=== PATIENT | male | born 1960 | race Caucasian/White ===

== ENCOUNTER 2016-03-21 20:00 | Inpatient (IN) | payer OTHER ==
[~2016-03-21] VITALS: Ht 175.3 cm; Wt 63.3 kg
[~2016-03-21 20:00] MED LIST: FLUO-1 PO; GABA100C4 PO; HYDR-3366 PO; HYDR-3533 PO; HYDR-3583 PO; PROT40TA PO; REME15TA PO; ROBA750T PO
[2016-03-21 20:04] VITALS: O2SAT 100
[2016-03-21] MEDS ORDERED: GENTAMICIN 80 MG PREMIX 100 ML ONE (20:06)
[2016-03-21] MEDS ORDERED: ONDANSETRON HCL 4 MG/2 ML VIAL ONE (20:09)
[2016-03-21] MEDS ORDERED: MORPHINE SULFATE 8 MG/ML INJ ONE ×2 (20:09→20:36)
[2016-03-21 20:24] LABS: I-STAT POTASSIUM 3.9 MMOL/L (3.5-4.9)
[2016-03-21 20:26] LABS: AUTOMATED NEUTROPHIL # 7.8 TH/MM3 (1.8-7.7); BASOPHIL # 0.1 TH/MM3 (0-0.2); EOSINOPHIL # 0.1 TH/MM3 (0-0.4); EOSINOPHIL % 1.2 % (0.0-4.0); HEMATOCRIT 27.7 % (39.0-51.0); HEMO FLAGS DIFF FINAL; LYMPH % 16.3 % (9.0-44.0); LYMPHOCYTE # 1.7 TH/MM3 (1.0-4.8); MEAN CELL VOLUME 84.4 FL (80.0-100.0); MEAN CORPUSCULAR HEMOGLOBIN 28.7 PG (27.0-34.0); MONO % 6.3 % (0.0-8.0); NEUT % 75.2 % (16.0-70.0); PLATELET COUNT 545 TH/MM3 (150-450); RED BLOOD COUNT 3.29 MIL/MM3 (4.50-5.90); RED CELL DISTRIBUTION WIDTH 14.4 % (11.6-17.2); WHITE BLOOD COUNT 10.4 TH/MM3 (4.0-11.0)
[2016-03-21 20:34] LABS: APTT (PATIENT) 21.2 SEC (24.3-30.1); INTERNATIONAL NORMALIZED RATIO 0.9 RATIO; PROTHROMBIN TIME - PATIENT 10.3 SEC (9.8-11.6)
[2016-03-21] MEDS ORDERED: IOHEXOL 350 MG/ML 10 ML VIAL (for RAD DIAG) IV ONE (20:39)
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
[2016-03-21] MEDS ORDERED: LIDOCAINE 1%/EPINEPHrine 1:100,000 SOLN 50 ML VIAL ONE (20:49)
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
[2016-03-21] MEDS ORDERED: ceFAZolin 2 GM PREMIX 50 ML IV STA (20:52)
[2016-03-21] MEDS ORDERED: DIPHTH/TETANUS/ACEL PERTUSSIS (BOOSTER) 0.5 ML VIAL/PFS IM ONE (20:52)
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
[2016-03-21] MEDS ORDERED: SODIUM CHLOR 0.9% 1000 ML INJ 1,000 ML IV ONE (21:00)
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
--- NOTE | 2016-03-21 21:47 | RADRPT ---
EXAM DATE/TIME: 03/21/2016 21:23 [facility] COMPARISON: CHEST SINGLE AP, March 21, 2016, 19:56. INDICATIONS : Left sided chest tube placement. MEDICAL HISTORY : None. SURGICAL HISTORY : None. ENCOUNTER: Initial ACUITY: 1 day PAIN SCORE: 10/10 LOCATION: Left chest FINDINGS: There is a comminuted fracture of the proximal right humerus inclusive of the head without dislocatio n. There is a fracture of the mid left clavicle slightly offset one half bone width. Contiguous left rib fractures are noted ribs 2, 3, 4 and 5 with a left chest tube in place and no evidence of pneumot horax with subcutaneous emphysema along the left lateral chest wall. CONCLUSION: Right humerus and left clavicle fracture as well as contiguous 2 through 6 left posterior rib fractur es and subcutaneous emphysema with left chest tube in place and no pneumothorax Gopi Dumont MD on March 21, 2016 at 21:44 Board Certified Radiologist. This report was verified electronically.
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
[2016-03-21 22:00] VITALS: BP 135/81; PULSE 108; RESP 34; TEMP 97.7; O2SAT 100
[2016-03-21] MEDS: SODIUM CHLOR 0.9% 1000 ML INJ 1,000 ML IV SCH (22:16)
[2016-03-21] MEDS ORDERED: SODIUM CHLORIDE 0.9% FLUSH 5 ML FLUSH IVF PRN (22:30)
[2016-03-21] MEDS ORDERED: MISCELLANEOUS NURSING INFORMATION XX SCH (22:30)
[2016-03-21] MEDS ORDERED: CHLORHEXIDINE GLUCONATE 2 % 1 PACK (2 CLOTHS) TOP PRN (22:30)
[2016-03-21] MEDS ORDERED: ENALAPRILAT 1.25 MG/ML VIAL IV PRN (22:30)
[2016-03-21] MEDS ORDERED: MAGNESIUM HYDROXIDE SUSP 30 ML CUP PO PRN (22:30)
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
[2016-03-21] MEDS: PANTOPRAZOLE SODIUM 40 MG VIAL IVP SCH (23:00)
[2016-03-21] MEDS ORDERED: GENTAMICIN SULFATE 80 MG/2 ML VIAL ONE (23:15)
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
[2016-03-22] VITALS (16 sets, daily range): BP systolic 104–153; BP diastolic 59–93; PULSE 89–114; RESP 14–18; TEMP 96.2–98.5; O2SAT 95–100
--- NOTE | 2016-03-22 00:33 | PD.ORT.PN ---
Subjective Subjective Remarks History reviewed Patient examined Objective Vitals Vital Signs Date Time Temp Pulse Resp B/P Pulse Ox O2 Delivery O2 Flow Rate FiO2 03/21/16 22:00 97.7 108 34 135/81 100 03/21/16 22:00 108 Result Diagram: 03/21/162000 Other Results Laboratory Tests Test 03/21/16 20:01 Prothrombin Time 10.3 SEC (9.8-11.6) Prothromb Time International 0.9 RATIO Ratio Imaging Last 24 hours Impressions Thoracic Spine CT 03/21/162027 Signed Impressions: Service Date/Time: Monday, March 21, 2016 20:39 - CONCLUSION: Intact thoracic spine. Contiguous left rib fractures #2 through 8 posteriorly Gopi Dumont MD Maxillofacial CT 03/21/162027 Signed Impressions: Service Date/Time: Monday, March 21, 2016 20:36 - CONCLUSION: Extensive fractures of all king of the maxillary sinuses And the nasal bone and ala inclusive of extension into the hard palate. There is a slightly depressed fracture of the medial floor of the left orbit and nondepressed fracture left zygomatic arch. Admixture of air and fluid noted in the maxillary sinuses and ethmoid air cells. Intraorbital contents are normal and base of the skull appears intact with normal intracranial contents Gopi Dumont MD Lumbar Spine CT 03/21/162027 Signed Impressions: Service Date/Time: Monday, March 21, 2016 20:39 - CONCLUSION: Nondisplaced fracture transverse process left L5 and left sacrum. Degenerative disc disease L3-S1. Gopi Dumont MD Pelvis X-Ray 03/21/162012 Signed Impressions: Service Date/Time: Monday, March 21, 2016 19:56 - CONCLUSION: Fracture left sacrum appreciated. Remainder the pelvis is intact with fractures of the pelvis better appreciated on CT scan Gopi Dumont MD Head CT 03/21/162012 Signed Impressions: Service Date/Time: Monday, March 21, 2016 20:30 - CONCLUSION: Intact calvarium. Normal intracranial contents. Facial fractures as described on the facial bone CT Gopi Dumont MD Chest X-Ray 03/21/162012 Signed Impressions: Service Date/Time: Monday, March 21, 2016 19:56 - CONCLUSION: Slightly off set fracture posterior left fourth rib and probably contiguous third and fifth ribs with no pneumothorax Gopi Dumont MD Chest CT 03/21/162012 Signed Impressions: Service Date/Time: Monday, March 21, 2016 20:39 - CONCLUSION: Contiguous left posterior rib fractures #2 through 8 with associated pleural thickening and parenchymal contusion. In the mid to upper right chest anteriorly there is a 1.3 cm pneumothorax without tension . Left chest subcutaneous emphysema Fracture of the proximal right humerus and mid left clavicle additionally appreciated. Gopi Dumont MD Cervical Spine CT 03/21/162012 Signed Impressions: Service Date/Time: Monday, March 21, 2016 20:30 - CONCLUSION: Degenerative changes of the cervical spine. Fractures acute left ribs numbered 2 and 3 posteriorly Gopi Dumont MD Abdomen/Pelvis CT 03/21/162012 Signed Impressions: Service Date/Time: Monday, March 21, 2016 20:39 - CONCLUSION: Multiple fractures inclusive of left inferior superior pubic ramus as well as transverse process and left L5 and left sacrum. Lower chest demonstrates fracture of left rib #8 posteriorly and a small anterior pneumothorax. Intra-abdominal and pelvic contents are normal Gopi Dumont MD Assessment & Plan Problem List: (1) Open right tibial fracture Plan: Recommend emergent Irrigation and Debridement of right open tibia fracture I will examine the right femur under anaesthesia I will examine the right shoulder under anaesthesia Possible internal or external fixation right tibial He will ultimately require multiple interventions Based on complexity of the multiple injuries will request consultation with Dr. Anatoly Hogan Informed consent obtained for above plan Timmy Kapadia MD Mar 22, 2016 00:33
[2016-03-22] MEDS: MULTIVITAMIN INJ 10 ML, THIAMINE INJ 100 MG, FOLIC ACID INJ 1 MG in SODIUM CHLORID 0.9%... IV SCH (01:00)
[2016-03-22] MEDS ORDERED: PROPOFOL 1000 MG/100 ML INJ 100 ML ONE (01:48)
--- NOTE | 2016-03-22 01:52 | PD.OP ---
Operative Report Preoperative Diagnosis: (1) Open right tibial fracture Postoperative Diagnosis: (1) Open right tibial fracture Procedure: Irrigation and [id number] of Right Grade 2 Open Tibial shaft Fracture Anesthesia: General Surgeon: Timmy Kapadia MD Air Analyst(s): staff Operation and Findings: see op report Timmy Kapadia MD Mar 22, 2016 01:52
[2016-03-22] MEDS ORDERED: MIDAZOLAM HCL 2 MG/2 ML VIAL ONE (02:25)
[2016-03-22] MEDS ORDERED: fentaNYL CITRATE 250 MCG/5 ML AMP ONE (02:26)
--- NOTE | 2016-03-22 02:28 | RADRPT ---
EXAM DATE/TIME: 03/22/2016 02:07 [facility] COMPARISON: CHEST SINGLE AP, March 21, 2016, 21:23. INDICATIONS : Endotracheal tube placement. MEDICAL HISTORY : Unobtainable. SURGICAL HISTORY : Unobtainable. ENCOUNTER: Subsequent ACUITY: 1 day PAIN SCORE: Non-responsive. LOCATION: Bilateral chest FINDINGS: Endotracheal tube tip in fracture position. Left chest tube without significant pneumothorax. Multipl e left posterior rib fractures. NG tip near GE junction. Subsegmental airspace disease in the left tavon ng. Subcutaneous air left chest wall. Left clavicle fracture. Proximal right humeral fracture. CONCLUSION: 1. Endotracheal tube tip in satisfactory position. NG tip near GE junction with side port in distal e sophagus. Left chest tube without significant pneumothorax. Naeem Peterson MD on March 22, 2016 at 2:25 Board Certified Radiologist. This report was verified electronically.
[2016-03-22] MEDS ORDERED: DO NOT ADM ANY ANTICOAGULANT DRUGS XX PRN ×2 (02:30→21:00)
[2016-03-22] MEDS ORDERED: PROPOFOL 1000 MG/100 ML IV SCH (02:45)
--- NOTE | 2016-03-22 02:55 | RADRPT ---
EXAM DATE/TIME: 03/22/2016 01:27 [facility] COMPARISON: No previous studies available for comparison. INDICATIONS : Irrigation and debridement of right distal tibia fibula fracture with closed reduction and splinting. MEDICAL HISTORY : None. SURGICAL HISTORY : None. ENCOUNTER: Subsequent ACUITY: 1 day PAIN SCORE: Non-responsive. LOCATION: Right ankle FINDINGS: Spot films reveal comminuted fractures of the distal tibia and fibula with overlying cast. CONCLUSION: 1. Comminuted fractures distal tibia and fibula. Naeem Peterson MD on March 22, 2016 at 2:54 Board Certified Radiologist. This report was verified electronically.
--- NOTE | 2016-03-22 02:56 | RADRPT ---
EXAM DATE/TIME: 03/22/2016 01:27 [facility] COMPARISON: No previous studies available for comparison. INDICATIONS : Closed reduction of a right shoulder fracture. MEDICAL HISTORY : None. SURGICAL HISTORY : None. ENCOUNTER: Subsequent ACUITY: 1 day PAIN SCORE: Non-responsive. LOCATION: Right shoulder FINDINGS: Spot film reveals comminuted fracture proximal humerus. No dislocation identified. CONCLUSION: 1. Proximal right humerus fracture. Naeem Peterson MD on March 22, 2016 at 2:54 Board Certified Radiologist. This report was verified electronically.
--- NOTE | 2016-03-22 02:58 | RADRPT ---
EXAM DATE/TIME: 03/22/2016 01:27 [facility] COMPARISON: No previous studies available for comparison. INDICATIONS : Closed reduction of right femur fracture done in the operating room. MEDICAL HISTORY : None. SURGICAL HISTORY : None. ENCOUNTER: Subsequent ACUITY: 1 day PAIN SCORE: Non-responsive. LOCATION: Right femur FINDINGS: Spot films reveal slight curvature of an intramedullary rhys traversing a proximal femoral shaft fract ure. There is also a comminuted distal femoral shaft fracture around the distal aspect of the rhys and screw. CONCLUSION: 1. Proximal and distal femoral shaft fractures as above with curvature of intramedullary rhys. Naeem Peterson MD on March 22, 2016 at 2:55 Board Certified Radiologist. This report was verified electronically.
[2016-03-22 03:40] LABS: BLOOD GAS BASE EXCESS -2.4 mmol/L (-2-2); BLOOD GAS CARBOXYHEMOGLOBIN 1.5 % (0-4); BLOOD GAS HCO3 23 mmol/L (22-26); BLOOD GAS O2 HGB SATURATION 90 % (90-100); BLOOD GAS OXYGEN CONTENT 9.3 Vol % (12.0-20.0); BLOOD GAS PCO2 48 mmHg (38-42); BLOOD GAS PO2 71 mmHg (61-120); BLOOD GAS TOTAL HGB 7.3 G/DL (12.0-16.0); CRITICAL VALUE NO; OXYGEN DEVICE VENTILATOR; TEMP CORR TO 98.6
[2016-03-22 03:41] LABS: DRAW SITE LT RADIAL; FIO2 50 %; NUMBER OF ARTERIAL PUNCTURES 1; STAT YES; ULNAR PULSE PRESENT; VENT SETTINGS PRVC/AC
[2016-03-22] MEDS ORDERED: fentaNYL 2,500 MCG/NS 250 ML IV SCH (03:45)
[2016-03-22] MEDS: CHLORHEXIDINE GLUCONATE 2 % 1 PACK (2 CLOTHS) TOP SCH (04:00)
[2016-03-22 04:06] LABS: AUTOMATED NEUTROPHIL # 13.6 TH/MM3 (1.8-7.7); BASOPHIL % 0.2 % (0.0-2.0); HEMATOCRIT 24.3 % (39.0-51.0); HEMO FLAGS DIFF FINAL; LYMPH % 1.5 % (9.0-44.0); LYMPHOCYTE # 0.2 TH/MM3 (1.0-4.8); MEAN CELL VOLUME 84.8 FL (80.0-100.0); MEAN CORPUSCULAR HEMOGLOBIN 28.5 PG (27.0-34.0); MEAN CORPUSCULAR HGB CONC 33.5 % (32.0-36.0); NEUT % 91.3 % (16.0-70.0); PLATELET COUNT 365 TH/MM3 (150-450); RED BLOOD COUNT 2.87 MIL/MM3 (4.50-5.90); RED CELL DISTRIBUTION WIDTH 14.3 % (11.6-17.2); WHITE BLOOD COUNT 14.9 TH/MM3 (4.0-11.0)
[2016-03-22 04:22] LABS: APTT (PATIENT) 23.6 SEC (24.3-30.1); PROTHROMBIN TIME - PATIENT 10.7 SEC (9.8-11.6)
[2016-03-22 04:26] LABS: ALT (GPT) 71 U/L (12-78); ANION GAP 8 MEQ/L (5-15); AST (GOT) 140 U/L (15-37); BICARBONATE 21.9 MEQ/L (21.0-32.0); BLOOD UREA NITROGEN 13 MG/DL (7-18); CHLORIDE 110 MEQ/L (98-107); GLOMERULAR FILTRATION RATE 65 ML/MIN (>89); MAGNESIUM 1.7 MG/DL (1.5-2.5); POTASSIUM 4.4 MEQ/L (3.5-5.1); SODIUM (NA) 140 MEQ/L (136-145)
[2016-03-22 04:28] LABS: ALKALINE PHOSPHATASE 74 U/L (45-117); TOTAL BILIRUBIN ADULT 0.3 MG/DL (0.2-1.0)
[2016-03-22] MEDS: CLINDAMYCIN INJ 600 MG in SODIUM CHLORIDE 0.9% INJ 100 ML IV SCH ×3 (05:00→20:56)
[2016-03-22] MEDS: ceFAZolin 2 GM PREMIX 50 ML IV SCH ×3 (05:00→20:08)
[2016-03-22] MEDS: RESP: ALBUTEROL 2.5 MG/IPRATROPIUM 0.5 MG NEB (SCH) NEB ×2 (05:37→20:31)
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
[2016-03-22] MEDS: CHLORHEXIDINE 0.12% (ORAL KIT) 15 ML CUP MT SCH ×2 (07:47→20:08)
[2016-03-22] MEDS: DOCUSATE SODIUM 100 MG CAP PO SCH ×2 (07:47→19:42)
--- NOTE | 2016-03-22 11:00 | RADRPT ---
EXAM DATE/TIME: 03/22/2016 10:08 [facility] COMPARISON: FEMUR RIGHT (1 VW), March 22, 2016, 1:27. INDICATIONS : Right knee fracture. RADIATION DOSE: 34.67 CTDIvol (mGy) ; Combined studies MEDICAL HISTORY : Non-responsive. SURGICAL HISTORY : Non-responsive. ENCOUNTER: Subsequent ACUITY: 2 days PAIN SCALE: Non-responsive LOCATION: Right knee TECHNIQUE: Volumetric scanning of the knee was performed. Using automated exposure control and adjustment of th e mA and/or kV according to patient size, radiation dose was kept as low as reasonably achievable to obtain optimal diagnostic quality images. FINDINGS: An intramedullary rhys is partially seen involving the distal femur. There is a solitary anchoring scr ew distally. There is a comminuted fracture of the distal femoral metaphysis which also includes the area of anchoring screw. No angulation or distraction of the fracture within the femur is observed. Comminuted impaction style fracture of the tibial plateaus noted. There is depression involving the l ateral tibial plateau of approximately 5 mm. The tibial plateau fractures do involve the articular pereyra rface of both tibial plateaus. Fractures also extend through the medial tibial spine. No angulation o r distraction. A proximal fibular metaphyseal fracture is obliquely oriented relative to the long axi s of the bone. No angulation or distraction observed. Hemarthrosis noted. CONCLUSION: 1. Comminuted fractures involving the distal femur, proximal tibia, and proximal fibula with hemarthr osis as detailed above. Ugo Glez Jr., MD on March 22, 2016 at 10:55 Board Certified Radiologist. This report was verified electronically.
--- NOTE | 2016-03-22 11:03 | RADRPT ---
EXAM DATE/TIME: 03/22/2016 10:08 [facility] COMPARISON: No previous studies available for comparison. INDICATIONS : Left knee fracture. RADIATION DOSE: 34.67 CTDIvol (mGy) ; Combined studies MEDICAL HISTORY : Non-responsive. SURGICAL HISTORY : Non-responsive. ENCOUNTER: Subsequent ACUITY: 2 days PAIN SCALE: Non-responsive LOCATION: Left knee TECHNIQUE: Volumetric scanning of the knee was performed. Using automated exposure control and adjustment of th e mA and/or kV according to patient size, radiation dose was kept as low as reasonably achievable to obtain optimal diagnostic quality images. FINDINGS: Motion artifact degrades the exam. The distal femur appears intact. Motion artifact generates some irregularity to the cortex but this i s artifactual in nature. No true fracture is felt present. There is a comminuted fracture involving the proximal tibial metaphysis. This extends along the later al cortical margin to the articular surface of the lateral tibial plateau. This is most pronounced in volving the anterior articular surface. No angulation or distraction is seen. Hemarthrosis is noted i nvolving the knee joint. Proximal fibula is intact. CONCLUSION: 1. Comminuted fracture involving the proximal tibial metaphysis with extension to the lateral tibial plateau. No angulation, depression or distraction. 2. Hemarthrosis. Ugo Glez Jr., MD on March 22, 2016 at 10:59 Board Certified Radiologist. This report was verified electronically.
[2016-03-22 12:48] LABS: HEMATOCRIT 23.3 % (39.0-51.0); MEAN CELL VOLUME 84.7 FL (80.0-100.0); MEAN CORPUSCULAR HEMOGLOBIN 27.6 PG (27.0-34.0); MEAN CORPUSCULAR HGB CONC 32.6 % (32.0-36.0); PLATELET COUNT 309 TH/MM3 (150-450); RED BLOOD COUNT 2.75 MIL/MM3 (4.50-5.90); RED CELL DISTRIBUTION WIDTH 14.6 % (11.6-17.2); REVIEW FLAG FINAL; WHITE BLOOD COUNT 11.6 TH/MM3 (4.0-11.0)
[2016-03-22] MEDS: SODIUM CHLOR 0.9% 1000 ML INJ 1,000 ML IV SCH ×2 (12:52→19:00)
[2016-03-22] MEDS: BACITRACIN TOP OINT 15 GM TUBE TOP SCH ×2 (12:52→21:00)
[2016-03-22] MEDS ORDERED: PROPOFOL 200 MG/20 ML AMP IV ONE ×2 (13:36→13:40)
[2016-03-22] MEDS ORDERED: LACTATED RINGER'S 1000 ML INJ 2,000 ML IV ONE ×2 (13:36→13:40)
[2016-03-22] MEDS ORDERED: PHENYLEPH/NS 1000 MCG/10 ML SYR IV ONE (13:40)
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
[2016-03-22] MEDS ORDERED: LIDOCAINE 2%/EPINEPHrine 1:100,000 30ML MDV INFIL ONE (17:41)
[2016-03-22] MEDS ORDERED: ARTIFICIAL TEARS OPTH OINT 3.5 APPLIC/3.5 GM TUBO ONE (17:42)
[2016-03-22] MEDS ORDERED: CHLORHEXIDINE GLUCONATE 0.12% 30 ML CUP MT ONE (18:12)
[2016-03-22] MEDS: PROPOFOL 1000 MG/100 ML INJ 100 ML IV SCH (20:08)
[2016-03-22] MEDS: methylPREDNISolone SOD SUCC 125 MG/2 ML VIAL IV SCH (20:59)
[2016-03-22 21:26] LABS: HEMATOCRIT 27.2 % (39.0-51.0); REVIEW FLAG FINAL
[2016-03-22] MEDS: PANTOPRAZOLE SODIUM 40 MG VIAL IVP SCH (23:48)
[2016-03-23] VITALS (14 sets, daily range): BP systolic 100–124; BP diastolic 60–72; PULSE 77–96; RESP 14; TEMP 96.8–100; O2SAT 94–100
[2016-03-23] MEDS: PROPOFOL 1000 MG/100 ML INJ 100 ML IV SCH ×5 (00:47→23:27)
[2016-03-23] MEDS: MULTIVITAMIN INJ 10 ML, THIAMINE INJ 100 MG, FOLIC ACID INJ 1 MG in SODIUM CHLORID 0.9%... IV SCH (00:47)
[2016-03-23] MEDS: methylPREDNISolone SOD SUCC 125 MG/2 ML VIAL IV SCH (02:48)
[2016-03-23] MEDS: fentaNYL DRIP 250 ML IV SCH (03:42)
[2016-03-23 03:57] LABS: HEMATOCRIT 26.5 % (39.0-51.0); HEMO FLAGS DIFF FINAL; LYMPH % 1.7 % (9.0-44.0); LYMPHOCYTE # 0.2 TH/MM3 (1.0-4.8); MEAN CELL VOLUME 83.7 FL (80.0-100.0); MEAN CORPUSCULAR HEMOGLOBIN 28.1 PG (27.0-34.0); MEAN CORPUSCULAR HGB CONC 33.5 % (32.0-36.0); MONO % 3.1 % (0.0-8.0); NEUT % 95.2 % (16.0-70.0); PLATELET COUNT 249 TH/MM3 (150-450); RED BLOOD COUNT 3.16 MIL/MM3 (4.50-5.90); RED CELL DISTRIBUTION WIDTH 14.8 % (11.6-17.2); WHITE BLOOD COUNT 9.5 TH/MM3 (4.0-11.0)
[2016-03-23] MEDS ORDERED: methylPREDNISolone ACETATE 80 MG/ML VIAL IM ONE (04:00)
[2016-03-23 04:19] LABS: BICARBONATE 26.9 MEQ/L (21.0-32.0); MAGNESIUM 1.8 MG/DL (1.5-2.5)
[2016-03-23 04:43] LABS: CALCIUM-PROTEIN CORRECTED 8.1 MG/DL (8.5-10.1)
[2016-03-23] MEDS: CHLORHEXIDINE GLUCONATE 2 % 1 PACK (2 CLOTHS) TOP SCH (05:26)
[2016-03-23] MEDS: SODIUM CHLOR 0.9% 1000 ML INJ 1,000 ML IV SCH ×3 (05:26→23:27)
[2016-03-23] MEDS: ceFAZolin 2 GM PREMIX 50 ML IV SCH ×2 (05:29→23:27)
[2016-03-23] MEDS: CLINDAMYCIN INJ 600 MG in SODIUM CHLORIDE 0.9% INJ 100 ML IV SCH ×3 (05:29→21:33)
[2016-03-23 06:08] LABS: BLOOD GAS BASE EXCESS 1.3 mmol/L (-2-2); BLOOD GAS CARBOXYHEMOGLOBIN 1.3 % (0-4); BLOOD GAS HCO3 26 mmol/L (22-26); BLOOD GAS METHEMOGLOBIN 0.7 % (0-2); BLOOD GAS O2 HGB SATURATION 94 % (90-100); BLOOD GAS OXYGEN CONTENT 12.4 Vol % (12.0-20.0); BLOOD GAS PCO2 47 mmHg (38-42); BLOOD GAS PO2 82 mmHg (61-120); BLOOD GAS TOTAL HGB 9.3 G/DL (12.0-16.0); CRITICAL VALUE NO; DRAW SITE LT RADIAL; FIO2 40 %; NUMBER OF ARTERIAL PUNCTURES 1; OXYGEN DEVICE VENTILATOR; STAT NO; TEMP CORR TO 98.6; ULNAR PULSE Y; VENT SETTINGS PRVC/AC
--- NOTE | 2016-03-23 06:24 | RADRPT ---
EXAM DATE/TIME: 03/23/2016 05:14 [facility] COMPARISON: CHEST SINGLE AP, March 22, 2016, 2:07. INDICATIONS : Short of breath. MEDICAL HISTORY : None. SURGICAL HISTORY : None. ENCOUNTER: Subsequent ACUITY: 2 days PAIN SCORE: Non-responsive. LOCATION: Bilateral chest FINDINGS: A single view of the chest demonstrates endotracheal tube in satisfactory position. NG enters stomach . Left chest tube without pneumothorax. Multiple left-sided rib fractures. Left clavicle and right hu meral fracture again noted. Mild basilar dependent airspace disease in the lungs. CONCLUSION: 1. Support apparatus unchanged. No definite pneumothorax. Improving subcutaneous air in left chest wa ll. Stable to slight increase in dependent and basilar airspace disease on the left. Naeem Peterson MD on March 23, 2016 at 6:21 Board Certified Radiologist. This report was verified electronically.
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
[2016-03-23] MEDS: CHLORHEXIDINE 0.12% (ORAL KIT) 15 ML CUP MT SCH ×2 (08:00→21:33)
[2016-03-23] MEDS: DOCUSATE SODIUM 100 MG CAP PO SCH ×2 (09:00→21:00)
[2016-03-23] MEDS: BACITRACIN TOP OINT 15 GM TUBE TOP SCH ×2 (09:00→21:33)
[2016-03-23] MEDS ORDERED: TRANEXAMIC ACID IV SCH (10:00)
[2016-03-23] MEDS ORDERED: SODIUM CHLORIDE 0.9% IV SCH (10:00)
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
[2016-03-23] MEDS ORDERED: ceFAZolin INJ 1,000 MG VIAL ONE (11:46)
[2016-03-23] MEDS ORDERED: PROPOFOL 200 MG/20 ML AMP IV ONE (12:00)
[2016-03-23] MEDS ORDERED: LACTATED RINGER'S 1000 ML INJ 1,000 ML IV ONE (12:00)
[2016-03-23] MEDS ORDERED: CLINDAMYCIN PHOS 600 MG/4 ML VIAL ONE (13:27)
[2016-03-23] MEDS ORDERED: fentaNYL CITRATE 250 MCG/5 ML AMP ONE ×2 (15:48→18:56)
[2016-03-23] MEDS ORDERED: ceFAZolin INJ 1,000 MG VIAL IV ONE (16:22)
[2016-03-23] MEDS: LACTATED RINGER'S 1000 ML INJ 1,000 ML IV SCH (18:15)
--- NOTE | 2016-03-23 18:47 | EKG ---
Date Performed: 03/22/2016 Time Performed: 11:47:58 PTAGE: 89 years EKG: Sinus rhythm . Normal ECG NO PREVIOUS TRACING DOCTOR: Abdiel Holland Interpretating Date/Time 03/23/2016 18:45:13
--- NOTE | 2016-03-23 18:54 | HHI.PR ---
Subjective Remarks POD1 s/p orif lefort 1 maxillary fx/ CR nasal bin fracture, stabilization of maxillary palatal fracture pt in OR when came to round this evening, pt's nurse stated pt in OR since 12 this afternoon Objective Vital Signs Date Time Temp Pulse Resp B/P Pulse Ox O2 Delivery O2 Flow Rate FiO2 03/23/16 11:40 100 100 03/23/16 11:13 95 40 03/23/16 08:00 92 03/23/16 08:00 40 03/23/16 08:00 98.4 92 14 113/66 94 03/23/16 07:55 95 40 03/23/16 06:00 93 03/23/16 04:07 96 40 03/23/16 04:00 100.0 94 14 124/71 96 03/23/16 04:00 94 03/23/16 04:00 40 03/23/16 02:00 96 03/23/16 01:21 95 40 03/23/16 00:00 40 03/23/16 00:00 88 03/23/16 00:00 99.5 88 14 100/60 97 03/22/16 22:07 99 40 03/22/16 22:00 89 03/22/16 20:30 100 40 03/22/16 20:00 98.3 89 15 104/59 99 03/22/16 20:00 89 03/22/16 20:00 40 I/O 03/22/16 03/22/16 03/22/16 03/23/16 03/23/16 03/23/16 07:00 15:00 23:00 07:00 15:00 23:00 Intake Total 1193 ml 1123 ml 1214 ml 1170 ml Output Total 850 ml 560 ml 675 ml 850 ml Balance 343 ml 563 ml 539 ml 320 ml Intake Oral 0 ml 0 ml 0 ml IV Total 913 ml 1123 ml 1214 ml 1170 ml Other 280 ml Output Urine Total 750 ml 500 ml 575 ml 850 ml Gastric Drainage Total 20 ml 25 ml 100 ml 0 ml Chest Tube Drainage Total 10 ml 10 ml 0 ml 0 ml Drainage Total 50 ml 25 ml 0 ml 0 ml Estimated Blood Loss 20 ml Result Diagram: 03/23/16 0325 03/23/16 0325 Assessment and Plan Assessment and Plan POD1 s/p orif lefort 1 maxillary fx/ CR nasal bin fracture, stabilization of maxillary palatal fracture pt still in OR when came to round this evening plan to eval pt tomorrow Dillon Romeo DMD Mar 23, 2016 18:54
--- NOTE | 2016-03-23 19:20 | RADRPT ---
EXAM DATE/TIME: 03/23/2016 14:08 [facility] COMPARISON: FEMUR RIGHT (AP & LAT/2VWS), March 21, 2016, 21:17. INDICATIONS : Right femur hardware removal with revision. MEDICAL HISTORY : Non-responsive SURGICAL HISTORY : Non-responsive ENCOUNTER: Subsequent ACUITY: 2 days PAIN SCORE: Non-responsive. LOCATION: Right femur FINDINGS: New intramedullary rhys has been placed in the femur. Alignment is anatomic. CONCLUSION: Anatomic alignment. Ifeanyi Suarez MD FACR on March 23, 2016 at 19:13 Board Certified Radiologist. This report was verified electronically.
--- NOTE | 2016-03-23 19:22 | RADRPT ---
EXAM DATE/TIME: 03/23/2016 14:08 [facility] COMPARISON: TIBIA/FIBULA RIGHT (AP/LAT), March 21, 2016, 19:56. INDICATIONS : ORIF right tibia/fibula. MEDICAL HISTORY : Non-responsive SURGICAL HISTORY : Non-responsive ENCOUNTER: Subsequent ACUITY: 1 day PAIN SCORE: Non-responsive. LOCATION: Right tibia/fibula FINDINGS: Intramedullary rhys is seen bridging the severely comminuted fracture of the distal tibia. Alignment i s anatomic. Fibular fracture is noted. Plate with screws is seen bridging the plateau fracture. CONCLUSION: Anatomic alignment. Ifeanyi Suarez MD FACR on March 23, 2016 at 19:15 Board Certified Radiologist. This report was verified electronically.
--- NOTE | 2016-03-23 19:23 | RADRPT ---
EXAM DATE/TIME: 03/23/2016 17:44 [facility] COMPARISON: TIBIA/FIBULA LEFT (AP/LAT), March 21, 2016, 19:56. INDICATIONS : ORIF left tibia/fibula. MEDICAL HISTORY : Non-responsive SURGICAL HISTORY : Non-responsive ENCOUNTER: Subsequent ACUITY: 2 days PAIN SCORE: Non-responsive. LOCATION: Left tibia/fibula FINDINGS: Intramedullary rhys is seen bridging the fracture of the midshaft of the tibia. Alignment is anatomic . CONCLUSION: Anatomic alignment. Ifeanyi Suarez MD FACR on March 23, 2016 at 19:15 Board Certified Radiologist. This report was verified electronically.
[2016-03-23] MEDS: RESP: ALBUTEROL 2.5 MG/IPRATROPIUM 0.5 MG NEB (SCH) NEB (20:10)
[2016-03-23 20:12] LABS: HEMATOCRIT 22.5 % (39.0-51.0); REVIEW FLAG FINAL
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
[2016-03-23] MEDS: GENTAMICIN 80 MG PREMIX 100 ML IV SCH (21:33)
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
[2016-03-23] MEDS: PANTOPRAZOLE SODIUM 40 MG VIAL IVP SCH (22:19)
[2016-03-24] VITALS (18 sets, daily range): BP systolic 96–147; BP diastolic 59–76; PULSE 77–114; RESP 11–16; TEMP 96.9–99.2; O2SAT 94–100
[2016-03-24] MEDS: MULTIVITAMIN INJ 10 ML, THIAMINE INJ 100 MG, FOLIC ACID INJ 1 MG in SODIUM CHLORID 0.9%... IV SCH (01:24)
[2016-03-24] MEDS: LACTATED RINGER'S 1000 ML INJ 1,000 ML IV SCH (03:22)
[2016-03-24] MEDS: CHLORHEXIDINE GLUCONATE 2 % 1 PACK (2 CLOTHS) TOP SCH (04:15)
[2016-03-24] MEDS: fentaNYL DRIP 250 ML IV SCH ×2 (04:21→14:14)
[2016-03-24] MEDS: GENTAMICIN 80 MG PREMIX 100 ML IV SCH ×3 (04:22→19:53)
[2016-03-24 04:31] LABS: AUTOMATED NEUTROPHIL # 7.7 TH/MM3 (1.8-7.7); BASOPHIL % 0.1 % (0.0-2.0); EOSINOPHIL % 0.1 % (0.0-4.0); LYMPH % 6.2 % (9.0-44.0); LYMPHOCYTE # 0.6 TH/MM3 (1.0-4.8); MEAN CELL VOLUME 84.3 FL (80.0-100.0); MEAN CORPUSCULAR HEMOGLOBIN 28.4 PG (27.0-34.0); MEAN CORPUSCULAR HGB CONC 33.7 % (32.0-36.0); MONO % 11.7 % (0.0-8.0); NEUT % 81.9 % (16.0-70.0); PLATELET COUNT 172 TH/MM3 (150-450); RED BLOOD COUNT 2.24 MIL/MM3 (4.50-5.90); RED CELL DISTRIBUTION WIDTH 14.5 % (11.6-17.2); WHITE BLOOD COUNT 9.4 TH/MM3 (4.0-11.0)
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
[2016-03-24 04:36] LABS: HEMO FLAGS DIFF FINAL
[2016-03-24 04:39] LABS: HEMATOCRIT 18.8 % (39.0-51.0)
[2016-03-24 04:55] LABS: BICARBONATE 27.5 MEQ/L (21.0-32.0); MAGNESIUM 2.2 MG/DL (1.5-2.5); POTASSIUM 5.9 MEQ/L (3.5-5.1)
[2016-03-24 05:16] LABS: CALCIUM-PROTEIN CORRECTED 8.4 MG/DL (8.5-10.1)
[2016-03-24 05:30] LABS: BLOOD GAS BASE EXCESS 4.1 mmol/L (-2-2); BLOOD GAS CARBOXYHEMOGLOBIN 1.4 % (0-4); BLOOD GAS HCO3 29 mmol/L (22-26); BLOOD GAS METHEMOGLOBIN 0.6 % (0-2); BLOOD GAS O2 HGB SATURATION 94 % (90-100); BLOOD GAS OXYGEN CONTENT 8.9 Vol % (12.0-20.0); BLOOD GAS PCO2 49 mmHg (38-42); BLOOD GAS PO2 81 mmHg (61-120); BLOOD GAS TOTAL HGB 6.6 G/DL (12.0-16.0); TEMP CORR TO 98.6
[2016-03-24 05:34] LABS: CRITICAL VALUE YES; OXYGEN DEVICE VENTILATOR
[2016-03-24] MEDS: CLINDAMYCIN INJ 600 MG in SODIUM CHLORIDE 0.9% INJ 100 ML IV SCH ×3 (05:34→20:12)
[2016-03-24 05:35] LABS: DRAW SITE LT RADIAL; FIO2 40 %; NUMBER OF ARTERIAL PUNCTURES 1; STAT NO; ULNAR PULSE PRESENT
[2016-03-24] MEDS ORDERED: HYDR-3366 PO (06:10)
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
--- NOTE | 2016-03-24 07:02 | PD.ORT.PN ---
Subjective Subjective Remarks Pt has right femoral shaft fracture, right distal femur supracondylar fracture, bilateral tibia plateau fractures, closed left tibial shaft fracture, open right distal tibia fracture, and right proximal humerus fracture. Patient intubated and sedated Objective Vitals Vital Signs Date Time Temp Pulse Resp B/P Pulse Ox O2 Delivery O2 Flow Rate FiO2 03/24/16 06:00 87 03/24/16 05:45 98.1 03/24/16 05:10 96.9 03/24/16 04:09 99 40 03/24/16 04:00 89 03/24/16 04:00 98.1 89 14 109/65 99 03/24/16 04:00 40 03/24/16 00:52 99 40 03/24/16 00:00 40 03/24/16 00:00 97.1 81 14 96/59 99 03/24/16 00:00 77 03/23/16 22:05 98 40 03/23/16 22:00 77 03/23/16 20:11 94 40 03/23/16 20:00 96.8 81 14 114/72 95 03/23/16 20:00 40 03/23/16 20:00 81 03/23/16 11:40 100 100 03/23/16 11:13 95 40 03/23/16 08:00 92 03/23/16 08:00 40 03/23/16 08:00 98.4 92 14 113/66 94 03/23/16 07:55 95 40 I/O 03/23/16 03/23/16 03/23/16 03/24/16 03/24/16 03/24/16 07:00 15:00 23:00 07:00 15:00 23:00 Intake Total 1170 ml 618 ml 2591 ml Output Total 850 ml 300 ml 300 ml Balance 320 ml 318 ml 2291 ml IV Total 1170 ml 618 ml 2091 ml Packed Cells 500 ml Output Urine Total 850 ml 300 ml 300 ml Gastric Drainage Total 0 ml 0 ml 0 ml Chest Tube Drainage Total 0 ml 0 ml 0 ml Drainage Total 0 ml 0 ml 0 ml # Bowel Movements 0 Result Diagram: 03/24/1640603/24/16406 Imaging Last 24 hours Impressions Thoracic Spine CT 03/21/162027 Signed Impressions: Service Date/Time: Monday, March 21, 2016 20:39 - CONCLUSION: Intact thoracic spine. Contiguous left rib fractures #2 through 8 posteriorly Gopi Dumont MD Maxillofacial CT 03/21/162027 Signed Impressions: Service Date/Time: Monday, March 21, 2016 20:36 - CONCLUSION: Extensive fractures of all king of the maxillary sinuses And the nasal bone and ala inclusive of extension into the hard palate. There is a slightly depressed fracture of the medial floor of the left orbit and nondepressed fracture left zygomatic arch. Admixture of air and fluid noted in the maxillary sinuses and ethmoid air cells. Intraorbital contents are normal and base of the skull appears intact with normal intracranial contents Gopi Dumont MD Lumbar Spine CT 03/21/162027 Signed Impressions: Service Date/Time: Monday, March 21, 2016 20:39 - CONCLUSION: Nondisplaced fracture transverse process left L5 and left sacrum. Degenerative disc disease L3-S1. Gopi Dumont MD Pelvis X-Ray 03/21/162012 Signed Impressions: Service Date/Time: Monday, March 21, 2016 19:56 - CONCLUSION: Fracture left sacrum appreciated. Remainder the pelvis is intact with fractures of the pelvis better appreciated on CT scan Gopi Dumont MD Head CT 03/21/162012 Signed Impressions: Service Date/Time: Monday, March 21, 2016 20:30 - CONCLUSION: Intact calvarium. Normal intracranial contents. Facial fractures as described on the facial bone CT Gopi Dumont MD Chest X-Ray 03/21/162012 Signed Impressions: Service Date/Time: Monday, March 21, 2016 19:56 - CONCLUSION: Slightly off set fracture posterior left fourth rib and probably contiguous third and fifth ribs with no pneumothorax Gopi Dumont MD Chest CT 03/21/162012 Signed Impressions: Service Date/Time: Monday, March 21, 2016 20:39 - CONCLUSION: Contiguous left posterior rib fractures #2 through 8 with associated pleural thickening and parenchymal contusion. In the mid to upper right chest anteriorly there is a 1.3 cm pneumothorax without tension . Left chest subcutaneous emphysema Fracture of the proximal right humerus and mid left clavicle additionally appreciated. Gopi Dumont MD Cervical Spine CT 03/21/162012 Signed Impressions: Service Date/Time: Monday, March 21, 2016 20:30 - CONCLUSION: Degenerative changes of the cervical spine. Fractures acute left ribs numbered 2 and 3 posteriorly Gopi Dumont MD Abdomen/Pelvis CT 03/21/162012 Signed Impressions: Service Date/Time: Monday, March 21, 2016 20:39 - CONCLUSION: Multiple fractures inclusive of left inferior superior pubic ramus as well as transverse process and left L5 and left sacrum. Lower chest demonstrates fracture of left rib #8 posteriorly and a small anterior pneumothorax. Intra-abdominal and pelvic contents are normal Gopi Dumont MD Objective Remarks RUE: +sling. hand is warm to touch. Patient has swelling of right arm.. RLE: +swelling of knee. Right calf has swelling, calf compartments are soft.+ short leg splint. +vac with good seal. LLE: Clean dry dressings in place. Calf compartments soft. Good capillary refill in toes. LUE: good passive motion of shoulder, elbow, wrist. in restraints. good cap refill. Assessment & Plan Problem List: (1) Open right tibial fracture Plan: Recommend emergent Irrigation and Debridement of right open tibia fracture I will examine the right femur under anaesthesia I will examine the right shoulder under anaesthesia Possible internal or external fixation right tibial He will ultimately require multiple interventions Based on complexity of the multiple injuries will request consultation with Dr. Anatoly Hogan Informed consent obtained for above plan Assessment and Plan 1) Right Proximal Humerus Fracture-needs ORIF 2) Right Segmental Periprosthetic Femoral Shaft Fracture status post IM nail 3) Right Distal Tibial Shaft Fracture status post IM nail 03/23/16 4) Left Tibial Shaft Fracture status post IM nail 03/23/16 5) bilateral tibial plateaus status post ORIF on 03/23/16 -will plan for surgery next week for ORIF right proximal humerus -consents -NWB RUE,BLE. -maintain splints and vac on right leg--change vac on Tuesday Anatoly Hogan MD Mar 24, 2016 07:02
--- NOTE | 2016-03-24 07:47 | HHI.PR ---
Subjective Remarks POD s/p orif lefort 1 maxillary fx/ CR nasal bin fracture, stabilization of maxillary palatal fracture intubated/sedated Objective Vital Signs Date Time Temp Pulse Resp B/P Pulse Ox O2 Delivery O2 Flow Rate FiO2 03/24/16 06:00 87 03/24/16 05:45 98.1 03/24/16 05:10 96.9 03/24/16 04:09 99 40 03/24/16 04:00 89 03/24/16 04:00 98.1 89 14 109/65 99 03/24/16 04:00 40 03/24/16 00:52 99 40 03/24/16 00:00 40 03/24/16 00:00 97.1 81 14 96/59 99 03/24/16 00:00 77 03/23/16 22:05 98 40 03/23/16 22:00 77 03/23/16 20:11 94 40 03/23/16 20:00 96.8 81 14 114/72 95 03/23/16 20:00 40 03/23/16 20:00 81 03/23/16 11:40 100 100 03/23/16 11:13 95 40 03/23/16 08:00 92 03/23/16 08:00 40 03/23/16 08:00 98.4 92 14 113/66 94 03/23/16 07:55 95 40 I/O 03/23/16 03/23/16 03/23/16 03/24/16 03/24/16 03/24/16 06:59 14:59 22:59 06:59 14:59 22:59 Intake Total 2384 ml 618 ml 2591 ml Output Total 1525 ml 300 ml 300 ml Balance 859 ml 318 ml 2291 ml Intake Oral 0 ml IV Total 2384 ml 618 ml 2091 ml Packed Cells 500 ml Output Urine Total 1425 ml 300 ml 300 ml Gastric Drainage Total 100 ml 0 ml 0 ml Chest Tube Drainage Total 0 ml 0 ml 0 ml Drainage Total 0 ml 0 ml 0 ml # Bowel Movements 0 Result Diagram: 03/24/1640603/24/16406 Objective Remarks nasal splint in position intraorally arch bars in place wound margins stable/hemostatic exam limited to ET tube oral facial edema reducing Assessment and Plan Assessment and Plan POD2 s/p orif lefort 1 maxillary fx/ CR nasal bin fracture, stabilization of maxillary palatal fracture pt stable form OMS standpoint re call when extubated for placement of elastics Dillon Romeo DMD Mar 24, 2016 07:47
[2016-03-24] MEDS: CHLORHEXIDINE 0.12% (ORAL KIT) 15 ML CUP MT SCH ×2 (08:00→19:56)
[2016-03-24] MEDS: ceFAZolin 2 GM PREMIX 50 ML IV SCH ×3 (08:11→23:11)
[2016-03-24] MEDS: BACITRACIN TOP OINT 15 GM TUBE TOP SCH ×2 (08:12→20:19)
[2016-03-24] MEDS: DOCUSATE SODIUM 100 MG CAP PO SCH ×2 (08:12→20:21)
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
[2016-03-24 10:45] LABS: REVIEW FLAG FINAL
[2016-03-24] MEDS ORDERED: LACTULOSE SYRUP 20 GM/30 ML CUP PO ONE (16:00)
[2016-03-24] MEDS: ENOXAPARIN SODIUM 30 MG/0.3 ML SYRINGE SQ SCH (17:40)
[2016-03-24] MEDS: PROPOFOL 1000 MG/100 ML INJ 100 ML IV SCH ×3 (17:42→20:18)
[2016-03-24] MEDS: RESP: ALBUTEROL 2.5 MG/IPRATROPIUM 0.5 MG NEB (SCH) NEB (19:37)
[2016-03-24] MEDS: PANTOPRAZOLE SODIUM 40 MG VIAL IVP SCH (23:11)
[2016-03-25] VITALS (15 sets, daily range): BP systolic 112–144; BP diastolic 64–79; PULSE 89–111; RESP 12–17; TEMP 99–100; O2SAT 94–100
[2016-03-25] MEDS: fentaNYL DRIP 250 ML IV SCH ×2 (01:46→15:23)
[2016-03-25] MEDS: PROPOFOL 1000 MG/100 ML INJ 100 ML IV SCH ×3 (03:02→21:40)
[2016-03-25] MEDS: GENTAMICIN 80 MG PREMIX 100 ML IV SCH ×3 (03:02→19:30)
[2016-03-25] MEDS: CHLORHEXIDINE GLUCONATE 2 % 1 PACK (2 CLOTHS) TOP SCH (03:30)
[2016-03-25 04:04] LABS: AUTOMATED NEUTROPHIL # 7.3 TH/MM3 (1.8-7.7); BASOPHIL % 0.3 % (0.0-2.0); EOSINOPHIL % 0.1 % (0.0-4.0); HEMATOCRIT 24.4 % (39.0-51.0); HEMO FLAGS DIFF FINAL; LYMPHOCYTE # 0.8 TH/MM3 (1.0-4.8); MEAN CELL VOLUME 84.6 FL (80.0-100.0); MEAN CORPUSCULAR HGB CONC 35.4 % (32.0-36.0); MONO % 9.9 % (0.0-8.0); NEUT % 80.7 % (16.0-70.0); PLATELET COUNT 180 TH/MM3 (150-450); RED BLOOD COUNT 2.89 MIL/MM3 (4.50-5.90); RED CELL DISTRIBUTION WIDTH 14.5 % (11.6-17.2)
[2016-03-25 04:33] LABS: BICARBONATE 29.8 MEQ/L (21.0-32.0); MAGNESIUM 1.9 MG/DL (1.5-2.5); POTASSIUM 3.5 MEQ/L (3.5-5.1)
[2016-03-25] MEDS: ENOXAPARIN SODIUM 30 MG/0.3 ML SYRINGE SQ SCH ×2 (04:36→16:42)
[2016-03-25] MEDS: CLINDAMYCIN INJ 600 MG in SODIUM CHLORIDE 0.9% INJ 100 ML IV SCH ×3 (04:36→19:30)
[2016-03-25 04:46] LABS: CALCIUM-PROTEIN CORRECTED 8.4 MG/DL (8.5-10.1)
--- NOTE | 2016-03-25 05:20 | RADRPT ---
EXAM DATE/TIME: 03/25/2016 04:50 [facility] COMPARISON: CHEST SINGLE AP, March 24, 2016, 3:13. INDICATIONS : Evaluate for pulmonary disease. MEDICAL HISTORY : None. SURGICAL HISTORY : None. ENCOUNTER: Subsequent ACUITY: 4 - 6 days PAIN SCORE: Non-responsive. LOCATION: Bilateral chest FINDINGS: A single view of the chest demonstrates endotracheal tube in satisfactory position. NG coiled in stom ach. Left chest tube without significant pneumothorax. Multiple left rib fractures and left clavicle fracture. Left greater than right mostly basilar airspace disease. CONCLUSION: 1. Increase in left-sided airspace disease since March 24. Left chest tube, endotracheal tube and nasogastric tube unchanged. Naeem Peterson MD on March 25, 2016 at 5:15 Board Certified Radiologist. This report was verified electronically.
[2016-03-25 05:41] LABS: BLOOD GAS BASE EXCESS 5.9 mmol/L (-2-2); BLOOD GAS CARBOXYHEMOGLOBIN 1.3 % (0-4); BLOOD GAS HCO3 30 mmol/L (22-26); BLOOD GAS METHEMOGLOBIN 0.8 % (0-2); BLOOD GAS O2 HGB SATURATION 96 % (90-100); BLOOD GAS OXYGEN CONTENT 11.6 Vol % (12.0-20.0); BLOOD GAS PCO2 49 mmHg (38-42); BLOOD GAS PO2 102 mmHg (61-120); BLOOD GAS TOTAL HGB 8.5 G/DL (12.0-16.0); TEMP CORR TO 98.6
[2016-03-25 05:42] LABS: CRITICAL VALUE NO; DRAW SITE LT RADIAL; FIO2 50 %; NUMBER OF ARTERIAL PUNCTURES 1; OXYGEN DEVICE VENTILATOR; STAT NO; ULNAR PULSE PRESENT; VENT SETTINGS PRVC/AC
--- NOTE | 2016-03-25 07:27 | PD.ORT.PN ---
Subjective Subjective Remarks POD 2 s/p Bilateral tibias and right femur s/p right proximal humerus fx intubated/sedated Objective Vitals Vital Signs Date Time Temp Pulse Resp B/P Pulse Ox O2 Delivery O2 Flow Rate FiO2 03/25/16 04:15 97 50 03/25/16 04:00 99.3 96 17 131/72 98 03/25/16 04:00 50 03/25/16 01:06 98 50 03/25/16 00:00 40 03/25/16 00:00 99.3 90 14 115/67 99 03/24/16 20:00 40 03/24/16 20:00 99.0 114 16 147/76 99 03/24/16 19:38 100 40 03/24/16 18:00 89 03/24/16 16:00 99.1 90 14 130/74 95 03/24/16 16:00 90 03/24/16 16:00 50 03/24/16 15:45 95 50 03/24/16 14:40 50 03/24/16 14:00 112 03/24/16 12:00 108 03/24/16 12:00 99.1 108 11 141/74 95 03/24/16 12:00 50 03/24/16 11:23 94 40 03/24/16 10:25 40 03/24/16 10:00 93 03/24/16 09:16 95 40 03/24/16 08:00 99.2 90 14 110/65 94 03/24/16 08:00 40 03/24/16 08:00 86 I/O 03/24/16 03/24/16 03/24/16 03/25/16 03/25/16 03/25/16 07:00 15:00 23:00 07:00 15:00 23:00 Intake Total 2591 ml 995 ml 977 ml 1063 ml Output Total 300 ml 375 ml 370 ml 420 ml Balance 2291 ml 620 ml 607 ml 643 ml IV Total 2091 ml 935 ml 695 ml 674 ml Tube Feeding 132 ml 289 ml Packed Cells 500 ml Other 60 ml 150 ml 100 ml Output Urine Total 300 ml 375 ml 370 ml 350 ml Gastric Drainage Total 0 ml Chest Tube Drainage Total 0 ml 0 ml 0 ml 70 ml Drainage Total 0 ml 0 ml 0 ml 0 ml # Bowel Movements 0 0 0 0 Result Diagram: 03/25/16 0327 03/25/16 0327 Imaging Last 24 hours Impressions Thoracic Spine CT 03/21/162027 Signed Impressions: Service Date/Time: Monday, March 21, 2016 20:39 - CONCLUSION: Intact thoracic spine. Contiguous left rib fractures #2 through 8 posteriorly Gopi Dumont MD Maxillofacial CT 03/21/162027 Signed Impressions: Service Date/Time: Monday, March 21, 2016 20:36 - CONCLUSION: Extensive fractures of all king of the maxillary sinuses And the nasal bone and ala inclusive of extension into the hard palate. There is a slightly depressed fracture of the medial floor of the left orbit and nondepressed fracture left zygomatic arch. Admixture of air and fluid noted in the maxillary sinuses and ethmoid air cells. Intraorbital contents are normal and base of the skull appears intact with normal intracranial contents Gopi Dumont MD Lumbar Spine CT 03/21/162027 Signed Impressions: Service Date/Time: Monday, March 21, 2016 20:39 - CONCLUSION: Nondisplaced fracture transverse process left L5 and left sacrum. Degenerative disc disease L3-S1. Gopi Dumont MD Pelvis X-Ray 03/21/162012 Signed Impressions: Service Date/Time: Monday, March 21, 2016 19:56 - CONCLUSION: Fracture left sacrum appreciated. Remainder the pelvis is intact with fractures of the pelvis better appreciated on CT scan Gopi Dumont MD Head CT 03/21/162012 Signed Impressions: Service Date/Time: Monday, March 21, 2016 20:30 - CONCLUSION: Intact calvarium. Normal intracranial contents. Facial fractures as described on the facial bone CT Gopi Dumont MD Chest X-Ray 03/21/162012 Signed Impressions: Service Date/Time: Monday, March 21, 2016 19:56 - CONCLUSION: Slightly off set fracture posterior left fourth rib and probably contiguous third and fifth ribs with no pneumothorax Gopi Dumont MD Chest CT 03/21/162012 Signed Impressions: Service Date/Time: Monday, March 21, 2016 20:39 - CONCLUSION: Contiguous left posterior rib fractures #2 through 8 with associated pleural thickening and parenchymal contusion. In the mid to upper right chest anteriorly there is a 1.3 cm pneumothorax without tension . Left chest subcutaneous emphysema Fracture of the proximal right humerus and mid left clavicle additionally appreciated. Gopi Dumont MD Cervical Spine CT 03/21/162012 Signed Impressions: Service Date/Time: Monday, March 21, 2016 20:30 - CONCLUSION: Degenerative changes of the cervical spine. Fractures acute left ribs numbered 2 and 3 posteriorly Gopi Dumont MD Abdomen/Pelvis CT 03/21/162012 Signed Impressions: Service Date/Time: Monday, March 21, 2016 20:39 - CONCLUSION: Multiple fractures inclusive of left inferior superior pubic ramus as well as transverse process and left L5 and left sacrum. Lower chest demonstrates fracture of left rib #8 posteriorly and a small anterior pneumothorax. Intra-abdominal and pelvic contents are normal Gopi Dumont MD Objective Remarks RUE: +sling. hand is warm to touch. Patient has swelling of right arm.. RLE: +swelling of knee. Right calf has swelling, calf compartments are soft.+ short leg splint. +vac with good seal. LLE: Clean dry dressings in place. Calf compartments soft. Good capillary refill in toes. LUE: good passive motion of shoulder, elbow, wrist. in restraints. good cap refill. Assessment & Plan Problem List: (1) Open right tibial fracture Plan: Recommend emergent Irrigation and Debridement of right open tibia fracture I will examine the right femur under anaesthesia I will examine the right shoulder under anaesthesia Possible internal or external fixation right tibial He will ultimately require multiple interventions Based on complexity of the multiple injuries will request consultation with Dr. Anatoly Hogan Informed consent obtained for above plan Assessment and Plan POD 2 1) Right Proximal Humerus Fracture-needs ORIF 2) Right Segmental Periprosthetic Femoral Shaft Fracture status post IM nail 3) Right Distal Tibial Shaft Fracture status post IM nail 03/23/16 4) Left Tibial Shaft Fracture status post IM nail 03/23/16 5) bilateral tibial plateaus status post ORIF on 03/23/16 -will plan for surgery next week for ORIF right proximal humerus -consents -ADRIAN GRIFFITHS. -maintain splints and vac on right leg--change vac on Tuesday Fracisco Haynes Mar 25, 2016 07:27
[2016-03-25] MEDS: CHLORHEXIDINE 0.12% (ORAL KIT) 15 ML CUP MT SCH ×2 (08:00→19:21)
[2016-03-25] MEDS: ceFAZolin 2 GM PREMIX 50 ML IV SCH ×3 (08:28→23:26)
[2016-03-25] MEDS: LACTULOSE SYRUP 20 GM/30 ML CUP PO SCH (08:28)
[2016-03-25] MEDS: DOCUSATE SODIUM 100 MG CAP PO SCH ×2 (08:28→19:29)
[2016-03-25] MEDS: BACITRACIN TOP OINT 15 GM TUBE TOP SCH ×2 (08:28→19:37)
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
[2016-03-25] MEDS ORDERED: FUROSEMIDE 40 MG/4 ML VIAL IV PUSH ONE (11:00)
[2016-03-25] MEDS: oxyCODONE HCL ORAL CONC 20 MG/ML SYRINGE PO SCH ×3 (13:00→19:30)
--- NOTE | 2016-03-25 15:39 | RADRPT ---
EXAM DATE/TIME: 03/25/2016 15:09 [facility] COMPARISON: CHEST SINGLE AP, March 25, 2016, 4:50. INDICATIONS : Post chest tube removal. MEDICAL HISTORY : None. SURGICAL HISTORY : None. ENCOUNTER: Initial ACUITY: 4 - 6 days PAIN SCORE: Non-responsive. LOCATION: Bilateral chest FINDINGS: The left chest tube has been removed. There is no evidence of recurrent pneumothorax. Stable left l elaine patchiness is noted. The right lung is clear. The endotracheal tube is approximately 6 cm above the yuriy. A nasogastric tube is coiled in the stomach. Multiple fractures involving the left ribc age, left mid clavicle and right proximal humerus are again noted. The heart is stable. CONCLUSION: 1. No pneumothorax status post removal of left chest tube. 2. Persistent left lung scattered patchiness. 3. Endotracheal tube and nasogastric tube remain in good positions. 4. Multiple fractures are stable. Osiel Howard MD on March 25, 2016 at 15:27 Board Certified Radiologist. This report was verified electronically.
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
[2016-03-25] MEDS: RESP: ALBUTEROL 2.5 MG/IPRATROPIUM 0.5 MG NEB (SCH) NEB (20:15)
--- NOTE | 2016-03-25 21:04 | MP ---
cc: MARJAN ALEJANDRE DATE OF SURGERY 03/21/16 1960 PREOPERATIVE DIAGNOSIS Left pneumothorax POSTOPERATIVE DIAGNOSIS Left pneumothorax PROCEDURE 28-Honduran chest tube. SURGEON Kip Alejandre MD ANESTHESIA 1% lidocaine PROCEDURE IN DETAIL In the trauma bay, the left chest was prepped and draped sterilely. At the anterior axillary line, 1% lidocaine with epinephrine was used to anesthetize the skin and subcutaneous tissue at the fourth interspace. A skin incision was made using blunt dissection. The intercostal muscle was encountered. The chest cavity was then entered using a Rochelle clamp. A 28-Honduran chest tube was then placed. It was secured with 2-0 silk suture and connected to the Pleurovac. An occlusive dressing was placed. The patient tolerated the procedure. MD SEAN Matos/ /9:08 PM /8:59 PM
[2016-03-25] MEDS: PANTOPRAZOLE SODIUM 40 MG VIAL IVP SCH (22:35)
[2016-03-26] VITALS (17 sets, daily range): BP systolic 119–150; BP diastolic 63–93; PULSE 90–130; RESP 14–28; TEMP 97.5–100; O2SAT 92–100
[2016-03-26] MEDS: PROPOFOL 1000 MG/100 ML INJ 100 ML IV SCH ×2 (01:12→07:54)
[2016-03-26] MEDS: oxyCODONE HCL ORAL CONC 20 MG/ML SYRINGE PO SCH ×7 (01:12→20:55)
[2016-03-26] MEDS: GENTAMICIN 80 MG PREMIX 100 ML IV SCH ×2 (03:27→11:40)
[2016-03-26] MEDS: CHLORHEXIDINE GLUCONATE 2 % 1 PACK (2 CLOTHS) TOP SCH ×2 (03:27→22:50)
[2016-03-26] MEDS: CLINDAMYCIN INJ 600 MG in SODIUM CHLORIDE 0.9% INJ 100 ML IV SCH (04:10)
[2016-03-26] MEDS: ENOXAPARIN SODIUM 30 MG/0.3 ML SYRINGE SQ SCH ×2 (04:34→16:56)
[2016-03-26 06:17] LABS: AUTOMATED NEUTROPHIL # 8.1 TH/MM3 (1.8-7.7); BASOPHIL % 0.3 % (0.0-2.0); EOSINOPHIL # 0.1 TH/MM3 (0-0.4); EOSINOPHIL % 0.7 % (0.0-4.0); HEMATOCRIT 24.9 % (39.0-51.0); HEMO FLAGS DIFF FINAL; LYMPH % 7.7 % (9.0-44.0); LYMPHOCYTE # 0.8 TH/MM3 (1.0-4.8); MEAN CELL VOLUME 83.7 FL (80.0-100.0); MEAN CORPUSCULAR HGB CONC 34.6 % (32.0-36.0); MONO % 9.2 % (0.0-8.0); NEUT % 82.1 % (16.0-70.0); PLATELET COUNT 183 TH/MM3 (150-450); RED BLOOD COUNT 2.98 MIL/MM3 (4.50-5.90); RED CELL DISTRIBUTION WIDTH 14.5 % (11.6-17.2); WHITE BLOOD COUNT 9.9 TH/MM3 (4.0-11.0)
[2016-03-26 06:35] LABS: BICARBONATE 36.1 MEQ/L (21.0-32.0)
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
[2016-03-26] MEDS: ceFAZolin 2 GM PREMIX 50 ML IV SCH ×2 (07:54→15:16)
[2016-03-26] MEDS: LACTULOSE SYRUP 20 GM/30 ML CUP PO SCH (07:54)
[2016-03-26] MEDS: CHLORHEXIDINE 0.12% (ORAL KIT) 15 ML CUP MT SCH ×2 (07:54→20:05)
[2016-03-26] MEDS: DOCUSATE SODIUM 100 MG CAP PO SCH ×2 (07:54→20:05)
[2016-03-26] MEDS: FUROSEMIDE 20 MG/2 ML VIAL IV PUSH SCH (07:54)
[2016-03-26] MEDS: BACITRACIN TOP OINT 15 GM TUBE TOP SCH ×2 (07:55→20:05)
[2016-03-26] MEDS: fentaNYL DRIP 250 ML IV SCH (08:00)
--- NOTE | 2016-03-26 08:43 | PD.ORT.PN ---
Subjective Subjective Remarks intubated and stable Objective Vitals Vital Signs Date Time Temp Pulse Resp B/P Pulse Ox O2 Delivery O2 Flow Rate FiO2 03/26/16 05:11 14 03/26/16 04:08 93 40 03/26/16 04:00 99.4 91 14 128/66 100 03/26/16 04:00 40 03/26/16 01:09 100 40 03/26/16 00:00 40 03/26/16 00:00 99.5 90 14 119/64 99 03/25/16 20:15 98 40 03/25/16 20:00 100.0 105 14 126/65 96 03/25/16 20:00 40 03/25/16 18:00 111 03/25/16 16:03 97 40 03/25/16 16:00 106 03/25/16 16:00 99.3 106 12 144/72 96 03/25/16 16:00 50 03/25/16 14:00 106 03/25/16 13:08 12 03/25/16 12:00 50 03/25/16 12:00 102 03/25/16 12:00 99.0 102 12 137/79 95 03/25/16 11:49 94 40 03/25/16 10:05 40 03/25/16 10:00 104 03/25/16 08:34 100 40 I/O 03/25/16 03/25/16 03/25/16 03/26/16 03/26/16 03/26/16 07:00 15:00 23:00 07:00 15:00 23:00 Intake Total 1063 ml 1479 ml 1039 ml 1108 ml Output Total 420 ml 2500 ml 1100 ml 500 ml Balance 643 ml -1021 ml -61 ml 608 ml IV Total 674 ml 912 ml 476 ml 733 ml Tube Feeding 289 ml 467 ml 413 ml 225 ml Other 100 ml 100 ml 150 ml 150 ml Output Urine Total 350 ml 2500 ml 1100 ml 500 ml Chest Tube Drainage Total 70 ml 0 ml Drainage Total 0 ml 0 ml 0 ml 0 ml # Bowel Movements 0 0 0 0 Result Diagram: 03/26/16 0540 03/26/16 0540 Imaging Last 72 hours Impressions Chest X-Ray 03/26/16 0600 Signed Impressions: Service Date/Time: Saturday, March 26, 2016 05:52 - CONCLUSION: 1. Persistent medial left lower lung consolidation. 2. No pneumothorax seen. Ugo Kim MD Chest X-Ray 03/25/16 0600 Signed Impressions: Service Date/Time: March 04:50 - CONCLUSION: 1. Increase in left-sided airspace disease since March 24. Left chest tube, endotracheal tube and nasogastric tube unchanged. Naeem Peterson MD Chest X-Ray 03/25/16 0000 Signed Impressions: Service Date/Time: March 15:09 - CONCLUSION: 1. No pneumothorax status post removal of left chest tube. 2. Persistent left lung scattered patchiness. 3. Endotracheal tube and nasogastric tube remain in good positions. 4. Multiple fractures are stable. Osiel Howard MD Chest X-Ray 03/24/16 0600 Signed Impressions: Service Date/Time: Thursday, March 24, 2016 03:13 - CONCLUSION: 1. Support apparatus unchanged. Left chest tube without pneumothorax. Mostly basilar airspace disease remains present, slightly increased on the right since 03/23. Naeem Peterson MD Last 24 hours Impressions [address]acic Spine CT 03/21/162027 Signed Impressions: Service Date/Time: Monday, March 21, 2016 20:39 - CONCLUSION: Intact thoracic spine. Contiguous left rib fractures #2 through 8 posteriorly Gopi Dumont MD Maxillofacial CT 03/21/162027 Signed Impressions: Service Date/Time: Monday, March 21, 2016 20:36 - CONCLUSION: Extensive fractures of all king of the maxillary sinuses And the nasal bone and ala inclusive of extension into the hard palate. There is a slightly depressed fracture of the medial floor of the left orbit and nondepressed fracture left zygomatic arch. Admixture of air and fluid noted in the maxillary sinuses and ethmoid air cells. Intraorbital contents are normal and base of the skull appears intact with normal intracranial contents Gopi Dumont MD Lumbar Spine CT 03/21/162027 Signed Impressions: Service Date/Time: Monday, March 21, 2016 20:39 - CONCLUSION: Nondisplaced fracture transverse process left L5 and left sacrum. Degenerative disc disease L3-S1. Gopi Dumont MD Pelvis X-Ray 03/21/162012 Signed Impressions: Service Date/Time: Monday, March 21, 2016 19:56 - CONCLUSION: Fracture left sacrum appreciated. Remainder the pelvis is intact with fractures of the pelvis better appreciated on CT scan Gopi Dumont MD Head CT 03/21/162012 Signed Impressions: Service Date/Time: Monday, March 21, 2016 20:30 - CONCLUSION: Intact calvarium. Normal intracranial contents. Facial fractures as described on the facial bone CT Gopi Dumont MD Chest X-Ray 03/21/162012 Signed Impressions: Service Date/Time: Monday, March 21, 2016 19:56 - CONCLUSION: Slightly off set fracture posterior left fourth rib and probably contiguous third and fifth ribs with no pneumothorax Gopi Dumont MD Chest CT 03/21/162012 Signed Impressions: Service Date/Time: Monday, March 21, 2016 20:39 - CONCLUSION: Contiguous left posterior rib fractures #2 through 8 with associated pleural thickening and parenchymal contusion. In the mid to upper right chest anteriorly there is a 1.3 cm pneumothorax without tension . Left chest subcutaneous emphysema Fracture of the proximal right humerus and mid left clavicle additionally appreciated. Gopi Dumont MD Cervical Spine CT 03/21/162012 Signed Impressions: Service Date/Time: Monday, March 21, 2016 20:30 - CONCLUSION: Degenerative changes of the cervical spine. Fractures acute left ribs numbered 2 and 3 posteriorly Gopi Dumont MD Abdomen/Pelvis CT 03/21/162012 Signed Impressions: Service Date/Time: Monday, March 21, 2016 20:39 - CONCLUSION: Multiple fractures inclusive of left inferior superior pubic ramus as well as transverse process and left L5 and left sacrum. Lower chest demonstrates fracture of left rib #8 posteriorly and a small anterior pneumothorax. Intra-abdominal and pelvic contents are normal Gopi Dumont MD Objective Remarks RUE: +sling. hand is warm to touch. Patient has swelling of right arm.. RLE: dressing taken down, incisions healing well. new wound vac applied and splinted. calf compartments are soft.+vac with good seal. good distal pulses and cap refills LLE: incisions healing well. New dressing applied Calf compartments soft. Good capillary refill in toes. LUE: good passive motion of shoulder, elbow, wrist. in restraints. good cap refill. Assessment & Plan Problem List: (1) Plan: Recommend emergent Irrigation and Debridement of right open tibia fracture I will examine the right femur under anaesthesia I will examine the right shoulder under anaesthesia Possible internal or external fixation right tibial He will ultimately require multiple interventions Based on complexity of the multiple injuries will request consultation with Dr. Anatoly Hogan Informed consent obtained for above plan Assessment and Plan POD 3 1) Right Proximal Humerus Fracture-needs ORIF 2) Right Segmental Periprosthetic Femoral Shaft Fracture status post IM nail 3) Right Distal Tibial Shaft Fracture status post IM nail 03/23/16 4) Left Tibial Shaft Fracture status post IM nail 03/23/16 5) bilateral tibial plateaus status post ORIF on 03/23/16 6)left clavicle fracture 7+) left sacrum fracture and inferior/superior rami fractures -will plan for surgery next week for ORIF right proximal humerus NPO after MN on Tuesday night hold lovenox after Tuesday's dose -consents -NWB RUMarkell,BLE. maintain sling R UE -maintain splint, CKS and vac on right leg daily dressing changes L LE and R LE above short leg splint TRISTON PICKETT PA-C Mar 26, 2016 08:43
[2016-03-26] MEDS: POTASSIUM CHLOR 20 MEQ PREMIX 100 ML IV SCH ×4 (10:05→15:16)
--- NOTE | 2016-03-26 14:31 | HHI.PR ---
Subjective Remarks POD 4 s/p orif lefort 1 maxillary fx/ CR nasal bin fracture, stabilization of maxillary palatal fracture extubated today following commands,, brothers at bedside Objective Vital Signs Date Time Temp Pulse Resp B/P Pulse Ox O2 Delivery O2 Flow Rate FiO2 03/26/16 12:00 130 03/26/16 12:00 97.5 130 28 142/93 97 03/26/16 11:00 98 Partial Rebreather 15.00 03/26/16 10:20 92 Venturi Mask 6.00 50 03/26/16 10:20 92 Venturi Mask 6 50 03/26/16 10:00 130 03/26/16 09:19 95 40 03/26/16 09:00 40 03/26/16 08:57 Venturi Mask 50 40 03/26/16 08:57 97 40 03/26/16 08:00 91 03/26/16 08:00 40 03/26/16 08:00 99.1 110 18 121/63 96 03/26/16 05:11 14 03/26/16 04:08 93 40 03/26/16 04:00 99.4 91 14 128/66 100 03/26/16 04:00 40 03/26/16 01:09 100 40 03/26/16 00:00 40 03/26/16 00:00 99.5 90 14 119/64 99 03/25/16 20:15 98 40 03/25/16 20:00 100.0 105 14 126/65 96 03/25/16 20:00 40 03/25/16 18:00 111 03/25/16 16:03 97 40 03/25/16 16:00 106 03/25/16 16:00 99.3 106 12 144/72 96 03/25/16 16:00 50 I/O 03/25/16 03/25/16 03/25/16 03/26/16 03/26/16 03/26/16 07:00 15:00 23:00 07:00 15:00 23:00 Intake Total 1063 ml 1479 ml 1039 ml 1108 ml Output Total 420 ml 2500 ml 1100 ml 500 ml Balance 643 ml -1021 ml -61 ml 608 ml IV Total 674 ml 912 ml 476 ml 733 ml Tube Feeding 289 ml 467 ml 413 ml 225 ml Other 100 ml 100 ml 150 ml 150 ml Output Urine Total 350 ml 2500 ml 1100 ml 500 ml Chest Tube Drainage Total 70 ml 0 ml Drainage Total 0 ml 0 ml 0 ml 0 ml # Bowel Movements 0 0 0 0 Result Diagram: 03/26/1640 03/26/16539 Objective Remarks nasal splint in position intraorally arch bars in place wound margins well approximated, sutures intact/hemostatic bite in occlusion, repeatable maxilla stable, no false point of motion maxilla facial edema reducing tissues pink and well perfused Assessment and Plan Assessment and Plan POD4 s/p orif lefort 1 maxillary fx/ CR nasal bin fracture, stabilization of maxillary palatal fracture pt stable form OMS standpoint nasal bone/maxilla and bite stable oral hygiene with Peridex swabs will plan for placement of elastics Dillon Romeo DMD Mar 26, 2016 14:31
[2016-03-26] MEDS: MORPHINE SULFATE 4 MG/ML INJ IV PUSH PRN ×5 (15:15→23:45)
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
[2016-03-26] MEDS: ONDANSETRON HCL 4 MG/2 ML VIAL IV PRN ×2 (20:05→22:04)
[2016-03-27] VITALS (15 sets, daily range): BP systolic 146–168; BP diastolic 66–89; PULSE 88–108; RESP 16–24; TEMP 98–99.8; O2SAT 92–100
[2016-03-27] MEDS: PANTOPRAZOLE SODIUM 40 MG VIAL IVP SCH ×2 (01:08→21:09)
[2016-03-27] MEDS: oxyCODONE HCL ORAL CONC 20 MG/ML SYRINGE PO SCH ×7 (01:09→21:09)
[2016-03-27] MEDS: ENOXAPARIN SODIUM 30 MG/0.3 ML SYRINGE SQ SCH ×2 (05:53→17:11)
[2016-03-27] MEDS: CHLORHEXIDINE 0.12% (ORAL KIT) 15 ML CUP MT SCH ×2 (08:00→20:00)
[2016-03-27] MEDS: DOCUSATE SODIUM 100 MG CAP PO SCH ×2 (08:14→21:09)
[2016-03-27] MEDS: LACTULOSE SYRUP 20 GM/30 ML CUP PO SCH (08:14)
[2016-03-27] MEDS: FUROSEMIDE 20 MG/2 ML VIAL IV PUSH SCH (08:14)
[2016-03-27] MEDS: BACITRACIN TOP OINT 15 GM TUBE TOP SCH ×2 (08:15→21:00)
[2016-03-27] MEDS: MORPHINE SULFATE 4 MG/ML INJ IV PUSH PRN ×5 (08:15→22:50)
--- NOTE | 2016-03-27 10:53 | HHI.PR ---
Subjective Remarks POD 5 s/p orif lefort 1 maxillary fx/ CR nasal bin fracture, stabilization of maxillary palatal fracture AAOx3, NAD reports hx of "crooked nose" following commands,, nurse at bedside Objective Vital Signs Date Time Temp Pulse Resp B/P Pulse Ox O2 Delivery O2 Flow Rate FiO2 03/27/16 08:00 99.8 100 20 152/66 99 03/27/16 08:00 100 03/27/16 06:00 88 03/27/16 04:00 98 03/27/16 04:00 98.7 98 24 157/89 100 03/27/16 02:09 22 03/27/16 02:00 108 03/27/16 00:00 106 03/27/16 00:00 98.6 103 24 168/68 94 03/26/16 23:50 32 03/26/16 22:00 102 03/26/16 20:00 98.5 108 24 150/74 100 03/26/16 20:00 100 Non-Rebreather 13.00 03/26/16 20:00 108 03/26/16 18:00 108 03/26/16 16:00 105 03/26/16 16:00 100.0 105 24 150/82 99 03/26/16 14:00 108 03/26/16 13:00 108 03/26/16 12:00 130 03/26/16 12:00 97.5 130 28 142/93 97 03/26/16 11:00 98 Partial Rebreather 15.00 I/O 03/26/16 03/26/16 03/26/16 03/27/16 03/27/16 03/27/16 07:00 15:00 23:00 07:00 15:00 23:00 Intake Total 1108 ml 831 ml 618 ml 420 ml Output Total 500 ml 1475 ml 500 ml 800 ml Balance 608 ml -644 ml 118 ml -380 ml Intake Oral 120 ml IV Total 733 ml 670 ml 618 ml 300 ml Tube Feeding 225 ml 161 ml Other 150 ml Output Urine Total 500 ml 1475 ml 500 ml 800 ml Stool Total 0 ml Drainage Total 0 ml 0 ml 0 ml 0 ml # Bowel Movements 0 0 1 Result Diagram: 03/26/1640 03/26/1640 Objective Remarks nasal splint not present, was present yesterday O2 bag ventilation - moisture form the air could have dislodged/loosened the nasal splint nasal bones stable/aligned - no tenderness, slight deviation of nasal bridge with pt reports he has a history of intraorally arch bars in place wound margins well approximated, sutures intact/hemostatic bite in occlusion, repeatable maxilla stable, no false point of motion maxilla facial edema reducing tissues pink and well perfused Assessment and Plan Assessment and Plan POD5 s/p orif lefort 1 maxillary fx/ CR nasal bin fracture, stabilization of maxillary palatal fracture pt stable form OMS standpoint nasal bone/maxilla and bite stable nasal [place] splint not present - possibly due to moisture from the O2 mask oral hygiene with Peridex swabs elastics placed to stabilize maxilla/bite ok for clear liquids, no drinking with straw Dillon Romeo DMD Mar 27, 2016 10:53
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
--- NOTE | 2016-03-27 22:57 | PD.ORT.PN ---
Subjective Subjective Remarks Alert and awake. No complaints. Objective Vitals Vital Signs Date Time Temp Pulse Resp B/P Pulse Ox O2 Delivery O2 Flow Rate FiO2 03/27/16 21:36 96 Venturi Mask 8.00 50 03/27/16 18:00 103 03/27/16 16:00 98.0 102 22 154/70 97 03/27/16 16:00 102 03/27/16 15:56 92 Nasal Cannula 6.00 03/27/16 14:00 100 03/27/16 12:00 102 03/27/16 12:00 98.2 102 16 146/77 99 03/27/16 10:00 93 03/27/16 08:00 99.8 100 20 152/66 99 03/27/16 08:00 100 03/27/16 07:00 100 Venturi Mask 6.00 50 03/27/16 06:00 88 03/27/16 04:00 98 03/27/16 04:00 98.7 98 24 157/89 100 03/27/16 02:09 22 03/27/16 02:00 108 03/27/16 00:00 106 03/27/16 00:00 98.6 103 24 168/68 94 03/26/16 23:50 32 I/O 03/26/16 03/26/16 03/26/16 03/27/16 03/27/16 03/27/16 06:59 14:59 22:59 06:59 14:59 22:59 Intake Total 1108 ml 831 ml 618 ml 420 ml 440 ml Output Total 500 ml 1475 ml 500 ml 800 ml 1600 ml Balance 608 ml -644 ml 118 ml -380 ml -1160 ml Intake Oral 120 ml 360 ml IV Total 733 ml 670 ml 618 ml 300 ml 80 ml Tube Feeding 225 ml 161 ml Other 150 ml Output Urine Total 500 ml 1475 ml 500 ml 800 ml 1600 ml Stool Total 0 ml Drainage Total 0 ml 0 ml 0 ml 0 ml 0 ml # Bowel Movements 0 0 1 0 Result Diagram: 03/26/16 0540 03/26/16 0540 Imaging Last 72 hours Impressions Chest X-Ray 03/26/16 0600 Signed Impressions: Service Date/Time: Saturday, March 26, 2016 05:52 - CONCLUSION: 1. Persistent medial left lower lung consolidation. 2. No pneumothorax seen. Ugo Kim MD Chest X-Ray 03/25/16 0600 Signed Impressions: Service Date/Time: March 04:50 - CONCLUSION: 1. Increase in left-sided airspace disease since March 24. Left chest tube, endotracheal tube and nasogastric tube unchanged. Naeem Peterson MD Chest X-Ray 03/25/16 0000 Signed Impressions: Service Date/Time: March 15:09 - CONCLUSION: 1. No pneumothorax status post removal of left chest tube. 2. Persistent left lung scattered patchiness. 3. Endotracheal tube and nasogastric tube remain in good positions. 4. Multiple fractures are stable. Osiel Howard MD Chest X-Ray 03/24/16 0600 Signed Impressions: Service Date/Time: Thursday, March 24, 2016 03:13 - CONCLUSION: 1. Support apparatus unchanged. Left chest tube without pneumothorax. Mostly basilar airspace disease remains present, slightly increased on the right since 03/23. Naeem Peterson MD Last 24 hours Impressions Thoracic Spine CT 03/21/162027 Signed Impressions: Service Date/Time: Monday, March 21, 2016 20:39 - CONCLUSION: Intact thoracic spine. Contiguous left rib fractures #2 through 8 posteriorly Gopi Dumont MD Maxillofacial CT 03/21/162027 Signed Impressions: Service Date/Time: Monday, March 21, 2016 20:36 - CONCLUSION: Extensive fractures of all king of the maxillary sinuses And the nasal bone and ala inclusive of extension into the hard palate. There is a slightly depressed fracture of the medial floor of the left orbit and nondepressed fracture left zygomatic arch. Admixture of air and fluid noted in the maxillary sinuses and ethmoid air cells. Intraorbital contents are normal and base of the skull appears intact with normal intracranial contents Gopi Dumont MD Lumbar Spine CT 03/21/162027 Signed Impressions: Service Date/Time: Monday, March 21, 2016 20:39 - CONCLUSION: Nondisplaced fracture transverse process left L5 and left sacrum. Degenerative disc disease L3-S1. Gopi Dumont MD Pelvis X-Ray 03/21/162012 Signed Impressions: Service Date/Time: Monday, March 21, 2016 19:56 - CONCLUSION: Fracture left sacrum appreciated. Remainder the pelvis is intact with fractures of the pelvis better appreciated on CT scan Gopi Dumont MD Head CT 03/21/162012 Signed Impressions: Service Date/Time: Monday, March 21, 2016 20:30 - CONCLUSION: Intact calvarium. Normal intracranial contents. Facial fractures as described on the facial bone CT Gopi Dumont MD Chest X-Ray 03/21/162012 Signed Impressions: Service Date/Time: Monday, March 21, 2016 19:56 - CONCLUSION: Slightly off set fracture posterior left fourth rib and probably contiguous third and fifth ribs with no pneumothorax Gopi Dumont MD Chest CT 03/21/162012 Signed Impressions: Service Date/Time: Monday, March 21, 2016 20:39 - CONCLUSION: Contiguous left posterior rib fractures #2 through 8 with associated pleural thickening and parenchymal contusion. In the mid to upper right chest anteriorly there is a 1.3 cm pneumothorax without tension . Left chest subcutaneous emphysema Fracture of the proximal right humerus and mid left clavicle additionally appreciated. Gopi Dumont MD Cervical Spine CT 03/21/162012 Signed Impressions: Service Date/Time: Monday, March 21, 2016 20:30 - CONCLUSION: Degenerative changes of the cervical spine. Fractures acute left ribs numbered 2 and 3 posteriorly Gopi Dumont MD Abdomen/Pelvis CT 03/21/162012 Signed Impressions: Service Date/Time: Monday, March 21, 2016 20:39 - CONCLUSION: Multiple fractures inclusive of left inferior superior pubic ramus as well as transverse process and left L5 and left sacrum. Lower chest demonstrates fracture of left rib #8 posteriorly and a small anterior pneumothorax. Intra-abdominal and pelvic contents are normal Gopi Dumont MD Objective Remarks RUE: +sling. hand is warm to touch. Patient has swelling of right arm.. RLE: dressing CDI. calf compartments are soft.+vac with good seal. good distal pulses and cap refills LLE: dressing CDI. Calf compartments soft. Good capillary refill in toes. LUE: good passive motion of shoulder, elbow, wrist. in restraints. good cap refill. Assessment & Plan Problem List: (1) Plan: Recommend emergent Irrigation and Debridement of right open tibia fracture I will examine the right femur under anaesthesia I will examine the right shoulder under anaesthesia Possible internal or external fixation right tibial He will ultimately require multiple interventions Based on complexity of the multiple injuries will request consultation with Dr. Anatoly Hogan Informed consent obtained for above plan Assessment and Plan POD 4 1) Right Proximal Humerus Fracture-needs ORIF 2) Right Segmental Periprosthetic Femoral Shaft Fracture status post IM nail 3) Right Distal Tibial Shaft Fracture status post IM nail 03/23/16 4) Left Tibial Shaft Fracture status post IM nail 03/23/16 5) bilateral tibial plateaus status post ORIF on 03/23/16 6)left clavicle fracture 7+) left sacrum fracture and inferior/superior rami fractures -will plan for surgery next week for ORIF right proximal humerus NPO after MN on Tuesday night hold lovenox after Tuesday's dose -consents -NWB RUE,BLE. maintain sling R UE -maintain splint, CKS and vac on right leg daily dressing changes L LE and R LE above short leg splint Wali Siddiqui Jr., MD Mar 27, 2016 22:57
[2016-03-28] VITALS (13 sets, daily range): BP systolic 146–158; BP diastolic 67–82; PULSE 90–110; RESP 18–20; TEMP 98.5–98.9; O2SAT 95–100
[2016-03-28] MEDS: oxyCODONE HCL ORAL CONC 20 MG/ML SYRINGE PO SCH ×6 (00:14→20:19)
[2016-03-28] MEDS: MORPHINE SULFATE 4 MG/ML INJ IV PUSH PRN ×7 (01:55→22:55)
[2016-03-28] MEDS: CHLORHEXIDINE GLUCONATE 2 % 1 PACK (2 CLOTHS) TOP SCH (04:00)
[2016-03-28] MEDS: ENOXAPARIN SODIUM 30 MG/0.3 ML SYRINGE SQ SCH ×2 (04:47→17:27)
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
[2016-03-28] MEDS: FUROSEMIDE 20 MG/2 ML VIAL IV PUSH SCH (08:40)
[2016-03-28] MEDS: DOCUSATE SODIUM 100 MG CAP PO SCH ×2 (08:41→20:19)
[2016-03-28] MEDS: CHLORHEXIDINE 0.12% (ORAL KIT) 15 ML CUP MT SCH ×2 (08:45→20:00)
[2016-03-28] MEDS: BACITRACIN TOP OINT 15 GM TUBE TOP SCH ×2 (08:45→20:19)
[2016-03-28] MEDS: LACTULOSE SYRUP 20 GM/30 ML CUP PO SCH (08:59)
--- NOTE | 2016-03-28 11:01 | PD.ORT.PN ---
Subjective Subjective Remarks Patient c/o pain to lower extremities and chest. Objective Vitals Vital Signs Date Time Temp Pulse Resp B/P Pulse Ox O2 Delivery O2 Flow Rate FiO2 03/28/16 10:48 95 Nasal Cannula 6.00 03/28/16 08:00 97 03/28/16 08:00 98.9 92 18 149/70 95 03/28/16 08:00 95 Nasal Cannula 6.00 03/28/16 06:00 90 03/28/16 04:00 98.5 98 18 156/70 95 03/28/16 04:00 98 03/28/16 02:00 110 03/28/16 00:00 98.7 98 18 158/67 96 03/28/16 00:00 92 03/27/16 22:00 94 03/27/16 21:36 96 Venturi Mask 8.00 50 03/27/16 20:00 104 03/27/16 20:00 98.5 104 24 168/77 95 03/27/16 18:00 103 03/27/16 16:00 98.0 102 22 154/70 97 03/27/16 16:00 102 03/27/16 15:56 92 Nasal Cannula 6.00 03/27/16 14:00 100 03/27/16 12:00 102 03/27/16 12:00 98.2 102 16 146/77 99 I/O 03/27/16 03/27/16 03/27/16 03/28/16 03/28/16 03/28/16 07:00 15:00 23:00 07:00 15:00 23:00 Intake Total 420 ml 440 ml 340 ml 320 ml Output Total 800 ml 1600 ml 1600 ml 800 ml Balance -380 ml -1160 ml -1260 ml -480 ml Intake Oral 120 ml 360 ml 240 ml 240 ml IV Total 300 ml 80 ml 100 ml 80 ml Output Urine Total 800 ml 1600 ml 1600 ml 800 ml Stool Total 0 ml 0 ml Drainage Total 0 ml 0 ml 0 ml 0 ml # Bowel Movements 0 Result Diagram: 03/26/16 0540 03/26/16 0540 Imaging Last 72 hours Impressions Chest X-Ray 03/26/16 0600 Signed Impressions: Service Date/Time: Saturday, March 26, 2016 05:52 - CONCLUSION: 1. Persistent medial left lower lung consolidation. 2. No pneumothorax seen. Ugo Kim MD Chest X-Ray 03/25/16 0600 Signed Impressions: Service Date/Time: March 04:50 - CONCLUSION: 1. Increase in left-sided airspace disease since March 24. Left chest tube, endotracheal tube and nasogastric tube unchanged. Naeem Peterson MD Chest X-Ray 03/25/16 0000 Signed Impressions: Service Date/Time: March 15:09 - CONCLUSION: 1. No pneumothorax status post removal of left chest tube. 2. Persistent left lung scattered patchiness. 3. Endotracheal tube and nasogastric tube remain in good positions. 4. Multiple fractures are stable. Osiel Howard MD Chest X-Ray 03/24/16 0600 Signed Impressions: Service Date/Time: Thursday, March 24, 2016 03:13 - CONCLUSION: 1. Support apparatus unchanged. Left chest tube without pneumothorax. Mostly basilar airspace disease remains present, slightly increased on the right since 03/23. Naeem Peterson MD Last 24 hours Impressions [address] Spine CT 03/21/162027 Signed Impressions: Service Date/Time: Monday, March 21, 2016 20:39 - CONCLUSION: Intact thoracic spine. Contiguous left rib fractures #2 through 8 posteriorly Gopi Dumont MD Maxillofacial CT 03/21/162027 Signed Impressions: Service Date/Time: Monday, March 21, 2016 20:36 - CONCLUSION: Extensive fractures of all king of the maxillary sinuses And the nasal bone and ala inclusive of extension into the hard palate. There is a slightly depressed fracture of the medial floor of the left orbit and nondepressed fracture left zygomatic arch. Admixture of air and fluid noted in the maxillary sinuses and ethmoid air cells. Intraorbital contents are normal and base of the skull appears intact with normal intracranial contents Gopi Dumont MD Lumbar Spine CT 03/21/162027 Signed Impressions: Service Date/Time: Monday, March 21, 2016 20:39 - CONCLUSION: Nondisplaced fracture transverse process left L5 and left sacrum. Degenerative disc disease L3-S1. Gopi Dumont MD Pelvis X-Ray 03/21/162012 Signed Impressions: Service Date/Time: Monday, March 21, 2016 19:56 - CONCLUSION: Fracture left sacrum appreciated. Remainder the pelvis is intact with fractures of the pelvis better appreciated on CT scan Gopi Dumont MD Head CT 03/21/162012 Signed Impressions: Service Date/Time: Monday, March 21, 2016 20:30 - CONCLUSION: Intact calvarium. Normal intracranial contents. Facial fractures as described on the facial bone CT Gopi Dumont MD Chest X-Ray 03/21/162012 Signed Impressions: Service Date/Time: Monday, March 21, 2016 19:56 - CONCLUSION: Slightly off set fracture posterior left fourth rib and probably contiguous third and fifth ribs with no pneumothorax Gopi Dumont MD Chest CT 03/21/162012 Signed Impressions: Service Date/Time: Monday, March 21, 2016 20:39 - CONCLUSION: Contiguous left posterior rib fractures #2 through 8 with associated pleural thickening and parenchymal contusion. In the mid to upper right chest anteriorly there is a 1.3 cm pneumothorax without tension . Left chest subcutaneous emphysema Fracture of the proximal right humerus and mid left clavicle additionally appreciated. Gopi Dumont MD Cervical Spine CT 03/21/162012 Signed Impressions: Service Date/Time: Monday, March 21, 2016 20:30 - CONCLUSION: Degenerative changes of the cervical spine. Fractures acute left ribs numbered 2 and 3 posteriorly Gopi Dumont MD Abdomen/Pelvis CT 03/21/162012 Signed Impressions: Service Date/Time: Monday, March 21, 2016 20:39 - CONCLUSION: Multiple fractures inclusive of left inferior superior pubic ramus as well as transverse process and left L5 and left sacrum. Lower chest demonstrates fracture of left rib #8 posteriorly and a small anterior pneumothorax. Intra-abdominal and pelvic contents are normal Gopi Dumont MD Objective Remarks RUE: +sling. hand is warm to touch. Patient has swelling of right arm. RLE: dressing CDI. calf compartments are soft.+vac with good seal. good distal pulses and cap refills LLE: dressing CDI. Calf compartments soft. Good capillary refill in toes. LUE: good passive motion of shoulder, elbow, wrist, good cap refill. Assessment & Plan Problem List: (1) Plan: Recommend emergent Irrigation and Debridement of right open tibia fracture I will examine the right femur under anaesthesia I will examine the right shoulder under anaesthesia Possible internal or external fixation right tibial He will ultimately require multiple interventions Based on complexity of the multiple injuries will request consultation with Dr. Anatoly Hogan Informed consent obtained for above plan Assessment and Plan POD 5 1) Right Proximal Humerus Fracture-needs ORIF 2) Right Segmental Periprosthetic Femoral Shaft Fracture status post IM nail 3) Right Distal Tibial Shaft Fracture status post IM nail 03/23/16 4) Left Tibial Shaft Fracture status post IM nail 03/23/16 5) bilateral tibial plateaus status post ORIF on 03/23/16 6)left clavicle fracture 7+) left sacrum fracture and inferior/superior rami fractures -will plan for surgery next week for ORIF right proximal humerus NPO after MN on Tuesday night hold lovenox after Tuesday's dose -consents -NWB RUE,BLE. maintain sling R UE -maintain splint, CKS and vac on right leg daily dressing changes L LE and R LE above short leg splint Taco Zhao Mar 28, 2016 11:01
[2016-03-28 14:06] LABS: ALKALINE PHOSPHATASE 58 U/L (45-117); ALT (GPT) 102 U/L (12-78); ANION GAP 9 MEQ/L (5-15); AST (GOT) 259 U/L (15-37); BICARBONATE 33.9 MEQ/L (21.0-32.0); BLOOD UREA NITROGEN 14 MG/DL (7-18); CHLORIDE 92 MEQ/L (98-107); GLOMERULAR FILTRATION RATE 128 ML/MIN (>89); SODIUM (NA) 135 MEQ/L (136-145); TOTAL BILIRUBIN ADULT 0.6 MG/DL (0.2-1.0)
[2016-03-28 14:08] LABS: POTASSIUM 2.9 MEQ/L (3.5-5.1)
[2016-03-28] MEDS ORDERED: ICU - SODIUM PHOSPHATE 30 MMOL/NS 250 ML IV PRN ×2 (16:30)
[2016-03-28] MEDS ORDERED: ICU - POTASSIUM PHOSPHATE 30 MMOL/NS 250 ML IV PRN ×2 (16:30)
[2016-03-28] MEDS ORDERED: ICU - MAGNESIUM OXIDE 400 MG TAB PO PRN (16:30)
[2016-03-28] MEDS ORDERED: ICU - CALL ORDERING PHYSICIAN XX PRN (16:30)
[2016-03-28] MEDS ORDERED: ICU - POTASSIUM CHLORIDE/AQUEOUS SOLN 20 MEQ/100 ML IVPB IV PRN (16:30)
[2016-03-28] MEDS ORDERED: ICU - D/C ICU ELECTROLYTE ORDERS XX PRN (16:30)
[2016-03-28] MEDS ORDERED: ICU - POTASSIUM PHOSPHATE MONOBASIC 500 MG TAB PO/TUBE PRN (16:30)
[2016-03-28] MEDS ORDERED: ICU - POTASSIUM CHLORIDE/AQUEOUS SOLN 40 MEQ/100 ML IVPB IV PRN (16:30)
[2016-03-28] MEDS ORDERED: ICU - MAGNESIUM SULFATE 2 GM/NS 100 ML IV PRN ×2 (16:30)
[2016-03-28] MEDS ORDERED: ICU - MAGNESIUM SULFATE 4 GM/NS 100 ML IV PRN ×2 (16:30)
[2016-03-28] MEDS: ICU - POTASSIUM CHLORIDE 10% LIQUID 40 MEQ/30 ML CUP PO PRN (16:43)
[2016-03-28] MEDS: PANTOPRAZOLE SODIUM 40 MG VIAL IVP SCH (22:55)
[2016-03-29] VITALS (13 sets, daily range): BP systolic 141–163; BP diastolic 70–82; PULSE 95–111; RESP 18–20; TEMP 97.9–98.4; O2SAT 94–100
[2016-03-29] MEDS: oxyCODONE HCL ORAL CONC 20 MG/ML SYRINGE PO SCH ×6 (00:29→20:29)
[2016-03-29] MEDS: MORPHINE SULFATE 4 MG/ML INJ IV PUSH PRN ×7 (02:24→23:22)
[2016-03-29] MEDS: CHLORHEXIDINE GLUCONATE 2 % 1 PACK (2 CLOTHS) TOP SCH (04:00)
[2016-03-29 04:17] LABS: MEAN CELL VOLUME 82.6 FL (80.0-100.0); MEAN CORPUSCULAR HEMOGLOBIN 27.8 PG (27.0-34.0); MEAN CORPUSCULAR HGB CONC 33.7 % (32.0-36.0); PLATELET COUNT 367 TH/MM3 (150-450); RED BLOOD COUNT 3.63 MIL/MM3 (4.50-5.90); RED CELL DISTRIBUTION WIDTH 14.6 % (11.6-17.2); REVIEW FLAG FINAL; WHITE BLOOD COUNT 11.7 TH/MM3 (4.0-11.0)
[2016-03-29] MEDS: ENOXAPARIN SODIUM 30 MG/0.3 ML SYRINGE SQ SCH (05:05)
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
[2016-03-29] MEDS: CHLORHEXIDINE 0.12% (ORAL KIT) 15 ML CUP MT SCH ×2 (08:00→19:57)
[2016-03-29] MEDS: DOCUSATE SODIUM 100 MG CAP PO SCH ×2 (08:54→20:28)
[2016-03-29] MEDS: FUROSEMIDE 20 MG/2 ML VIAL IV PUSH SCH (08:54)
[2016-03-29] MEDS: LACTULOSE SYRUP 20 GM/30 ML CUP PO SCH (09:00)
[2016-03-29] MEDS: BACITRACIN TOP OINT 15 GM TUBE TOP SCH ×2 (09:02→20:53)
[2016-03-29] MEDS: ICU - POTASSIUM CHLORIDE 10% LIQUID 40 MEQ/30 ML CUP PO PRN ×2 (09:24→21:02)
[2016-03-29] MEDS: PANTOPRAZOLE SOD 40 MG DELAYED RELEASE TAB PO SCH (13:46)
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
[2016-03-30] VITALS (8 sets, daily range): BP systolic 130–145; BP diastolic 72–81; PULSE 96–114; RESP 16–20; TEMP 96.6–98.6; O2SAT 92–98
[2016-03-30] MEDS: oxyCODONE HCL ORAL CONC 20 MG/ML SYRINGE PO SCH ×6 (00:27→20:36)
[2016-03-30] MEDS ORDERED: INSULIN HUMAN REGULAR 1,000 UNITS/10 ML VIAL SQ PRN (01:30)
[2016-03-30] MEDS: CHLORHEXIDINE GLUCONATE 2 % 1 PACK (2 CLOTHS) TOP SCH (02:04)
[2016-03-30] MEDS: MORPHINE SULFATE 4 MG/ML INJ IV PUSH PRN ×5 (03:40→22:52)
[2016-03-30] MEDS ORDERED: PADIMATE (CHAPSTICK) 4.5 GM TUBE TOPICAL PRN (04:45)
--- NOTE | 2016-03-30 06:47 | PD.ORT.PN ---
Subjective Subjective Remarks POD 7 s/p Bilateral tibias and right femur s/p right proximal humerus fx extubated. awake. reports pain controlled. states has difficulty moving hand Objective Vitals Vital Signs Date Time Temp Pulse Resp B/P Pulse Ox O2 Delivery O2 Flow Rate FiO2 03/30/16 01:00 96.6 114 19 141/80 96 03/30/16 00:00 98.0 111 20 141/81 98 03/30/16 00:00 111 03/29/16 23:27 18 03/29/16 22:00 98 03/29/16 21:29 16 03/29/16 20:00 103 03/29/16 20:00 98.4 103 18 141/74 100 03/29/16 19:00 100 Nasal Cannula 4.00 03/29/16 18:00 102 03/29/16 16:00 111 03/29/16 16:00 106 18 143/82 98 03/29/16 14:00 103 03/29/16 12:00 95 03/29/16 12:00 95 163/76 100 03/29/16 10:00 103 03/29/16 08:51 94 Nasal Cannula 4.00 03/29/16 08:00 97.9 100 20 153/73 96 03/29/16 08:00 Nasal Cannula 4.00 50 03/29/16 08:00 106 I/O 03/29/16 03/29/16 03/29/16 03/30/16 03/30/16 03/30/16 06:59 14:59 22:59 06:59 14:59 22:59 Intake Total 420 ml 360 ml 240 ml Output Total 400 ml 1080 ml 500 ml Balance 20 ml -720 ml -260 ml Intake Oral 420 ml 360 ml 240 ml Output Urine Total 400 ml 1080 ml 500 ml Drainage Total 0 ml # Bowel Movements 1 0 Result Diagram: 03/29/16 0349 03/29/16 1823 Imaging Last 72 hours Impressions Chest X-Ray 03/26/16 06 Signed Impressions: Service Date/Time: Saturday, March 26, 2016 05:52 - CONCLUSION: 1. Persistent medial left lower lung consolidation. 2. No pneumothorax seen. Ugo Kim MD Chest X-Ray 03/25/16 06 Signed Impressions: Service Date/Time: March 04:50 - CONCLUSION: 1. Increase in left-sided airspace disease since March 24. Left chest tube, endotracheal tube and nasogastric tube unchanged. Naeem Peterson MD Chest X-Ray 03/25/16 0000 Signed Impressions: Service Date/Time: March 15:09 - CONCLUSION: 1. No pneumothorax status post removal of left chest tube. 2. Persistent left lung scattered patchiness. 3. Endotracheal tube and nasogastric tube remain in good positions. 4. Multiple fractures are stable. Osiel Howard MD Chest X-Ray 03/24/16 0600 Signed Impressions: Service Date/Time: Thursday, March 24, 2016 03:13 - CONCLUSION: 1. Support apparatus unchanged. Left chest tube without pneumothorax. Mostly basilar airspace disease remains present, slightly increased on the right since 03/23. Naeem Peterson MD Last 24 hours Impressions [address]acic Spine CT 03/21/162027 Signed Impressions: Service Date/Time: Monday, March 21, 2016 20:39 - CONCLUSION: Intact thoracic spine. Contiguous left rib fractures #2 through 8 posteriorly Gopi Dumont MD Maxillofacial CT 03/21/162027 Signed Impressions: Service Date/Time: Monday, March 21, 2016 20:36 - CONCLUSION: Extensive fractures of all king of the maxillary sinuses And the nasal bone and ala inclusive of extension into the hard palate. There is a slightly depressed fracture of the medial floor of the left orbit and nondepressed fracture left zygomatic arch. Admixture of air and fluid noted in the maxillary sinuses and ethmoid air cells. Intraorbital contents are normal and base of the skull appears intact with normal intracranial contents Gopi Dumont MD Lumbar Spine CT 03/21/162027 Signed Impressions: Service Date/Time: Monday, March 21, 2016 20:39 - CONCLUSION: Nondisplaced fracture transverse process left L5 and left sacrum. Degenerative disc disease L3-S1. Gopi Dumont MD Pelvis X-Ray 03/21/162012 Signed Impressions: Service Date/Time: Monday, March 21, 2016 19:56 - CONCLUSION: Fracture left sacrum appreciated. Remainder the pelvis is intact with fractures of the pelvis better appreciated on CT scan Gopi Dumont MD Head CT 03/21/162012 Signed Impressions: Service Date/Time: Monday, March 21, 2016 20:30 - CONCLUSION: Intact calvarium. Normal intracranial contents. Facial fractures as described on the facial bone CT Gopi Dumont MD Chest X-Ray 03/21/162012 Signed Impressions: Service Date/Time: Monday, March 21, 2016 19:56 - CONCLUSION: Slightly off set fracture posterior left fourth rib and probably contiguous third and fifth ribs with no pneumothorax Gopi Dumont MD Chest CT 03/21/162012 Signed Impressions: Service Date/Time: Monday, March 21, 2016 20:39 - CONCLUSION: Contiguous left posterior rib fractures #2 through 8 with associated pleural thickening and parenchymal contusion. In the mid to upper right chest anteriorly there is a 1.3 cm pneumothorax without tension . Left chest subcutaneous emphysema Fracture of the proximal right humerus and mid left clavicle additionally appreciated. Gopi Dumont MD Cervical Spine CT 03/21/162012 Signed Impressions: Service Date/Time: Monday, March 21, 2016 20:30 - CONCLUSION: Degenerative changes of the cervical spine. Fractures acute left ribs numbered 2 and 3 posteriorly Gopi Dumont MD Abdomen/Pelvis CT 03/21/162012 Signed Impressions: Service Date/Time: Monday, March 21, 2016 20:39 - CONCLUSION: Multiple fractures inclusive of left inferior superior pubic ramus as well as transverse process and left L5 and left sacrum. Lower chest demonstrates fracture of left rib #8 posteriorly and a small anterior pneumothorax. Intra-abdominal and pelvic contents are normal Gopi Dumont MD Objective Remarks RUE: +sling. hand is warm to touch. Patient has swelling of right arm. no sensation to median/ulnar nerve distribution. inability to move fingers RLE: dressing CDI. calf compartments are soft.+vac with good seal. good distal pulses and cap refills LLE: dressing CDI. Calf compartments soft. Good capillary refill in toes. LUE: good passive motion of shoulder, elbow, wrist, good cap refill. Assessment & Plan Problem List: (1) Plan: Recommend emergent Irrigation and Debridement of right open tibia fracture I will examine the right femur under anaesthesia I will examine the right shoulder under anaesthesia Possible internal or external fixation right tibial He will ultimately require multiple interventions Based on complexity of the multiple injuries will request consultation with Dr. Anatoly Hogan Informed consent obtained for above plan Assessment and Plan POD 7 2) Right Segmental Periprosthetic Femoral Shaft Fracture status post IM nail 3) Right Distal Tibial Shaft Fracture status post IM nail 03/23/16 4) Left Tibial Shaft Fracture status post IM nail 03/23/16 5) bilateral tibial plateaus status post ORIF on 03/23/16 1) Right Proximal Humerus Fx 6)left clavicle fracture - nonop 7+) left sacrum fracture and inferior/superior rami fractures - nonop -surgery this morning for ORIF right proximal humerus -NWB RUE,BLE. maintain sling R UE -maintain splint, CKS and vac on right leg daily dressing changes L LE and R LE above short leg splint Fracisco Haynes Mar 30, 2016 06:47
[2016-03-30] MEDS: CHLORHEXIDINE 0.12% (ORAL KIT) 15 ML CUP MT SCH ×3 (08:00→20:40)
[2016-03-30] MEDS: FUROSEMIDE 20 MG/2 ML VIAL IV PUSH SCH (08:29)
[2016-03-30] MEDS: PANTOPRAZOLE SOD 40 MG DELAYED RELEASE TAB PO SCH (08:30)
[2016-03-30] MEDS: LACTULOSE SYRUP 20 GM/30 ML CUP PO SCH (08:30)
[2016-03-30] MEDS: DOCUSATE SODIUM 100 MG CAP PO SCH ×2 (08:30→20:36)
[2016-03-30] MEDS: BACITRACIN TOP OINT 15 GM TUBE TOP SCH ×2 (08:36→20:37)
[2016-03-30] MEDS ORDERED: SODIUM CHLORID 0.9% 500 ML IV SCH (10:30)
[2016-03-30] MEDS: LACTATED RINGER'S 1000 ML IV SCH (10:30)
[2016-03-30] MEDS ORDERED: FAMOTIDINE 20 MG/2 ML VIAL ONE (11:10)
[2016-03-30] MEDS ORDERED: DEXAMETHASONE SOD PHOS 4 MG/ML VIAL ONE (11:10)
[2016-03-30] MEDS ORDERED: MIDAZOLAM HCL 2 MG/2 ML VIAL ONE (11:10)
[2016-03-30] MEDS ORDERED: GENTAMICIN SULFATE 80 MG/2 ML VIAL ONE (11:25)
[2016-03-30] MEDS ORDERED: ceFAZolin INJ 1,000 MG VIAL ONE (11:25)
[2016-03-30] MEDS ORDERED: VANCOMYCIN HCL 1000 MG VIAL ONE (11:36)
[2016-03-30] MEDS ORDERED: PROPOFOL 200 MG/20 ML AMP IV ONE (12:00)
[2016-03-30] MEDS ORDERED: NEOSTIGMINE 3 MG/3 ML SYR IV ONE (12:00)
[2016-03-30] MEDS ORDERED: ONDANSETRON HCL 4 MG/2 ML VIAL IV PUSH ONE (12:00)
[2016-03-30] MEDS ORDERED: LACTATED RINGER'S 1000 ML INJ 1,000 ML IV ONE (12:00)
[2016-03-30] MEDS ORDERED: HYDROmorphone HCL PF 2 MG/ML VIAL ONE ×2 (13:04→13:27)
[2016-03-30] MEDS ORDERED: fentaNYL CITRATE 250 MCG/5 ML AMP ONE ×2 (13:10→14:07)
[2016-03-30] MEDS ORDERED: SODIUM CHLORIDE 0.9% FLUSH 5 ML FLUSH IVF PRN (13:30)
--- NOTE | 2016-03-30 13:30 | PD.OP ---
cc: Anatoly Paul MD Operative Report Date of Surgery: Mar 30, 2016 Preoperative Diagnosis: Displaced right proximal humerus fracture Postoperative Diagnosis: Same Procedure: ORIF right proximal humerus Anesthesia: Gen. Surgeon: Anatoly Paul Manager Employment(s): MARÍ[employer] ELENA Davison PA-C The surgical procedure was assisted by my physician licensed loan officer assistant. My P.A. presence was necessary throughout this case for the manipulation and positioning of the surgical extremity. My P.A. was assisting me throughout the duration of this procedure. The skill set of a physician licensed loan officer assistant was medically necessary to complete this procedure. During the surgical case the salesperson surgical appliances was working at the back table and the physician licensed loan officer assistant was directly assisting me. Operation and Findings: Patient was seen and evaluated preoperatively. Patient was found to have a displaced proximal humerus fracture. The risks and benefits of surgical and nonsurgical options were discussed in detail and informed consent was obtained for surgery. Patient was brought to the operating room and placed on or table. IV sedation and GETA were administered by anesthesiologist. Antibiotics were given prior to incision. Operative arm and shoulder were prepped with alcohol followed by Hibiclens and draped usual sterile fashion. Timeout procedure was performed. Procedure began with a 5 inch incision over the anterior shoulder. Cephalic vein was identified. A deltopectoral approach was utilized. The fracture was now visualized. Soft tissue was retracted. A #5 FiberWire suture was placed into the rotator rotator cuff and greater tuberosity. A second #5 FiberWire sutures placed into the lesser tuberosity. Attention was now turned to reduction. Gentle traction was applied. The humeral shaft was reduced to the humeral head. Fracture was manipulated to achieve excellent reduction. The tuberosities were reduced. Multiplanar fluoroscopy confirmed well aligned fracture. Multiple K wires were used to hold provisional fixation. A Synthes proximal humerus plate was selected. Plate was provisionally held in place K wires. 3.5 cortical screws were used to compress plate to bone. Fluoroscopy confirmed appropriate plate placement and fracture reduction. Multiple locking screws were now placed in the humeral head. Screws were predrilled and premeasured for appropriate length. Care was taken not to penetrate the articular surface. Additional screws were placed in the humeral shaft. The FiberWire suture was passed through the holes of the plate and sutured to the plate for additional stability. Final fluoroscopy revealed well aligned fracture with well-placed hardware. Wound was thoroughly irrigated. Fascia was closed with #1 Vicryl, subcutaneous tissues closed with 3-0 Vicryl, and skin was closed with isai. Sterile dressings were applied. Patient was placed into a sling. Patient was awakened and transferred to recovery in stable condition. Needle and sponge counts were correct. Anatoly Paul MD Mar 30, 2016 13:29
[2016-03-30] MEDS ORDERED: DO NOT ADM ANY ANTICOAGULANT DRUGS XX PRN (14:01)
[2016-03-30] MEDS ORDERED: *morphine SULFATE 8 MG/ML PERIprocedure ONLY ONE ×3 (14:10→14:28)
--- NOTE | 2016-03-30 14:57 | RADRPT ---
EXAM DATE/TIME: 03/30/2016 13:14 [facility] COMPARISON: CHEST SINGLE AP, March 26, 2016, 5:52. INDICATIONS : ORIF right proximal humerus. MEDICAL HISTORY : None. SURGICAL HISTORY : None. ENCOUNTER: Subsequent ACUITY: 1 week PAIN SCORE: Non-responsive. LOCATION: Right proximal humerus. FINDINGS: Post surgical changes following ORIF of a proximal right humeral fracture is noted. There is an extra medullary plate with multiple stabilizing screws. The humeral head is well-seated within a glenoid f vania. There is adequate alignment of the humeral shaft and humeral head. CONCLUSION: Satisfactory postoperative appearance of the proximal right humerus following ORIF. Regulo Stewart MD on March 30, 2016 at 14:54 Board Certified Radiologist. This report was verified electronically.
--- NOTE | 2016-03-30 15:29 | HHI.PR ---
Subjective Subjective Notes Patient painful, just returned from OR, S/P ORIF RIGHT humerus Having BMs Objective Vitals/I&O Vital Signs Date Time Temp Pulse Resp B/P Pulse Ox O2 Delivery O2 Flow Rate FiO2 03/30/16 14:01 97.4 103 12 166/80 93 Nasal Cannula 3 03/30/16 09:07 21 Labs Laboratory Tests Test 03/29/16 03/30/16 18:23 06:45 Potassium Level 3.4 3.9 Radiology Last Impressions Shoulder X-Ray 03/30/16 0000 Signed Impressions: Service Date/Time: Wednesday, March 30, 2016 13:14 - CONCLUSION: Satisfactory postoperative appearance of the proximal right humerus following ORIF. Regulo Stewart MD Chest X-Ray 03/26/16 0600 Signed Impressions: Service Date/Time: Saturday, March 26, 2016 05:52 - CONCLUSION: 1. Persistent medial left lower lung consolidation. 2. No pneumothorax seen. Ugo Kim MD Tibia/Fibula X-Ray 03/23/16 0000 Signed Impressions: Service Date/Time: Wednesday, March 23, 2016 17:44 - CONCLUSION: Anatomic alignment. Ifeanyi Suarez MD FACR Femur X-Ray 03/23/16 0000 Signed Impressions: Service Date/Time: Wednesday, March 23, 2016 14:08 - CONCLUSION: Anatomic alignment. Ifeanyi Suarez MD FACR Lower Extremity CT 03/22/16 0000 Signed Impressions: Service Date/Time: Tuesday, March 22, 2016 10:08 - CONCLUSION: 1. Comminuted fractures involving the distal femur, proximal tibia, and proximal fibula with hemarthrosis as detailed above. Ugo Glez Jr., MD Ankle X-Ray 03/22/16 0000 Signed Impressions: Service Date/Time: Tuesday, March 22, 2016 01:27 - CONCLUSION: 1. Comminuted fractures distal tibia and fibula. Naeem Peterson MD Thoracic Spine CT 03/21/162027 Signed Impressions: Service Date/Time: Monday, March 21, 2016 20:39 - CONCLUSION: Intact thoracic spine. Contiguous left rib fractures #2 through 8 posteriorly Gopi Dumont MD Maxillofacial CT 03/21/162027 Signed Impressions: Service Date/Time: Monday, March 21, 2016 20:36 - CONCLUSION: Extensive fractures of all king of the maxillary sinuses And the nasal bone and ala inclusive of extension into the hard palate. There is a slightly depressed fracture of the medial floor of the left orbit and nondepressed fracture left zygomatic arch. Admixture of air and fluid noted in the maxillary sinuses and ethmoid air cells. Intraorbital contents are normal and base of the skull appears intact with normal intracranial contents Gopi Dumont MD Lumbar Spine CT 03/21/162027 Signed Impressions: Service Date/Time: Monday, March 21, 2016 20:39 - CONCLUSION: Nondisplaced fracture transverse process left L5 and left sacrum. Degenerative disc disease L3-S1. Gopi Dumont MD Pelvis X-Ray 03/21/162012 Signed Impressions: Service Date/Time: Monday, March 21, 2016 19:56 - CONCLUSION: Fracture left sacrum appreciated. Remainder the pelvis is intact with fractures of the pelvis better appreciated on CT scan Gopi Dumont MD Head CT 03/21/162012 Signed Impressions: Service Date/Time: Monday, March 21, 2016 20:30 - CONCLUSION: Intact calvarium. Normal intracranial contents. Facial fractures as described on the facial bone CT Gopi Dumont MD Chest CT 03/21/162012 Signed Impressions: Service Date/Time: Monday, March 21, 2016 20:39 - CONCLUSION: Contiguous left posterior rib fractures #2 through 8 with associated pleural thickening and parenchymal contusion. In the mid to upper right chest anteriorly there is a 1.3 cm pneumothorax without tension . Left chest subcutaneous emphysema Fracture of the proximal right humerus and mid left clavicle additionally appreciated. Gopi Dumont MD Cervical Spine CT 03/21/162012 Signed Impressions: Service Date/Time: Monday, March 21, 2016 20:30 - CONCLUSION: Degenerative changes of the cervical spine. Fractures acute left ribs numbered 2 and 3 posteriorly Gopi Dumont MD Abdomen/Pelvis CT 03/21/162012 Signed Impressions: Service Date/Time: Monday, March 21, 2016 20:39 - CONCLUSION: Multiple fractures inclusive of left inferior superior pubic ramus as well as transverse process and left L5 and left sacrum. Lower chest demonstrates fracture of left rib #8 posteriorly and a small anterior pneumothorax. Intra-abdominal and pelvic contents are normal Gopi Dumont MD Narrative Exam GENERAL: 56 year old male lying in bed. SKIN: Warm and dry. HEAD: Normocephalic. ENT: No nasal bleeding or discharge. Mucous membranes pink and moist. NECK: Trachea midline. No JVD. CARDIOVASCULAR: Regular rate and rhythm. RESPIRATORY: No accessory muscle use. Lungs clear to auscultation, diminished LLL. GASTROINTESTINAL: Abdomen soft, non-tender, nondistended. + BS. MUSCULOSKELETAL: Extremities without cyanosis, GANT. RUE sling in place. RLE with Ganesh and wound vac, LLE with knee immobilizer. + sensation NEUROLOGICAL: Awake and alert. Normal speech. A/P Assessment and Plan POD 7 I&D RIGHT tibia with wound vac Closed reduction of RIGHT femur (03/22) POD 7 ORIF maxillary leforte fx Closed reduction of nasal bone fracture (03/22) POD 6 Remove hardware RIGHT femur with IM rhys fixation ORIF BILAT tibia with IM rhys fixation (03/23) POD 0 ORIF RIGHT humerus (03/30) Diet: Regular, No straws per OMFS Pulm: IS encouraged to use Pain: Roxicodone, Morphine Activity: BR. (NWB RUE; NWB Bilat LE) PT and OT evaluating GI: Protonix PO Bowel: Colace. MOM. + BM DVT: SCD's. Lovenox held per Ortho Plan of care discussed patient at bedside. Case management consulted for discharge planning. She will be difficult placement due to no insurance and limited weightbearing status. Patient is stable and being managed on Med/Surg Attending Statement I have seen and examined the patient s/p ORIF d/c planning, case management Attestation The exam, history, and the medical decision-making described in the above note were completed with the assistance of the mid-level provider. I reviewed and agree with the findings presented. I attest that I had a [id number] encounter with the patient on the same day, and personally performed and documented my assessment and findings in the medical record. Tim Shepard Mar 30, 2016 15:29 Christoph Hernández MD Apr 11, 2016 19:04
[2016-03-30] MEDS: CALCIUM/VITAMIN D 250 MG/125 U TAB PO SCH (18:41)
[2016-03-30] MEDS: ceFAZolin 2 GM PREMIX 50 ML IV SCH (18:42)
[2016-03-30] MEDS: SODIUM CHLORIDE 0.9% FLUSH 5 ML FLUSH IVF SCH (20:37)
[2016-03-31] VITALS (8 sets, daily range): BP systolic 133–149; BP diastolic 72–79; PULSE 95–115; RESP 19–20; TEMP 97–99; O2SAT 91–97
[2016-03-31] MEDS: CHLORHEXIDINE GLUCONATE 2 % 1 PACK (2 CLOTHS) TOP SCH (00:50)
[2016-03-31] MEDS: ceFAZolin 2 GM PREMIX 50 ML IV SCH ×2 (01:01→09:51)
[2016-03-31] MEDS: oxyCODONE HCL ORAL CONC 20 MG/ML SYRINGE PO SCH ×6 (01:01→20:21)
[2016-03-31] MEDS: MORPHINE SULFATE 4 MG/ML INJ IV PUSH PRN ×6 (03:51→22:02)
--- NOTE | 2016-03-31 08:29 | PD.ORT.PN ---
Subjective Subjective Remarks Alert and oriented. No new complaints Objective Vitals Vital Signs Date Time Temp Pulse Resp B/P Pulse Ox O2 Delivery O2 Flow Rate FiO2 03/31/16 04:00 98.2 103 20 149/77 92 03/31/16 00:00 98.6 95 20 135/72 94 03/30/16 20:18 98 Nasal Cannula 2.00 03/30/16 20:00 97.7 96 18 145/79 98 03/30/16 16:00 98.6 105 16 130/81 94 03/30/16 14:35 12 03/30/16 14:24 12 03/30/16 14:15 12 03/30/16 14:01 97.4 103 12 166/80 93 Nasal Cannula 3 03/30/16 09:07 92 21 I/O 03/30/16 03/30/16 03/30/16 03/31/16 03/31/16 03/31/16 07:00 15:00 23:00 07:00 15:00 23:00 Intake Total 0 ml 2220 ml 307 ml 518 ml Output Total 400 ml 1450 ml 650 ml 1600 ml Balance -400 ml 770 ml -343 ml -1082 ml Intake Oral 0 ml 720 ml 220 ml 220 ml IV Total 87 ml 298 ml Other 1500 ml Output Urine Total 400 ml 1350 ml 650 ml 1600 ml Drainage Total 0 ml 0 ml Estimated Blood Loss 100 ml # Bowel Movements 0 2 0 Result Diagram: 03/29/16 0349 03/30/16 0645 Imaging Last 72 hours Impressions Chest X-Ray 03/26/16 0600 Signed Impressions: Service Date/Time: Saturday, March 26, 2016 05:52 - CONCLUSION: 1. Persistent medial left lower lung consolidation. 2. No pneumothorax seen. Ugo Kim MD Chest X-Ray 03/25/16 0600 Signed Impressions: Service Date/Time: March 04:50 - CONCLUSION: 1. Increase in left-sided airspace disease since March 24. Left chest tube, endotracheal tube and nasogastric tube unchanged. Naeem Peterson MD Chest X-Ray 03/25/16 0000 Signed Impressions: Service Date/Time: March 15:09 - CONCLUSION: 1. No pneumothorax status post removal of left chest tube. 2. Persistent left lung scattered patchiness. 3. Endotracheal tube and nasogastric tube remain in good positions. 4. Multiple fractures are stable. Osiel Howard MD Chest X-Ray 03/24/16 0600 Signed Impressions: Service Date/Time: Thursday, March 24, 2016 03:13 - CONCLUSION: 1. Support apparatus unchanged. Left chest tube without pneumothorax. Mostly basilar airspace disease remains present, slightly increased on the right since 03/23. Naeem Peterson MD Last 24 hours Impressions Thoracic Spine CT 03/21/162027 Signed Impressions: Service Date/Time: Monday, March 21, 2016 20:39 - CONCLUSION: Intact thoracic spine. Contiguous left rib fractures #2 through 8 posteriorly Gopi Dumont MD Maxillofacial CT 03/21/162027 Signed Impressions: Service Date/Time: Monday, March 21, 2016 20:36 - CONCLUSION: Extensive fractures of all king of the maxillary sinuses And the nasal bone and ala inclusive of extension into the hard palate. There is a slightly depressed fracture of the medial floor of the left orbit and nondepressed fracture left zygomatic arch. Admixture of air and fluid noted in the maxillary sinuses and ethmoid air cells. Intraorbital contents are normal and base of the skull appears intact with normal intracranial contents Gopi Dumont MD Lumbar Spine CT 03/21/162027 Signed Impressions: Service Date/Time: Monday, March 21, 2016 20:39 - CONCLUSION: Nondisplaced fracture transverse process left L5 and left sacrum. Degenerative disc disease L3-S1. Gopi Dumont MD Pelvis X-Ray 03/21/162012 Signed Impressions: Service Date/Time: Monday, March 21, 2016 19:56 - CONCLUSION: Fracture left sacrum appreciated. Remainder the pelvis is intact with fractures of the pelvis better appreciated on CT scan Gopi Dumont MD Head CT 03/21/162012 Signed Impressions: Service Date/Time: Monday, March 21, 2016 20:30 - CONCLUSION: Intact calvarium. Normal intracranial contents. Facial fractures as described on the facial bone CT Gopi Dumont MD Chest X-Ray 03/21/162012 Signed Impressions: Service Date/Time: Monday, March 21, 2016 19:56 - CONCLUSION: Slightly off set fracture posterior left fourth rib and probably contiguous third and fifth ribs with no pneumothorax Gopi Dumont MD Chest CT 03/21/162012 Signed Impressions: Service Date/Time: Monday, March 21, 2016 20:39 - CONCLUSION: Contiguous left posterior rib fractures #2 through 8 with associated pleural thickening and parenchymal contusion. In the mid to upper right chest anteriorly there is a 1.3 cm pneumothorax without tension . Left chest subcutaneous emphysema Fracture of the proximal right humerus and mid left clavicle additionally appreciated. Gopi Dumont MD Cervical Spine CT 03/21/162012 Signed Impressions: Service Date/Time: Monday, March 21, 2016 20:30 - CONCLUSION: Degenerative changes of the cervical spine. Fractures acute left ribs numbered 2 and 3 posteriorly Gopi Dumont MD Abdomen/Pelvis CT 03/21/162012 Signed Impressions: Service Date/Time: Monday, March 21, 2016 20:39 - CONCLUSION: Multiple fractures inclusive of left inferior superior pubic ramus as well as transverse process and left L5 and left sacrum. Lower chest demonstrates fracture of left rib #8 posteriorly and a small anterior pneumothorax. Intra-abdominal and pelvic contents are normal Gopi Dumont MD Objective Remarks RUE: Clean dry dressings and intact. +sling. hand is warm to touch. Patient has swelling of right arm. no sensation to median/ulnar nerve distribution. inability to move fingers RLE: dressing CDI. calf compartments are soft. Wound VAC removed and new well- padded posterior and sugar tong splint applied. good distal pulses and cap refills LLE: dressing CDI. Calf compartments soft. Good capillary refill in toes. LUE: good passive motion of shoulder, elbow, wrist, good cap refill. Assessment & Plan Problem List: (1) Plan: Recommend emergent Irrigation and Debridement of right open tibia fracture I will examine the right femur under anaesthesia I will examine the right shoulder under anaesthesia Possible internal or external fixation right tibial He will ultimately require multiple interventions Based on complexity of the multiple injuries will request consultation with Dr. Anatoly Hogan Informed consent obtained for above plan Assessment and Plan POD 8 2) Right Segmental Periprosthetic Femoral Shaft Fracture status post IM nail 3) Right Distal Tibial Shaft Fracture status post IM nail 03/23/16 4) Left Tibial Shaft Fracture status post IM nail 03/23/16 5) bilateral tibial plateaus status post ORIF on 03/23/16 1) Right Proximal Humerus Fx POD 1 ORIF 6)left clavicle fracture - nonop 7+) left sacrum fracture and inferior/superior rami fractures - nonop -NWB RUE,BLE. maintain sling R UE -maintain splint, CKS and discontinue vac on right leg daily dressing changes L LE and R LE above short leg splint Lovenox Discharge planning to rehabilitation Incentive spirometry TRISTON PICKETT PA-C Mar 31, 2016 08:29
[2016-03-31] MEDS: BACITRACIN TOP OINT 15 GM TUBE TOP SCH ×2 (09:00→20:27)
[2016-03-31] MEDS: LACTULOSE SYRUP 20 GM/30 ML CUP PO SCH (09:50)
[2016-03-31] MEDS: PANTOPRAZOLE SOD 40 MG DELAYED RELEASE TAB PO SCH (09:50)
[2016-03-31] MEDS: CALCIUM/VITAMIN D 250 MG/125 U TAB PO SCH ×3 (09:50→18:00)
[2016-03-31] MEDS: FUROSEMIDE 20 MG/2 ML VIAL IV PUSH SCH (09:51)
[2016-03-31] MEDS: LACTATED RINGER'S 1000 ML IV SCH (10:30)
[2016-03-31] MEDS: SODIUM CHLORIDE 0.9% FLUSH 5 ML FLUSH IVF SCH ×2 (12:56→20:20)
[2016-03-31] MEDS: DOCUSATE SODIUM 100 MG CAP PO SCH ×2 (13:00→20:20)
--- NOTE | 2016-03-31 15:04 | HHI.PR ---
Subjective Subjective Notes Pain controlled. Objective Vitals/I&O Vital Signs Date Time Temp Pulse Resp B/P Pulse Ox O2 Delivery O2 Flow Rate FiO2 03/31/16 12:00 97.0 115 20 133/76 96 03/31/16 10:46 Nasal Cannula 2.00 03/30/16 09:07 21 Labs Laboratory Tests Test 03/28/16 03/29/16 03/30/16 11:55 03:49 06:45 Sodium Level 135 MEQ/L Chloride Level 92 MEQ/L Carbon Dioxide Level 33.9 MEQ/L Anion Gap 9 MEQ/L Blood Urea Nitrogen 14 MG/DL Creatinine 0.65 MG/DL Estimat Glomerular Filtration 128 ML/MIN Rate Random Glucose 132 MG/DL Calcium Level 8.2 MG/DL Phosphorus Level 3.4 MG/DL Total Bilirubin 0.6 MG/DL Aspartate Amino Transf 259 U/L (AST/SGOT) Alanine Aminotransferase 102 U/L (ALT/SGPT) Alkaline Phosphatase 58 U/L Total Protein 6.2 GM/DL Albumin 1.9 GM/DL White Blood Count 11.7 TH/MM3 Red Blood Count 3.63 MIL/MM3 Hemoglobin 10.1 GM/DL Hematocrit 30.0 % Mean Corpuscular Volume 82.6 FL Mean Corpuscular Hemoglobin 27.8 PG Mean Corpuscular Hemoglobin 33.7 % Concent Red Cell Distribution Width 14.6 % Platelet Count 367 TH/MM3 Mean Platelet Volume 8.1 FL Potassium Level 3.9 MEQ/L Radiology Last Impressions Shoulder X-Ray 03/30/16 0000 Signed Impressions: Service Date/Time: Wednesday, March 30, 2016 13:14 - CONCLUSION: Satisfactory postoperative appearance of the proximal right humerus following ORIF. Regulo Stewart MD Chest X-Ray 03/26/16 0600 Signed Impressions: Service Date/Time: Saturday, March 26, 2016 05:52 - CONCLUSION: 1. Persistent medial left lower lung consolidation. 2. No pneumothorax seen. Ugo Kim MD Tibia/Fibula X-Ray 03/23/16 0000 Signed Impressions: Service Date/Time: Wednesday, March 23, 2016 17:44 - CONCLUSION: Anatomic alignment. Ifeanyi Suarez MD FACR Femur X-Ray 03/23/16 0000 Signed Impressions: Service Date/Time: Wednesday, March 23, 2016 14:08 - CONCLUSION: Anatomic alignment. Ifeanyi Suarez MD FACR Lower Extremity CT 03/22/16 0000 Signed Impressions: Service Date/Time: Tuesday, March 22, 2016 10:08 - CONCLUSION: 1. Comminuted fractures involving the distal femur, proximal tibia, and proximal fibula with hemarthrosis as detailed above. Ugo Glez Jr., MD Ankle X-Ray 03/22/16 0000 Signed Impressions: Service Date/Time: Tuesday, March 22, 2016 01:27 - CONCLUSION: 1. Comminuted fractures distal tibia and fibula. Naeem Peterson MD Thoracic Spine CT 03/21/162027 Signed Impressions: Service Date/Time: Monday, March 21, 2016 20:39 - CONCLUSION: Intact thoracic spine. Contiguous left rib fractures #2 through 8 posteriorly Gopi Dumont MD Maxillofacial CT 03/21/162027 Signed Impressions: Service Date/Time: Monday, March 21, 2016 20:36 - CONCLUSION: Extensive fractures of all king of the maxillary sinuses And the nasal bone and ala inclusive of extension into the hard palate. There is a slightly depressed fracture of the medial floor of the left orbit and nondepressed fracture left zygomatic arch. Admixture of air and fluid noted in the maxillary sinuses and ethmoid air cells. Intraorbital contents are normal and base of the skull appears intact with normal intracranial contents Gopi Dumont MD Lumbar Spine CT 03/21/162027 Signed Impressions: Service Date/Time: Monday, March 21, 2016 20:39 - CONCLUSION: Nondisplaced fracture transverse process left L5 and left sacrum. Degenerative disc disease L3-S1. Gopi Dumont MD Pelvis X-Ray 03/21/162012 Signed Impressions: Service Date/Time: Monday, March 21, 2016 19:56 - CONCLUSION: Fracture left sacrum appreciated. Remainder the pelvis is intact with fractures of the pelvis better appreciated on CT scan Gopi Dumont MD Head CT 03/21/162012 Signed Impressions: Service Date/Time: Monday, March 21, 2016 20:30 - CONCLUSION: Intact calvarium. Normal intracranial contents. Facial fractures as described on the facial bone CT Gopi Dumont MD Chest CT 03/21/162012 Signed Impressions: Service Date/Time: Monday, March 21, 2016 20:39 - CONCLUSION: Contiguous left posterior rib fractures #2 through 8 with associated pleural thickening and parenchymal contusion. In the mid to upper right chest anteriorly there is a 1.3 cm pneumothorax without tension . Left chest subcutaneous emphysema Fracture of the proximal right humerus and mid left clavicle additionally appreciated. Gopi Dumont MD Cervical Spine CT 03/21/162012 Signed Impressions: Service Date/Time: Monday, March 21, 2016 20:30 - CONCLUSION: Degenerative changes of the cervical spine. Fractures acute left ribs numbered 2 and 3 posteriorly Gopi Dumont MD Abdomen/Pelvis CT 03/21/162012 Signed Impressions: Service Date/Time: Monday, March 21, 2016 20:39 - CONCLUSION: Multiple fractures inclusive of left inferior superior pubic ramus as well as transverse process and left L5 and left sacrum. Lower chest demonstrates fracture of left rib #8 posteriorly and a small anterior pneumothorax. Intra-abdominal and pelvic contents are normal Gopi Dumont MD Narrative Exam GENERAL: 56 year old male OOB in chair. SKIN: Warm and dry. HEAD: Normocephalic. ENT: No nasal bleeding or discharge. Mucous membranes pink and moist. NECK: Trachea midline. No JVD. CARDIOVASCULAR: Regular rate and rhythm. RESPIRATORY: No accessory muscle use. Lungs clear to auscultation, diminished LLL. GASTROINTESTINAL: Abdomen soft, non-tender, nondistended. + BS. MUSCULOSKELETAL: Extremities without cyanosis, GANT. RUE sling in place. RLE with Ganesh and wound vac, LLE with knee immobilizer. + sensation NEUROLOGICAL: Awake and alert. Normal speech. A/P Assessment and Plan POD 8 I&D RIGHT tibia with wound vac Closed reduction of RIGHT femur (03/22) POD 8 ORIF maxillary leforte fx Closed reduction of nasal bone fracture (03/22) POD 7 Remove hardware RIGHT femur with IM rhys fixation ORIF BILAT tibia with IM rhys fixation (03/23) POD 1 ORIF RIGHT humerus (03/30) Diet: Regular, No straws per OMFS Pulm: IS encouraged to use Pain: Roxicodone, Morphine, pain controlled Activity: BR. (NWB RUE; NWB Bilat LE) PT and OT evaluating GI: Protonix PO Bowel: Colace. MOM. + BM DVT: SCD's. Lovenox resumed Plan of care discussed with patient at bedside. Reminded patient he cannot use straws to drink from. Case management consulted for discharge planning. She will be difficult placement due to no insurance and limited weightbearing status. Patient is stable and being managed on Med/Surg Attending Statement Patient is awaiting discharge placement. He does not require any more hospital care however is becoming a problem to place the patient enhancing staying in the hospital The exam, history, and the medical decision-making described in the above note were completed with the assistance of the mid-level provider. I reviewed and agree with the findings presented. I attest that I had a [id number] encounter with the patient on the same day, and personally performed and documented my assessment and findings in the medical record. Tim Shepard Mar 31, 2016 15:04 Karen Nettles MD Apr 01, 2016 15:49
[2016-03-31] MEDS: ENOXAPARIN SODIUM 30 MG/0.3 ML SYRINGE SQ SCH (16:00)
[2016-04-01] VITALS (7 sets, daily range): BP systolic 127–144; BP diastolic 74–87; PULSE 91–110; RESP 16–24; TEMP 97.3–99.2; O2SAT 94–97
[2016-04-01] MEDS: oxyCODONE HCL ORAL CONC 20 MG/ML SYRINGE PO SCH ×4 (00:47→13:20)
[2016-04-01] MEDS: CHLORHEXIDINE GLUCONATE 2 % 1 PACK (2 CLOTHS) TOP SCH (03:08)
[2016-04-01] MEDS: MORPHINE SULFATE 4 MG/ML INJ IV PUSH PRN ×3 (03:08→11:38)
[2016-04-01] MEDS: ENOXAPARIN SODIUM 30 MG/0.3 ML SYRINGE SQ SCH ×2 (03:08→15:15)
[2016-04-01] MEDS: LACTULOSE SYRUP 20 GM/30 ML CUP PO SCH (07:51)
[2016-04-01] MEDS: DOCUSATE SODIUM 100 MG CAP PO SCH ×2 (07:52→20:22)
[2016-04-01] MEDS: PANTOPRAZOLE SOD 40 MG DELAYED RELEASE TAB PO SCH (07:52)
[2016-04-01] MEDS: FUROSEMIDE 20 MG/2 ML VIAL IV PUSH SCH (07:52)
[2016-04-01] MEDS: SODIUM CHLORIDE 0.9% FLUSH 5 ML FLUSH IVF SCH ×2 (07:52→20:23)
[2016-04-01] MEDS: CALCIUM/VITAMIN D 250 MG/125 U TAB PO SCH ×3 (07:52→17:39)
[2016-04-01] MEDS: BACITRACIN TOP OINT 15 GM TUBE TOP SCH ×2 (08:02→20:23)
[2016-04-01] MEDS: LACTATED RINGER'S 1000 ML IV SCH (10:30)
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
[2016-04-01] MEDS: CYCLOBENZAPRINE HCL 10 MG TAB PO PRN (20:22)
[2016-04-02] VITALS: BP 139/79; PULSE 116; RESP 20; TEMP 99.4; O2SAT 94
[2016-04-02] MEDS: diphenhydrAMINE HCL 25 MG CAP PO PRN (01:28)
[2016-04-02] MEDS: CHLORHEXIDINE GLUCONATE 2 % 1 PACK (2 CLOTHS) TOP SCH (03:46)
[2016-04-02] MEDS: ENOXAPARIN SODIUM 30 MG/0.3 ML SYRINGE SQ SCH ×2 (03:46→17:00)
[2016-04-02 04:00] VITALS: BP 159/80; PULSE 105; RESP 20; TEMP 98.7; O2SAT 96
[2016-04-02] MEDS: CYCLOBENZAPRINE HCL 10 MG TAB PO PRN (05:15)
[2016-04-02 08:00] VITALS: BP 124/79; PULSE 109; RESP 16; TEMP 98.5; O2SAT 96
[2016-04-02] MEDS ORDERED: PILL SPLITTER OTHER PRN (08:30)
[2016-04-02] MEDS ORDERED: METOPROLOL TARTRATE 25 MG TAB PO SCH (09:00)
[2016-04-02] MEDS: BACITRACIN TOP OINT 15 GM TUBE TOP SCH ×2 (09:00→21:54)
[2016-04-02] MEDS: LACTULOSE SYRUP 20 GM/30 ML CUP PO SCH (09:18)
[2016-04-02] MEDS: CALCIUM/VITAMIN D 250 MG/125 U TAB PO SCH ×3 (09:18→17:00)
[2016-04-02] MEDS: PANTOPRAZOLE SOD 40 MG DELAYED RELEASE TAB PO SCH (09:18)
[2016-04-02] MEDS: DOCUSATE SODIUM 100 MG CAP PO SCH ×2 (09:23→21:50)
[2016-04-02] MEDS: FLUoxetine HCL 10 MG CAP PO SCH (09:23)
[2016-04-02] MEDS: GABAPENTIN 100 MG CAP PO SCH ×2 (09:23→21:49)
[2016-04-02] MEDS: SODIUM CHLORIDE 0.9% FLUSH 5 ML FLUSH IVF SCH ×2 (09:24→21:54)
[2016-04-02] MEDS: FUROSEMIDE 20 MG/2 ML VIAL IV PUSH SCH (09:24)
[2016-04-02] MEDS: LACTATED RINGER'S 1000 ML IV SCH (10:30)
[2016-04-02 12:00] VITALS: BP 125/82; PULSE 100; RESP 24; TEMP 96.8; O2SAT 97
--- NOTE | 2016-04-02 15:27 | HHI.PR ---
Subjective Subjective Notes Pain controlled. Found patient using straw to drink, despite having "No straws" sign over bed. Objective Vitals/I&O Vital Signs Date Time Temp Pulse Resp B/P Pulse Ox O2 Delivery O2 Flow Rate FiO2 04/02/16 12:00 96.8 100 24 125/82 97 04/02/16 09:15 Room Air 03/31/16 20:27 2.00 03/30/16 09:07 21 Labs Laboratory Tests Test 03/29/16 03/30/16 03:49 06:45 White Blood Count 11.7 TH/MM3 Red Blood Count 3.63 MIL/MM3 Hemoglobin 10.1 GM/DL Hematocrit 30.0 % Mean Corpuscular Volume 82.6 FL Mean Corpuscular Hemoglobin 27.8 PG Mean Corpuscular Hemoglobin 33.7 % Concent Red Cell Distribution Width 14.6 % Platelet Count 367 TH/MM3 Mean Platelet Volume 8.1 FL Potassium Level 3.9 MEQ/L Radiology Last Impressions Shoulder X-Ray 03/30/16 0000 Signed Impressions: Service Date/Time: Wednesday, March 30, 2016 13:14 - CONCLUSION: Satisfactory postoperative appearance of the proximal right humerus following ORIF. Regulo Stewart MD Chest X-Ray 03/26/16 0600 Signed Impressions: Service Date/Time: Saturday, March 26, 2016 05:52 - CONCLUSION: 1. Persistent medial left lower lung consolidation. 2. No pneumothorax seen. Ugo Kim MD Tibia/Fibula X-Ray 03/23/16 0000 Signed Impressions: Service Date/Time: Wednesday, March 23, 2016 17:44 - CONCLUSION: Anatomic alignment. Ifeanyi Suarez MD FACR Femur X-Ray 03/23/16 0000 Signed Impressions: Service Date/Time: Wednesday, March 23, 2016 14:08 - CONCLUSION: Anatomic alignment. Ifeanyi Suarez MD FACR Lower Extremity CT 03/22/16 0000 Signed Impressions: Service Date/Time: Tuesday, March 22, 2016 10:08 - CONCLUSION: 1. Comminuted fractures involving the distal femur, proximal tibia, and proximal fibula with hemarthrosis as detailed above. Ugo Glez Jr., MD Ankle X-Ray 03/22/16 0000 Signed Impressions: Service Date/Time: Tuesday, March 22, 2016 01:27 - CONCLUSION: 1. Comminuted fractures distal tibia and fibula. Naeem Peterson MD Thoracic Spine CT 03/21/162027 Signed Impressions: Service Date/Time: Monday, March 21, 2016 20:39 - CONCLUSION: Intact thoracic spine. Contiguous left rib fractures #2 through 8 posteriorly Gopi Dumont MD Maxillofacial CT 03/21/162027 Signed Impressions: Service Date/Time: Monday, March 21, 2016 20:36 - CONCLUSION: Extensive fractures of all king of the maxillary sinuses And the nasal bone and ala inclusive of extension into the hard palate. There is a slightly depressed fracture of the medial floor of the left orbit and nondepressed fracture left zygomatic arch. Admixture of air and fluid noted in the maxillary sinuses and ethmoid air cells. Intraorbital contents are normal and base of the skull appears intact with normal intracranial contents Gopi Dumont MD Lumbar Spine CT 03/21/162027 Signed Impressions: Service Date/Time: Monday, March 21, 2016 20:39 - CONCLUSION: Nondisplaced fracture transverse process left L5 and left sacrum. Degenerative disc disease L3-S1. Gopi Dumont MD Pelvis X-Ray 03/21/162012 Signed Impressions: Service Date/Time: Monday, March 21, 2016 19:56 - CONCLUSION: Fracture left sacrum appreciated. Remainder the pelvis is intact with fractures of the pelvis better appreciated on CT scan Gopi Dumont MD Head CT 03/21/162012 Signed Impressions: Service Date/Time: Monday, March 21, 2016 20:30 - CONCLUSION: Intact calvarium. Normal intracranial contents. Facial fractures as described on the facial bone CT Gopi Dumont MD Chest CT 03/21/162012 Signed Impressions: Service Date/Time: Monday, March 21, 2016 20:39 - CONCLUSION: Contiguous left posterior rib fractures #2 through 8 with associated pleural thickening and parenchymal contusion. In the mid to upper right chest anteriorly there is a 1.3 cm pneumothorax without tension . Left chest subcutaneous emphysema Fracture of the proximal right humerus and mid left clavicle additionally appreciated. Gopi Dumont MD Cervical Spine CT 03/21/162012 Signed Impressions: Service Date/Time: Monday, March 21, 2016 20:30 - CONCLUSION: Degenerative changes of the cervical spine. Fractures acute left ribs numbered 2 and 3 posteriorly Gopi Dumont MD Abdomen/Pelvis CT 03/21/162012 Signed Impressions: Service Date/Time: Monday, March 21, 2016 20:39 - CONCLUSION: Multiple fractures inclusive of left inferior superior pubic ramus as well as transverse process and left L5 and left sacrum. Lower chest demonstrates fracture of left rib #8 posteriorly and a small anterior pneumothorax. Intra-abdominal and pelvic contents are normal Gopi Dumont MD Narrative Exam GENERAL: 56 year old male OOB in chair. SKIN: Warm and dry. HEAD: Normocephalic. ENT: No nasal bleeding or discharge. Mucous membranes pink and moist. Elastics noted in mouth. NECK: Trachea midline. No JVD. CARDIOVASCULAR: Regular rate and rhythm. RESPIRATORY: No accessory muscle use. Lungs clear and diminished to auscultation. GASTROINTESTINAL: Abdomen soft, non-tender, nondistended. + BS. MUSCULOSKELETAL: Extremities without cyanosis, GANT. RUE sling in place. RLE with Ganesh and wound vac, LLE with knee immobilizer. + sensation NEUROLOGICAL: Awake and alert. Normal speech. A/P Assessment and Plan S/P I&D RIGHT tibia with wound vac Closed reduction of RIGHT femur (03/22) S/P ORIF maxillary leforte fx Closed reduction of nasal bone fracture (03/22) S/P Remove hardware RIGHT femur with IM rhys fixation ORIF BILAT tibia with IM rhys fixation (03/23) S/P ORIF RIGHT humerus (03/30) Diet: Regular, No straws per OMFS Pulm: IS encouraged to use Pain: Roxicodone, Morphine, pain controlled Activity: BR. (NWB RUE; NWB Bilat LE) PT and OT evaluating GI: Protonix PO Bowel: Colace. MOM. + BM DVT: SCD's. Lovenox. Plan of care discussed with patient at bedside. Reminded patient he cannot use straws to drink from. Case management consulted for discharge planning. He will be difficult placement due to no insurance and limited weightbearing status. Patient is stable and being managed on Med/Surg Tim Shepard Apr 02, 2016 15:27
[2016-04-02 16:00] VITALS: BP 125/73; PULSE 108; RESP 20; TEMP 98.5; O2SAT 94
[2016-04-02 20:00] VITALS: BP 125/82; PULSE 101; RESP 18; TEMP 98.8; O2SAT 97
[2016-04-02] MEDS: METOPROLOL TARTRATE 25 MG TAB PO SCH (21:49)
[2016-04-02] MEDS: MIRTAZAPINE 15 MG TAB PO SCH (21:50)
[2016-04-03] VITALS: BP 117/75; PULSE 92; RESP 18; TEMP 99; O2SAT 95
[2016-04-03] MEDS: CHLORHEXIDINE GLUCONATE 2 % 1 PACK (2 CLOTHS) TOP SCH (04:00)
[2016-04-03] MEDS: ENOXAPARIN SODIUM 30 MG/0.3 ML SYRINGE SQ SCH ×2 (04:25→15:06)
[2016-04-03] MEDS: LACTATED RINGER'S 1000 ML IV SCH (07:57)
[2016-04-03 08:05] VITALS: BP 117/74; PULSE 110; RESP 17; TEMP 97.9; O2SAT 94
[2016-04-03] MEDS: CALCIUM/VITAMIN D 250 MG/125 U TAB PO SCH ×3 (08:48→17:05)
[2016-04-03] MEDS: GABAPENTIN 100 MG CAP PO SCH ×2 (08:48→19:49)
[2016-04-03] MEDS: FLUoxetine HCL 10 MG CAP PO SCH (08:48)
[2016-04-03] MEDS: MAGNESIUM HYDROXIDE SUSP 30 ML CUP PO PRN (08:48)
[2016-04-03] MEDS: LACTULOSE SYRUP 20 GM/30 ML CUP PO SCH (08:48)
[2016-04-03] MEDS: PANTOPRAZOLE SOD 40 MG DELAYED RELEASE TAB PO SCH (08:48)
[2016-04-03] MEDS: DOCUSATE SODIUM 100 MG CAP PO SCH ×2 (08:48→19:49)
[2016-04-03] MEDS: METOPROLOL TARTRATE 25 MG TAB PO SCH ×2 (08:48→19:49)
[2016-04-03] MEDS: SODIUM CHLORIDE 0.9% FLUSH 5 ML FLUSH IVF SCH ×2 (08:49→19:48)
[2016-04-03] MEDS: FUROSEMIDE 20 MG/2 ML VIAL IV PUSH SCH (08:49)
[2016-04-03] MEDS: BACITRACIN TOP OINT 15 GM TUBE TOP SCH ×2 (08:49→19:49)
[2016-04-03] MEDS: CYCLOBENZAPRINE HCL 10 MG TAB PO PRN ×2 (08:53→17:06)
[2016-04-03 12:29] VITALS: BP 120/81; PULSE 108; RESP 17; TEMP 96.7; O2SAT 94
[2016-04-03] MEDS: BISACODYL 10 MG SUPP RECTAL PRN (15:06)
[2016-04-03 16:00] VITALS: BP 125/71; PULSE 102; RESP 17; TEMP 99.1; O2SAT 96
[2016-04-03] MEDS ORDERED: GABA600T PO (17:11)
[2016-04-03] MEDS: diphenhydrAMINE HCL 25 MG CAP PO PRN (19:49)
[2016-04-03] MEDS: MIRTAZAPINE 15 MG TAB PO SCH (19:49)
[2016-04-03 20:00] VITALS: BP 112/70; PULSE 100; RESP 16; TEMP 98.1; O2SAT 96
--- NOTE | 2016-04-03 21:46 | HHI.PR ---
Subjective Subjective Notes no new c/o, pain significant, wants more pain meds Objective Vitals/I&O Vital Signs Date Time Temp Pulse Resp B/P Pulse Ox O2 Delivery O2 Flow Rate FiO2 04/03/16 20:49 18 04/03/16 16:00 99.1 102 125/71 96 04/03/16 09:04 Room Air 03/31/16 20:27 2.00 03/30/16 09:07 21 Radiology Last Impressions Shoulder X-Ray 03/30/16 0000 Signed Impressions: Service Date/Time: Wednesday, March 30, 2016 13:14 - CONCLUSION: Satisfactory postoperative appearance of the proximal right humerus following ORIF. Regulo Stewart MD Chest X-Ray 03/26/16 0600 Signed Impressions: Service Date/Time: Saturday, March 26, 2016 05:52 - CONCLUSION: 1. Persistent medial left lower lung consolidation. 2. No pneumothorax seen. Ugo Kim MD Tibia/Fibula X-Ray 03/23/16 0000 Signed Impressions: Service Date/Time: Wednesday, March 23, 2016 17:44 - CONCLUSION: Anatomic alignment. Ifeanyi Suarez MD FACR Femur X-Ray 03/23/16 0000 Signed Impressions: Service Date/Time: Wednesday, March 23, 2016 14:08 - CONCLUSION: Anatomic alignment. Ifeanyi Suarez MD FACR Lower Extremity CT 03/22/16 0000 Signed Impressions: Service Date/Time: Tuesday, March 22, 2016 10:08 - CONCLUSION: 1. Comminuted fractures involving the distal femur, proximal tibia, and proximal fibula with hemarthrosis as detailed above. Ugo Glez Jr., MD Ankle X-Ray 03/22/16 0000 Signed Impressions: Service Date/Time: Tuesday, March 22, 2016 01:27 - CONCLUSION: 1. Comminuted fractures distal tibia and fibula. Naeem Peterson MD Thoracic Spine CT 03/21/162027 Signed Impressions: Service Date/Time: Monday, March 21, 2016 20:39 - CONCLUSION: Intact thoracic spine. Contiguous left rib fractures #2 through 8 posteriorly Gopi Dumont MD Maxillofacial CT 03/21/162027 Signed Impressions: Service Date/Time: Monday, March 21, 2016 20:36 - CONCLUSION: Extensive fractures of all king of the maxillary sinuses And the nasal bone and ala inclusive of extension into the hard palate. There is a slightly depressed fracture of the medial floor of the left orbit and nondepressed fracture left zygomatic arch. Admixture of air and fluid noted in the maxillary sinuses and ethmoid air cells. Intraorbital contents are normal and base of the skull appears intact with normal intracranial contents Gopi Dumont MD Lumbar Spine CT 03/21/162027 Signed Impressions: Service Date/Time: Monday, March 21, 2016 20:39 - CONCLUSION: Nondisplaced fracture transverse process left L5 and left sacrum. Degenerative disc disease L3-S1. Gopi Dumont MD Pelvis X-Ray 03/21/162012 Signed Impressions: Service Date/Time: Monday, March 21, 2016 19:56 - CONCLUSION: Fracture left sacrum appreciated. Remainder the pelvis is intact with fractures of the pelvis better appreciated on CT scan Gopi Dumont MD Head CT 03/21/162012 Signed Impressions: Service Date/Time: Monday, March 21, 2016 20:30 - CONCLUSION: Intact calvarium. Normal intracranial contents. Facial fractures as described on the facial bone CT Gopi Dumont MD Chest CT 03/21/162012 Signed Impressions: Service Date/Time: Monday, March 21, 2016 20:39 - CONCLUSION: Contiguous left posterior rib fractures #2 through 8 with associated pleural thickening and parenchymal contusion. In the mid to upper right chest anteriorly there is a 1.3 cm pneumothorax without tension . Left chest subcutaneous emphysema Fracture of the proximal right humerus and mid left clavicle additionally appreciated. Gopi Dumont MD Cervical Spine CT 03/21/162012 Signed Impressions: Service Date/Time: Monday, March 21, 2016 20:30 - CONCLUSION: Degenerative changes of the cervical spine. Fractures acute left ribs numbered 2 and 3 posteriorly Gopi Dumont MD Abdomen/Pelvis CT 03/21/162012 Signed Impressions: Service Date/Time: Monday, March 21, 2016 20:39 - CONCLUSION: Multiple fractures inclusive of left inferior superior pubic ramus as well as transverse process and left L5 and left sacrum. Lower chest demonstrates fracture of left rib #8 posteriorly and a small anterior pneumothorax. Intra-abdominal and pelvic contents are normal Gopi Dumont MD Cardiovascular: Regular Lungs: Clear Abdomen: Non-distended Extremities: No edema, Perfused A/P Assessment and Plan S/P I&D RIGHT tibia with wound vac Closed reduction of RIGHT femur (03/22) S/P ORIF maxillary leforte fx Closed reduction of nasal bone fracture (03/22) S/P Remove hardware RIGHT femur with IM rhys fixation ORIF BILAT tibia with IM rhys fixation (03/23) S/P ORIF RIGHT humerus (03/30) Diet: Regular, No straws per OMFS Pulm: IS encouraged to use Pain: Roxicodone, Morphine, pain controlled Activity: BR. (NWB RUE; NWB Bilnilay LE) PT and OT evaluating GI: Protonix PO Bowel: Colace. MOM. + BM DVT: SCD's. Lovenox. Plan of care discussed with patient at bedside. Reminded patient he cannot use straws to drink from. Case management consulted for discharge planning. He will be difficult placement due to no insurance and limited weightbearing status. Patient is stable and being managed on Med/Surg Change pain sukhwinders Nicholas Hubbard MD Apr 03, 2016 21:46
[2016-04-03] MEDS ORDERED: ACETAMINOPHEN/HYDROcodone 325 MG/10 MG TAB PO PRN (22:00)
[2016-04-03] MEDS: ACETAMINOPHEN/HYDROcodone 325 MG/10 MG TAB PO PRN (23:40)
[2016-04-04] VITALS: BP 121/70; PULSE 100; RESP 20; TEMP 98.2; O2SAT 95
[2016-04-04] MEDS: CHLORHEXIDINE GLUCONATE 2 % 1 PACK (2 CLOTHS) TOP SCH (03:53)
[2016-04-04 04:00] VITALS: BP 112/74; PULSE 102; RESP 16; TEMP 98.8; O2SAT 95
[2016-04-04] MEDS: ACETAMINOPHEN/HYDROcodone 325 MG/10 MG TAB PO PRN ×4 (04:01→16:19)
[2016-04-04] MEDS: ENOXAPARIN SODIUM 30 MG/0.3 ML SYRINGE SQ SCH ×2 (04:01→16:20)
[2016-04-04] MEDS: LACTULOSE SYRUP 20 GM/30 ML CUP PO SCH ×2 (07:05→07:56)
[2016-04-04] MEDS: CALCIUM/VITAMIN D 250 MG/125 U TAB PO SCH ×3 (07:05→16:19)
[2016-04-04] MEDS: PANTOPRAZOLE SOD 40 MG DELAYED RELEASE TAB PO SCH ×2 (07:05→07:59)
[2016-04-04] MEDS: DOCUSATE SODIUM 100 MG CAP PO SCH ×3 (07:05→21:05)
[2016-04-04 07:48] VITALS: BP 123/75; PULSE 94; RESP 19; TEMP 96.2; O2SAT 96
[2016-04-04] MEDS: CYCLOBENZAPRINE HCL 10 MG TAB PO PRN ×2 (07:59→21:05)
[2016-04-04] MEDS: METOPROLOL TARTRATE 25 MG TAB PO SCH ×2 (07:59→21:05)
[2016-04-04] MEDS: GABAPENTIN 100 MG CAP PO SCH ×2 (07:59→21:05)
[2016-04-04] MEDS: FLUoxetine HCL 10 MG CAP PO SCH (07:59)
[2016-04-04] MEDS: SODIUM CHLORIDE 0.9% FLUSH 5 ML FLUSH IVF SCH ×2 (08:00→21:05)
[2016-04-04] MEDS: FUROSEMIDE 20 MG/2 ML VIAL IV PUSH SCH (08:00)
[2016-04-04] MEDS: LACTATED RINGER'S 1000 ML IV SCH (08:05)
[2016-04-04] MEDS: BACITRACIN TOP OINT 15 GM TUBE TOP SCH ×2 (08:05→21:05)
--- NOTE | 2016-04-04 11:51 | HHI.PR ---
Subjective Subjective Notes resting comfortably no new complaints Objective Vitals/I&O Vital Signs Date Time Temp Pulse Resp B/P Pulse Ox O2 Delivery O2 Flow Rate FiO2 04/04/16 07:48 96.2 94 19 123/75 96 04/03/16 09:04 Room Air 03/31/16 20:27 2.00 Radiology Last Impressions Shoulder X-Ray 03/30/16 0000 Signed Impressions: Service Date/Time: Wednesday, March 30, 2016 13:14 - CONCLUSION: Satisfactory postoperative appearance of the proximal right humerus following ORIF. Regulo Stewart MD Chest X-Ray 03/26/16 0600 Signed Impressions: Service Date/Time: Saturday, March 26, 2016 05:52 - CONCLUSION: 1. Persistent medial left lower lung consolidation. 2. No pneumothorax seen. Ugo Kim MD Tibia/Fibula X-Ray 03/23/16 0000 Signed Impressions: Service Date/Time: Wednesday, March 23, 2016 17:44 - CONCLUSION: Anatomic alignment. Ifeanyi Suarez MD FACR Femur X-Ray 03/23/16 0000 Signed Impressions: Service Date/Time: Wednesday, March 23, 2016 14:08 - CONCLUSION: Anatomic alignment. Ifeanyi Suarez MD FACR Lower Extremity CT 03/22/16 0000 Signed Impressions: Service Date/Time: Tuesday, March 22, 2016 10:08 - CONCLUSION: 1. Comminuted fractures involving the distal femur, proximal tibia, and proximal fibula with hemarthrosis as detailed above. Ugo Glez Jr., MD Ankle X-Ray 03/22/16 0000 Signed Impressions: Service Date/Time: Tuesday, March 22, 2016 01:27 - CONCLUSION: 1. Comminuted fractures distal tibia and fibula. Naeem Peterson MD Thoracic Spine CT 03/21/162027 Signed Impressions: Service Date/Time: Monday, March 21, 2016 20:39 - CONCLUSION: Intact thoracic spine. Contiguous left rib fractures #2 through 8 posteriorly Gopi Dumont MD Maxillofacial CT 03/21/162027 Signed Impressions: Service Date/Time: Monday, March 21, 2016 20:36 - CONCLUSION: Extensive fractures of all king of the maxillary sinuses And the nasal bone and ala inclusive of extension into the hard palate. There is a slightly depressed fracture of the medial floor of the left orbit and nondepressed fracture left zygomatic arch. Admixture of air and fluid noted in the maxillary sinuses and ethmoid air cells. Intraorbital contents are normal and base of the skull appears intact with normal intracranial contents Gopi Dumont MD Lumbar Spine CT 03/21/162027 Signed Impressions: Service Date/Time: Monday, March 21, 2016 20:39 - CONCLUSION: Nondisplaced fracture transverse process left L5 and left sacrum. Degenerative disc disease L3-S1. Gopi Dumont MD Pelvis X-Ray 03/21/162012 Signed Impressions: Service Date/Time: Monday, March 21, 2016 19:56 - CONCLUSION: Fracture left sacrum appreciated. Remainder the pelvis is intact with fractures of the pelvis better appreciated on CT scan Gopi Dumont MD Head CT 03/21/162012 Signed Impressions: Service Date/Time: Monday, March 21, 2016 20:30 - CONCLUSION: Intact calvarium. Normal intracranial contents. Facial fractures as described on the facial bone CT Gopi Dumont MD Chest CT 03/21/162012 Signed Impressions: Service Date/Time: Monday, March 21, 2016 20:39 - CONCLUSION: Contiguous left posterior rib fractures #2 through 8 with associated pleural thickening and parenchymal contusion. In the mid to upper right chest anteriorly there is a 1.3 cm pneumothorax without tension . Left chest subcutaneous emphysema Fracture of the proximal right humerus and mid left clavicle additionally appreciated. Gopi Dumont MD Cervical Spine CT 03/21/162012 Signed Impressions: Service Date/Time: Monday, March 21, 2016 20:30 - CONCLUSION: Degenerative changes of the cervical spine. Fractures acute left ribs numbered 2 and 3 posteriorly Gopi Dumont MD Abdomen/Pelvis CT 03/21/162012 Signed Impressions: Service Date/Time: Monday, March 21, 2016 20:39 - CONCLUSION: Multiple fractures inclusive of left inferior superior pubic ramus as well as transverse process and left L5 and left sacrum. Lower chest demonstrates fracture of left rib #8 posteriorly and a small anterior pneumothorax. Intra-abdominal and pelvic contents are normal Gopi Dumont MD Cardiovascular: Regular Lungs: Clear Extremities: No edema A/P Assessment and Plan continue current care IS pain control PT/OT Juliet Bowen MD Apr 04, 2016 11:51
[2016-04-04 11:56] VITALS: BP 104/67; PULSE 96; RESP 19; TEMP 97.9; O2SAT 96
[2016-04-04 16:24] VITALS: BP 124/72; PULSE 101; RESP 19; TEMP 96.8; O2SAT 96
[2016-04-04 20:00] VITALS: BP 121/73; PULSE 114; RESP 16; TEMP 96; O2SAT 96
[2016-04-04] MEDS: MIRTAZAPINE 15 MG TAB PO SCH (21:05)
[2016-04-05] VITALS: BP 108/68; PULSE 95; RESP 16; TEMP 98.3; O2SAT 98
[2016-04-05] MEDS: ACETAMINOPHEN/HYDROcodone 325 MG/10 MG TAB PO PRN ×6 (00:19→21:08)
[2016-04-05] MEDS: CHLORHEXIDINE GLUCONATE 2 % 1 PACK (2 CLOTHS) TOP SCH (02:45)
[2016-04-05] MEDS: ENOXAPARIN SODIUM 30 MG/0.3 ML SYRINGE SQ SCH ×2 (04:41→16:58)
--- NOTE | 2016-04-05 06:48 | PD.ORT.PN ---
Subjective Subjective Remarks POD 13 s/p Bilateral tibias and right femur POD 6 s/p ORIF right proximal humerus fx extubated. awake. reports pain controlled. states has difficulty moving hand Objective Vitals Vital Signs Date Time Temp Pulse Resp B/P Pulse Ox O2 Delivery O2 Flow Rate FiO2 04/05/16 00:00 98.3 95 16 108/68 98 04/04/16 20:00 96.0 114 16 121/73 96 04/04/16 16:24 96.8 101 19 124/72 96 04/04/16 11:56 97.9 96 19 104/67 96 04/04/16 07:48 96.2 94 19 123/75 96 I/O 04/04/16 04/04/16 04/04/16 04/05/16 04/05/16 04/05/16 07:00 15:00 23:00 07:00 15:00 23:00 Intake Total 600 ml 960 ml 360 ml Output Total 400 ml 1100 ml Balance 200 ml 960 ml -740 ml Intake Oral 600 ml 960 ml 360 ml Output Urine Total 400 ml 1100 ml # Voids 4 # Bowel Movements 0 0 Imaging Last 72 hours Impressions Chest X-Ray 03/26/16 0600 Signed Impressions: Service Date/Time: Saturday, March 26, 2016 05:52 - CONCLUSION: 1. Persistent medial left lower lung consolidation. 2. No pneumothorax seen. Ugo Kim MD Chest X-Ray 03/25/16 0600 Signed Impressions: Service Date/Time: March 04:50 - CONCLUSION: 1. Increase in left-sided airspace disease since March 24. Left chest tube, endotracheal tube and nasogastric tube unchanged. Naeem Peterson MD Chest X-Ray 03/25/16 0000 Signed Impressions: Service Date/Time: March 15:09 - CONCLUSION: 1. No pneumothorax status post removal of left chest tube. 2. Persistent left lung scattered patchiness. 3. Endotracheal tube and nasogastric tube remain in good positions. 4. Multiple fractures are stable. Osiel Howard MD Chest X-Ray 03/24/16 0600 Signed Impressions: Service Date/Time: Thursday, March 24, 2016 03:13 - CONCLUSION: 1. Support apparatus unchanged. Left chest tube without pneumothorax. Mostly basilar airspace disease remains present, slightly increased on the right since 03/23. Naeem Peterson MD Last 24 hours Impressions Thoracic Spine CT 03/21/162027 Signed Impressions: Service Date/Time: Monday, March 21, 2016 20:39 - CONCLUSION: Intact thoracic spine. Contiguous left rib fractures #2 through 8 posteriorly Gopi Dumont MD Maxillofacial CT 03/21/162027 Signed Impressions: Service Date/Time: Monday, March 21, 2016 20:36 - CONCLUSION: Extensive fractures of all king of the maxillary sinuses And the nasal bone and ala inclusive of extension into the hard palate. There is a slightly depressed fracture of the medial floor of the left orbit and nondepressed fracture left zygomatic arch. Admixture of air and fluid noted in the maxillary sinuses and ethmoid air cells. Intraorbital contents are normal and base of the skull appears intact with normal intracranial contents Gopi Dumont MD Lumbar Spine CT 03/21/162027 Signed Impressions: Service Date/Time: Monday, March 21, 2016 20:39 - CONCLUSION: Nondisplaced fracture transverse process left L5 and left sacrum. Degenerative disc disease L3-S1. Gopi Dumont MD Pelvis X-Ray 03/21/162012 Signed Impressions: Service Date/Time: Monday, March 21, 2016 19:56 - CONCLUSION: Fracture left sacrum appreciated. Remainder the pelvis is intact with fractures of the pelvis better appreciated on CT scan Gopi Dumont MD Head CT 03/21/162012 Signed Impressions: Service Date/Time: Monday, March 21, 2016 20:30 - CONCLUSION: Intact calvarium. Normal intracranial contents. Facial fractures as described on the facial bone CT Gopi Dumont MD Chest X-Ray 03/21/162012 Signed Impressions: Service Date/Time: Monday, March 21, 2016 19:56 - CONCLUSION: Slightly off set fracture posterior left fourth rib and probably contiguous third and fifth ribs with no pneumothorax Gopi Dumont MD Chest CT 03/21/162012 Signed Impressions: Service Date/Time: Monday, March 21, 2016 20:39 - CONCLUSION: Contiguous left posterior rib fractures #2 through 8 with associated pleural thickening and parenchymal contusion. In the mid to upper right chest anteriorly there is a 1.3 cm pneumothorax without tension . Left chest subcutaneous emphysema Fracture of the proximal right humerus and mid left clavicle additionally appreciated. Gopi Dumont MD Cervical Spine CT 03/21/162012 Signed Impressions: Service Date/Time: Monday, March 21, 2016 20:30 - CONCLUSION: Degenerative changes of the cervical spine. Fractures acute left ribs numbered 2 and 3 posteriorly Gopi Dumont MD Abdomen/Pelvis CT 03/21/162012 Signed Impressions: Service Date/Time: Monday, March 21, 2016 20:39 - CONCLUSION: Multiple fractures inclusive of left inferior superior pubic ramus as well as transverse process and left L5 and left sacrum. Lower chest demonstrates fracture of left rib #8 posteriorly and a small anterior pneumothorax. Intra-abdominal and pelvic contents are normal Gopi Dumont MD Objective Remarks RUE: Clean dry dressings and intact. +sling. hand is warm to touch. Patient has swelling of right arm. no sensation to median/ulnar nerve distribution. inability to move fingers RLE: dressing CDI. calf compartments are soft. Wound VAC removed and new well- padded posterior and sugar tong splint applied. good distal pulses and cap refills LLE: dressing CDI. Calf compartments soft. Good capillary refill in toes. LUE: good passive motion of shoulder, elbow, wrist, good cap refill. Assessment & Plan Problem List: (1) Plan: Recommend emergent Irrigation and Debridement of right open tibia fracture I will examine the right femur under anaesthesia I will examine the right shoulder under anaesthesia Possible internal or external fixation right tibial He will ultimately require multiple interventions Based on complexity of the multiple injuries will request consultation with Dr. Anatoly Hogan Informed consent obtained for above plan Assessment and Plan POD 13 2) Right Segmental Periprosthetic Femoral Shaft Fracture status post IM nail 3) Right Distal Tibial Shaft Fracture status post IM nail 03/23/16 4) Left Tibial Shaft Fracture status post IM nail 03/23/16 5) bilateral tibial plateaus status post ORIF on 03/23/16 1) Right Proximal Humerus Fx s/p ORIF - POD 6 6)left clavicle fracture - nonop 7) left sacrum fracture and inferior/superior rami fractures - nonop -NWB RUE,BLE. daily dressing change to right shoulder monitor nerve palsy right arm maintain sling R UE -maintain splint, CKS and discontinue vac on right leg daily dressing changes L LE and R LE above short leg splint Lovenox Discharge planning to rehabilitation Incentive spirometry Fracisco Haynes Apr 05, 2016 06:48
[2016-04-05 07:34] VITALS: BP 115/72; PULSE 109; RESP 17; TEMP 98.1; O2SAT 97
[2016-04-05] MEDS: LACTULOSE SYRUP 20 GM/30 ML CUP PO SCH (08:58)
[2016-04-05] MEDS: GABAPENTIN 100 MG CAP PO SCH ×2 (08:59→16:58)
[2016-04-05] MEDS: PANTOPRAZOLE SOD 40 MG DELAYED RELEASE TAB PO SCH (08:59)
[2016-04-05] MEDS: CYCLOBENZAPRINE HCL 10 MG TAB PO PRN (08:59)
[2016-04-05] MEDS: METOPROLOL TARTRATE 25 MG TAB PO SCH ×2 (08:59→21:07)
[2016-04-05] MEDS: CALCIUM/VITAMIN D 250 MG/125 U TAB PO SCH ×3 (08:59→16:58)
[2016-04-05] MEDS: DOCUSATE SODIUM 100 MG CAP PO SCH ×2 (08:59→21:07)
[2016-04-05] MEDS: FLUoxetine HCL 10 MG CAP PO SCH (08:59)
[2016-04-05] MEDS: SODIUM CHLORIDE 0.9% FLUSH 5 ML FLUSH IVF SCH ×2 (09:00→21:24)
[2016-04-05] MEDS: FUROSEMIDE 20 MG/2 ML VIAL IV PUSH SCH (09:00)
[2016-04-05] MEDS: BACITRACIN TOP OINT 15 GM TUBE TOP SCH ×2 (09:04→21:00)
[2016-04-05] MEDS: LACTATED RINGER'S 1000 ML IV SCH (10:30)
[2016-04-05 11:18] VITALS: BP 107/74; PULSE 87; RESP 17; TEMP 96.5; O2SAT 97
--- NOTE | 2016-04-05 15:07 | HHI.PR ---
Subjective Subjective Notes Pain controlled, reports burning sensation. Reports oral elastics broke yesterday. Objective Vitals/I&O Vital Signs Date Time Temp Pulse Resp B/P Pulse Ox O2 Delivery O2 Flow Rate FiO2 04/05/16 11:18 96.5 87 17 107/74 97 04/03/16 09:04 Room Air Radiology Last Impressions Shoulder X-Ray 03/30/16 0000 Signed Impressions: Service Date/Time: Wednesday, March 30, 2016 13:14 - CONCLUSION: Satisfactory postoperative appearance of the proximal right humerus following ORIF. Regulo Stewart MD Chest X-Ray 03/26/16 0600 Signed Impressions: Service Date/Time: Saturday, March 26, 2016 05:52 - CONCLUSION: 1. Persistent medial left lower lung consolidation. 2. No pneumothorax seen. Ugo Kim MD Tibia/Fibula X-Ray 03/23/16 0000 Signed Impressions: Service Date/Time: Wednesday, March 23, 2016 17:44 - CONCLUSION: Anatomic alignment. Ifeanyi Suarez MD FACR Femur X-Ray 03/23/16 0000 Signed Impressions: Service Date/Time: Wednesday, March 23, 2016 14:08 - CONCLUSION: Anatomic alignment. Ifeanyi Suarez MD FACR Lower Extremity CT 03/22/16 0000 Signed Impressions: Service Date/Time: Tuesday, March 22, 2016 10:08 - CONCLUSION: 1. Comminuted fractures involving the distal femur, proximal tibia, and proximal fibula with hemarthrosis as detailed above. Ugo Glez Jr., MD Ankle X-Ray 03/22/16 0000 Signed Impressions: Service Date/Time: Tuesday, March 22, 2016 01:27 - CONCLUSION: 1. Comminuted fractures distal tibia and fibula. Naeem Peterson MD Thoracic Spine CT 03/21/162027 Signed Impressions: Service Date/Time: Monday, March 21, 2016 20:39 - CONCLUSION: Intact thoracic spine. Contiguous left rib fractures #2 through 8 posteriorly Gopi Dumont MD Maxillofacial CT 03/21/162027 Signed Impressions: Service Date/Time: Monday, March 21, 2016 20:36 - CONCLUSION: Extensive fractures of all king of the maxillary sinuses And the nasal bone and ala inclusive of extension into the hard palate. There is a slightly depressed fracture of the medial floor of the left orbit and nondepressed fracture left zygomatic arch. Admixture of air and fluid noted in the maxillary sinuses and ethmoid air cells. Intraorbital contents are normal and base of the skull appears intact with normal intracranial contents Gopi Dumont MD Lumbar Spine CT 03/21/162027 Signed Impressions: Service Date/Time: Monday, March 21, 2016 20:39 - CONCLUSION: Nondisplaced fracture transverse process left L5 and left sacrum. Degenerative disc disease L3-S1. Gopi Dumont MD Pelvis X-Ray 03/21/162012 Signed Impressions: Service Date/Time: Monday, March 21, 2016 19:56 - CONCLUSION: Fracture left sacrum appreciated. Remainder the pelvis is intact with fractures of the pelvis better appreciated on CT scan Gopi Dumont MD Head CT 03/21/162012 Signed Impressions: Service Date/Time: Monday, March 21, 2016 20:30 - CONCLUSION: Intact calvarium. Normal intracranial contents. Facial fractures as described on the facial bone CT Gopi Dumont MD Chest CT 03/21/162012 Signed Impressions: Service Date/Time: Monday, March 21, 2016 20:39 - CONCLUSION: Contiguous left posterior rib fractures #2 through 8 with associated pleural thickening and parenchymal contusion. In the mid to upper right chest anteriorly there is a 1.3 cm pneumothorax without tension . Left chest subcutaneous emphysema Fracture of the proximal right humerus and mid left clavicle additionally appreciated. Gopi Dumont MD Cervical Spine CT 03/21/162012 Signed Impressions: Service Date/Time: Monday, March 21, 2016 20:30 - CONCLUSION: Degenerative changes of the cervical spine. Fractures acute left ribs numbered 2 and 3 posteriorly Gopi Dumont MD Abdomen/Pelvis CT 03/21/162012 Signed Impressions: Service Date/Time: Monday, March 21, 2016 20:39 - CONCLUSION: Multiple fractures inclusive of left inferior superior pubic ramus as well as transverse process and left L5 and left sacrum. Lower chest demonstrates fracture of left rib #8 posteriorly and a small anterior pneumothorax. Intra-abdominal and pelvic contents are normal Gopi Dumont MD Narrative Exam GENERAL: 56 year old male lying in bed. SKIN: Warm and dry. HEAD: Normocephalic. ENT: No nasal bleeding or discharge. Mucous membranes pink and moist. NECK: Trachea midline. No JVD. CARDIOVASCULAR: Regular rate and rhythm. RESPIRATORY: No accessory muscle use. Lungs clear and diminished to auscultation. GASTROINTESTINAL: Abdomen soft, non-tender, nondistended. + BS. MUSCULOSKELETAL: Extremities without cyanosis, GANT. RUE sling in place, unable to move fingers, decreased sensation. RLE with Ganesh and wound vac, LLE with knee immobilizer: + sensation NEUROLOGICAL: Awake and alert. Normal speech. A/P Assessment and Plan S/P I&D RIGHT tibia with wound vac Closed reduction of RIGHT femur (03/22) S/P ORIF maxillary leforte fx Closed reduction of nasal bone fracture (03/22) S/P Remove hardware RIGHT femur with IM rhys fixation ORIF BILAT tibia with IM rhys fixation (03/23) S/P ORIF RIGHT humerus (03/30) Diet: Regular, No straws per OMFS Pulm: IS encouraged to use Pain: Roxicodone, Flexeril, Neurontin increased. Activity: BR. (NWB RUE; NWB Bilat LE) PT and OT evaluating GI: Protonix PO Bowel: Colace. MOM. + BM DVT: SCD's. Lovenox. Plan of care discussed with patient at bedside. Case management consulted for discharge planning. He will be difficult placement due to no insurance and limited weightbearing status. Will consider transferring to [facility] and [facility] when cleared by Ortho and OMFS. Patient is stable and being managed on Med/Surg Tim Shepard Apr 05, 2016 15:07
[2016-04-05 16:20] VITALS: BP 121/71; PULSE 96; RESP 17; TEMP 97.6; O2SAT 97
[2016-04-05 19:00] VITALS: BP 139/76; PULSE 94; RESP 18; TEMP 98.1; O2SAT 97
[2016-04-06] VITALS: BP 123/80; PULSE 87; RESP 17; TEMP 98.6; O2SAT 97
[2016-04-06] MEDS: CYCLOBENZAPRINE HCL 10 MG TAB PO PRN (01:05)
[2016-04-06] MEDS: MIRTAZAPINE 15 MG TAB PO SCH ×2 (01:06→21:14)
[2016-04-06] MEDS: ACETAMINOPHEN/HYDROcodone 325 MG/10 MG TAB PO PRN ×6 (01:08→21:28)
[2016-04-06] MEDS: ENOXAPARIN SODIUM 30 MG/0.3 ML SYRINGE SQ SCH ×2 (04:35→17:03)
--- NOTE | 2016-04-06 06:37 | PD.ORT.PN ---
Subjective Subjective Remarks Alert and oriented. No new complaints Objective Vitals Vital Signs Date Time Temp Pulse Resp B/P Pulse Ox O2 Delivery O2 Flow Rate FiO2 04/06/16 00:00 98.6 87 17 123/80 97 04/05/16 22:08 18 04/05/16 19:00 98.1 94 18 139/76 97 04/05/16 16:20 97.6 96 17 121/71 97 04/05/16 11:18 96.5 87 17 107/74 97 04/05/16 07:34 98.1 109 17 115/72 97 I/O 04/05/16 04/05/16 04/05/16 04/06/16 04/06/16 04/06/16 06:59 14:59 22:59 06:59 14:59 22:59 Intake Total 240 ml 720 ml 480 ml 240 ml Output Total 400 ml 900 ml 1100 ml Balance -160 ml 720 ml -420 ml -860 ml Intake Oral 240 ml 720 ml 480 ml 240 ml Output Urine Total 400 ml 900 ml 1100 ml # Voids 4 # Bowel Movements 0 1 0 0 Imaging Last 72 hours Impressions Chest X-Ray 03/26/16 0600 Signed Impressions: Service Date/Time: Saturday, March 26, 2016 05:52 - CONCLUSION: 1. Persistent medial left lower lung consolidation. 2. No pneumothorax seen. Ugo Kim MD Chest X-Ray 03/25/16 0600 Signed Impressions: Service Date/Time: March 04:50 - CONCLUSION: 1. Increase in left-sided airspace disease since March 24. Left chest tube, endotracheal tube and nasogastric tube unchanged. Naeem Peterson MD Chest X-Ray 03/25/16 0000 Signed Impressions: Service Date/Time: March 15:09 - CONCLUSION: 1. No pneumothorax status post removal of left chest tube. 2. Persistent left lung scattered patchiness. 3. Endotracheal tube and nasogastric tube remain in good positions. 4. Multiple fractures are stable. Osiel Howard MD Chest X-Ray 03/24/16 0600 Signed Impressions: Service Date/Time: Thursday, March 24, 2016 03:13 - CONCLUSION: 1. Support apparatus unchanged. Left chest tube without pneumothorax. Mostly basilar airspace disease remains present, slightly increased on the right since 03/23. Naeem Peterson MD Last 24 hours Impressions Thoracic Spine CT 03/21/162027 Signed Impressions: Service Date/Time: Monday, March 21, 2016 20:39 - CONCLUSION: Intact thoracic spine. Contiguous left rib fractures #2 through 8 posteriorly Gopi Dumont MD Maxillofacial CT 03/21/162027 Signed Impressions: Service Date/Time: Monday, March 21, 2016 20:36 - CONCLUSION: Extensive fractures of all king of the maxillary sinuses And the nasal bone and ala inclusive of extension into the hard palate. There is a slightly depressed fracture of the medial floor of the left orbit and nondepressed fracture left zygomatic arch. Admixture of air and fluid noted in the maxillary sinuses and ethmoid air cells. Intraorbital contents are normal and base of the skull appears intact with normal intracranial contents Gopi Dumont MD Lumbar Spine CT 03/21/162027 Signed Impressions: Service Date/Time: Monday, March 21, 2016 20:39 - CONCLUSION: Nondisplaced fracture transverse process left L5 and left sacrum. Degenerative disc disease L3-S1. Gopi Dumont MD Pelvis X-Ray 03/21/162012 Signed Impressions: Service Date/Time: Monday, March 21, 2016 19:56 - CONCLUSION: Fracture left sacrum appreciated. Remainder the pelvis is intact with fractures of the pelvis better appreciated on CT scan Gopi Dumont MD Head CT 03/21/162012 Signed Impressions: Service Date/Time: Monday, March 21, 2016 20:30 - CONCLUSION: Intact calvarium. Normal intracranial contents. Facial fractures as described on the facial bone CT Gopi Dumont MD Chest X-Ray 03/21/162012 Signed Impressions: Service Date/Time: Monday, March 21, 2016 19:56 - CONCLUSION: Slightly off set fracture posterior left fourth rib and probably contiguous third and fifth ribs with no pneumothorax Gopi Dumont MD Chest CT 03/21/162012 Signed Impressions: Service Date/Time: Monday, March 21, 2016 20:39 - CONCLUSION: Contiguous left posterior rib fractures #2 through 8 with associated pleural thickening and parenchymal contusion. In the mid to upper right chest anteriorly there is a 1.3 cm pneumothorax without tension . Left chest subcutaneous emphysema Fracture of the proximal right humerus and mid left clavicle additionally appreciated. Gopi Dumont MD Cervical Spine CT 03/21/162012 Signed Impressions: Service Date/Time: Monday, March 21, 2016 20:30 - CONCLUSION: Degenerative changes of the cervical spine. Fractures acute left ribs numbered 2 and 3 posteriorly Gopi Dumont MD Abdomen/Pelvis CT 03/21/162012 Signed Impressions: Service Date/Time: Monday, March 21, 2016 20:39 - CONCLUSION: Multiple fractures inclusive of left inferior superior pubic ramus as well as transverse process and left L5 and left sacrum. Lower chest demonstrates fracture of left rib #8 posteriorly and a small anterior pneumothorax. Intra-abdominal and pelvic contents are normal Gopi Dumont MD Objective Remarks RUE: Clean dry dressings and intact. +sling. hand is warm to touch. Patient has swelling of right arm. no sensation to median/ulnar nerve distribution. inability to move fingers RLE: dressing CDI. calf compartments are soft. Clean dry dressings intact with splint in place. Good capillary refills full motion of toes LLE: dressing CDI. Calf compartments soft. Good capillary refill in toes. LUE: good passive motion of shoulder, elbow, wrist, good cap refill. Assessment & Plan Problem List: (1) Plan: Recommend emergent Irrigation and Debridement of right open tibia fracture I will examine the right femur under anaesthesia I will examine the right shoulder under anaesthesia Possible internal or external fixation right tibial He will ultimately require multiple interventions Based on complexity of the multiple injuries will request consultation with Dr. Anatoly Hogan Informed consent obtained for above plan Assessment and Plan POD 14 2) Right Segmental Periprosthetic Femoral Shaft Fracture status post IM nail 3) Right Distal Tibial Shaft Fracture status post IM nail 03/23/16 4) Left Tibial Shaft Fracture status post IM nail 03/23/16 5) bilateral tibial plateaus status post ORIF on 03/23/16 1) Right Proximal Humerus Fx s/p ORIF - POD 7 6)left clavicle fracture - nonop 7) left sacrum fracture and inferior/superior rami fractures - nonop X-rays today bilateral lower extremities -NWB RUE,BLE. daily dressing change to right shoulder monitor nerve palsy right arm maintain sling R UE -maintain splint, CKS daily dressing changes L LE and R LE above short leg splint Lovenox Discharge planning to rehabilitation Incentive spirometry TRISTON PICKETT PA-C Apr 06, 2016 06:37
[2016-04-06 08:10] VITALS: BP 113/75; PULSE 96; RESP 18; TEMP 98.4; O2SAT 98
[2016-04-06] MEDS: METOPROLOL TARTRATE 25 MG TAB PO SCH ×2 (08:51→21:14)
[2016-04-06] MEDS: CALCIUM/VITAMIN D 250 MG/125 U TAB PO SCH ×3 (08:51→17:03)
[2016-04-06] MEDS: PANTOPRAZOLE SOD 40 MG DELAYED RELEASE TAB PO SCH (08:51)
[2016-04-06] MEDS: FLUoxetine HCL 10 MG CAP PO SCH (08:51)
[2016-04-06] MEDS: GABAPENTIN 100 MG CAP PO SCH ×3 (08:52→17:03)
[2016-04-06] MEDS: DOCUSATE SODIUM 100 MG CAP PO SCH ×2 (08:52→21:14)
[2016-04-06] MEDS: SODIUM CHLORIDE 0.9% FLUSH 5 ML FLUSH IVF SCH ×2 (08:53→21:15)
[2016-04-06] MEDS: BACITRACIN TOP OINT 15 GM TUBE TOP SCH ×2 (08:53→21:15)
[2016-04-06] MEDS: LACTULOSE SYRUP 20 GM/30 ML CUP PO SCH (08:53)
[2016-04-06 12:00] VITALS: BP 136/89; PULSE 96; RESP 18; TEMP 97.8; O2SAT 97
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
[2016-04-06 15:34] VITALS: BP 117/71; PULSE 89; RESP 21; TEMP 97.5; O2SAT 97
[2016-04-06 19:50] VITALS: BP 124/80; PULSE 88; RESP 19; TEMP 97.8; O2SAT 97
[2016-04-07] VITALS: BP 111/67; PULSE 86; RESP 18; TEMP 98.7; O2SAT 96
[2016-04-07] MEDS: ENOXAPARIN SODIUM 30 MG/0.3 ML SYRINGE SQ SCH ×2 (03:09→15:37)
[2016-04-07] MEDS: ACETAMINOPHEN/HYDROcodone 325 MG/10 MG TAB PO PRN ×5 (03:10→20:00)
[2016-04-07 08:03] VITALS: BP 125/77; PULSE 95; RESP 16; TEMP 97.5; O2SAT 96
[2016-04-07] MEDS: LACTULOSE SYRUP 20 GM/30 ML CUP PO SCH (10:15)
[2016-04-07] MEDS: CALCIUM/VITAMIN D 250 MG/125 U TAB PO SCH ×3 (10:15→18:38)
[2016-04-07] MEDS: DOCUSATE SODIUM 100 MG CAP PO SCH ×2 (10:15→20:00)
[2016-04-07] MEDS: PANTOPRAZOLE SOD 40 MG DELAYED RELEASE TAB PO SCH (10:15)
[2016-04-07] MEDS: BACITRACIN TOP OINT 15 GM TUBE TOP SCH ×2 (10:16→20:01)
[2016-04-07] MEDS: METOPROLOL TARTRATE 25 MG TAB PO SCH ×2 (10:16→19:59)
[2016-04-07] MEDS: SODIUM CHLORIDE 0.9% FLUSH 5 ML FLUSH IVF SCH ×2 (10:16→20:01)
[2016-04-07] MEDS: FLUoxetine HCL 10 MG CAP PO SCH (10:16)
[2016-04-07] MEDS: GABAPENTIN 100 MG CAP PO SCH ×4 (10:16→19:59)
--- NOTE | 2016-04-07 10:30 | PD.ORT.PN ---
Subjective Subjective Remarks Alert and oriented. No new complaints Objective Vitals Vital Signs Date Time Temp Pulse Resp B/P Pulse Ox O2 Delivery O2 Flow Rate FiO2 04/07/16 08:03 97.5 95 16 125/77 96 04/07/16 00:00 98.7 86 18 111/67 96 04/06/16 19:50 97.8 88 19 124/80 97 04/06/16 15:34 97.5 89 21 117/71 97 04/06/16 12:00 97.8 96 18 136/89 97 I/O 04/06/16 04/06/16 04/06/16 04/07/16 04/07/16 04/07/16 06:59 14:59 22:59 06:59 14:59 22:59 Intake Total 240 ml 1080 ml 480 ml 240 ml Output Total 1100 ml 600 ml Balance -860 ml 1080 ml 480 ml -360 ml Intake Oral 240 ml 1080 ml 480 ml 240 ml Output Urine Total 1100 ml 600 ml # Voids 3 2 # Bowel Movements 0 0 0 Imaging Last 72 hours Impressions Chest X-Ray 03/26/16 0600 Signed Impressions: Service Date/Time: Saturday, March 26, 2016 05:52 - CONCLUSION: 1. Persistent medial left lower lung consolidation. 2. No pneumothorax seen. Ugo Kim MD Chest X-Ray 03/25/16 0600 Signed Impressions: Service Date/Time: March 04:50 - CONCLUSION: 1. Increase in left-sided airspace disease since March 24. Left chest tube, endotracheal tube and nasogastric tube unchanged. Naeem Peterson MD Chest X-Ray 03/25/16 0000 Signed Impressions: Service Date/Time: March 15:09 - CONCLUSION: 1. No pneumothorax status post removal of left chest tube. 2. Persistent left lung scattered patchiness. 3. Endotracheal tube and nasogastric tube remain in good positions. 4. Multiple fractures are stable. Osiel Howard MD Chest X-Ray 03/24/16 0600 Signed Impressions: Service Date/Time: Thursday, March 24, 2016 03:13 - CONCLUSION: 1. Support apparatus unchanged. Left chest tube without pneumothorax. Mostly basilar airspace disease remains present, slightly increased on the right since 03/23. Naeem Peterson MD Last 24 hours Impressions [address] Spine CT 03/21/162027 Signed Impressions: Service Date/Time: Monday, March 21, 2016 20:39 - CONCLUSION: Intact thoracic spine. Contiguous left rib fractures #2 through 8 posteriorly Gopi Dumont MD Maxillofacial CT 03/21/162027 Signed Impressions: Service Date/Time: Monday, March 21, 2016 20:36 - CONCLUSION: Extensive fractures of all king of the maxillary sinuses And the nasal bone and ala inclusive of extension into the hard palate. There is a slightly depressed fracture of the medial floor of the left orbit and nondepressed fracture left zygomatic arch. Admixture of air and fluid noted in the maxillary sinuses and ethmoid air cells. Intraorbital contents are normal and base of the skull appears intact with normal intracranial contents Gopi Dumont MD Lumbar Spine CT 03/21/162027 Signed Impressions: Service Date/Time: Monday, March 21, 2016 20:39 - CONCLUSION: Nondisplaced fracture transverse process left L5 and left sacrum. Degenerative disc disease L3-S1. Gopi Dumont MD Pelvis X-Ray 03/21/162012 Signed Impressions: Service Date/Time: Monday, March 21, 2016 19:56 - CONCLUSION: Fracture left sacrum appreciated. Remainder the pelvis is intact with fractures of the pelvis better appreciated on CT scan Gopi Dumont MD Head CT 03/21/162012 Signed Impressions: Service Date/Time: Monday, March 21, 2016 20:30 - CONCLUSION: Intact calvarium. Normal intracranial contents. Facial fractures as described on the facial bone CT Gopi Dumont MD Chest X-Ray 03/21/162012 Signed Impressions: Service Date/Time: Monday, March 21, 2016 19:56 - CONCLUSION: Slightly off set fracture posterior left fourth rib and probably contiguous third and fifth ribs with no pneumothorax Gopi Dumont MD Chest CT 03/21/162012 Signed Impressions: Service Date/Time: Monday, March 21, 2016 20:39 - CONCLUSION: Contiguous left posterior rib fractures #2 through 8 with associated pleural thickening and parenchymal contusion. In the mid to upper right chest anteriorly there is a 1.3 cm pneumothorax without tension . Left chest subcutaneous emphysema Fracture of the proximal right humerus and mid left clavicle additionally appreciated. Gopi Dumont MD Cervical Spine CT 03/21/162012 Signed Impressions: Service Date/Time: Monday, March 21, 2016 20:30 - CONCLUSION: Degenerative changes of the cervical spine. Fractures acute left ribs numbered 2 and 3 posteriorly Gopi Dumont MD Abdomen/Pelvis CT 03/21/162012 Signed Impressions: Service Date/Time: Monday, March 21, 2016 20:39 - CONCLUSION: Multiple fractures inclusive of left inferior superior pubic ramus as well as transverse process and left L5 and left sacrum. Lower chest demonstrates fracture of left rib #8 posteriorly and a small anterior pneumothorax. Intra-abdominal and pelvic contents are normal Gopi Dumont MD Objective Remarks RUE: Clean dry dressings and intact. +sling. hand is warm to touch. Patient has swelling of right arm. no sensation to median/ulnar nerve distribution. inability to move fingers RLE: dressing CDI. calf compartments are soft. Clean dry dressings intact with splint in place. Good capillary refills full motion of toes LLE: dressing CDI. Calf compartments soft. Good capillary refill in toes. LUE: good passive motion of shoulder, elbow, wrist, good cap refill. Assessment & Plan Problem List: (1) Plan: Recommend emergent Irrigation and Debridement of right open tibia fracture I will examine the right femur under anaesthesia I will examine the right shoulder under anaesthesia Possible internal or external fixation right tibial He will ultimately require multiple interventions Based on complexity of the multiple injuries will request consultation with Dr. Anatoly Hogan Informed consent obtained for above plan Assessment and Plan POD 15 2) Right Segmental Periprosthetic Femoral Shaft Fracture status post IM nail 3) Right Distal Tibial Shaft Fracture status post IM nail 03/23/16 4) Left Tibial Shaft Fracture status post IM nail 03/23/16 5) bilateral tibial plateaus status post ORIF on 03/23/16 1) Right Proximal Humerus Fx s/p ORIF - POD 8 6)left clavicle fracture - nonop 7) left sacrum fracture and inferior/superior rami fractures - nonop X-rays today bilateral lower extremities -NWB RUE,BLE. We'll take down dressings tomorrow and plan on removal of sutures and isai on bilateral lower extremities at that time daily dressing change to right shoulder monitor nerve palsy right arm maintain sling R UE -maintain splint, CKS daily dressing changes L LE and R LE above short leg splint Lovenox Discharge planning to rehabilitation Incentive spirometry TRISTON PICKETT PA-C Apr 07, 2016 10:30
[2016-04-07 12:00] VITALS: BP 115/65; PULSE 91; RESP 16; TEMP 97.7; O2SAT 98
--- NOTE | 2016-04-07 13:35 | HHI.PR ---
Subjective Remarks POD 16 s/p orif lefort 1 maxillary fx/ CR nasal bone fracture, stabilization of maxillary palatal fracture AAOx3, NAD reports hx of "crooked nose" following commands, tolerating po well - regular diet no complaints Objective Vital Signs Date Time Temp Pulse Resp B/P Pulse Ox O2 Delivery O2 Flow Rate FiO2 04/07/16 12:00 97.7 91 16 115/65 98 04/07/16 08:03 97.5 95 16 125/77 96 04/07/16 00:00 98.7 86 18 111/67 96 04/06/16 19:50 97.8 88 19 124/80 97 04/06/16 15:34 97.5 89 21 117/71 97 I/O 04/06/16 04/06/16 04/06/16 04/07/16 04/07/16 04/07/16 06:59 14:59 22:59 06:59 14:59 22:59 Intake Total 240 ml 1080 ml 480 ml 240 ml Output Total 1100 ml 600 ml Balance -860 ml 1080 ml 480 ml -360 ml Intake Oral 240 ml 1080 ml 480 ml 240 ml Output Urine Total 1100 ml 600 ml # Voids 3 2 # Bowel Movements 0 0 0 Objective Remarks facial bones stable, no tenderness/no crepitus. no facial edema. 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, palate stable wound margins well approximated, sutures intact/hemostatic bite in occlusion, repeatable maxilla stable, no false point of motion maxilla facial edema reducing tissues pink and well perfused no signs of infection bleeding pus oredema poor oral hygiene Assessment and Plan Assessment and Plan POD16 s/p orif lefort 1 maxillary fx/ CR nasal bone fracture, stabilization of maxillary palatal fracture pt stable form OMS standpoint nasal bone/maxilla and bite stable oral hygiene with Peridex swabs elastics placed to stabilize maxilla/bite - due to pt eating regular diet, with stop regular diet and place on mechanically soft diet elastics for few days more Dillon Romeo DMD Apr 07, 2016 13:34
--- NOTE | 2016-04-07 14:20 | HHI.PR ---
Subjective Subjective Notes Pain controlled. New wound on sacrum per RN. Objective Vitals/I&O Vital Signs Date Time Temp Pulse Resp B/P Pulse Ox O2 Delivery O2 Flow Rate FiO2 04/07/16 12:00 97.7 91 16 115/65 98 04/03/16 09:04 Room Air Radiology Last Impressions Shoulder X-Ray 03/30/16 0000 Signed Impressions: Service Date/Time: Wednesday, March 30, 2016 13:14 - CONCLUSION: Satisfactory postoperative appearance of the proximal right humerus following ORIF. Regulo Stewart MD Chest X-Ray 03/26/16 0600 Signed Impressions: Service Date/Time: Saturday, March 26, 2016 05:52 - CONCLUSION: 1. Persistent medial left lower lung consolidation. 2. No pneumothorax seen. Ugo Kim MD Tibia/Fibula X-Ray 03/23/16 0000 Signed Impressions: Service Date/Time: Wednesday, March 23, 2016 17:44 - CONCLUSION: Anatomic alignment. Ifeanyi Suarez MD FACR Femur X-Ray 03/23/16 0000 Signed Impressions: Service Date/Time: Wednesday, March 23, 2016 14:08 - CONCLUSION: Anatomic alignment. Ifeanyi Suarez MD FACR Lower Extremity CT 03/22/16 0000 Signed Impressions: Service Date/Time: Tuesday, March 22, 2016 10:08 - CONCLUSION: 1. Comminuted fractures involving the distal femur, proximal tibia, and proximal fibula with hemarthrosis as detailed above. Ugo Glez Jr., MD Ankle X-Ray 03/22/16 0000 Signed Impressions: Service Date/Time: Tuesday, March 22, 2016 01:27 - CONCLUSION: 1. Comminuted fractures distal tibia and fibula. Naeem Peterson MD Thoracic Spine CT 03/21/162027 Signed Impressions: Service Date/Time: Monday, March 21, 2016 20:39 - CONCLUSION: Intact thoracic spine. Contiguous left rib fractures #2 through 8 posteriorly Gopi Dumont MD Maxillofacial CT 03/21/162027 Signed Impressions: Service Date/Time: Monday, March 21, 2016 20:36 - CONCLUSION: Extensive fractures of all king of the maxillary sinuses And the nasal bone and ala inclusive of extension into the hard palate. There is a slightly depressed fracture of the medial floor of the left orbit and nondepressed fracture left zygomatic arch. Admixture of air and fluid noted in the maxillary sinuses and ethmoid air cells. Intraorbital contents are normal and base of the skull appears intact with normal intracranial contents Gopi Dumont MD Lumbar Spine CT 03/21/162027 Signed Impressions: Service Date/Time: Monday, March 21, 2016 20:39 - CONCLUSION: Nondisplaced fracture transverse process left L5 and left sacrum. Degenerative disc disease L3-S1. Gopi Dumont MD Pelvis X-Ray 03/21/162012 Signed Impressions: Service Date/Time: Monday, March 21, 2016 19:56 - CONCLUSION: Fracture left sacrum appreciated. Remainder the pelvis is intact with fractures of the pelvis better appreciated on CT scan Gopi Dumont MD Head CT 03/21/162012 Signed Impressions: Service Date/Time: Monday, March 21, 2016 20:30 - CONCLUSION: Intact calvarium. Normal intracranial contents. Facial fractures as described on the facial bone CT Gopi Dumont MD Chest CT 03/21/162012 Signed Impressions: Service Date/Time: Monday, March 21, 2016 20:39 - CONCLUSION: Contiguous left posterior rib fractures #2 through 8 with associated pleural thickening and parenchymal contusion. In the mid to upper right chest anteriorly there is a 1.3 cm pneumothorax without tension . Left chest subcutaneous emphysema Fracture of the proximal right humerus and mid left clavicle additionally appreciated. Gopi Dumont MD Cervical Spine CT 03/21/162012 Signed Impressions: Service Date/Time: Monday, March 21, 2016 20:30 - CONCLUSION: Degenerative changes of the cervical spine. Fractures acute left ribs numbered 2 and 3 posteriorly Gopi Dumont MD Abdomen/Pelvis CT 03/21/162012 Signed Impressions: Service Date/Time: Monday, March 21, 2016 20:39 - CONCLUSION: Multiple fractures inclusive of left inferior superior pubic ramus as well as transverse process and left L5 and left sacrum. Lower chest demonstrates fracture of left rib #8 posteriorly and a small anterior pneumothorax. Intra-abdominal and pelvic contents are normal Gopi Dumont MD Narrative Exam GENERAL: 56 year old well-developed male lying in bed. SKIN: Warm and dry. HEAD: Normocephalic. ENT: No nasal bleeding or discharge. Mucous membranes pink and moist. NECK: Trachea midline. No JVD. CARDIOVASCULAR: Regular rate and rhythm. RESPIRATORY: No accessory muscle use. Lungs clear and diminished to auscultation. GASTROINTESTINAL: Abdomen soft, non-tender, nondistended. + BS. MUSCULOSKELETAL: Extremities without cyanosis, GANT. RUE sling in place, unable to move fingers, decreased sensation. RLE with Ganesh and wound vac, LLE with knee immobilizer: + sensation NEUROLOGICAL: Awake and alert. Normal speech. A/P Assessment and Plan INJURIES: Extensive fx of all king of maxillary sinus Depressed fx of LEFT orbit Non-depressed fx of LEFT zygomatic arch LEFT clavicle fx RIGHT proximal humerus LEFT rib fx (2-8 posterior) with contusions Transverse process fx LEFT L5 Multiple fx of LEFT inferior pubic ramus LEFT sacrum fx LEFT tib fib shaft fx RIGHT tib/fib fx RIGHT prox and distal femur fx * S/P I&D RIGHT tibia with wound vac (03/22) Closed reduction of RIGHT femur * S/P ORIF maxillary leforte fx (03/22) Closed reduction of nasal bone fracture * S/P Remove hardware RIGHT femur with IM rhys fixation (03/23) ORIF BILAT tibia with IM rhys fixation * S/P ORIF RIGHT humerus (03/30) Diet: Regular, No straws per OMFS Pulm: IS encouraged to use Pain: Roxicodone, Flexeril, Neurontin. Pain controlled. Activity: BR. (NWB RUE; NWB Bilat LE) PT and OT evaluating GI: Protonix PO Bowel: Colace. MOM. + BM DVT: SCD's. Lovenox. underwriting consultant consulted for recommendations on sacrum wound. Specialty bed ordered. Patient encouraged to reposition self in bed. Plan of care discussed with patient at bedside. Case management consulted for discharge planning. Patient has no insurance and is not a safe discharge home. Can possibly transfer to [facility] when beds available and when cleared by Ortho and OMFS. Patient is stable and being managed on Med/Surg Tim Shepard Apr 07, 2016 14:20
[2016-04-07 16:00] VITALS: BP 117/71; PULSE 94; RESP 17; TEMP 96.3; O2SAT 97
[2016-04-07] MEDS: CYCLOBENZAPRINE HCL 10 MG TAB PO PRN (19:59)
[2016-04-07 20:00] VITALS: BP 118/73; PULSE 85; RESP 18; TEMP 97.8; O2SAT 93
[2016-04-07] MEDS: MAGNESIUM HYDROXIDE SUSP 30 ML CUP PO PRN (20:00)
[2016-04-07 23:58] VITALS: BP 110/64; PULSE 94; RESP 18; TEMP 98.6; O2SAT 95
[2016-04-08] MEDS: MIRTAZAPINE 15 MG TAB PO SCH ×2 (00:03→21:03)
[2016-04-08] MEDS: ACETAMINOPHEN/HYDROcodone 325 MG/10 MG TAB PO PRN ×6 (00:03→21:03)
[2016-04-08] MEDS: ENOXAPARIN SODIUM 30 MG/0.3 ML SYRINGE SQ SCH ×2 (04:17→16:12)
[2016-04-08] MEDS: CYCLOBENZAPRINE HCL 10 MG TAB PO PRN (04:17)
[2016-04-08 06:09] LABS: HEMATOCRIT 30.3 % (39.0-51.0); MEAN CELL VOLUME 84.4 FL (80.0-100.0); MEAN CORPUSCULAR HEMOGLOBIN 28.9 PG (27.0-34.0); MEAN CORPUSCULAR HGB CONC 34.3 % (32.0-36.0); PLATELET COUNT 1044 TH/MM3 (150-450); RED BLOOD COUNT 3.59 MIL/MM3 (4.50-5.90); RED CELL DISTRIBUTION WIDTH 15.7 % (11.6-17.2); REVIEW FLAG FINAL; WHITE BLOOD COUNT 8.7 TH/MM3 (4.0-11.0)
[2016-04-08 06:41] LABS: BICARBONATE 32.5 MEQ/L (21.0-32.0); MAGNESIUM 2.2 MG/DL (1.5-2.5); POTASSIUM 3.4 MEQ/L (3.5-5.1)
[2016-04-08 08:00] VITALS: BP 138/80; PULSE 85; RESP 18; TEMP 98.4; O2SAT 100
[2016-04-08 08:52] VITALS: O2SAT 96
[2016-04-08] MEDS ORDERED: POTASSIUM CHLORIDE 20 MEQ CONTROLLED RELEASE TAB PO ONE ×2 (09:00→16:00)
[2016-04-08] MEDS: METOPROLOL TARTRATE 25 MG TAB PO SCH ×2 (10:16→21:04)
[2016-04-08] MEDS: DOCUSATE SODIUM 100 MG CAP PO SCH ×2 (10:16→21:03)
[2016-04-08] MEDS: BACITRACIN TOP OINT 15 GM TUBE TOP SCH ×2 (10:17→21:04)
[2016-04-08] MEDS: LACTULOSE SYRUP 20 GM/30 ML CUP PO SCH (10:17)
[2016-04-08] MEDS: FLUoxetine HCL 10 MG CAP PO SCH (10:17)
[2016-04-08] MEDS: PANTOPRAZOLE SOD 40 MG DELAYED RELEASE TAB PO SCH (10:17)
[2016-04-08] MEDS: CALCIUM/VITAMIN D 250 MG/125 U TAB PO SCH ×3 (10:17→17:22)
[2016-04-08] MEDS: SODIUM CHLORIDE 0.9% FLUSH 5 ML FLUSH IVF SCH ×2 (10:20→21:04)
--- NOTE | 2016-04-08 11:44 | PD.ORT.PN ---
Subjective Subjective Remarks Alert and oriented. No new complaints Objective Vitals Vital Signs Date Time Temp Pulse Resp B/P Pulse Ox O2 Delivery O2 Flow Rate FiO2 04/08/16 08:52 96 04/08/16 08:00 98.4 85 18 138/80 100 04/07/16 23:58 98.6 94 18 110/64 95 04/07/16 20:00 97.8 85 18 118/73 93 04/07/16 16:00 96.3 94 17 117/71 97 04/07/16 12:00 97.7 91 16 115/65 98 I/O 04/07/16 04/07/16 04/07/16 04/08/16 04/08/16 04/08/16 07:00 15:00 23:00 07:00 15:00 23:00 Intake Total 240 ml 840 ml 720 ml 720 ml Output Total 600 ml 600 ml 475 ml 1200 ml Balance -360 ml 240 ml 245 ml -480 ml Intake Oral 240 ml 840 ml 720 ml 720 ml Output Urine Total 600 ml 600 ml 475 ml 1200 ml # Bowel Movements 0 0 0 Result Diagram: 04/08/16 0547 04/08/16 0547 Imaging Last 72 hours Impressions Chest X-Ray 03/26/16 0600 Signed Impressions: Service Date/Time: Saturday, March 26, 2016 05:52 - CONCLUSION: 1. Persistent medial left lower lung consolidation. 2. No pneumothorax seen. Ugo Kim MD Chest X-Ray 03/25/16 0600 Signed Impressions: Service Date/Time: March 04:50 - CONCLUSION: 1. Increase in left-sided airspace disease since March 24. Left chest tube, endotracheal tube and nasogastric tube unchanged. Naeem Peterson MD Chest X-Ray 03/25/16 0000 Signed Impressions: Service Date/Time: March 15:09 - CONCLUSION: 1. No pneumothorax status post removal of left chest tube. 2. Persistent left lung scattered patchiness. 3. Endotracheal tube and nasogastric tube remain in good positions. 4. Multiple fractures are stable. Osiel Howard MD Chest X-Ray 03/24/16 0600 Signed Impressions: Service Date/Time: Thursday, March 24, 2016 03:13 - CONCLUSION: 1. Support apparatus unchanged. Left chest tube without pneumothorax. Mostly basilar airspace disease remains present, slightly increased on the right since 03/23. Naeem Peterson MD Last 24 hours Impressions Thoracic Spine CT 03/21/162027 Signed Impressions: Service Date/Time: Monday, March 21, 2016 20:39 - CONCLUSION: Intact thoracic spine. Contiguous left rib fractures #2 through 8 posteriorly Gopi Dumont MD Maxillofacial CT 03/21/162027 Signed Impressions: Service Date/Time: Monday, March 21, 2016 20:36 - CONCLUSION: Extensive fractures of all king of the maxillary sinuses And the nasal bone and ala inclusive of extension into the hard palate. There is a slightly depressed fracture of the medial floor of the left orbit and nondepressed fracture left zygomatic arch. Admixture of air and fluid noted in the maxillary sinuses and ethmoid air cells. Intraorbital contents are normal and base of the skull appears intact with normal intracranial contents Gopi Dumont MD Lumbar Spine CT 03/21/162027 Signed Impressions: Service Date/Time: Monday, March 21, 2016 20:39 - CONCLUSION: Nondisplaced fracture transverse process left L5 and left sacrum. Degenerative disc disease L3-S1. Gopi Dumont MD Pelvis X-Ray 03/21/162012 Signed Impressions: Service Date/Time: Monday, March 21, 2016 19:56 - CONCLUSION: Fracture left sacrum appreciated. Remainder the pelvis is intact with fractures of the pelvis better appreciated on CT scan Gopi Dumont MD Head CT 03/21/162012 Signed Impressions: Service Date/Time: Monday, March 21, 2016 20:30 - CONCLUSION: Intact calvarium. Normal intracranial contents. Facial fractures as described on the facial bone CT Gopi Dumont MD Chest X-Ray 03/21/162012 Signed Impressions: Service Date/Time: Monday, March 21, 2016 19:56 - CONCLUSION: Slightly off set fracture posterior left fourth rib and probably contiguous third and fifth ribs with no pneumothorax Gopi Dumont MD Chest CT 03/21/162012 Signed Impressions: Service Date/Time: Monday, March 21, 2016 20:39 - CONCLUSION: Contiguous left posterior rib fractures #2 through 8 with associated pleural thickening and parenchymal contusion. In the mid to upper right chest anteriorly there is a 1.3 cm pneumothorax without tension . Left chest subcutaneous emphysema Fracture of the proximal right humerus and mid left clavicle additionally appreciated. Gopi Dumont MD Cervical Spine CT 03/21/162012 Signed Impressions: Service Date/Time: Monday, March 21, 2016 20:30 - CONCLUSION: Degenerative changes of the cervical spine. Fractures acute left ribs numbered 2 and 3 posteriorly Gopi Dumont MD Abdomen/Pelvis CT 03/21/162012 Signed Impressions: Service Date/Time: Monday, March 21, 2016 20:39 - CONCLUSION: Multiple fractures inclusive of left inferior superior pubic ramus as well as transverse process and left L5 and left sacrum. Lower chest demonstrates fracture of left rib #8 posteriorly and a small anterior pneumothorax. Intra-abdominal and pelvic contents are normal Gopi Dumont MD Objective Remarks RUE: Clean dry dressings and intact. +sling. hand is warm to touch. Patient has swelling of right arm. no sensation to median/ulnar nerve distribution. inability to move fingers RLE: dressing CDI. calf compartments are soft. Incisions healing well, small portion of darkened skin at open laceration of medial ankle. Good capillary refills full motion of toes LLE: dressing CDI. Calf compartments soft. incisions healing well Good capillary refill in toes. LUE: good passive motion of shoulder, elbow, wrist, good cap refill. Assessment & Plan Problem List: (1) Plan: Recommend emergent Irrigation and Debridement of right open tibia fracture I will examine the right femur under anaesthesia I will examine the right shoulder under anaesthesia Possible internal or external fixation right tibial He will ultimately require multiple interventions Based on complexity of the multiple injuries will request consultation with Dr. Anatoly Hogan Informed consent obtained for above plan Assessment and Plan POD 16 2) Right Segmental Periprosthetic Femoral Shaft Fracture status post IM nail 3) Right Distal Tibial Shaft Fracture status post IM nail 03/23/16 4) Left Tibial Shaft Fracture status post IM nail 03/23/16 5) bilateral tibial plateaus status post ORIF on 03/23/16 1) Right Proximal Humerus Fx s/p ORIF - POD 9 6)left clavicle fracture - nonop 7) left sacrum fracture and inferior/superior rami fractures - nonop -NWB RUE,BLE. D/C isai B LE , leave sutures right ankle daily dressing change to right shoulder monitor nerve palsy right arm maintain sling R UE -maintain splint, [employer] for fracture boot daily dressing changes B LE x 3 days then continue daily over medial right ankle Lovenox Discharge planning to rehabilitation Incentive spirometry TRISTON PICKETT PA-C Apr 08, 2016 11:43
[2016-04-08 11:54] VITALS: BP 142/73; PULSE 99; RESP 18; TEMP 97.8; O2SAT 98
[2016-04-08] MEDS: GABAPENTIN 100 MG CAP PO SCH ×2 (12:06→17:22)
[2016-04-08] MEDS: BISACODYL 10 MG SUPP RECTAL PRN (12:08)
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
[2016-04-08 16:00] VITALS: BP 123/78; PULSE 90; RESP 18; TEMP 98; O2SAT 98
[2016-04-08 20:00] VITALS: BP 116/69; PULSE 92; RESP 16; TEMP 98.8; O2SAT 97
[2016-04-09] VITALS (7 sets, daily range): BP systolic 117–131; BP diastolic 71–80; PULSE 90–108; RESP 16–18; TEMP 97.5–99.1; O2SAT 96–98
[2016-04-09] MEDS: ACETAMINOPHEN/HYDROcodone 325 MG/10 MG TAB PO PRN ×6 (01:27→21:17)
[2016-04-09] MEDS: ENOXAPARIN SODIUM 30 MG/0.3 ML SYRINGE SQ SCH ×2 (04:57→15:49)
[2016-04-09] MEDS: CYCLOBENZAPRINE HCL 10 MG TAB PO PRN ×3 (05:35→21:18)
--- NOTE | 2016-04-09 06:51 | PD.ORT.PN ---
Subjective Subjective Remarks Alert and oriented. No new complaints Objective Vitals Vital Signs Date Time Temp Pulse Resp B/P Pulse Ox O2 Delivery O2 Flow Rate FiO2 04/09/16 02:25 20 04/09/16 00:00 98.3 93 17 121/71 97 04/08/16 20:00 98.8 92 16 116/69 97 04/08/16 16:00 98.0 90 18 123/78 98 04/08/16 11:54 97.8 99 18 142/73 98 04/08/16 08:52 96 04/08/16 08:00 98.4 85 18 138/80 100 I/O 04/08/16 04/08/16 04/08/16 04/09/16 04/09/16 04/09/16 07:00 15:00 23:00 07:00 15:00 23:00 Intake Total 720 ml 720 ml 720 ml Output Total 1200 ml 1600 ml 900 ml Balance -480 ml -880 ml -180 ml Intake Oral 720 ml 720 ml 720 ml Output Urine Total 1200 ml 1600 ml 900 ml # Bowel Movements 0 1 Result Diagram: 04/08/16 0547 04/08/16 0547 Imaging Last 72 hours Impressions Chest X-Ray 03/26/16 0600 Signed Impressions: Service Date/Time: Saturday, March 26, 2016 05:52 - CONCLUSION: 1. Persistent medial left lower lung consolidation. 2. No pneumothorax seen. Ugo Kim MD Chest X-Ray 03/25/16 0600 Signed Impressions: Service Date/Time: March 04:50 - CONCLUSION: 1. Increase in left-sided airspace disease since March 24. Left chest tube, endotracheal tube and nasogastric tube unchanged. Naeem Peterson MD Chest X-Ray 03/25/16 0000 Signed Impressions: Service Date/Time: March 15:09 - CONCLUSION: 1. No pneumothorax status post removal of left chest tube. 2. Persistent left lung scattered patchiness. 3. Endotracheal tube and nasogastric tube remain in good positions. 4. Multiple fractures are stable. Osiel Howard MD Chest X-Ray 03/24/16 0600 Signed Impressions: Service Date/Time: Thursday, March 24, 2016 03:13 - CONCLUSION: 1. Support apparatus unchanged. Left chest tube without pneumothorax. Mostly basilar airspace disease remains present, slightly increased on the right since 03/23. Naeem Peterson MD Last 24 hours Impressions Thoracic Spine CT 03/21/162027 Signed Impressions: Service Date/Time: Monday, March 21, 2016 20:39 - CONCLUSION: Intact thoracic spine. Contiguous left rib fractures #2 through 8 posteriorly Gopi Dumont MD Maxillofacial CT 03/21/162027 Signed Impressions: Service Date/Time: Monday, March 21, 2016 20:36 - CONCLUSION: Extensive fractures of all king of the maxillary sinuses And the nasal bone and ala inclusive of extension into the hard palate. There is a slightly depressed fracture of the medial floor of the left orbit and nondepressed fracture left zygomatic arch. Admixture of air and fluid noted in the maxillary sinuses and ethmoid air cells. Intraorbital contents are normal and base of the skull appears intact with normal intracranial contents Gopi Dumont MD Lumbar Spine CT 03/21/162027 Signed Impressions: Service Date/Time: Monday, March 21, 2016 20:39 - CONCLUSION: Nondisplaced fracture transverse process left L5 and left sacrum. Degenerative disc disease L3-S1. Gopi Dumont MD Pelvis X-Ray 03/21/162012 Signed Impressions: Service Date/Time: Monday, March 21, 2016 19:56 - CONCLUSION: Fracture left sacrum appreciated. Remainder the pelvis is intact with fractures of the pelvis better appreciated on CT scan Gopi Dumont MD Head CT 03/21/162012 Signed Impressions: Service Date/Time: Monday, March 21, 2016 20:30 - CONCLUSION: Intact calvarium. Normal intracranial contents. Facial fractures as described on the facial bone CT Gopi Dumont MD Chest X-Ray 03/21/162012 Signed Impressions: Service Date/Time: Monday, March 21, 2016 19:56 - CONCLUSION: Slightly off set fracture posterior left fourth rib and probably contiguous third and fifth ribs with no pneumothorax Gopi Dumont MD Chest CT 03/21/162012 Signed Impressions: Service Date/Time: Monday, March 21, 2016 20:39 - CONCLUSION: Contiguous left posterior rib fractures #2 through 8 with associated pleural thickening and parenchymal contusion. In the mid to upper right chest anteriorly there is a 1.3 cm pneumothorax without tension . Left chest subcutaneous emphysema Fracture of the proximal right humerus and mid left clavicle additionally appreciated. Gopi Dumont MD Cervical Spine CT 03/21/162012 Signed Impressions: Service Date/Time: Monday, March 21, 2016 20:30 - CONCLUSION: Degenerative changes of the cervical spine. Fractures acute left ribs numbered 2 and 3 posteriorly Gopi Dumont MD Abdomen/Pelvis CT 03/21/162012 Signed Impressions: Service Date/Time: Monday, March 21, 2016 20:39 - CONCLUSION: Multiple fractures inclusive of left inferior superior pubic ramus as well as transverse process and left L5 and left sacrum. Lower chest demonstrates fracture of left rib #8 posteriorly and a small anterior pneumothorax. Intra-abdominal and pelvic contents are normal Gopi Dumont MD Objective Remarks RUE: Clean dry dressings and intact. +sling. hand is warm to touch. Patient has swelling of right arm. no sensation to median/ulnar nerve distribution. Radial nerve palsy RLE: dressing CDI. calf compartments are soft.. Good capillary refills full motion of toes. Knee immobilizer in place as well as fracture boot LLE: dressing CDI. Calf compartments soft. Good capillary refill in toes. LUE: good passive motion of shoulder, elbow, wrist, good cap refill. Assessment & Plan Problem List: (1) Plan: Recommend emergent Irrigation and Debridement of right open tibia fracture I will examine the right femur under anaesthesia I will examine the right shoulder under anaesthesia Possible internal or external fixation right tibial He will ultimately require multiple interventions Based on complexity of the multiple injuries will request consultation with Dr. Anatoly Hogan Informed consent obtained for above plan Assessment and Plan POD 17 2) Right Segmental Periprosthetic Femoral Shaft Fracture status post IM nail 3) Right Distal Tibial Shaft Fracture status post IM nail 03/23/16 4) Left Tibial Shaft Fracture status post IM nail 03/23/16 5) bilateral tibial plateaus status post ORIF on 03/23/16 1) Right Proximal Humerus Fx s/p ORIF - POD 10 6)left clavicle fracture - nonop 7) left sacrum fracture and inferior/superior rami fractures - nonop -NWB RUE,BLE. D/C isai B LE , leave sutures right ankle daily dressing change to right shoulder monitor nerve palsy right arm maintain sling R UE -maintain splint, CKS daily dressing changes B LE x 2 days then continue daily over medial right ankle Lovenox Discharge planning to rehabilitation Incentive spirometry TRISTON PICKETT PA-C Apr 09, 2016 06:51
[2016-04-09] MEDS: PANTOPRAZOLE SOD 40 MG DELAYED RELEASE TAB PO SCH (09:31)
[2016-04-09] MEDS: DOCUSATE SODIUM 100 MG CAP PO SCH ×2 (09:31→21:17)
[2016-04-09] MEDS: METOPROLOL TARTRATE 25 MG TAB PO SCH ×2 (09:31→21:17)
[2016-04-09] MEDS: SODIUM CHLORIDE 0.9% FLUSH 5 ML FLUSH IVF SCH ×2 (09:31→21:18)
[2016-04-09] MEDS: GABAPENTIN 100 MG CAP PO SCH ×3 (09:31→17:51)
[2016-04-09] MEDS: CALCIUM/VITAMIN D 250 MG/125 U TAB PO SCH ×3 (09:31→17:51)
[2016-04-09] MEDS: BACITRACIN TOP OINT 15 GM TUBE TOP SCH ×2 (09:32→21:19)
[2016-04-09] MEDS: LACTULOSE SYRUP 20 GM/30 ML CUP PO SCH (09:32)
[2016-04-09] MEDS: FLUoxetine HCL 10 MG CAP PO SCH (09:32)
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
[2016-04-09] MEDS: MIRTAZAPINE 15 MG TAB PO SCH (21:17)
[2016-04-09] MEDS: FAMOTIDINE 20 MG TAB PO SCH (21:18)
[2016-04-09] MEDS: diphenhydrAMINE HCL 25 MG CAP PO PRN (21:18)
[2016-04-10] VITALS: BP 118/75; PULSE 84; RESP 16; TEMP 97.7; O2SAT 96
[2016-04-10] MEDS: ACETAMINOPHEN/HYDROcodone 325 MG/10 MG TAB PO PRN ×6 (00:54→21:26)
[2016-04-10] MEDS: ENOXAPARIN SODIUM 30 MG/0.3 ML SYRINGE SQ SCH ×2 (03:12→16:17)
[2016-04-10] MEDS: CYCLOBENZAPRINE HCL 10 MG TAB PO PRN ×3 (05:33→22:35)
[2016-04-10 05:51] LABS: MEAN CELL VOLUME 85.6 FL (80.0-100.0); MEAN CORPUSCULAR HEMOGLOBIN 28.2 PG (27.0-34.0); MEAN CORPUSCULAR HGB CONC 32.9 % (32.0-36.0); PLATELET COUNT 982 TH/MM3 (150-450); RED BLOOD COUNT 3.62 MIL/MM3 (4.50-5.90); RED CELL DISTRIBUTION WIDTH 15.6 % (11.6-17.2); REVIEW FLAG FINAL; WHITE BLOOD COUNT 9.7 TH/MM3 (4.0-11.0)
[2016-04-10 06:37] LABS: BICARBONATE 28.8 MEQ/L (21.0-32.0); MAGNESIUM 1.9 MG/DL (1.5-2.5)
[2016-04-10 06:38] LABS: POTASSIUM 3.9 MEQ/L (3.5-5.1)
[2016-04-10 08:00] VITALS: BP 125/74; PULSE 93; RESP 18; TEMP 97.3; O2SAT 97
[2016-04-10 09:10] VITALS: O2SAT 97
[2016-04-10] MEDS: METOPROLOL TARTRATE 25 MG TAB PO SCH ×2 (09:46→21:24)
[2016-04-10] MEDS: FLUoxetine HCL 10 MG CAP PO SCH (09:46)
[2016-04-10] MEDS: FAMOTIDINE 20 MG TAB PO SCH ×2 (09:46→21:24)
[2016-04-10] MEDS: LACTULOSE SYRUP 20 GM/30 ML CUP PO SCH (09:47)
[2016-04-10] MEDS: DOCUSATE SODIUM 100 MG CAP PO SCH ×2 (09:47→21:23)
[2016-04-10] MEDS: GABAPENTIN 100 MG CAP PO SCH ×3 (09:47→17:27)
[2016-04-10] MEDS: CALCIUM/VITAMIN D 250 MG/125 U TAB PO SCH ×3 (09:48→17:27)
[2016-04-10] MEDS: SODIUM CHLORIDE 0.9% FLUSH 5 ML FLUSH IVF SCH ×2 (09:48→21:29)
[2016-04-10] MEDS: BACITRACIN TOP OINT 15 GM TUBE TOP SCH ×2 (09:48→21:00)
[2016-04-10 12:00] VITALS: BP 123/77; PULSE 110; RESP 18; TEMP 96.4; O2SAT 96
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
[2016-04-10 16:00] VITALS: BP 112/72; PULSE 99; RESP 18; TEMP 96.6; O2SAT 97
[2016-04-10 20:00] VITALS: BP 112/75; PULSE 98; RESP 17; TEMP 97.7; O2SAT 96
[2016-04-10] MEDS: MIRTAZAPINE 15 MG TAB PO SCH (21:24)
[2016-04-11] VITALS (7 sets, daily range): BP systolic 108–141; BP diastolic 64–100; PULSE 88–104; RESP 16–19; TEMP 97.1–98.1; O2SAT 95–98
[2016-04-11] MEDS: ACETAMINOPHEN/HYDROcodone 325 MG/10 MG TAB PO PRN ×6 (01:40→21:59)
[2016-04-11] MEDS: ENOXAPARIN SODIUM 30 MG/0.3 ML SYRINGE SQ SCH ×2 (03:45→16:32)
[2016-04-11] MEDS: BISACODYL 10 MG SUPP RECTAL ONE ×2 (08:30→09:43)
[2016-04-11] MEDS ORDERED: BISACODYL EC 5 MG TABEC PO ONE (08:30)
[2016-04-11] MEDS: LACTULOSE SYRUP 20 GM/30 ML CUP PO SCH (09:45)
[2016-04-11] MEDS: METOPROLOL TARTRATE 25 MG TAB PO SCH ×2 (09:45→21:59)
[2016-04-11] MEDS: DOCUSATE SODIUM 100 MG CAP PO SCH ×2 (09:45→21:59)
[2016-04-11] MEDS: FAMOTIDINE 20 MG TAB PO SCH ×2 (09:45→21:59)
[2016-04-11] MEDS: FLUoxetine HCL 10 MG CAP PO SCH (09:45)
[2016-04-11] MEDS: CALCIUM/VITAMIN D 250 MG/125 U TAB PO SCH ×3 (09:45→17:59)
[2016-04-11] MEDS: CYCLOBENZAPRINE HCL 10 MG TAB PO PRN ×2 (09:45→17:58)
[2016-04-11] MEDS: SODIUM CHLORIDE 0.9% FLUSH 5 ML FLUSH IVF SCH ×2 (09:45→21:59)
[2016-04-11] MEDS: BACITRACIN TOP OINT 15 GM TUBE TOP SCH ×2 (09:46→21:00)
[2016-04-11] MEDS: GABAPENTIN 300 MG CAP PO SCH ×2 (12:47→21:59)
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
[2016-04-11] MEDS: MAGNESIUM HYDROXIDE SUSP 30 ML CUP PO SCH (21:59)
[2016-04-11] MEDS: MIRTAZAPINE 15 MG TAB PO SCH (21:59)
[2016-04-12] VITALS: BP 118/75; PULSE 89; RESP 18; TEMP 96.9; O2SAT 95
[2016-04-12] MEDS: ACETAMINOPHEN/HYDROcodone 325 MG/10 MG TAB PO PRN ×6 (02:18→23:08)
[2016-04-12] MEDS: CYCLOBENZAPRINE HCL 10 MG TAB PO PRN ×3 (02:18→19:02)
[2016-04-12] MEDS: GABAPENTIN 300 MG CAP PO SCH ×3 (04:50→20:55)
[2016-04-12] MEDS: ENOXAPARIN SODIUM 30 MG/0.3 ML SYRINGE SQ SCH ×2 (04:51→15:13)
--- NOTE | 2016-04-12 07:01 | PD.ORT.PN ---
Subjective Subjective Remarks Alert and oriented. No new complaints Objective Vitals Vital Signs Date Time Temp Pulse Resp B/P Pulse Ox O2 Delivery O2 Flow Rate FiO2 04/12/16 00:00 96.9 89 18 118/75 95 04/11/16 20:00 97.2 104 19 118/79 97 04/11/16 16:00 97.1 88 18 108/73 96 04/11/16 13:00 98 04/11/16 12:00 97.3 99 18 120/78 98 04/11/16 08:00 98.1 99 18 141/64 96 I/O 04/11/16 04/11/16 04/11/16 04/12/16 04/12/16 04/12/16 06:59 14:59 22:59 06:59 14:59 22:59 Intake Total 1080 ml 480 ml Output Total 1350 ml 400 ml Balance -270 ml 80 ml Intake Oral 1080 ml 480 ml Output Urine Total 1350 ml 400 ml # Bowel Movements 0 0 Result Diagram: 04/10/1644304/10/164 Imaging Last 72 hours Impressions Chest X-Ray 03/26/16 0600 Signed Impressions: Service Date/Time: Saturday, March 26, 2016 05:52 - CONCLUSION: 1. Persistent medial left lower lung consolidation. 2. No pneumothorax seen. Ugo Kim MD Chest X-Ray 03/25/16 0600 Signed Impressions: Service Date/Time: March 04:50 - CONCLUSION: 1. Increase in left-sided airspace disease since March 24. Left chest tube, endotracheal tube and nasogastric tube unchanged. Naeem Peterson MD Chest X-Ray 03/25/16 0000 Signed Impressions: Service Date/Time: March 15:09 - CONCLUSION: 1. No pneumothorax status post removal of left chest tube. 2. Persistent left lung scattered patchiness. 3. Endotracheal tube and nasogastric tube remain in good positions. 4. Multiple fractures are stable. Osiel Howard MD Chest X-Ray 03/24/16 0600 Signed Impressions: Service Date/Time: Thursday, March 24, 2016 03:13 - CONCLUSION: 1. Support apparatus unchanged. Left chest tube without pneumothorax. Mostly basilar airspace disease remains present, slightly increased on the right since 03/23. Naeem Peterson MD Last 24 hours Impressions [address] Spine CT 03/21/162027 Signed Impressions: Service Date/Time: Monday, March 21, 2016 20:39 - CONCLUSION: Intact thoracic spine. Contiguous left rib fractures #2 through 8 posteriorly Gopi Dumont MD Maxillofacial CT 03/21/162027 Signed Impressions: Service Date/Time: Monday, March 21, 2016 20:36 - CONCLUSION: Extensive fractures of all king of the maxillary sinuses And the nasal bone and ala inclusive of extension into the hard palate. There is a slightly depressed fracture of the medial floor of the left orbit and nondepressed fracture left zygomatic arch. Admixture of air and fluid noted in the maxillary sinuses and ethmoid air cells. Intraorbital contents are normal and base of the skull appears intact with normal intracranial contents Gopi Dumont MD Lumbar Spine CT 03/21/162027 Signed Impressions: Service Date/Time: Monday, March 21, 2016 20:39 - CONCLUSION: Nondisplaced fracture transverse process left L5 and left sacrum. Degenerative disc disease L3-S1. Gopi Dumont MD Pelvis X-Ray 03/21/162012 Signed Impressions: Service Date/Time: Monday, March 21, 2016 19:56 - CONCLUSION: Fracture left sacrum appreciated. Remainder the pelvis is intact with fractures of the pelvis better appreciated on CT scan Gopi Dumont MD Head CT 03/21/162012 Signed Impressions: Service Date/Time: Monday, March 21, 2016 20:30 - CONCLUSION: Intact calvarium. Normal intracranial contents. Facial fractures as described on the facial bone CT Gopi Dumont MD Chest X-Ray 03/21/162012 Signed Impressions: Service Date/Time: Monday, March 21, 2016 19:56 - CONCLUSION: Slightly off set fracture posterior left fourth rib and probably contiguous third and fifth ribs with no pneumothorax Gopi Dumont MD Chest CT 03/21/162012 Signed Impressions: Service Date/Time: Monday, March 21, 2016 20:39 - CONCLUSION: Contiguous left posterior rib fractures #2 through 8 with associated pleural thickening and parenchymal contusion. In the mid to upper right chest anteriorly there is a 1.3 cm pneumothorax without tension . Left chest subcutaneous emphysema Fracture of the proximal right humerus and mid left clavicle additionally appreciated. Gopi Dumont MD Cervical Spine CT 03/21/162012 Signed Impressions: Service Date/Time: Monday, March 21, 2016 20:30 - CONCLUSION: Degenerative changes of the cervical spine. Fractures acute left ribs numbered 2 and 3 posteriorly Gopi Dumont MD Abdomen/Pelvis CT 03/21/162012 Signed Impressions: Service Date/Time: Monday, March 21, 2016 20:39 - CONCLUSION: Multiple fractures inclusive of left inferior superior pubic ramus as well as transverse process and left L5 and left sacrum. Lower chest demonstrates fracture of left rib #8 posteriorly and a small anterior pneumothorax. Intra-abdominal and pelvic contents are normal Gopi Dumont MD Objective Remarks RUE: Clean dry dressings and intact. +sling. hand is warm to touch. Patient has swelling of right arm. no sensation to median/ulnar nerve distribution. Radial nerve palsy RLE: dressing CDI. calf compartments are soft.. Good capillary refills full motion of toes. Knee immobilizer in place as well as fracture boot LLE: dressing CDI. Calf compartments soft. Good capillary refill in toes. LUE: good passive motion of shoulder, elbow, wrist, good cap refill. Assessment & Plan Problem List: (1) Plan: Recommend emergent Irrigation and Debridement of right open tibia fracture I will examine the right femur under anaesthesia I will examine the right shoulder under anaesthesia Possible internal or external fixation right tibial He will ultimately require multiple interventions Based on complexity of the multiple injuries will request consultation with Dr. Anatoly Hogan Informed consent obtained for above plan Assessment and Plan POD 21 2) Right Segmental Periprosthetic Femoral Shaft Fracture status post IM nail 3) Right Distal Tibial Shaft Fracture status post IM nail 03/23/16 4) Left Tibial Shaft Fracture status post IM nail 03/23/16 5) bilateral tibial plateaus status post ORIF on 03/23/16 1) Right Proximal Humerus Fx s/p ORIF - POD 13 6)left clavicle fracture - nonop 7) left sacrum fracture and inferior/superior rami fractures - nonop -NWB RUE,BLE. D/C isai B LE , leave sutures right ankle daily dressing change to right shoulder monitor nerve palsy right arm maintain sling R UE -maintain splint, CKS daily dressing changes over medial right ankle bacitracin and Adaptic Lovenox Discharge planning to rehabilitation Incentive spirometry TRISTON PICKETT PA-C Apr 12, 2016 07:01
[2016-04-12 08:00] VITALS: BP 120/76; PULSE 87; RESP 20; TEMP 97.1; O2SAT 98
[2016-04-12 08:10] LABS: HEMATOCRIT 31.4 % (39.0-51.0); MEAN CELL VOLUME 84.9 FL (80.0-100.0); MEAN CORPUSCULAR HEMOGLOBIN 27.9 PG (27.0-34.0); MEAN CORPUSCULAR HGB CONC 32.9 % (32.0-36.0); PLATELET COUNT 887 TH/MM3 (150-450); RED CELL DISTRIBUTION WIDTH 15.7 % (11.6-17.2); REVIEW FLAG FINAL; WHITE BLOOD COUNT 7.5 TH/MM3 (4.0-11.0)
[2016-04-12] MEDS ORDERED: BISACODYL EC 5 MG TABEC PO ONE (08:30)
[2016-04-12] MEDS ORDERED: BISACODYL 10 MG SUPP RECTAL ONE (08:30)
[2016-04-12 08:40] LABS: BICARBONATE 29.5 MEQ/L (21.0-32.0); MAGNESIUM 2.1 MG/DL (1.5-2.5); POTASSIUM 3.8 MEQ/L (3.5-5.1)
[2016-04-12] MEDS: SODIUM CHLORIDE 0.9% FLUSH 5 ML FLUSH IVF SCH ×2 (09:00→20:55)
[2016-04-12] MEDS: BACITRACIN TOP OINT 15 GM TUBE TOP SCH ×2 (09:00→20:56)
[2016-04-12] MEDS: DOCUSATE SODIUM 100 MG CAP PO SCH ×2 (10:33→20:55)
[2016-04-12] MEDS: FLUoxetine HCL 10 MG CAP PO SCH (10:33)
[2016-04-12] MEDS: METOPROLOL TARTRATE 25 MG TAB PO SCH ×2 (10:33→20:55)
[2016-04-12] MEDS: CALCIUM/VITAMIN D 250 MG/125 U TAB PO SCH ×3 (10:33→19:02)
[2016-04-12] MEDS: LACTULOSE SYRUP 20 GM/30 ML CUP PO SCH (10:33)
[2016-04-12] MEDS: FAMOTIDINE 20 MG TAB PO SCH ×2 (10:33→20:55)
[2016-04-12 12:00] VITALS: BP 103/79; PULSE 88; RESP 20; TEMP 97.5; O2SAT 96
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
[2016-04-12 16:00] VITALS: BP 120/76; PULSE 100; RESP 20; TEMP 97.7; O2SAT 97
[2016-04-12 20:21] VITALS: BP 116/81; PULSE 90; RESP 16; TEMP 98.4; O2SAT 96
[2016-04-12] MEDS: MIRTAZAPINE 15 MG TAB PO SCH (20:55)
[2016-04-12] MEDS: MAGNESIUM HYDROXIDE SUSP 30 ML CUP PO SCH (20:55)
[2016-04-13 00:11] VITALS: BP 129/72; PULSE 109; RESP 20; TEMP 97.8; O2SAT 96
[2016-04-13] MEDS: ACETAMINOPHEN/HYDROcodone 325 MG/10 MG TAB PO PRN ×5 (04:09→20:53)
[2016-04-13] MEDS: ENOXAPARIN SODIUM 30 MG/0.3 ML SYRINGE SQ SCH ×2 (04:09→17:03)
[2016-04-13] MEDS: GABAPENTIN 300 MG CAP PO SCH ×3 (06:31→20:58)
--- NOTE | 2016-04-13 06:39 | PD.ORT.PN ---
Subjective Subjective Remarks POD 21 s/p Bilateral tibias and right femur POD 14 s/p ORIF right proximal humerus fx extubated. awake. reports pain controlled. states has difficulty moving hand. otherwise comfortable Objective Vitals Vital Signs Date Time Temp Pulse Resp B/P Pulse Ox O2 Delivery O2 Flow Rate FiO2 04/13/16 00:11 97.8 109 20 129/72 96 04/12/16 20:21 98.4 90 16 116/81 96 04/12/16 16:00 97.7 100 20 120/76 97 04/12/16 12:00 97.5 88 20 103/79 96 04/12/16 08:00 97.1 87 20 120/76 98 I/O 04/12/16 04/12/16 04/12/16 04/13/16 04/13/16 04/13/16 07:00 15:00 23:00 07:00 15:00 23:00 Intake Total 600 ml 1440 ml Output Total 575 ml 1555 ml Balance 25 ml -115 ml Intake Oral 600 ml 1440 ml Output Urine Total 575 ml 1555 ml # Voids 2 # Bowel Movements 0 0 Result Diagram: 04/12/16 0713 04/12/16 0713 Imaging Last 72 hours Impressions Chest X-Ray 03/26/16 0600 Signed Impressions: Service Date/Time: Saturday, March 26, 2016 05:52 - CONCLUSION: 1. Persistent medial left lower lung consolidation. 2. No pneumothorax seen. Ugo Kim MD Chest X-Ray 03/25/16 0600 Signed Impressions: Service Date/Time: March 04:50 - CONCLUSION: 1. Increase in left-sided airspace disease since March 24. Left chest tube, endotracheal tube and nasogastric tube unchanged. Naeem Peterson MD Chest X-Ray 03/25/16 0000 Signed Impressions: Service Date/Time: March 15:09 - CONCLUSION: 1. No pneumothorax status post removal of left chest tube. 2. Persistent left lung scattered patchiness. 3. Endotracheal tube and nasogastric tube remain in good positions. 4. Multiple fractures are stable. Osiel Howard MD Chest X-Ray 03/24/16 0600 Signed Impressions: Service Date/Time: Thursday, March 24, 2016 03:13 - CONCLUSION: 1. Support apparatus unchanged. Left chest tube without pneumothorax. Mostly basilar airspace disease remains present, slightly increased on the right since 03/23. Naeem Peterson MD Last 24 hours Impressions Thoracic Spine CT 03/21/162027 Signed Impressions: Service Date/Time: Monday, March 21, 2016 20:39 - CONCLUSION: Intact thoracic spine. Contiguous left rib fractures #2 through 8 posteriorly Gopi Dumont MD Maxillofacial CT 03/21/162027 Signed Impressions: Service Date/Time: Monday, March 21, 2016 20:36 - CONCLUSION: Extensive fractures of all king of the maxillary sinuses And the nasal bone and ala inclusive of extension into the hard palate. There is a slightly depressed fracture of the medial floor of the left orbit and nondepressed fracture left zygomatic arch. Admixture of air and fluid noted in the maxillary sinuses and ethmoid air cells. Intraorbital contents are normal and base of the skull appears intact with normal intracranial contents Gopi Dumont MD Lumbar Spine CT 03/21/162027 Signed Impressions: Service Date/Time: Monday, March 21, 2016 20:39 - CONCLUSION: Nondisplaced fracture transverse process left L5 and left sacrum. Degenerative disc disease L3-S1. Gopi Dumont MD Pelvis X-Ray 03/21/162012 Signed Impressions: Service Date/Time: Monday, March 21, 2016 19:56 - CONCLUSION: Fracture left sacrum appreciated. Remainder the pelvis is intact with fractures of the pelvis better appreciated on CT scan Gopi Dumont MD Head CT 03/21/162012 Signed Impressions: Service Date/Time: Monday, March 21, 2016 20:30 - CONCLUSION: Intact calvarium. Normal intracranial contents. Facial fractures as described on the facial bone CT Gopi Dumont MD Chest X-Ray 03/21/162012 Signed Impressions: Service Date/Time: Monday, March 21, 2016 19:56 - CONCLUSION: Slightly off set fracture posterior left fourth rib and probably contiguous third and fifth ribs with no pneumothorax Gopi Dumont MD Chest CT 03/21/162012 Signed Impressions: Service Date/Time: Monday, March 21, 2016 20:39 - CONCLUSION: Contiguous left posterior rib fractures #2 through 8 with associated pleural thickening and parenchymal contusion. In the mid to upper right chest anteriorly there is a 1.3 cm pneumothorax without tension . Left chest subcutaneous emphysema Fracture of the proximal right humerus and mid left clavicle additionally appreciated. Gopi Dumont MD Cervical Spine CT 03/21/162012 Signed Impressions: Service Date/Time: Monday, March 21, 2016 20:30 - CONCLUSION: Degenerative changes of the cervical spine. Fractures acute left ribs numbered 2 and 3 posteriorly Gopi Dumont MD Abdomen/Pelvis CT 03/21/162012 Signed Impressions: Service Date/Time: Monday, March 21, 2016 20:39 - CONCLUSION: Multiple fractures inclusive of left inferior superior pubic ramus as well as transverse process and left L5 and left sacrum. Lower chest demonstrates fracture of left rib #8 posteriorly and a small anterior pneumothorax. Intra-abdominal and pelvic contents are normal Gopi Dumont MD Objective Remarks RUE: Clean dry dressings and intact. +sling. hand is warm to touch. no sensation to median/ulnar nerve distribution. Radial nerve appears to be functioning and patient has ability to extend wrist to neutral RLE: dressing CDI. calf compartments are soft.. Good capillary refills full motion of toes. Knee immobilizer in place as well as fracture boot LLE: dressing CDI. Calf compartments soft. Good capillary refill in toes. LUE: good passive motion of shoulder, elbow, wrist, good cap refill. Assessment & Plan Problem List: (1) Plan: Recommend emergent Irrigation and Debridement of right open tibia fracture I will examine the right femur under anaesthesia I will examine the right shoulder under anaesthesia Possible internal or external fixation right tibial He will ultimately require multiple interventions Based on complexity of the multiple injuries will request consultation with Dr. Anatoly Hogan Informed consent obtained for above plan Assessment and Plan POD 21 2) Right Segmental Periprosthetic Femoral Shaft Fracture status post IM nail 3) Right Distal Tibial Shaft Fracture status post IM nail 03/23/16 4) Left Tibial Shaft Fracture status post IM nail 03/23/16 5) bilateral tibial plateaus status post ORIF on 03/23/16 1) Right Proximal Humerus Fx s/p ORIF - POD 14 6)left clavicle fracture - nonop 7) left sacrum fracture and inferior/superior rami fractures - nonop -NWB RUE,BLE. D/C isai right shoulder daily dressing change to right shoulder monitor nerve palsy right arm maintain sling R UE -maintain splint, CKS daily dressing changes over medial right ankle bacitracin and Adaptic Lovenox Discharge planning to rehabilitation Incentive spirometry Fracisco Haynes Apr 13, 2016 06:39
[2016-04-13 08:00] VITALS: BP 114/77; PULSE 81; RESP 18; TEMP 97.7; O2SAT 96
[2016-04-13] MEDS: CYCLOBENZAPRINE HCL 10 MG TAB PO PRN ×2 (08:53→17:03)
[2016-04-13] MEDS: FAMOTIDINE 20 MG TAB PO SCH ×2 (08:53→20:52)
[2016-04-13] MEDS: DOCUSATE SODIUM 100 MG CAP PO SCH ×2 (08:53→20:51)
[2016-04-13] MEDS: LACTULOSE SYRUP 20 GM/30 ML CUP PO SCH (08:53)
[2016-04-13] MEDS: FLUoxetine HCL 10 MG CAP PO SCH (08:53)
[2016-04-13] MEDS: METOPROLOL TARTRATE 25 MG TAB PO SCH ×2 (08:53→20:51)
[2016-04-13] MEDS: CALCIUM/VITAMIN D 250 MG/125 U TAB PO SCH ×3 (08:53→17:03)
[2016-04-13] MEDS: BACITRACIN TOP OINT 15 GM TUBE TOP SCH ×2 (08:55→20:54)
[2016-04-13] MEDS: SODIUM CHLORIDE 0.9% FLUSH 5 ML FLUSH IVF SCH ×2 (08:56→20:53)
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
[2016-04-13 12:00] VITALS: BP 104/69; PULSE 96; RESP 18; TEMP 97.7; O2SAT 96
[2016-04-13 16:35] VITALS: BP 95/72; PULSE 97; RESP 22; TEMP 98.4; O2SAT 97
[2016-04-13 20:20] VITALS: BP 110/68; PULSE 110; RESP 17; TEMP 97.3; O2SAT 97
[2016-04-13] MEDS: MIRTAZAPINE 15 MG TAB PO SCH (20:52)
[2016-04-13] MEDS: MAGNESIUM HYDROXIDE SUSP 30 ML CUP PO SCH (20:53)
[2016-04-14 00:30] VITALS: BP 108/68; PULSE 98; RESP 18; TEMP 97.8; O2SAT 96
[2016-04-14] MEDS: ENOXAPARIN SODIUM 30 MG/0.3 ML SYRINGE SQ SCH ×2 (03:00→14:49)
[2016-04-14] MEDS: ACETAMINOPHEN/HYDROcodone 325 MG/10 MG TAB PO PRN ×5 (03:00→20:27)
[2016-04-14] MEDS: GABAPENTIN 300 MG CAP PO SCH ×3 (05:42→20:27)
[2016-04-14 06:17] LABS: HEMATOCRIT 31.9 % (39.0-51.0); MEAN CELL VOLUME 84.3 FL (80.0-100.0); MEAN CORPUSCULAR HEMOGLOBIN 27.7 PG (27.0-34.0); MEAN CORPUSCULAR HGB CONC 32.8 % (32.0-36.0); PLATELET COUNT 735 TH/MM3 (150-450); RED BLOOD COUNT 3.78 MIL/MM3 (4.50-5.90); RED CELL DISTRIBUTION WIDTH 15.5 % (11.6-17.2); REVIEW FLAG FINAL; WHITE BLOOD COUNT 7.1 TH/MM3 (4.0-11.0)
[2016-04-14 06:33] LABS: BICARBONATE 31.5 MEQ/L (21.0-32.0); POTASSIUM 3.6 MEQ/L (3.5-5.1)
--- NOTE | 2016-04-14 06:36 | PD.ORT.PN ---
Subjective Subjective Remarks POD 22 s/p Bilateral tibias and right femur POD 15 s/p ORIF right proximal humerus fx reports doing well. pain controlled. states has been working on bending knees and moving fingers on right arm Objective Vitals Vital Signs Date Time Temp Pulse Resp B/P Pulse Ox O2 Delivery O2 Flow Rate FiO2 04/14/16 00:30 97.8 98 18 108/68 96 04/13/16 20:20 97.3 110 17 110/68 97 04/13/16 16:35 98.4 97 22 95/72 97 04/13/16 12:00 97.7 96 18 104/69 96 04/13/16 08:00 97.7 81 18 114/77 96 I/O 04/13/16 04/13/16 04/13/16 04/14/16 04/14/16 04/14/16 07:00 15:00 23:00 07:00 15:00 23:00 Intake Total 1200 ml 720 ml 720 ml Output Total 1000 ml 1800 ml 475 ml 1250 ml Balance -1000 ml -600 ml 245 ml -530 ml Intake Oral 1200 ml 720 ml 720 ml Output Urine Total 1000 ml 1800 ml 475 ml 1250 ml # Bowel Movements 1 1 0 0 Result Diagram: 04/14/16 0534 04/14/16 0534 Imaging Last 72 hours Impressions Chest X-Ray 03/26/16 0600 Signed Impressions: Service Date/Time: Saturday, March 26, 2016 05:52 - CONCLUSION: 1. Persistent medial left lower lung consolidation. 2. No pneumothorax seen. Ugo Kim MD Chest X-Ray 03/25/16 0600 Signed Impressions: Service Date/Time: March 04:50 - CONCLUSION: 1. Increase in left-sided airspace disease since March 24. Left chest tube, endotracheal tube and nasogastric tube unchanged. Naeem Peterson MD Chest X-Ray 03/25/16 0000 Signed Impressions: Service Date/Time: March 15:09 - CONCLUSION: 1. No pneumothorax status post removal of left chest tube. 2. Persistent left lung scattered patchiness. 3. Endotracheal tube and nasogastric tube remain in good positions. 4. Multiple fractures are stable. Osiel Howard MD Chest X-Ray 03/24/16 0600 Signed Impressions: Service Date/Time: Thursday, March 24, 2016 03:13 - CONCLUSION: 1. Support apparatus unchanged. Left chest tube without pneumothorax. Mostly basilar airspace disease remains present, slightly increased on the right since 03/23. Naeem Peterson MD Last 24 hours Impressions [address]acic Spine CT 03/21/162027 Signed Impressions: Service Date/Time: Monday, March 21, 2016 20:39 - CONCLUSION: Intact thoracic spine. Contiguous left rib fractures #2 through 8 posteriorly Gopi Dumont MD Maxillofacial CT 03/21/162027 Signed Impressions: Service Date/Time: Monday, March 21, 2016 20:36 - CONCLUSION: Extensive fractures of all king of the maxillary sinuses And the nasal bone and ala inclusive of extension into the hard palate. There is a slightly depressed fracture of the medial floor of the left orbit and nondepressed fracture left zygomatic arch. Admixture of air and fluid noted in the maxillary sinuses and ethmoid air cells. Intraorbital contents are normal and base of the skull appears intact with normal intracranial contents Gopi Dumont MD Lumbar Spine CT 03/21/162027 Signed Impressions: Service Date/Time: Monday, March 21, 2016 20:39 - CONCLUSION: Nondisplaced fracture transverse process left L5 and left sacrum. Degenerative disc disease L3-S1. Gopi Dumont MD Pelvis X-Ray 03/21/162012 Signed Impressions: Service Date/Time: Monday, March 21, 2016 19:56 - CONCLUSION: Fracture left sacrum appreciated. Remainder the pelvis is intact with fractures of the pelvis better appreciated on CT scan Gopi Dumont MD Head CT 03/21/162012 Signed Impressions: Service Date/Time: Monday, March 21, 2016 20:30 - CONCLUSION: Intact calvarium. Normal intracranial contents. Facial fractures as described on the facial bone CT Gopi Dumont MD Chest X-Ray 03/21/162012 Signed Impressions: Service Date/Time: Monday, March 21, 2016 19:56 - CONCLUSION: Slightly off set fracture posterior left fourth rib and probably contiguous third and fifth ribs with no pneumothorax Gopi Dumont MD Chest CT 03/21/162012 Signed Impressions: Service Date/Time: Monday, March 21, 2016 20:39 - CONCLUSION: Contiguous left posterior rib fractures #2 through 8 with associated pleural thickening and parenchymal contusion. In the mid to upper right chest anteriorly there is a 1.3 cm pneumothorax without tension . Left chest subcutaneous emphysema Fracture of the proximal right humerus and mid left clavicle additionally appreciated. Gopi Dumont MD Cervical Spine CT 03/21/162012 Signed Impressions: Service Date/Time: Monday, March 21, 2016 20:30 - CONCLUSION: Degenerative changes of the cervical spine. Fractures acute left ribs numbered 2 and 3 posteriorly Gopi Dumont MD Abdomen/Pelvis CT 03/21/162012 Signed Impressions: Service Date/Time: Monday, March 21, 2016 20:39 - CONCLUSION: Multiple fractures inclusive of left inferior superior pubic ramus as well as transverse process and left L5 and left sacrum. Lower chest demonstrates fracture of left rib #8 posteriorly and a small anterior pneumothorax. Intra-abdominal and pelvic contents are normal Gopi Dumont MD Objective Remarks RUE: Clean dry dressings and intact. +sling. hand is warm to touch. no sensation to median/ulnar nerve distribution. Radial nerve appears to be functioning and patient has ability to extend wrist to neutral RLE: dressing CDI. calf compartments are soft.. Good capillary refills full motion of toes. Knee immobilizer in place as well as fracture boot. traumatic lac on ankle healing well. LLE: dressing CDI. Calf compartments soft. Good capillary refill in toes. LUE: good passive motion of shoulder, elbow, wrist, good cap refill. Assessment & Plan Problem List: (1) Plan: Recommend emergent Irrigation and Debridement of right open tibia fracture I will examine the right femur under anaesthesia I will examine the right shoulder under anaesthesia Possible internal or external fixation right tibial He will ultimately require multiple interventions Based on complexity of the multiple injuries will request consultation with Dr. Anatoly Hogan Informed consent obtained for above plan Assessment and Plan POD 22 2) Right Segmental Periprosthetic Femoral Shaft Fracture status post IM nail 3) Right Distal Tibial Shaft Fracture status post IM nail 03/23/16 4) Left Tibial Shaft Fracture status post IM nail 03/23/16 5) bilateral tibial plateaus status post ORIF on 03/23/16 1) Right Proximal Humerus Fx s/p ORIF - POD 15 6)left clavicle fracture - nonop 7) left sacrum fracture and inferior/superior rami fractures - nonop -NWB RUE,BLE. D/C sutures right ankle daily dressing change to right shoulder monitor nerve palsy right arm maintain sling R UE -maintain splint, CKS daily dressing changes over medial right ankle bacitracin and Adaptic Lovenox Discharge planning to rehabilitation Incentive spirometry Fracisco Haynes Apr 14, 2016 06:36
--- NOTE | 2016-04-14 07:48 | HHI.PR ---
Subjective Remarks s/p orif lefort 1 maxillary fx/ CR nasal bone fracture, stabilization of maxillary palatal fracture AAOx3, NAD following commands, tolerating po well - mech soft diet reports discomfort from arch bars/wires to lips Objective Vital Signs Date Time Temp Pulse Resp B/P Pulse Ox O2 Delivery O2 Flow Rate FiO2 04/14/16 00:30 97.8 98 18 108/68 96 04/13/16 20:20 97.3 110 17 110/68 97 04/13/16 16:35 98.4 97 22 95/72 97 04/13/16 12:00 97.7 96 18 104/69 96 04/13/16 08:00 97.7 81 18 114/77 96 I/O 04/13/16 04/13/16 04/13/16 04/14/16 04/14/16 04/14/16 07:00 15:00 23:00 07:00 15:00 23:00 Intake Total 1200 ml 720 ml 720 ml Output Total 1000 ml 1800 ml 475 ml 1250 ml Balance -1000 ml -600 ml 245 ml -530 ml Intake Oral 1200 ml 720 ml 720 ml Output Urine Total 1000 ml 1800 ml 475 ml 1250 ml # Bowel Movements 1 1 0 0 Result Diagram: 04/14/16 0534 04/14/16 0534 Objective Remarks facial bones stable, no tenderness/no crepitus. no facial edema. 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 good range of opening and closing, elastics no longer present maxilla stable, no false point of motion maxilla facial edema reducing tissues pink and well perfused no signs of infection bleeding pus or edema stable oral hygiene Assessment and Plan Assessment and Plan s/p orif lefort 1 maxillary fx/ CR nasal bone fracture, stabilization of maxillary palatal fracture pt stable form OMS standpoint nasal bone/maxilla and bite stable oral hygiene with Peridex swabs placed ortho wax to maxillary and mandibular arch bars - pt comfortable f/up dr. romeo when discharged [phone] Dillon Romeo DMD Apr 14, 2016 07:47
[2016-04-14 08:00] VITALS: BP 128/76; PULSE 89; RESP 16; TEMP 97.2; O2SAT 97
[2016-04-14] MEDS: FAMOTIDINE 20 MG TAB PO SCH ×2 (08:58→20:27)
[2016-04-14] MEDS: METOPROLOL TARTRATE 25 MG TAB PO SCH ×2 (08:58→20:27)
[2016-04-14] MEDS: FLUoxetine HCL 10 MG CAP PO SCH (08:58)
[2016-04-14] MEDS: SODIUM CHLORIDE 0.9% FLUSH 5 ML FLUSH IVF SCH ×2 (08:58→20:32)
[2016-04-14] MEDS: CALCIUM/VITAMIN D 250 MG/125 U TAB PO SCH ×3 (08:59→17:32)
[2016-04-14] MEDS: BACITRACIN TOP OINT 15 GM TUBE TOP SCH ×2 (08:59→20:27)
[2016-04-14] MEDS: DOCUSATE SODIUM 100 MG CAP PO SCH ×2 (08:59→20:27)
[2016-04-14] MEDS: LACTULOSE SYRUP 20 GM/30 ML CUP PO SCH (08:59)
[2016-04-14] MEDS: CYCLOBENZAPRINE HCL 10 MG TAB PO PRN ×2 (09:03→17:32)
[2016-04-14 12:00] VITALS: BP 120/78; PULSE 101; RESP 16; TEMP 97; O2SAT 97
--- NOTE | 2016-04-14 13:01 | HHI.PR ---
Subjective Subjective Notes Pain controlled. Eating well. Objective Vitals/I&O Vital Signs Date Time Temp Pulse Resp B/P Pulse Ox O2 Delivery O2 Flow Rate FiO2 04/14/16 08:00 97.2 89 16 128/76 97 04/10/16 09:10 21 Labs Laboratory Tests Test 04/14/16 05:34 White Blood Count 7.1 Red Blood Count 3.78 Hemoglobin 10.5 Hematocrit 31.9 Mean Corpuscular Volume 84.3 Mean Corpuscular Hemoglobin 27.7 Mean Corpuscular Hemoglobin 32.8 Concent Red Cell Distribution Width 15.5 Platelet Count 735 Mean Platelet Volume 7.0 Sodium Level 140 Potassium Level 3.6 Chloride Level 100 Carbon Dioxide Level 31.5 Anion Gap 9 Blood Urea Nitrogen 17 Creatinine 0.71 Estimat Glomerular Filtration 115 Rate Random Glucose 107 Calcium Level 9.0 Magnesium Level 2.0 Radiology Last Impressions Shoulder X-Ray 03/30/16 0000 Signed Impressions: Service Date/Time: Wednesday, March 30, 2016 13:14 - CONCLUSION: Satisfactory postoperative appearance of the proximal right humerus following ORIF. Regulo Stewart MD Chest X-Ray 03/26/16 0600 Signed Impressions: Service Date/Time: Saturday, March 26, 2016 05:52 - CONCLUSION: 1. Persistent medial left lower lung consolidation. 2. No pneumothorax seen. Ugo Kim MD Tibia/Fibula X-Ray 03/23/16 0000 Signed Impressions: Service Date/Time: Wednesday, March 23, 2016 17:44 - CONCLUSION: Anatomic alignment. Ifeanyi Suarez MD FACR Femur X-Ray 03/23/16 0000 Signed Impressions: Service Date/Time: Wednesday, March 23, 2016 14:08 - CONCLUSION: Anatomic alignment. Ifeanyi Suarez MD FACR Lower Extremity CT 03/22/16 0000 Signed Impressions: Service Date/Time: Tuesday, March 22, 2016 10:08 - CONCLUSION: 1. Comminuted fractures involving the distal femur, proximal tibia, and proximal fibula with hemarthrosis as detailed above. Ugo Glez Jr., MD Ankle X-Ray 03/22/16 0000 Signed Impressions: Service Date/Time: Tuesday, March 22, 2016 01:27 - CONCLUSION: 1. Comminuted fractures distal tibia and fibula. Naeem Peterson MD Thoracic Spine CT 03/21/162027 Signed Impressions: Service Date/Time: Monday, March 21, 2016 20:39 - CONCLUSION: Intact thoracic spine. Contiguous left rib fractures #2 through 8 posteriorly Gopi Dumont MD Maxillofacial CT 03/21/162027 Signed Impressions: Service Date/Time: Monday, March 21, 2016 20:36 - CONCLUSION: Extensive fractures of all king of the maxillary sinuses And the nasal bone and ala inclusive of extension into the hard palate. There is a slightly depressed fracture of the medial floor of the left orbit and nondepressed fracture left zygomatic arch. Admixture of air and fluid noted in the maxillary sinuses and ethmoid air cells. Intraorbital contents are normal and base of the skull appears intact with normal intracranial contents Gopi Dumont MD Lumbar Spine CT 03/21/162027 Signed Impressions: Service Date/Time: Monday, March 21, 2016 20:39 - CONCLUSION: Nondisplaced fracture transverse process left L5 and left sacrum. Degenerative disc disease L3-S1. Gopi Dumont MD Pelvis X-Ray 03/21/162012 Signed Impressions: Service Date/Time: Monday, March 21, 2016 19:56 - CONCLUSION: Fracture left sacrum appreciated. Remainder the pelvis is intact with fractures of the pelvis better appreciated on CT scan Gopi Dumont MD Head CT 03/21/162012 Signed Impressions: Service Date/Time: Monday, March 21, 2016 20:30 - CONCLUSION: Intact calvarium. Normal intracranial contents. Facial fractures as described on the facial bone CT Gopi Dumont MD Chest CT 03/21/162012 Signed Impressions: Service Date/Time: Monday, March 21, 2016 20:39 - CONCLUSION: Contiguous left posterior rib fractures #2 through 8 with associated pleural thickening and parenchymal contusion. In the mid to upper right chest anteriorly there is a 1.3 cm pneumothorax without tension . Left chest subcutaneous emphysema Fracture of the proximal right humerus and mid left clavicle additionally appreciated. Gopi Dumont MD Cervical Spine CT 03/21/162012 Signed Impressions: Service Date/Time: Monday, March 21, 2016 20:30 - CONCLUSION: Degenerative changes of the cervical spine. Fractures acute left ribs numbered 2 and 3 posteriorly Gopi Dumont MD Abdomen/Pelvis CT 03/21/162012 Signed Impressions: Service Date/Time: Monday, March 21, 2016 20:39 - CONCLUSION: Multiple fractures inclusive of left inferior superior pubic ramus as well as transverse process and left L5 and left sacrum. Lower chest demonstrates fracture of left rib #8 posteriorly and a small anterior pneumothorax. Intra-abdominal and pelvic contents are normal Gopi Dumont MD Narrative Exam GENERAL: 56 year old well-developed male lying in bed. SKIN: Warm and dry. HEAD: Normocephalic. ENT: No nasal bleeding or discharge. Mucous membranes pink and moist. NECK: Trachea midline. No JVD. CARDIOVASCULAR: Regular rate and rhythm. RESPIRATORY: No accessory muscle use. Lungs clear and diminished to auscultation. GASTROINTESTINAL: Abdomen soft, non-tender, nondistended. + BS. MUSCULOSKELETAL: Extremities without cyanosis, GANT. RUE sling in place, warm to touch. RLE with Ganesh wrap, LLE with knee immobilizer and fracture boot: + sensation NEUROLOGICAL: Awake and alert. Normal speech. A/P Assessment and Plan INJURIES: Extensive fx of all king of maxillary sinus Depressed fx of LEFT orbit Non-depressed fx of LEFT zygomatic arch LEFT clavicle fx RIGHT proximal humerus LEFT rib fx (2-8 posterior) with contusions Transverse process fx LEFT L5 Multiple fx of LEFT inferior pubic ramus LEFT sacrum fx LEFT tib fib shaft fx RIGHT tib/fib fx RIGHT prox and distal femur fx * S/P I&D RIGHT tibia with wound vac (03/22) Closed reduction of RIGHT femur * S/P ORIF maxillary leforte fx (03/22) Closed reduction of nasal bone fracture * S/P Remove hardware RIGHT femur with IM rhys fixation (03/23) ORIF BILAT tibia with IM rhys fixation * S/P ORIF RIGHT humerus (03/30) Diet: Regular, tolerating well. No straws per OMFS Pulm: IS encouraged to use Pain: Roxicodone, Flexeril, Neurontin. Pain controlled. Activity: BR. (NWB RUE; NWB Bilat LE) PT and OT evaluating GI: Protonix PO Bowel: Colace. MOM. + BM DVT: SCD's. Lovenox. Fungal cream to buttock wounds BID. Patient encouraged to reposition self in bed. Specialty bed. Plan of care discussed with patient at bedside. Case management consulted for discharge planning. Patient has no insurance and is not a safe discharge home. Can possibly transfer to [facility] when beds available and when cleared by Ortho and OMFS. Patient is stable and being managed on Med/Surg Attending Statement The exam, history, and the medical decision-making described in the above note were completed with the assistance of the mid-level provider. I reviewed and agree with the findings presented. I attest that I had a [id number] encounter with the patient on the same day, and personally performed and documented my assessment and findings in the medical record. Tim Shepard Apr 14, 2016 13:01 Karen Nettles MD Apr 15, 2016 17:23
[2016-04-14 16:00] VITALS: BP 119/79; PULSE 96; RESP 16; TEMP 98; O2SAT 96
[2016-04-14 20:15] VITALS: BP 116/71; PULSE 96; RESP 17; TEMP 97.7; O2SAT 97
[2016-04-14] MEDS: MIRTAZAPINE 15 MG TAB PO SCH (20:26)
[2016-04-14] MEDS: MAGNESIUM HYDROXIDE SUSP 30 ML CUP PO SCH (20:27)
[2016-04-15 00:15] VITALS: BP 123/77; PULSE 99; RESP 16; TEMP 99.2; O2SAT 96
[2016-04-15] MEDS: MIRTAZAPINE 15 MG TAB PO SCH ×2 (00:39→21:00)
[2016-04-15] MEDS: ACETAMINOPHEN/HYDROcodone 325 MG/10 MG TAB PO PRN ×6 (00:39→21:14)
[2016-04-15] MEDS: CYCLOBENZAPRINE HCL 10 MG TAB PO PRN ×3 (04:35→21:14)
[2016-04-15] MEDS: ENOXAPARIN SODIUM 30 MG/0.3 ML SYRINGE SQ SCH ×2 (04:36→16:32)
[2016-04-15] MEDS: GABAPENTIN 300 MG CAP PO SCH ×3 (04:37→21:16)
[2016-04-15 08:00] VITALS: BP 121/71; PULSE 104; RESP 18; TEMP 97; O2SAT 97
[2016-04-15] MEDS: SODIUM CHLORIDE 0.9% FLUSH 5 ML FLUSH IVF SCH ×2 (08:38→21:00)
[2016-04-15] MEDS: LACTULOSE SYRUP 20 GM/30 ML CUP PO SCH (08:38)
[2016-04-15] MEDS: FAMOTIDINE 20 MG TAB PO SCH ×2 (08:39→21:14)
[2016-04-15] MEDS: FLUoxetine HCL 10 MG CAP PO SCH (08:39)
[2016-04-15] MEDS: DOCUSATE SODIUM 100 MG CAP PO SCH ×2 (08:39→21:14)
[2016-04-15] MEDS: METOPROLOL TARTRATE 25 MG TAB PO SCH ×2 (08:39→21:14)
[2016-04-15] MEDS: CALCIUM/VITAMIN D 250 MG/125 U TAB PO SCH ×3 (08:39→17:10)
[2016-04-15] MEDS: BACITRACIN TOP OINT 15 GM TUBE TOP SCH ×2 (09:00→21:15)
[2016-04-15 10:41] LABS: ALKALINE PHOSPHATASE 304 U/L (45-117); ALT (GPT) 34 U/L (12-78); ANION GAP 7 MEQ/L (5-15); AST (GOT) 46 U/L (15-37); BICARBONATE 31.1 MEQ/L (21.0-32.0); BLOOD UREA NITROGEN 14 MG/DL (7-18); CHLORIDE 99 MEQ/L (98-107); GLOMERULAR FILTRATION RATE 121 ML/MIN (>89); POTASSIUM 3.4 MEQ/L (3.5-5.1); SODIUM (NA) 137 MEQ/L (136-145); TOTAL BILIRUBIN ADULT 0.2 MG/DL (0.2-1.0)
[2016-04-15 12:00] VITALS: BP 111/76; PULSE 101; RESP 18; TEMP 98.4; O2SAT 96
--- NOTE | 2016-04-15 15:41 | HHI.PR ---
Subjective Subjective Notes Eating well No complaints Objective Vitals/I&O Vital Signs Date Time Temp Pulse Resp B/P Pulse Ox O2 Delivery O2 Flow Rate FiO2 04/15/16 12:00 98.4 101 18 111/76 96 Labs Laboratory Tests Test 04/15/16 09:55 Sodium Level 137 Potassium Level 3.4 Chloride Level 99 Carbon Dioxide Level 31.1 Anion Gap 7 Blood Urea Nitrogen 14 Creatinine 0.68 Estimat Glomerular Filtration 121 Rate Random Glucose 105 Calcium Level 9.0 Total Bilirubin 0.2 Aspartate Amino Transf 46 (AST/SGOT) Alanine Aminotransferase 34 (ALT/SGPT) Alkaline Phosphatase 304 Total Protein 7.6 Albumin 2.5 Radiology Last Impressions Shoulder X-Ray 03/30/16 0000 Signed Impressions: Service Date/Time: Wednesday, March 30, 2016 13:14 - CONCLUSION: Satisfactory postoperative appearance of the proximal right humerus following ORIF. Regulo Stewart MD Chest X-Ray 03/26/16 0600 Signed Impressions: Service Date/Time: Saturday, March 26, 2016 05:52 - CONCLUSION: 1. Persistent medial left lower lung consolidation. 2. No pneumothorax seen. Ugo Kim MD Tibia/Fibula X-Ray 03/23/16 0000 Signed Impressions: Service Date/Time: Wednesday, March 23, 2016 17:44 - CONCLUSION: Anatomic alignment. Ifeanyi Suarez MD FACR Femur X-Ray 03/23/16 0000 Signed Impressions: Service Date/Time: Wednesday, March 23, 2016 14:08 - CONCLUSION: Anatomic alignment. Ifeanyi Suarez MD FACR Lower Extremity CT 03/22/16 0000 Signed Impressions: Service Date/Time: Tuesday, March 22, 2016 10:08 - CONCLUSION: 1. Comminuted fractures involving the distal femur, proximal tibia, and proximal fibula with hemarthrosis as detailed above. Ugo Glez Jr., MD Ankle X-Ray 03/22/16 0000 Signed Impressions: Service Date/Time: Tuesday, March 22, 2016 01:27 - CONCLUSION: 1. Comminuted fractures distal tibia and fibula. Naeem Peterson MD Thoracic Spine CT 03/21/162027 Signed Impressions: Service Date/Time: Monday, March 21, 2016 20:39 - CONCLUSION: Intact thoracic spine. Contiguous left rib fractures #2 through 8 posteriorly Gopi Dumont MD Maxillofacial CT 03/21/162027 Signed Impressions: Service Date/Time: Monday, March 21, 2016 20:36 - CONCLUSION: Extensive fractures of all king of the maxillary sinuses And the nasal bone and ala inclusive of extension into the hard palate. There is a slightly depressed fracture of the medial floor of the left orbit and nondepressed fracture left zygomatic arch. Admixture of air and fluid noted in the maxillary sinuses and ethmoid air cells. Intraorbital contents are normal and base of the skull appears intact with normal intracranial contents Gopi Dumont MD Lumbar Spine CT 03/21/162027 Signed Impressions: Service Date/Time: Monday, March 21, 2016 20:39 - CONCLUSION: Nondisplaced fracture transverse process left L5 and left sacrum. Degenerative disc disease L3-S1. Gopi Dumont MD Pelvis X-Ray 03/21/162012 Signed Impressions: Service Date/Time: Monday, March 21, 2016 19:56 - CONCLUSION: Fracture left sacrum appreciated. Remainder the pelvis is intact with fractures of the pelvis better appreciated on CT scan Gopi Dumont MD Head CT 03/21/162012 Signed Impressions: Service Date/Time: Monday, March 21, 2016 20:30 - CONCLUSION: Intact calvarium. Normal intracranial contents. Facial fractures as described on the facial bone CT Gopi Dumont MD Chest CT 03/21/162012 Signed Impressions: Service Date/Time: Monday, March 21, 2016 20:39 - CONCLUSION: Contiguous left posterior rib fractures #2 through 8 with associated pleural thickening and parenchymal contusion. In the mid to upper right chest anteriorly there is a 1.3 cm pneumothorax without tension . Left chest subcutaneous emphysema Fracture of the proximal right humerus and mid left clavicle additionally appreciated. Gopi Dumont MD Cervical Spine CT 03/21/162012 Signed Impressions: Service Date/Time: Monday, March 21, 2016 20:30 - CONCLUSION: Degenerative changes of the cervical spine. Fractures acute left ribs numbered 2 and 3 posteriorly Gopi Dumont MD Abdomen/Pelvis CT 03/21/162012 Signed Impressions: Service Date/Time: Monday, March 21, 2016 20:39 - CONCLUSION: Multiple fractures inclusive of left inferior superior pubic ramus as well as transverse process and left L5 and left sacrum. Lower chest demonstrates fracture of left rib #8 posteriorly and a small anterior pneumothorax. Intra-abdominal and pelvic contents are normal Gopi Dumont MD Narrative Exam GENERAL: 56 year old well-developed male lying in bed. SKIN: Warm and dry. HEAD: Normocephalic. ENT: No nasal bleeding or discharge. Mucous membranes pink and moist. NECK: Trachea midline. No JVD. CARDIOVASCULAR: Regular rate and rhythm. RESPIRATORY: No accessory muscle use. Lungs clear and diminished to auscultation. GASTROINTESTINAL: Abdomen soft, non-tender, nondistended. + BS. MUSCULOSKELETAL: Extremities without cyanosis, GANT. RUE sling in place, warm to touch. RLE with Ganesh wrap, LLE with knee immobilizer and fracture boot: + sensation NEUROLOGICAL: Awake and alert. Normal speech. A/P Assessment and Plan INJURIES: Extensive fx of all king of maxillary sinus Depressed fx of LEFT orbit Non-depressed fx of LEFT zygomatic arch LEFT clavicle fx RIGHT proximal humerus LEFT rib fx (2-8 posterior) with contusions Transverse process fx LEFT L5 Multiple fx of LEFT inferior pubic ramus LEFT sacrum fx LEFT tib fib shaft fx RIGHT tib/fib fx RIGHT prox and distal femur fx * S/P I&D RIGHT tibia with wound vac (03/22) Closed reduction of RIGHT femur * S/P ORIF maxillary leforte fx (03/22) Closed reduction of nasal bone fracture * S/P Remove hardware RIGHT femur with IM rhys fixation (03/23) ORIF BILAT tibia with IM rhys fixation * S/P ORIF RIGHT humerus (03/30) Diet: Regular, tolerating well. No straws per OMFS. Pulm: IS encouraged to use. Pain: Roxicodone, Flexeril, Neurontin. Pain controlled. Activity: BR. (NWB RUE; NWB Bilat LE) PT and OT evaluating. GI: Protonix PO Bowel: Colace. MOM. + BM DVT: SCD's. Lovenox. Fungal cream to buttock excoriation BID. Patient encouraged to reposition self in bed. Specialty bed. Plan of care discussed with patient at bedside. Case management consulted for discharge planning. Patient has no insurance and is not a safe discharge home. Can transfer to [facility] when beds available and when cleared by Ortho and OMFS. Patient is stable and being managed on Med/Surg Attending Statement Patient this point is awaiting placement in is essentially border in the institution The exam, history, and the medical decision-making described in the above note were completed with the assistance of the mid-level provider. I reviewed and agree with the findings presented. I attest that I had a [id number] encounter with the patient on the same day, and personally performed and documented my assessment and findings in the medical record. Tim Shepard Apr 15, 2016 15:41 Karen Nettles MD Apr 20, 2016 16:51
[2016-04-15 16:00] VITALS: BP 115/78; PULSE 98; RESP 18; TEMP 97.8; O2SAT 97
[2016-04-15 20:00] VITALS: BP 118/78; PULSE 104; RESP 17; TEMP 98.1; O2SAT 99
[2016-04-15] MEDS: MAGNESIUM HYDROXIDE SUSP 30 ML CUP PO SCH (21:14)
[2016-04-16] VITALS: BP 117/75; PULSE 95; RESP 17; TEMP 98.3; O2SAT 96
[2016-04-16] MEDS: ACETAMINOPHEN/HYDROcodone 325 MG/10 MG TAB PO PRN ×6 (01:20→22:37)
[2016-04-16] MEDS: MIRTAZAPINE 15 MG TAB PO SCH ×2 (01:22→21:13)
[2016-04-16] MEDS: GABAPENTIN 300 MG CAP PO SCH ×3 (05:06→21:13)
[2016-04-16] MEDS: ENOXAPARIN SODIUM 30 MG/0.3 ML SYRINGE SQ SCH ×2 (05:06→16:25)
--- NOTE | 2016-04-16 06:39 | PD.ORT.PN ---
Subjective Subjective Remarks Alert and oriented. No new complaints Objective Vitals Vital Signs Date Time Temp Pulse Resp B/P Pulse Ox O2 Delivery O2 Flow Rate FiO2 04/16/16 00:00 98.3 95 17 117/75 96 04/15/16 20:00 98.1 104 17 118/78 99 04/15/16 16:00 97.8 98 18 115/78 97 04/15/16 12:00 98.4 101 18 111/76 96 04/15/16 08:00 97.0 104 18 121/71 97 I/O 04/15/16 04/15/16 04/15/16 04/16/16 04/16/16 04/16/16 07:00 15:00 23:00 07:00 15:00 23:00 Intake Total 480 ml 1200 ml 360 ml 360 ml Output Total 1500 ml 1425 ml 650 ml 1050 ml Balance -1020 ml -225 ml -290 ml -690 ml Intake Oral 480 ml 1200 ml 360 ml 360 ml Output Urine Total 1500 ml 1425 ml 650 ml 1050 ml Stool Total 0 ml # Bowel Movements 0 0 0 Result Diagram: 04/14/16 0534 04/15/16 0955 Imaging Last 72 hours Impressions Chest X-Ray 03/26/16 0600 Signed Impressions: Service Date/Time: Saturday, March 26, 2016 05:52 - CONCLUSION: 1. Persistent medial left lower lung consolidation. 2. No pneumothorax seen. Ugo Kim MD Chest X-Ray 03/25/16 0600 Signed Impressions: Service Date/Time: March 04:50 - CONCLUSION: 1. Increase in left-sided airspace disease since March 24. Left chest tube, endotracheal tube and nasogastric tube unchanged. Naeem Peterson MD Chest X-Ray 03/25/16 0000 Signed Impressions: Service Date/Time: March 15:09 - CONCLUSION: 1. No pneumothorax status post removal of left chest tube. 2. Persistent left lung scattered patchiness. 3. Endotracheal tube and nasogastric tube remain in good positions. 4. Multiple fractures are stable. Osiel Howard MD Chest X-Ray 03/24/16 0600 Signed Impressions: Service Date/Time: Thursday, March 24, 2016 03:13 - CONCLUSION: 1. Support apparatus unchanged. Left chest tube without pneumothorax. Mostly basilar airspace disease remains present, slightly increased on the right since 03/23. Naeem Peterson MD Last 24 hours Impressions [address] Spine CT 03/21/162027 Signed Impressions: Service Date/Time: Monday, March 21, 2016 20:39 - CONCLUSION: Intact thoracic spine. Contiguous left rib fractures #2 through 8 posteriorly Gopi Dumont MD Maxillofacial CT 03/21/162027 Signed Impressions: Service Date/Time: Monday, March 21, 2016 20:36 - CONCLUSION: Extensive fractures of all king of the maxillary sinuses And the nasal bone and ala inclusive of extension into the hard palate. There is a slightly depressed fracture of the medial floor of the left orbit and nondepressed fracture left zygomatic arch. Admixture of air and fluid noted in the maxillary sinuses and ethmoid air cells. Intraorbital contents are normal and base of the skull appears intact with normal intracranial contents Gopi Dumont MD Lumbar Spine CT 03/21/162027 Signed Impressions: Service Date/Time: Monday, March 21, 2016 20:39 - CONCLUSION: Nondisplaced fracture transverse process left L5 and left sacrum. Degenerative disc disease L3-S1. Gopi Dumont MD Pelvis X-Ray 03/21/162012 Signed Impressions: Service Date/Time: Monday, March 21, 2016 19:56 - CONCLUSION: Fracture left sacrum appreciated. Remainder the pelvis is intact with fractures of the pelvis better appreciated on CT scan Gopi Dumont MD Head CT 03/21/162012 Signed Impressions: Service Date/Time: Monday, March 21, 2016 20:30 - CONCLUSION: Intact calvarium. Normal intracranial contents. Facial fractures as described on the facial bone CT Gopi Dumont MD Chest X-Ray 03/21/162012 Signed Impressions: Service Date/Time: Monday, March 21, 2016 19:56 - CONCLUSION: Slightly off set fracture posterior left fourth rib and probably contiguous third and fifth ribs with no pneumothorax Gopi Dumont MD Chest CT 03/21/162012 Signed Impressions: Service Date/Time: Monday, March 21, 2016 20:39 - CONCLUSION: Contiguous left posterior rib fractures #2 through 8 with associated pleural thickening and parenchymal contusion. In the mid to upper right chest anteriorly there is a 1.3 cm pneumothorax without tension . Left chest subcutaneous emphysema Fracture of the proximal right humerus and mid left clavicle additionally appreciated. Gopi Dumont MD Cervical Spine CT 03/21/162012 Signed Impressions: Service Date/Time: Monday, March 21, 2016 20:30 - CONCLUSION: Degenerative changes of the cervical spine. Fractures acute left ribs numbered 2 and 3 posteriorly Gopi Dumont MD Abdomen/Pelvis CT 03/21/162012 Signed Impressions: Service Date/Time: Monday, March 21, 2016 20:39 - CONCLUSION: Multiple fractures inclusive of left inferior superior pubic ramus as well as transverse process and left L5 and left sacrum. Lower chest demonstrates fracture of left rib #8 posteriorly and a small anterior pneumothorax. Intra-abdominal and pelvic contents are normal Gopi Dumont MD Objective Remarks RUE: Clean dry dressings and intact. +sling. no sensation to median/ulnar nerve distribution. RLE: dressing CDI. calf compartments are soft.. Good capillary refills full motion of toes. Knee immobilizer in place as well as fracture boot. traumatic lac on ankle healing well. LLE: dressing CDI. Calf compartments soft. Good capillary refill in toes. LUE: Pain to palpation over left clavicle. Mild tenderness with range of motion of shoulder .Good passive motion of shoulder, elbow, wrist, good cap refill. Assessment & Plan Problem List: (1) Plan: Recommend emergent Irrigation and Debridement of right open tibia fracture I will examine the right femur under anaesthesia I will examine the right shoulder under anaesthesia Possible internal or external fixation right tibial He will ultimately require multiple interventions Based on complexity of the multiple injuries will request consultation with Dr. Anatoly Hogan Informed consent obtained for above plan Assessment and Plan POD 23 2) Right Segmental Periprosthetic Femoral Shaft Fracture status post IM nail 3) Right Distal Tibial Shaft Fracture status post IM nail 03/23/16 4) Left Tibial Shaft Fracture status post IM nail 03/23/16 5) bilateral tibial plateaus status post ORIF on 03/23/16 1) Right Proximal Humerus Fx s/p ORIF - POD 16 6)left clavicle fracture - nonop 7) left sacrum fracture and inferior/superior rami fractures - nonop -NWB RUE,BLE. daily dressing change to right shoulder monitor nerve palsy right arm maintain sling R UE -maintain splint, CKS daily dressing changes over medial right ankle bacitracin and Adaptic Lovenox Discharge planning to rehabilitation Incentive spirometry TRISTON PICKETT PA-C Apr 16, 2016 06:39
[2016-04-16 08:10] VITALS: BP 121/71; PULSE 94; RESP 18; TEMP 97.3; O2SAT 98
[2016-04-16] MEDS ORDERED: POTASSIUM CHLORIDE 20 MEQ CONTROLLED RELEASE TAB PO ONE (09:00)
[2016-04-16] MEDS: BACITRACIN TOP OINT 15 GM TUBE TOP SCH ×2 (09:00→21:00)
[2016-04-16] MEDS: DOCUSATE SODIUM 100 MG CAP PO SCH ×2 (09:08→21:13)
[2016-04-16] MEDS: FLUoxetine HCL 10 MG CAP PO SCH (09:08)
[2016-04-16] MEDS: CALCIUM/VITAMIN D 250 MG/125 U TAB PO SCH ×3 (09:08→18:06)
[2016-04-16] MEDS: SODIUM CHLORIDE 0.9% FLUSH 5 ML FLUSH IVF SCH ×2 (09:08→21:00)
[2016-04-16] MEDS: LACTULOSE SYRUP 20 GM/30 ML CUP PO SCH (09:08)
[2016-04-16] MEDS: FAMOTIDINE 20 MG TAB PO SCH ×2 (09:08→21:13)
[2016-04-16] MEDS: CYCLOBENZAPRINE HCL 10 MG TAB PO PRN (09:09)
[2016-04-16] MEDS: METOPROLOL TARTRATE 25 MG TAB PO SCH ×2 (09:09→21:13)
--- NOTE | 2016-04-16 10:50 | HHI.PR ---
Subjective Subjective Notes Continues to complain of left collar bone pain with movement. Reports increased urine output. Objective Vitals/I&O Vital Signs Date Time Temp Pulse Resp B/P Pulse Ox O2 Delivery O2 Flow Rate FiO2 04/16/16 08:10 97.3 94 18 121/71 98 Labs Laboratory Tests Test 04/14/16 04/15/16 05:34 09:55 White Blood Count 7.1 TH/MM3 Red Blood Count 3.78 MIL/MM3 Hemoglobin 10.5 GM/DL Hematocrit 31.9 % Mean Corpuscular Volume 84.3 FL Mean Corpuscular Hemoglobin 27.7 PG Mean Corpuscular Hemoglobin 32.8 % Concent Red Cell Distribution Width 15.5 % Platelet Count 735 TH/MM3 Mean Platelet Volume 7.0 FL Magnesium Level 2.0 MG/DL Sodium Level 137 MEQ/L Potassium Level 3.4 MEQ/L Chloride Level 99 MEQ/L Carbon Dioxide Level 31.1 MEQ/L Anion Gap 7 MEQ/L Blood Urea Nitrogen 14 MG/DL Creatinine 0.68 MG/DL Estimat Glomerular Filtration 121 ML/MIN Rate Random Glucose 105 MG/DL Calcium Level 9.0 MG/DL Total Bilirubin 0.2 MG/DL Aspartate Amino Transf 46 U/L (AST/SGOT) Alanine Aminotransferase 34 U/L (ALT/SGPT) Alkaline Phosphatase 304 U/L Total Protein 7.6 GM/DL Albumin 2.5 GM/DL Radiology Last Impressions Shoulder X-Ray 03/30/16 0000 Signed Impressions: Service Date/Time: Wednesday, March 30, 2016 13:14 - CONCLUSION: Satisfactory postoperative appearance of the proximal right humerus following ORIF. Regulo Stewart MD Chest X-Ray 03/26/16 0600 Signed Impressions: Service Date/Time: Saturday, March 26, 2016 05:52 - CONCLUSION: 1. Persistent medial left lower lung consolidation. 2. No pneumothorax seen. Ugo Kim MD Tibia/Fibula X-Ray 03/23/16 0000 Signed Impressions: Service Date/Time: Wednesday, March 23, 2016 17:44 - CONCLUSION: Anatomic alignment. Ifeanyi Suarez MD FACR Femur X-Ray 03/23/16 0000 Signed Impressions: Service Date/Time: Wednesday, March 23, 2016 14:08 - CONCLUSION: Anatomic alignment. Ifeanyi Suarez MD FACR Lower Extremity CT 03/22/16 0000 Signed Impressions: Service Date/Time: Tuesday, March 22, 2016 10:08 - CONCLUSION: 1. Comminuted fractures involving the distal femur, proximal tibia, and proximal fibula with hemarthrosis as detailed above. Ugo Glez Jr., MD Ankle X-Ray 03/22/16 0000 Signed Impressions: Service Date/Time: Tuesday, March 22, 2016 01:27 - CONCLUSION: 1. Comminuted fractures distal tibia and fibula. Naeem Peterson MD Thoracic Spine CT 03/21/162027 Signed Impressions: Service Date/Time: Monday, March 21, 2016 20:39 - CONCLUSION: Intact thoracic spine. Contiguous left rib fractures #2 through 8 posteriorly Gopi Dumont MD Maxillofacial CT 03/21/162027 Signed Impressions: Service Date/Time: Monday, March 21, 2016 20:36 - CONCLUSION: Extensive fractures of all king of the maxillary sinuses And the nasal bone and ala inclusive of extension into the hard palate. There is a slightly depressed fracture of the medial floor of the left orbit and nondepressed fracture left zygomatic arch. Admixture of air and fluid noted in the maxillary sinuses and ethmoid air cells. Intraorbital contents are normal and base of the skull appears intact with normal intracranial contents Gopi Dumont MD Lumbar Spine CT 03/21/162027 Signed Impressions: Service Date/Time: Monday, March 21, 2016 20:39 - CONCLUSION: Nondisplaced fracture transverse process left L5 and left sacrum. Degenerative disc disease L3-S1. Gopi Dumont MD Pelvis X-Ray 03/21/162012 Signed Impressions: Service Date/Time: Monday, March 21, 2016 19:56 - CONCLUSION: Fracture left sacrum appreciated. Remainder the pelvis is intact with fractures of the pelvis better appreciated on CT scan Gopi Dumont MD Head CT 03/21/162012 Signed Impressions: Service Date/Time: Monday, March 21, 2016 20:30 - CONCLUSION: Intact calvarium. Normal intracranial contents. Facial fractures as described on the facial bone CT Gopi Dumont MD Chest CT 03/21/162012 Signed Impressions: Service Date/Time: Monday, March 21, 2016 20:39 - CONCLUSION: Contiguous left posterior rib fractures #2 through 8 with associated pleural thickening and parenchymal contusion. In the mid to upper right chest anteriorly there is a 1.3 cm pneumothorax without tension . Left chest subcutaneous emphysema Fracture of the proximal right humerus and mid left clavicle additionally appreciated. Gopi Dumont MD Cervical Spine CT 03/21/162012 Signed Impressions: Service Date/Time: Monday, March 21, 2016 20:30 - CONCLUSION: Degenerative changes of the cervical spine. Fractures acute left ribs numbered 2 and 3 posteriorly Gopi Dumotn MD Abdomen/Pelvis CT 03/21/162012 Signed Impressions: Service Date/Time: Monday, March 21, 2016 20:39 - CONCLUSION: Multiple fractures inclusive of left inferior superior pubic ramus as well as transverse process and left L5 and left sacrum. Lower chest demonstrates fracture of left rib #8 posteriorly and a small anterior pneumothorax. Intra-abdominal and pelvic contents are normal Gopi Dumont MD Narrative Exam GENERAL: 56 year old well-developed male lying in bed. SKIN: Warm and dry. HEAD: Normocephalic. ENT: No nasal bleeding or discharge. Mucous membranes pink and moist. NECK: Trachea midline. No JVD. CARDIOVASCULAR: Regular rate and rhythm. RESPIRATORY: No accessory muscle use. Lungs clear and diminished to auscultation. GASTROINTESTINAL: Abdomen soft, non-tender, nondistended. + BS. MUSCULOSKELETAL: Extremities without cyanosis, GANT. RUE sling in place, warm to touch. RLE with Ganesh wrap, LLE with knee immobilizer and fracture boot: + sensation NEUROLOGICAL: Awake and alert. Normal speech. A/P Assessment and Plan INJURIES: Extensive fx of all king of maxillary sinus Depressed fx of LEFT orbit Non-depressed fx of LEFT zygomatic arch LEFT clavicle fx RIGHT proximal humerus LEFT rib fx (2-8 posterior) with contusions Transverse process fx LEFT L5 Multiple fx of LEFT inferior pubic ramus LEFT sacrum fx LEFT tib fib shaft fx RIGHT tib/fib fx RIGHT prox and distal femur fx * S/P I&D RIGHT tibia with wound vac (03/22) Closed reduction of RIGHT femur * S/P ORIF maxillary leforte fx (03/22) Closed reduction of nasal bone fracture * S/P Remove hardware RIGHT femur with IM rhys fixation (03/23) ORIF BILAT tibia with IM rhys fixation * S/P ORIF RIGHT humerus (03/30) Diet: Regular, tolerating well. No straws per OMFS. Pulm: IS encouraged to use. Pain: Roxicodone, Flexeril, Neurontin. Pain controlled. Activity: BR. (NWB RUE; NWB Carrie GUEVARA) PT and OT evaluating. GI: Protonix PO Bowel: Colace. MOM. + BM DVT: SCD's. Lovenox. Urine output has been greater than 3 L over the past 3 days. Assess urine osmolality and sodium level. Measure accurate I&O. Fungal cream to buttock excoriation BID. Patient encouraged to reposition self in bed. Specialty bed. Plan of care discussed with patient at bedside. Case management consulted for discharge planning. Patient has no insurance and is not a safe discharge home. Can transfer to [facility] when beds available and when cleared by Ortho and OMFS. Patient is stable and being managed on Med/Surg Tim Shepard Apr 16, 2016 10:50
[2016-04-16 12:37] VITALS: BP 110/76; PULSE 92; RESP 18; TEMP 98; O2SAT 97
[2016-04-16 16:00] VITALS: BP 112/70; PULSE 90; RESP 18; TEMP 97.9; O2SAT 96
[2016-04-16 20:00] VITALS: BP 136/85; PULSE 108; RESP 17; TEMP 99; O2SAT 99
[2016-04-16] MEDS: MAGNESIUM HYDROXIDE SUSP 30 ML CUP PO SCH (21:00)
[2016-04-17] VITALS: BP 126/75; PULSE 87; RESP 17; TEMP 98.4; O2SAT 98
[2016-04-17] MEDS: ENOXAPARIN SODIUM 30 MG/0.3 ML SYRINGE SQ SCH ×2 (03:36→15:42)
[2016-04-17] MEDS: ACETAMINOPHEN/HYDROcodone 325 MG/10 MG TAB PO PRN ×5 (03:36→20:11)
[2016-04-17] MEDS: GABAPENTIN 300 MG CAP PO SCH ×3 (05:14→22:27)
[2016-04-17 05:48] LABS: BICARBONATE 30.5 MEQ/L (21.0-32.0); POTASSIUM 3.6 MEQ/L (3.5-5.1)
[2016-04-17] MEDS: LACTULOSE SYRUP 20 GM/30 ML CUP PO SCH (07:40)
[2016-04-17] MEDS: FAMOTIDINE 20 MG TAB PO SCH ×2 (07:41→20:11)
[2016-04-17] MEDS: METOPROLOL TARTRATE 25 MG TAB PO SCH ×2 (07:41→20:11)
[2016-04-17] MEDS: DOCUSATE SODIUM 100 MG CAP PO SCH ×2 (07:41→20:11)
[2016-04-17] MEDS: FLUoxetine HCL 10 MG CAP PO SCH (07:41)
[2016-04-17] MEDS: CALCIUM/VITAMIN D 250 MG/125 U TAB PO SCH ×3 (07:41→15:42)
[2016-04-17 08:00] VITALS: BP 145/74; PULSE 92; RESP 18; TEMP 97.9; O2SAT 97
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
[2016-04-17] MEDS: SODIUM CHLORIDE 0.9% FLUSH 5 ML FLUSH IVF SCH ×2 (09:00→22:29)
[2016-04-17] MEDS: BACITRACIN TOP OINT 15 GM TUBE TOP SCH ×2 (09:00→20:12)
[2016-04-17 12:00] VITALS: BP 118/76; PULSE 88; RESP 18; TEMP 98; O2SAT 98
[2016-04-17] MEDS: CYCLOBENZAPRINE HCL 10 MG TAB PO PRN (15:58)
[2016-04-17 16:00] VITALS: BP 118/75; PULSE 97; RESP 18; TEMP 99; O2SAT 96
[2016-04-17 20:00] VITALS: BP 115/74; PULSE 102; RESP 17; TEMP 98.2; O2SAT 97
[2016-04-17] MEDS: MAGNESIUM HYDROXIDE SUSP 30 ML CUP PO SCH (20:12)
[2016-04-17] MEDS: MIRTAZAPINE 15 MG TAB PO SCH (22:27)
[2016-04-18] VITALS: BP 121/71; PULSE 93; RESP 16; TEMP 98; O2SAT 96
[2016-04-18] MEDS: ACETAMINOPHEN/HYDROcodone 325 MG/10 MG TAB PO PRN ×6 (00:04→21:06)
[2016-04-18] MEDS: ENOXAPARIN SODIUM 30 MG/0.3 ML SYRINGE SQ SCH ×2 (04:01→17:08)
[2016-04-18] MEDS: GABAPENTIN 300 MG CAP PO SCH ×3 (06:31→21:05)
[2016-04-18 08:00] VITALS: BP 129/71; PULSE 102; RESP 18; TEMP 97.7; O2SAT 97
[2016-04-18] MEDS: CALCIUM/VITAMIN D 250 MG/125 U TAB PO SCH ×3 (08:02→17:04)
[2016-04-18] MEDS: FAMOTIDINE 20 MG TAB PO SCH ×2 (08:05→21:05)
[2016-04-18] MEDS: FLUoxetine HCL 10 MG CAP PO SCH (08:05)
[2016-04-18] MEDS: DOCUSATE SODIUM 100 MG CAP PO SCH ×2 (08:05→21:05)
[2016-04-18] MEDS: METOPROLOL TARTRATE 25 MG TAB PO SCH ×2 (08:05→21:05)
[2016-04-18] MEDS: CYCLOBENZAPRINE HCL 10 MG TAB PO PRN ×2 (08:08→17:08)
[2016-04-18] MEDS ORDERED: BISACODYL 10 MG SUPP RECTAL ONE (08:15)
[2016-04-18] MEDS ORDERED: BISACODYL EC 5 MG TABEC PO ONE (08:15)
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
[2016-04-18] MEDS: BACITRACIN TOP OINT 15 GM TUBE TOP SCH ×2 (09:00→21:00)
[2016-04-18] MEDS: SODIUM CHLORIDE 0.9% FLUSH 5 ML FLUSH IVF SCH ×2 (09:00→21:06)
[2016-04-18] MEDS: LACTULOSE SYRUP 20 GM/30 ML CUP PO SCH (09:00)
[2016-04-18 12:00] VITALS: BP 120/77; PULSE 98; RESP 18; TEMP 96.8; O2SAT 97
[2016-04-18 16:00] VITALS: BP 117/72; PULSE 95; RESP 18; TEMP 98.2; O2SAT 98
[2016-04-18 20:00] VITALS: BP 135/81; PULSE 96; RESP 16; TEMP 96.8; O2SAT 99
[2016-04-18] MEDS: MAGNESIUM HYDROXIDE SUSP 30 ML CUP PO SCH (21:00)
[2016-04-18] MEDS: MIRTAZAPINE 15 MG TAB PO SCH (21:05)
[2016-04-19 00:04] VITALS: BP 123/84; PULSE 93; RESP 16; TEMP 98; O2SAT 97
[2016-04-19] MEDS: ACETAMINOPHEN/HYDROcodone 325 MG/10 MG TAB PO PRN ×6 (00:51→22:04)
[2016-04-19] MEDS: ENOXAPARIN SODIUM 30 MG/0.3 ML SYRINGE SQ SCH ×2 (04:58→17:24)
[2016-04-19] MEDS: GABAPENTIN 300 MG CAP PO SCH ×3 (04:58→22:19)
[2016-04-19 07:17] LABS: HEMATOCRIT 35.3 % (39.0-51.0); MEAN CELL VOLUME 84.7 FL (80.0-100.0); MEAN CORPUSCULAR HEMOGLOBIN 27.9 PG (27.0-34.0); MEAN CORPUSCULAR HGB CONC 32.9 % (32.0-36.0); PLATELET COUNT 520 TH/MM3 (150-450); RED BLOOD COUNT 4.16 MIL/MM3 (4.50-5.90); RED CELL DISTRIBUTION WIDTH 15.4 % (11.6-17.2); REVIEW FLAG FINAL
[2016-04-19 07:33] VITALS: BP 140/77; PULSE 108; RESP 18; TEMP 97.6; O2SAT 97
[2016-04-19] MEDS ORDERED: LACTULOSE SYRUP 20 GM/30 ML CUP PO ONE (07:45)
[2016-04-19 07:52] LABS: BICARBONATE 24.5 MEQ/L (21.0-32.0); MAGNESIUM 1.7 MG/DL (1.5-2.5); POTASSIUM 3.6 MEQ/L (3.5-5.1)
[2016-04-19] MEDS: FLUoxetine HCL 10 MG CAP PO SCH (08:38)
[2016-04-19] MEDS: FAMOTIDINE 20 MG TAB PO SCH ×2 (08:38→22:03)
[2016-04-19] MEDS: METOPROLOL TARTRATE 25 MG TAB PO SCH ×2 (08:38→22:04)
[2016-04-19] MEDS: BACITRACIN TOP OINT 15 GM TUBE TOP SCH ×2 (08:39→22:05)
[2016-04-19] MEDS: SODIUM CHLORIDE 0.9% FLUSH 5 ML FLUSH IVF SCH ×2 (08:39→22:03)
[2016-04-19] MEDS: DOCUSATE SODIUM 100 MG CAP PO SCH ×2 (08:39→22:03)
[2016-04-19] MEDS: CALCIUM/VITAMIN D 250 MG/125 U TAB PO SCH ×3 (08:39→17:25)
[2016-04-19] MEDS: LACTULOSE SYRUP 20 GM/30 ML CUP PO SCH (08:40)
[2016-04-19] MEDS: CYCLOBENZAPRINE HCL 10 MG TAB PO PRN ×2 (09:26→17:25)
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
[2016-04-19 12:00] VITALS: BP 126/77; PULSE 92; RESP 18; TEMP 98.3; O2SAT 97
[2016-04-19 16:00] VITALS: BP 120/75; PULSE 95; RESP 18; TEMP 98.6; O2SAT 96
[2016-04-19] MEDS: MAGNESIUM HYDROXIDE SUSP 30 ML CUP PO SCH (22:03)
[2016-04-19] MEDS: MIRTAZAPINE 15 MG TAB PO SCH (22:03)
[2016-04-19 23:29] VITALS: BP 121/74; PULSE 97; RESP 16; TEMP 98; O2SAT 95
[2016-04-20] MEDS: CYCLOBENZAPRINE HCL 10 MG TAB PO PRN ×3 (02:33→17:32)
[2016-04-20] MEDS: ACETAMINOPHEN/HYDROcodone 325 MG/10 MG TAB PO PRN ×6 (02:33→21:59)
[2016-04-20] MEDS: ENOXAPARIN SODIUM 30 MG/0.3 ML SYRINGE SQ SCH ×2 (04:00→17:31)
[2016-04-20] MEDS: GABAPENTIN 300 MG CAP PO SCH ×3 (06:19→21:59)
[2016-04-20 08:00] VITALS: BP 124/73; PULSE 94; RESP 18; TEMP 98; O2SAT 97
[2016-04-20] MEDS ORDERED: MAGNESIUM CITRATE SOLN 300 ML BTL PO ONE (08:45)
[2016-04-20] MEDS: BACITRACIN TOP OINT 15 GM TUBE TOP SCH ×2 (09:00→22:00)
[2016-04-20] MEDS: FLUoxetine HCL 10 MG CAP PO SCH (09:43)
[2016-04-20] MEDS: METOPROLOL TARTRATE 25 MG TAB PO SCH ×2 (09:43→21:59)
[2016-04-20] MEDS: CALCIUM/VITAMIN D 250 MG/125 U TAB PO SCH ×3 (09:43→17:32)
[2016-04-20] MEDS: LACTULOSE SYRUP 20 GM/30 ML CUP PO SCH (09:43)
[2016-04-20] MEDS: FAMOTIDINE 20 MG TAB PO SCH ×2 (09:44→21:59)
[2016-04-20] MEDS: SODIUM CHLORIDE 0.9% FLUSH 5 ML FLUSH IVF SCH ×2 (09:44→21:59)
[2016-04-20] MEDS: DOCUSATE SODIUM 100 MG CAP PO SCH ×2 (09:44→21:58)
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
[2016-04-20 11:56] VITALS: BP 126/71; PULSE 110; RESP 18; TEMP 97.3; O2SAT 98
[2016-04-20 16:00] VITALS: BP 118/71; PULSE 93; RESP 18; TEMP 97; O2SAT 98
[2016-04-20 19:00] VITALS: BP 122/73; PULSE 109; RESP 17; TEMP 97.8; O2SAT 97
[2016-04-20] MEDS: MAGNESIUM HYDROXIDE SUSP 30 ML CUP PO SCH (21:58)
[2016-04-20] MEDS: MIRTAZAPINE 15 MG TAB PO SCH (21:59)
[2016-04-20 23:51] VITALS: BP 123/79; PULSE 100; RESP 16; TEMP 97.3; O2SAT 97
[2016-04-21] MEDS: ACETAMINOPHEN/HYDROcodone 325 MG/10 MG TAB PO PRN ×5 (01:50→18:13)
[2016-04-21] MEDS: ENOXAPARIN SODIUM 30 MG/0.3 ML SYRINGE SQ SCH ×2 (04:37→14:11)
[2016-04-21] MEDS: GABAPENTIN 300 MG CAP PO SCH ×3 (06:01→20:52)
[2016-04-21 08:00] VITALS: BP 123/67; PULSE 104; RESP 16; TEMP 97.1; O2SAT 98
[2016-04-21] MEDS: LACTULOSE SYRUP 20 GM/30 ML CUP PO SCH (09:00)
[2016-04-21] MEDS: BACITRACIN TOP OINT 15 GM TUBE TOP SCH ×2 (09:00→20:53)
--- NOTE | 2016-04-21 10:04 | HHI.PR ---
Subjective Subjective Notes C/o painful lump to RIGHT anterior thigh Asking when maxillary and mandibular arch bars can be removed. Tolerating soft diet. Objective Vitals/I&O Vital Signs Date Time Temp Pulse Resp B/P Pulse Ox O2 Delivery O2 Flow Rate FiO2 04/20/16 23:51 97.3 100 16 123/79 97 Radiology Last Impressions Shoulder X-Ray 03/30/16 0000 Signed Impressions: Service Date/Time: Wednesday, March 30, 2016 13:14 - CONCLUSION: Satisfactory postoperative appearance of the proximal right humerus following ORIF. Regulo Stewart MD Chest X-Ray 03/26/16 0600 Signed Impressions: Service Date/Time: Saturday, March 26, 2016 05:52 - CONCLUSION: 1. Persistent medial left lower lung consolidation. 2. No pneumothorax seen. Ugo Kim MD Tibia/Fibula X-Ray 03/23/16 0000 Signed Impressions: Service Date/Time: Wednesday, March 23, 2016 17:44 - CONCLUSION: Anatomic alignment. Ifeanyi Suarez MD FACR Femur X-Ray 03/23/16 0000 Signed Impressions: Service Date/Time: Wednesday, March 23, 2016 14:08 - CONCLUSION: Anatomic alignment. Ifeanyi Suarez MD FACR Lower Extremity CT 03/22/16 0000 Signed Impressions: Service Date/Time: Tuesday, March 22, 2016 10:08 - CONCLUSION: 1. Comminuted fractures involving the distal femur, proximal tibia, and proximal fibula with hemarthrosis as detailed above. Ugo Glez Jr., MD Ankle X-Ray 03/22/16 0000 Signed Impressions: Service Date/Time: Tuesday, March 22, 2016 01:27 - CONCLUSION: 1. Comminuted fractures distal tibia and fibula. Naeem Peterson MD Thoracic Spine CT 03/21/162027 Signed Impressions: Service Date/Time: Monday, March 21, 2016 20:39 - CONCLUSION: Intact thoracic spine. Contiguous left rib fractures #2 through 8 posteriorly Gopi Dumont MD Maxillofacial CT 03/21/162027 Signed Impressions: Service Date/Time: Monday, March 21, 2016 20:36 - CONCLUSION: Extensive fractures of all king of the maxillary sinuses And the nasal bone and ala inclusive of extension into the hard palate. There is a slightly depressed fracture of the medial floor of the left orbit and nondepressed fracture left zygomatic arch. Admixture of air and fluid noted in the maxillary sinuses and ethmoid air cells. Intraorbital contents are normal and base of the skull appears intact with normal intracranial contents Gopi Dumont MD Lumbar Spine CT 03/21/162027 Signed Impressions: Service Date/Time: Monday, March 21, 2016 20:39 - CONCLUSION: Nondisplaced fracture transverse process left L5 and left sacrum. Degenerative disc disease L3-S1. Gopi Dumont MD Pelvis X-Ray 03/21/162012 Signed Impressions: Service Date/Time: Monday, March 21, 2016 19:56 - CONCLUSION: Fracture left sacrum appreciated. Remainder the pelvis is intact with fractures of the pelvis better appreciated on CT scan Gopi Dumont MD Head CT 03/21/162012 Signed Impressions: Service Date/Time: Monday, March 21, 2016 20:30 - CONCLUSION: Intact calvarium. Normal intracranial contents. Facial fractures as described on the facial bone CT Gopi Dumont MD Chest CT 03/21/162012 Signed Impressions: Service Date/Time: Monday, March 21, 2016 20:39 - CONCLUSION: Contiguous left posterior rib fractures #2 through 8 with associated pleural thickening and parenchymal contusion. In the mid to upper right chest anteriorly there is a 1.3 cm pneumothorax without tension . Left chest subcutaneous emphysema Fracture of the proximal right humerus and mid left clavicle additionally appreciated. Gopi Dumont MD Cervical Spine CT 03/21/162012 Signed Impressions: Service Date/Time: Monday, March 21, 2016 20:30 - CONCLUSION: Degenerative changes of the cervical spine. Fractures acute left ribs numbered 2 and 3 posteriorly Gopi Dumont MD Abdomen/Pelvis CT 03/21/162012 Signed Impressions: Service Date/Time: Monday, March 21, 2016 20:39 - CONCLUSION: Multiple fractures inclusive of left inferior superior pubic ramus as well as transverse process and left L5 and left sacrum. Lower chest demonstrates fracture of left rib #8 posteriorly and a small anterior pneumothorax. Intra-abdominal and pelvic contents are normal Gopi Dumont MD Narrative Exam GENERAL: 56 year old well-developed male lying in bed. SKIN: Warm and dry. Surgical incisions healed well. Firm, non-mobile RIGHT anterior thigh lump, painful to palpation. No ecchymosis noted. HEAD: Normocephalic. ENT: No nasal bleeding or discharge. Mucous membranes pink and moist. NECK: Trachea midline. No JVD. CARDIOVASCULAR: Regular rate and rhythm. RESPIRATORY: No accessory muscle use. Lungs clear and diminished to auscultation. GASTROINTESTINAL: Abdomen soft, non-tender, nondistended. + BS. MUSCULOSKELETAL: Extremities without cyanosis, GANT. RUE sling in place, warm to touch, decreased sensation and mobility to RIGHT hand. RLE with CKS and fracture boot, + sensation. NEUROLOGICAL: Awake and alert. Normal speech. A/P Problem List: (1) Acute blood loss anemia (2) Shock circulatory (3) Chronic pain (4) Facial fracture (5) Closed fracture of right proximal humerus (6) Open right tibial fracture (7) Closed left clavicular fracture (8) Fracture of left tibia and fibula Assessment and Plan INJURIES: Extensive fx of all king of maxillary sinus Depressed fx of LEFT orbit Non-depressed fx of LEFT zygomatic arch LEFT clavicle fx RIGHT proximal humerus LEFT rib fx (2-8 posterior) with contusions Transverse process fx LEFT L5 Multiple fx of LEFT inferior pubic ramus LEFT sacrum fx LEFT tib fib shaft fx RIGHT tib/fib fx RIGHT prox and distal femur fx * S/P I&D RIGHT tibia with wound vac (03/22) Closed reduction of RIGHT femur * S/P ORIF maxillary leforte fx (03/22) Closed reduction of nasal bone fracture * S/P Remove hardware RIGHT femur with IM rhys fixation (03/23) ORIF BILAT tibia with IM rhys fixation * S/P ORIF RIGHT humerus (03/30) Diet: Regular, soft, tolerating well. No straws per OMFS. Pulm: IS encouraged to use. Pain: Roxicodone, Flexeril, Neurontin. Pain controlled. Activity: BR. (NWB RUE; NWB Bilat LE) PT and OT evaluating. GI: Protonix PO Bowel: Colace. MOM. + BM DVT: SCD's. Lovenox. Fungal cream to buttock excoriation BID. Patient encouraged to reposition self in bed. Specialty bed. Called to bedside by RN for assessment of firm, stationary lump to RIGHT anterior thigh under CKS. Continue to monitor. Notify Ortho if worsens. RN to contact OMFS regarding patients concerns with the maxillary and mandibular arch bar removal. Plan of care discussed with patient and RN at bedside. Continue aggressive PT and OT. Case management consulted for discharge planning. Patient has no insurance and is not a safe discharge home. Can transfer to [facility] when beds available. Patient is stable and being managed on Med/Surg Attending Statement No need for any more hospital care patient awaiting placement and if the problem due to lack of funding The exam, history, and the medical decision-making described in the above note were completed with the assistance of the mid-level provider. I reviewed and agree with the findings presented. I attest that I had a [id number] encounter with the patient on the same day, and personally performed and documented my assessment and findings in the medical record. Problem Qualifiers (1) Facial fracture: Qualified Code: S02.92XA - Closed fracture of facial bone, unspecified facial bone, initial encounter (2) Closed fracture of right proximal humerus: Qualified Code: S42.291A - Other closed displaced fracture of proximal end of right humerus, initial encounter (3) Open right tibial fracture: (4) Closed left clavicular fracture: Qualified Code: S42.022A - Closed displaced fracture of shaft of left clavicle , initial encounter (5) Fracture of left tibia and fibula: Qualified Code: S82.202A - Fracture of left tibia and fibula, closed, initial encounter Tim Shepard Apr 21, 2016 10:04 Karen Nettles MD Apr 24, 2016 12:22
[2016-04-21] MEDS: DOCUSATE SODIUM 100 MG CAP PO SCH ×2 (10:19→20:52)
[2016-04-21] MEDS: CALCIUM/VITAMIN D 250 MG/125 U TAB PO SCH ×3 (10:19→18:13)
[2016-04-21] MEDS: METOPROLOL TARTRATE 25 MG TAB PO SCH ×2 (10:19→20:52)
[2016-04-21] MEDS: FAMOTIDINE 20 MG TAB PO SCH ×2 (10:19→20:52)
[2016-04-21] MEDS: FLUoxetine HCL 10 MG CAP PO SCH (10:19)
[2016-04-21] MEDS: SODIUM CHLORIDE 0.9% FLUSH 5 ML FLUSH IVF SCH ×2 (10:22→20:53)
[2016-04-21 12:00] VITALS: BP 121/83; PULSE 90; RESP 18; TEMP 96.5; O2SAT 97
[2016-04-21 16:10] VITALS: BP 132/83; PULSE 81; RESP 18; TEMP 97; O2SAT 96
[2016-04-21 20:00] VITALS: BP 133/77; PULSE 102; RESP 17; TEMP 97.9; O2SAT 98
[2016-04-21] MEDS: MIRTAZAPINE 15 MG TAB PO SCH (20:52)
[2016-04-21] MEDS: MAGNESIUM HYDROXIDE SUSP 30 ML CUP PO SCH (20:52)
[2016-04-22] VITALS: BP 125/84; PULSE 100; RESP 17; TEMP 98.1; O2SAT 96
[2016-04-22] MEDS: ACETAMINOPHEN/HYDROcodone 325 MG/10 MG TAB PO PRN ×5 (00:25→19:37)
[2016-04-22] MEDS: ENOXAPARIN SODIUM 30 MG/0.3 ML SYRINGE SQ SCH ×2 (03:52→16:10)
[2016-04-22] MEDS: GABAPENTIN 300 MG CAP PO SCH ×3 (05:56→21:24)
[2016-04-22 08:00] VITALS: BP 121/70; PULSE 104; RESP 18; TEMP 97.9; O2SAT 96
[2016-04-22] MEDS: LACTULOSE SYRUP 20 GM/30 ML CUP PO SCH (08:12)
[2016-04-22] MEDS: CALCIUM/VITAMIN D 250 MG/125 U TAB PO SCH ×3 (08:12→16:10)
[2016-04-22] MEDS: METOPROLOL TARTRATE 25 MG TAB PO SCH ×2 (08:12→21:24)
[2016-04-22] MEDS: DOCUSATE SODIUM 100 MG CAP PO SCH ×2 (08:12→21:24)
[2016-04-22] MEDS: FAMOTIDINE 20 MG TAB PO SCH ×2 (08:12→21:24)
[2016-04-22] MEDS: FLUoxetine HCL 10 MG CAP PO SCH (08:12)
[2016-04-22] MEDS: BACITRACIN TOP OINT 15 GM TUBE TOP SCH ×2 (09:00→21:25)
[2016-04-22] MEDS: SODIUM CHLORIDE 0.9% FLUSH 5 ML FLUSH IVF SCH ×2 (09:00→21:00)
[2016-04-22] MEDS: CYCLOBENZAPRINE HCL 10 MG TAB PO PRN (10:33)
--- NOTE | 2016-04-22 11:43 | HHI.PR ---
Subjective Subjective Notes C/o mouth pain. Reports difficulty eating d/t pain. RN to notify OMFS. Objective Vitals/I&O Vital Signs Date Time Temp Pulse Resp B/P Pulse Ox O2 Delivery O2 Flow Rate FiO2 04/22/16 08:00 97.9 104 18 121/70 96 Labs Laboratory Tests Test 04/19/16 06:33 White Blood Count 8.0 TH/MM3 Red Blood Count 4.16 MIL/MM3 Hemoglobin 11.6 GM/DL Hematocrit 35.3 % Mean Corpuscular Volume 84.7 FL Mean Corpuscular Hemoglobin 27.9 PG Mean Corpuscular Hemoglobin 32.9 % Concent Red Cell Distribution Width 15.4 % Platelet Count 520 TH/MM3 Mean Platelet Volume 7.3 FL Sodium Level 139 MEQ/L Potassium Level 3.6 MEQ/L Chloride Level 101 MEQ/L Carbon Dioxide Level 24.5 MEQ/L Anion Gap 14 MEQ/L Blood Urea Nitrogen 14 MG/DL Creatinine 0.68 MG/DL Estimat Glomerular Filtration 121 ML/MIN Rate Random Glucose 141 MG/DL Calcium Level 9.4 MG/DL Magnesium Level 1.7 MG/DL Radiology Last Impressions Shoulder X-Ray 03/30/16 0000 Signed Impressions: Service Date/Time: Wednesday, March 30, 2016 13:14 - CONCLUSION: Satisfactory postoperative appearance of the proximal right humerus following ORIF. Regulo Stewart MD Chest X-Ray 03/26/16 0600 Signed Impressions: Service Date/Time: Saturday, March 26, 2016 05:52 - CONCLUSION: 1. Persistent medial left lower lung consolidation. 2. No pneumothorax seen. Ugo Kim MD Tibia/Fibula X-Ray 03/23/16 0000 Signed Impressions: Service Date/Time: Wednesday, March 23, 2016 17:44 - CONCLUSION: Anatomic alignment. Ifeanyi Suarez MD FACR Femur X-Ray 03/23/16 0000 Signed Impressions: Service Date/Time: Wednesday, March 23, 2016 14:08 - CONCLUSION: Anatomic alignment. Ifeanyi Suarez MD FACR Lower Extremity CT 03/22/16 0000 Signed Impressions: Service Date/Time: Tuesday, March 22, 2016 10:08 - CONCLUSION: 1. Comminuted fractures involving the distal femur, proximal tibia, and proximal fibula with hemarthrosis as detailed above. Ugo Glez Jr., MD Ankle X-Ray 03/22/16 0000 Signed Impressions: Service Date/Time: Tuesday, March 22, 2016 01:27 - CONCLUSION: 1. Comminuted fractures distal tibia and fibula. Naeem Peterson MD Thoracic Spine CT 03/21/162027 Signed Impressions: Service Date/Time: Monday, March 21, 2016 20:39 - CONCLUSION: Intact thoracic spine. Contiguous left rib fractures #2 through 8 posteriorly Gopi Dumont MD Maxillofacial CT 03/21/162027 Signed Impressions: Service Date/Time: Monday, March 21, 2016 20:36 - CONCLUSION: Extensive fractures of all king of the maxillary sinuses And the nasal bone and ala inclusive of extension into the hard palate. There is a slightly depressed fracture of the medial floor of the left orbit and nondepressed fracture left zygomatic arch. Admixture of air and fluid noted in the maxillary sinuses and ethmoid air cells. Intraorbital contents are normal and base of the skull appears intact with normal intracranial contents Gopi Dumont MD Lumbar Spine CT 03/21/162027 Signed Impressions: Service Date/Time: Monday, March 21, 2016 20:39 - CONCLUSION: Nondisplaced fracture transverse process left L5 and left sacrum. Degenerative disc disease L3-S1. Gopi Dumont MD Pelvis X-Ray 03/21/162012 Signed Impressions: Service Date/Time: Monday, March 21, 2016 19:56 - CONCLUSION: Fracture left sacrum appreciated. Remainder the pelvis is intact with fractures of the pelvis better appreciated on CT scan oGpi Dumont MD Head CT 03/21/162012 Signed Impressions: Service Date/Time: Monday, March 21, 2016 20:30 - CONCLUSION: Intact calvarium. Normal intracranial contents. Facial fractures as described on the facial bone CT Gopi Dumont MD Chest CT 03/21/162012 Signed Impressions: Service Date/Time: Monday, March 21, 2016 20:39 - CONCLUSION: Contiguous left posterior rib fractures #2 through 8 with associated pleural thickening and parenchymal contusion. In the mid to upper right chest anteriorly there is a 1.3 cm pneumothorax without tension . Left chest subcutaneous emphysema Fracture of the proximal right humerus and mid left clavicle additionally appreciated. Gopi Dumont MD Cervical Spine CT 03/21/162012 Signed Impressions: Service Date/Time: Monday, March 21, 2016 20:30 - CONCLUSION: Degenerative changes of the cervical spine. Fractures acute left ribs numbered 2 and 3 posteriorly Gopi Dumont MD Abdomen/Pelvis CT 03/21/162012 Signed Impressions: Service Date/Time: Monday, March 21, 2016 20:39 - CONCLUSION: Multiple fractures inclusive of left inferior superior pubic ramus as well as transverse process and left L5 and left sacrum. Lower chest demonstrates fracture of left rib #8 posteriorly and a small anterior pneumothorax. Intra-abdominal and pelvic contents are normal Gopi Dumont MD Narrative Exam GENERAL: 56 year old well-developed male lying in bed. SKIN: Warm and dry. Surgical incisions healed well. Firm, non-mobile RIGHT anterior thigh lump, painful to palpation. No ecchymosis noted. HEAD: Normocephalic. ENT: No nasal bleeding or discharge. Mucous membranes pink and moist. Sores noted inside patients mouth, along gumline. NECK: Trachea midline. No JVD. CARDIOVASCULAR: Regular rate and rhythm. RESPIRATORY: No accessory muscle use. Lungs clear and diminished to auscultation. GASTROINTESTINAL: Abdomen soft, non-tender, nondistended. + BS. MUSCULOSKELETAL: Extremities without cyanosis, GANT. RUE sling in place, warm to touch, decreased sensation and mobility to RIGHT hand. RLE with CKS and fracture boot, + sensation. NEUROLOGICAL: Awake and alert. Normal speech. A/P Problem List: (1) Acute blood loss anemia (2) Shock circulatory (3) Chronic pain (4) Facial fracture (5) Closed fracture of right proximal humerus (6) Open right tibial fracture (7) Closed left clavicular fracture (8) Fracture of left tibia and fibula Assessment and Plan INJURIES: Extensive fx of all king of maxillary sinus Depressed fx of LEFT orbit Non-depressed fx of LEFT zygomatic arch LEFT clavicle fx RIGHT proximal humerus LEFT rib fx (2-8 posterior) with contusions Transverse process fx LEFT L5 Multiple fx of LEFT inferior pubic ramus LEFT sacrum fx LEFT tib fib shaft fx RIGHT tib/fib fx RIGHT prox and distal femur fx * S/P I&D RIGHT tibia with wound vac (03/22) Closed reduction of RIGHT femur * S/P ORIF maxillary leforte fx (03/22) Closed reduction of nasal bone fracture * S/P Remove hardware RIGHT femur with IM rhys fixation (03/23) ORIF BILAT tibia with IM rhys fixation * S/P ORIF RIGHT humerus (03/30) Diet: Regular, soft, difficulty chewing d/t pain. No straws per OMFS. Pulm: IS encouraged to use. Pain: Roxicodone, Flexeril, Neurontin. Pain controlled. Activity: BR. (NWB RUE; NWB Bilat LE) PT and OT evaluating. GI: Protonix PO Bowel: Colace. MOM. + BM DVT: SCD's. Lovenox. Fungal cream to buttock excoriation BID. Patient encouraged to reposition self in bed. Specialty bed. RN to contact OMFS regarding patients concerns with the maxillary and mandibular arch bar pain. Plan of care discussed with patient and RN at bedside. Continue aggressive PT and OT. Case management consulted for discharge planning. Patient has no insurance and is not a safe discharge home. Can transfer to [facility] when beds available. Patient is stable and being managed on Med/Surg Attending Statement Awaiting placement The exam, history, and the medical decision-making described in the above note were completed with the assistance of the mid-level provider. I reviewed and agree with the findings presented. I attest that I had a [id number] encounter with the patient on the same day, and personally performed and documented my assessment and findings in the medical record Problem Qualifiers (1) Facial fracture: Qualified Code: S02.92XA - Closed fracture of facial bone, unspecified facial bone, initial encounter (2) Closed fracture of right proximal humerus: Qualified Code: S42.291A - Other closed displaced fracture of proximal end of right humerus, initial encounter (3) Open right tibial fracture: (4) Closed left clavicular fracture: Qualified Code: S42.022A - Closed displaced fracture of shaft of left clavicle , initial encounter (5) Fracture of left tibia and fibula: Qualified Code: S82.202A - Fracture of left tibia and fibula, closed, initial encounter Tim Shepard Apr 22, 2016 11:43 Karen Nettles MD Apr 24, 2016 12:26
[2016-04-22 12:00] VITALS: BP 122/75; PULSE 98; RESP 19; TEMP 98.2; O2SAT 96
[2016-04-22 16:00] VITALS: BP 120/72; PULSE 98; RESP 18; TEMP 97.6; O2SAT 96
[2016-04-22 20:00] VITALS: BP 143/80; PULSE 113; RESP 17; TEMP 98; O2SAT 99
[2016-04-22] MEDS: MAGNESIUM HYDROXIDE SUSP 30 ML CUP PO SCH (21:24)
[2016-04-22] MEDS: MIRTAZAPINE 15 MG TAB PO SCH (21:24)
[2016-04-23] VITALS: BP 129/77; PULSE 107; RESP 16; TEMP 97.2; O2SAT 98
[2016-04-23] MEDS: CYCLOBENZAPRINE HCL 10 MG TAB PO PRN ×2 (00:29→13:23)
[2016-04-23] MEDS: ACETAMINOPHEN/HYDROcodone 325 MG/10 MG TAB PO PRN ×5 (00:29→19:29)
[2016-04-23] MEDS: GABAPENTIN 300 MG CAP PO SCH ×3 (04:41→22:54)
[2016-04-23] MEDS: ENOXAPARIN SODIUM 30 MG/0.3 ML SYRINGE SQ SCH ×2 (04:41→15:57)
[2016-04-23 07:56] VITALS: BP 126/76; PULSE 95; RESP 16; TEMP 96.3; O2SAT 98
[2016-04-23] MEDS: SODIUM CHLORIDE 0.9% FLUSH 5 ML FLUSH IVF SCH ×2 (09:00→21:00)
[2016-04-23] MEDS: LACTULOSE SYRUP 20 GM/30 ML CUP PO SCH (09:00)
[2016-04-23] MEDS: CALCIUM/VITAMIN D 250 MG/125 U TAB PO SCH ×3 (09:46→18:00)
[2016-04-23] MEDS: FAMOTIDINE 20 MG TAB PO SCH ×2 (09:46→22:54)
[2016-04-23] MEDS: FLUoxetine HCL 10 MG CAP PO SCH (09:46)
[2016-04-23] MEDS: METOPROLOL TARTRATE 25 MG TAB PO SCH ×2 (09:46→22:54)
[2016-04-23] MEDS: DOCUSATE SODIUM 100 MG CAP PO SCH ×2 (09:46→22:54)
[2016-04-23] MEDS: BACITRACIN TOP OINT 15 GM TUBE TOP SCH ×2 (09:48→22:56)
--- NOTE | 2016-04-23 11:28 | HHI.PR ---
Subjective Subjective Notes Still has complaints of mouth pain, awaiting Dr Romeo to evaluate. Objective Vitals/I&O Vital Signs Date Time Temp Pulse Resp B/P Pulse Ox O2 Delivery O2 Flow Rate FiO2 04/23/16 07:56 96.3 95 16 126/76 98 Radiology Last Impressions Shoulder X-Ray 03/30/16 0000 Signed Impressions: Service Date/Time: Wednesday, March 30, 2016 13:14 - CONCLUSION: Satisfactory postoperative appearance of the proximal right humerus following ORIF. Regulo Stewart MD Chest X-Ray 03/26/16 0600 Signed Impressions: Service Date/Time: Saturday, March 26, 2016 05:52 - CONCLUSION: 1. Persistent medial left lower lung consolidation. 2. No pneumothorax seen. Ugo Kim MD Tibia/Fibula X-Ray 03/23/16 0000 Signed Impressions: Service Date/Time: Wednesday, March 23, 2016 17:44 - CONCLUSION: Anatomic alignment. Ifeanyi Suarez MD FACR Femur X-Ray 03/23/16 0000 Signed Impressions: Service Date/Time: Wednesday, March 23, 2016 14:08 - CONCLUSION: Anatomic alignment. Ifeanyi Suarez MD FACR Lower Extremity CT 03/22/16 0000 Signed Impressions: Service Date/Time: Tuesday, March 22, 2016 10:08 - CONCLUSION: 1. Comminuted fractures involving the distal femur, proximal tibia, and proximal fibula with hemarthrosis as detailed above. Ugo Glez Jr., MD Ankle X-Ray 03/22/16 0000 Signed Impressions: Service Date/Time: Tuesday, March 22, 2016 01:27 - CONCLUSION: 1. Comminuted fractures distal tibia and fibula. Naeem Peterson MD Thoracic Spine CT 03/21/162027 Signed Impressions: Service Date/Time: Monday, March 21, 2016 20:39 - CONCLUSION: Intact thoracic spine. Contiguous left rib fractures #2 through 8 posteriorly Gopi Dumont MD Maxillofacial CT 03/21/162027 Signed Impressions: Service Date/Time: Monday, March 21, 2016 20:36 - CONCLUSION: Extensive fractures of all king of the maxillary sinuses And the nasal bone and ala inclusive of extension into the hard palate. There is a slightly depressed fracture of the medial floor of the left orbit and nondepressed fracture left zygomatic arch. Admixture of air and fluid noted in the maxillary sinuses and ethmoid air cells. Intraorbital contents are normal and base of the skull appears intact with normal intracranial contents Gopi Dumont MD Lumbar Spine CT 03/21/162027 Signed Impressions: Service Date/Time: Monday, March 21, 2016 20:39 - CONCLUSION: Nondisplaced fracture transverse process left L5 and left sacrum. Degenerative disc disease L3-S1. Gopi Dumont MD Pelvis X-Ray 03/21/162012 Signed Impressions: Service Date/Time: Monday, March 21, 2016 19:56 - CONCLUSION: Fracture left sacrum appreciated. Remainder the pelvis is intact with fractures of the pelvis better appreciated on CT scan Gopi Dumont MD Head CT 03/21/162012 Signed Impressions: Service Date/Time: Monday, March 21, 2016 20:30 - CONCLUSION: Intact calvarium. Normal intracranial contents. Facial fractures as described on the facial bone CT Gopi Dumont MD Chest CT 03/21/162012 Signed Impressions: Service Date/Time: Monday, March 21, 2016 20:39 - CONCLUSION: Contiguous left posterior rib fractures #2 through 8 with associated pleural thickening and parenchymal contusion. In the mid to upper right chest anteriorly there is a 1.3 cm pneumothorax without tension . Left chest subcutaneous emphysema Fracture of the proximal right humerus and mid left clavicle additionally appreciated. Gopi Dumont MD Cervical Spine CT 03/21/162012 Signed Impressions: Service Date/Time: Monday, March 21, 2016 20:30 - CONCLUSION: Degenerative changes of the cervical spine. Fractures acute left ribs numbered 2 and 3 posteriorly Gopi Dumont MD Abdomen/Pelvis CT 03/21/162012 Signed Impressions: Service Date/Time: Monday, March 21, 2016 20:39 - CONCLUSION: Multiple fractures inclusive of left inferior superior pubic ramus as well as transverse process and left L5 and left sacrum. Lower chest demonstrates fracture of left rib #8 posteriorly and a small anterior pneumothorax. Intra-abdominal and pelvic contents are normal Gopi Dumont MD Narrative Exam GENERAL: 56 year old well-developed male lying in bed. SKIN: Warm and dry. Surgical incisions healed well. Firm, non-mobile RIGHT anterior thigh lump, painful to palpation. No ecchymosis noted. HEAD: Normocephalic. ENT: No nasal bleeding or discharge. Mucous membranes pink and moist. Sores noted inside patients mouth, along gumline. NECK: Trachea midline. No JVD. CARDIOVASCULAR: Regular rate and rhythm. RESPIRATORY: No accessory muscle use. Lungs clear and diminished to auscultation. GASTROINTESTINAL: Abdomen soft, non-tender, nondistended. + BS. MUSCULOSKELETAL: Extremities without cyanosis, GANT. RUE sling in place, warm to touch, decreased sensation and mobility to RIGHT hand. RLE with CKS and fracture boot, + sensation. NEUROLOGICAL: Awake and alert. Normal speech. A/P Problem List: (1) Acute blood loss anemia (2) Shock circulatory (3) Chronic pain (4) Facial fracture (5) Closed fracture of right proximal humerus (6) Open right tibial fracture (7) Closed left clavicular fracture (8) Fracture of left tibia and fibula Assessment and Plan INJURIES: Extensive fx of all king of maxillary sinus Depressed fx of LEFT orbit Non-depressed fx of LEFT zygomatic arch LEFT clavicle fx RIGHT proximal humerus LEFT rib fx (2-8 posterior) with contusions Transverse process fx LEFT L5 Multiple fx of LEFT inferior pubic ramus LEFT sacrum fx LEFT tib fib shaft fx RIGHT tib/fib fx RIGHT prox and distal femur fx * S/P I&D RIGHT tibia with wound vac (03/22) Closed reduction of RIGHT femur * S/P ORIF maxillary leforte fx (03/22) Closed reduction of nasal bone fracture * S/P Remove hardware RIGHT femur with IM rhys fixation (03/23) ORIF BILAT tibia with IM rhys fixation * S/P ORIF RIGHT humerus (03/30) Diet: Regular, soft, difficulty chewing d/t pain. No straws per OMFS. Pulm: IS encouraged to use. Pain: Roxicodone, Flexeril, Neurontin. Activity: BR. (NWB RUE; NWB Bilat LE) PT and OT evaluating. GI: Protonix PO Bowel: Colace. MOM. + BM DVT: SCD's. Lovenox. Fungal cream to buttock excoriation BID. Patient encouraged to reposition self in bed. Specialty bed. Plan of care discussed with patient and RN at bedside. Continue aggressive PT and OT. Case management consulted for discharge planning. Patient has no insurance and is not a safe discharge home. Can transfer to [facility] when beds available. Patient is stable and being managed on Med/Surg Attending Statement The exam, history, and the medical decision-making described in the above note were completed with the assistance of the mid-level provider. I reviewed and agree with the findings presented. I attest that I had a [id number] encounter with the patient on the same day, and personally performed and documented my assessment and findings in the medical record. Problem Qualifiers (1) Facial fracture: Qualified Code: S02.92XA - Closed fracture of facial bone, unspecified facial bone, initial encounter (2) Closed fracture of right proximal humerus: Qualified Code: S42.291A - Other closed displaced fracture of proximal end of right humerus, initial encounter (3) Open right tibial fracture: (4) Closed left clavicular fracture: Qualified Code: S42.022A - Closed displaced fracture of shaft of left clavicle , initial encounter (5) Fracture of left tibia and fibula: Qualified Code: S82.202A - Fracture of left tibia and fibula, closed, initial encounter Tim Shepard Apr 23, 2016 11:28 Karen Nettles MD Apr 24, 2016 12:48
[2016-04-23 11:49] VITALS: BP 121/73; PULSE 98; RESP 17; TEMP 97.7; O2SAT 96
[2016-04-23 17:15] VITALS: BP 137/78; PULSE 106; RESP 18; TEMP 96.8; O2SAT 98
[2016-04-23 20:00] VITALS: BP 146/81; PULSE 101; RESP 16; TEMP 97.1; O2SAT 98
[2016-04-23] MEDS: MIRTAZAPINE 15 MG TAB PO SCH (22:54)
[2016-04-23] MEDS: MAGNESIUM HYDROXIDE SUSP 30 ML CUP PO SCH (22:54)
[2016-04-24] VITALS: BP 139/79; PULSE 119; RESP 17; TEMP 96.5; O2SAT 98
[2016-04-24] MEDS: ACETAMINOPHEN/HYDROcodone 325 MG/10 MG TAB PO PRN ×5 (00:36→22:25)
[2016-04-24] MEDS: GABAPENTIN 300 MG CAP PO SCH ×3 (04:47→20:29)
[2016-04-24] MEDS: ENOXAPARIN SODIUM 30 MG/0.3 ML SYRINGE SQ SCH ×2 (04:47→15:36)
[2016-04-24 07:35] VITALS: BP 133/75; PULSE 95; RESP 16; TEMP 97.1; O2SAT 99
[2016-04-24] MEDS: FAMOTIDINE 20 MG TAB PO SCH ×2 (08:47→20:30)
[2016-04-24] MEDS: METOPROLOL TARTRATE 25 MG TAB PO SCH ×2 (08:47→20:30)
[2016-04-24] MEDS: FLUoxetine HCL 10 MG CAP PO SCH (08:47)
[2016-04-24] MEDS: DOCUSATE SODIUM 100 MG CAP PO SCH ×2 (08:47→20:29)
[2016-04-24] MEDS: CALCIUM/VITAMIN D 250 MG/125 U TAB PO SCH ×3 (08:47→17:08)
[2016-04-24] MEDS: LACTULOSE SYRUP 20 GM/30 ML CUP PO SCH (08:48)
[2016-04-24] MEDS: BACITRACIN TOP OINT 15 GM TUBE TOP SCH ×2 (09:00→20:33)
[2016-04-24] MEDS: SODIUM CHLORIDE 0.9% FLUSH 5 ML FLUSH IVF SCH ×2 (09:00→19:10)
[2016-04-24 11:40] VITALS: BP 120/78; PULSE 93; RESP 16; TEMP 96.6; O2SAT 96
--- NOTE | 2016-04-24 12:46 | HHI.PR ---
Subjective Subjective Notes Still with complaints of mouth pain and left clavicle pain. Dr. Romeo to come to reevaluate. Objective Vitals/I&O Vital Signs Date Time Temp Pulse Resp B/P Pulse Ox O2 Delivery O2 Flow Rate FiO2 04/24/16 07:35 97.1 95 16 133/75 99 Radiology Last Impressions Shoulder X-Ray 03/30/16 0000 Signed Impressions: Service Date/Time: Wednesday, March 30, 2016 13:14 - CONCLUSION: Satisfactory postoperative appearance of the proximal right humerus following ORIF. Regulo Stewart MD Chest X-Ray 03/26/16 0600 Signed Impressions: Service Date/Time: Saturday, March 26, 2016 05:52 - CONCLUSION: 1. Persistent medial left lower lung consolidation. 2. No pneumothorax seen. Ugo Kim MD Tibia/Fibula X-Ray 03/23/16 0000 Signed Impressions: Service Date/Time: Wednesday, March 23, 2016 17:44 - CONCLUSION: Anatomic alignment. Ifeanyi Suarez MD FACR Femur X-Ray 03/23/16 0000 Signed Impressions: Service Date/Time: Wednesday, March 23, 2016 14:08 - CONCLUSION: Anatomic alignment. Ifeanyi Suarez MD FACR Lower Extremity CT 03/22/16 0000 Signed Impressions: Service Date/Time: Tuesday, March 22, 2016 10:08 - CONCLUSION: 1. Comminuted fractures involving the distal femur, proximal tibia, and proximal fibula with hemarthrosis as detailed above. Ugo Glez Jr., MD Ankle X-Ray 03/22/16 0000 Signed Impressions: Service Date/Time: Tuesday, March 22, 2016 01:27 - CONCLUSION: 1. Comminuted fractures distal tibia and fibula. Naeem Peterson MD Thoracic Spine CT 03/21/162027 Signed Impressions: Service Date/Time: Monday, March 21, 2016 20:39 - CONCLUSION: Intact thoracic spine. Contiguous left rib fractures #2 through 8 posteriorly Gopi Dumont MD Maxillofacial CT 03/21/162027 Signed Impressions: Service Date/Time: Monday, March 21, 2016 20:36 - CONCLUSION: Extensive fractures of all king of the maxillary sinuses And the nasal bone and ala inclusive of extension into the hard palate. There is a slightly depressed fracture of the medial floor of the left orbit and nondepressed fracture left zygomatic arch. Admixture of air and fluid noted in the maxillary sinuses and ethmoid air cells. Intraorbital contents are normal and base of the skull appears intact with normal intracranial contents Gopi Dumont MD Lumbar Spine CT 03/21/162027 Signed Impressions: Service Date/Time: Monday, March 21, 2016 20:39 - CONCLUSION: Nondisplaced fracture transverse process left L5 and left sacrum. Degenerative disc disease L3-S1. Gopi Dumont MD Pelvis X-Ray 03/21/162012 Signed Impressions: Service Date/Time: Monday, March 21, 2016 19:56 - CONCLUSION: Fracture left sacrum appreciated. Remainder the pelvis is intact with fractures of the pelvis better appreciated on CT scan Gopi Dumont MD Head CT 03/21/162012 Signed Impressions: Service Date/Time: Monday, March 21, 2016 20:30 - CONCLUSION: Intact calvarium. Normal intracranial contents. Facial fractures as described on the facial bone CT Gopi Dumont MD Chest CT 03/21/162012 Signed Impressions: Service Date/Time: Monday, March 21, 2016 20:39 - CONCLUSION: Contiguous left posterior rib fractures #2 through 8 with associated pleural thickening and parenchymal contusion. In the mid to upper right chest anteriorly there is a 1.3 cm pneumothorax without tension . Left chest subcutaneous emphysema Fracture of the proximal right humerus and mid left clavicle additionally appreciated. Gopi Dumont MD Cervical Spine CT 03/21/162012 Signed Impressions: Service Date/Time: Monday, March 21, 2016 20:30 - CONCLUSION: Degenerative changes of the cervical spine. Fractures acute left ribs numbered 2 and 3 posteriorly Gopi Dumont MD Abdomen/Pelvis CT 03/21/162012 Signed Impressions: Service Date/Time: Monday, March 21, 2016 20:39 - CONCLUSION: Multiple fractures inclusive of left inferior superior pubic ramus as well as transverse process and left L5 and left sacrum. Lower chest demonstrates fracture of left rib #8 posteriorly and a small anterior pneumothorax. Intra-abdominal and pelvic contents are normal Gopi Dumont MD Narrative Exam GENERAL: 56 year old well-developed male lying in bed. SKIN: Warm and dry. Surgical incisions healed well. HEAD: Normocephalic. ENT: No nasal bleeding or discharge. Mucous membranes pink and moist. Sores noted inside patients mouth, along gumline. NECK: Trachea midline. No JVD. CARDIOVASCULAR: Regular rate and rhythm. RESPIRATORY: No accessory muscle use. Lungs clear and diminished to auscultation. GASTROINTESTINAL: Abdomen soft, non-tender, nondistended. + BS. MUSCULOSKELETAL: Extremities without cyanosis, GANT. RUE sling in place, warm to touch, decreased sensation and mobility to RIGHT hand. RLE with CKS and fracture boot, + sensation. NEUROLOGICAL: Awake and alert. Normal speech. A/P Problem List: (1) Acute blood loss anemia (2) Shock circulatory (3) Chronic pain (4) Facial fracture (5) Closed fracture of right proximal humerus (6) Open right tibial fracture (7) Closed left clavicular fracture (8) Fracture of left tibia and fibula Assessment and Plan INJURIES: Extensive fx of all king of maxillary sinus Depressed fx of LEFT orbit Non-depressed fx of LEFT zygomatic arch LEFT clavicle fx RIGHT proximal humerus LEFT rib fx (2-8 posterior) with contusions Transverse process fx LEFT L5 Multiple fx of LEFT inferior pubic ramus LEFT sacrum fx LEFT tib fib shaft fx RIGHT tib/fib fx RIGHT prox and distal femur fx * S/P I&D RIGHT tibia with wound vac (03/22) Closed reduction of RIGHT femur * S/P ORIF maxillary leforte fx (03/22) Closed reduction of nasal bone fracture * S/P Remove hardware RIGHT femur with IM rhys fixation (03/23) ORIF BILAT tibia with IM rhys fixation * S/P ORIF RIGHT humerus (03/30) Diet: Regular, soft, difficulty chewing d/t pain. No straws per OMFS. Pulm: IS encouraged to use. Pain: Roxicodone, Flexeril, Neurontin. Activity: BR. (NWB RUE; NWB Bilat LE) PT and OT evaluating. GI: Protonix PO Bowel: Colace. MOM. + BM DVT: SCD's. Lovenox. Fungal cream to buttock excoriation BID. Patient encouraged to reposition self in bed. Specialty bed. Plan of care discussed with patient and RN at bedside. Continue aggressive PT and OT. Case management consulted for discharge planning. Patient has no insurance and is not a safe discharge home. Can transfer to [facility] when beds available. Patient is stable and being managed on Med/Surg Problem Qualifiers (1) Facial fracture: Qualified Code: S02.92XA - Closed fracture of facial bone, unspecified facial bone, initial encounter (2) Closed fracture of right proximal humerus: Qualified Code: S42.291A - Other closed displaced fracture of proximal end of right humerus, initial encounter (3) Open right tibial fracture: (4) Closed left clavicular fracture: Qualified Code: S42.022A - Closed displaced fracture of shaft of left clavicle , initial encounter (5) Fracture of left tibia and fibula: Qualified Code: S82.202A - Fracture of left tibia and fibula, closed, initial encounter Tim Shepard Apr 24, 2016 12:45
[2016-04-24 15:50] VITALS: BP 121/78; PULSE 97; RESP 16; TEMP 97; O2SAT 96
[2016-04-24 20:00] VITALS: BP 124/79; PULSE 105; RESP 18; TEMP 97.1; O2SAT 97
[2016-04-24] MEDS: MAGNESIUM HYDROXIDE SUSP 30 ML CUP PO SCH (20:29)
[2016-04-24] MEDS: MIRTAZAPINE 15 MG TAB PO SCH (22:25)
[2016-04-25] VITALS: BP 130/74; PULSE 93; RESP 18; TEMP 97.7; O2SAT 98
[2016-04-25] MEDS: ENOXAPARIN SODIUM 30 MG/0.3 ML SYRINGE SQ SCH ×2 (04:01→16:56)
[2016-04-25] MEDS: ACETAMINOPHEN/HYDROcodone 325 MG/10 MG TAB PO PRN ×5 (04:02→21:01)
[2016-04-25] MEDS: GABAPENTIN 300 MG CAP PO SCH ×3 (04:53→21:00)
[2016-04-25 07:15] VITALS: BP 132/78; PULSE 102; RESP 17; TEMP 97; O2SAT 97
[2016-04-25] MEDS ORDERED: LIDOCAINE 2%/EPINEPHrine 1:100,000 30ML MDV ONE (08:00)
[2016-04-25] MEDS: FLUoxetine HCL 10 MG CAP PO SCH (08:20)
[2016-04-25] MEDS: CALCIUM/VITAMIN D 250 MG/125 U TAB PO SCH ×3 (08:21→16:56)
[2016-04-25] MEDS: BACITRACIN TOP OINT 15 GM TUBE TOP SCH ×2 (08:21→20:33)
[2016-04-25] MEDS: FAMOTIDINE 20 MG TAB PO SCH ×2 (08:21→20:32)
[2016-04-25] MEDS: METOPROLOL TARTRATE 25 MG TAB PO SCH ×2 (08:21→20:32)
[2016-04-25] MEDS: LACTULOSE SYRUP 20 GM/30 ML CUP PO SCH (08:22)
[2016-04-25] MEDS: DOCUSATE SODIUM 100 MG CAP PO SCH ×2 (08:22→20:32)
[2016-04-25] MEDS: SODIUM CHLORIDE 0.9% FLUSH 5 ML FLUSH IVF SCH ×2 (08:22→20:33)
--- NOTE | 2016-04-25 10:59 | HHI.PR ---
Subjective Remarks s/p orif lefort 1 maxillary fx/ CR nasal bone fracture, stabilization of maxillary palatal fracture AAOx3, NAD - following commands, tolerating po well reports bite is normal. reports discomfort from arch bars/wires to lips Objective Vital Signs Date Time Temp Pulse Resp B/P Pulse Ox O2 Delivery O2 Flow Rate FiO2 04/25/16 07:15 97.0 102 17 132/78 97 04/25/16 04:48 18 04/25/16 00:00 97.7 93 18 130/74 98 04/24/16 20:00 97.1 105 18 124/79 97 04/24/16 15:50 97.0 97 16 121/78 96 04/24/16 11:40 96.6 93 16 120/78 96 I/O 04/24/16 04/24/16 04/24/16 04/25/16 04/25/16 04/25/16 07:00 15:00 23:00 07:00 15:00 23:00 Intake Total 360 ml 960 ml 480 ml 360 ml Output Total 1000 ml Balance -640 ml 960 ml 480 ml 360 ml Intake Oral 360 ml 960 ml 480 ml 360 ml Output Urine Total 1000 ml # Voids 3 3 1 # Bowel Movements 0 0 0 0 Objective Remarks facial bones stable, no tenderness/no crepitus. no facial edema. good projection of face nasal bones stable/aligned - no tenderness, slight deviation of nasal bridge with pt reports he has a history of breathing well from nose intraorally arch bars in place, palate stable - soft tissue/ lip irritation from arch bars wound margins well approximated, sutures intact/hemostatic bite in occlusion, repeatable. good range of opening and closing, maxilla stable, no false point of motion maxilla facial edema reducing tissues pink and well perfused, palate stable no signs of infection bleeding pus or edema stable oral hygiene Assessment and Plan Assessment and Plan s/p orif lefort 1 maxillary fx/ CR nasal bone fracture, stabilization of maxillary palatal fracture pt stable form OMS standpoint nasal bone/maxilla and bite stable oral hygiene with Peridex swabs continue sinus precautions removed maxillary and mandibular arch bars today pt comfortable f/up dr. romeo when discharged [phone] Dillon Romeo DMD Apr 25, 2016 10:59
[2016-04-25 11:40] VITALS: BP 130/79; PULSE 86; RESP 17; TEMP 97.7; O2SAT 96
--- NOTE | 2016-04-25 12:27 | HHI.PR ---
Subjective Subjective Notes Feels better since maxillary and mandibular arch bars were removed today Objective Vitals/I&O Vital Signs Date Time Temp Pulse Resp B/P Pulse Ox O2 Delivery O2 Flow Rate FiO2 04/25/16 07:15 97.0 102 17 132/78 97 Radiology Last Impressions Shoulder X-Ray 03/30/16 0000 Signed Impressions: Service Date/Time: Wednesday, March 30, 2016 13:14 - CONCLUSION: Satisfactory postoperative appearance of the proximal right humerus following ORIF. Regulo Stewart MD Chest X-Ray 03/26/16 0600 Signed Impressions: Service Date/Time: Saturday, March 26, 2016 05:52 - CONCLUSION: 1. Persistent medial left lower lung consolidation. 2. No pneumothorax seen. Ugo Kim MD Tibia/Fibula X-Ray 03/23/16 0000 Signed Impressions: Service Date/Time: Wednesday, March 23, 2016 17:44 - CONCLUSION: Anatomic alignment. Ifeanyi Suarez MD FACR Femur X-Ray 03/23/16 0000 Signed Impressions: Service Date/Time: Wednesday, March 23, 2016 14:08 - CONCLUSION: Anatomic alignment. Ifeanyi Suarez MD FACR Lower Extremity CT 03/22/16 0000 Signed Impressions: Service Date/Time: Tuesday, March 22, 2016 10:08 - CONCLUSION: 1. Comminuted fractures involving the distal femur, proximal tibia, and proximal fibula with hemarthrosis as detailed above. Ugo Glez Jr., MD Ankle X-Ray 03/22/16 0000 Signed Impressions: Service Date/Time: Tuesday, March 22, 2016 01:27 - CONCLUSION: 1. Comminuted fractures distal tibia and fibula. Naeem Peterson MD Thoracic Spine CT 03/21/162027 Signed Impressions: Service Date/Time: Monday, March 21, 2016 20:39 - CONCLUSION: Intact thoracic spine. Contiguous left rib fractures #2 through 8 posteriorly Gopi Dumont MD Maxillofacial CT 03/21/162027 Signed Impressions: Service Date/Time: Monday, March 21, 2016 20:36 - CONCLUSION: Extensive fractures of all king of the maxillary sinuses And the nasal bone and ala inclusive of extension into the hard palate. There is a slightly depressed fracture of the medial floor of the left orbit and nondepressed fracture left zygomatic arch. Admixture of air and fluid noted in the maxillary sinuses and ethmoid air cells. Intraorbital contents are normal and base of the skull appears intact with normal intracranial contents Gopi Dumont MD Lumbar Spine CT 03/21/162027 Signed Impressions: Service Date/Time: Monday, March 21, 2016 20:39 - CONCLUSION: Nondisplaced fracture transverse process left L5 and left sacrum. Degenerative disc disease L3-S1. Gopi Dumont MD Pelvis X-Ray 03/21/162012 Signed Impressions: Service Date/Time: Monday, March 21, 2016 19:56 - CONCLUSION: Fracture left sacrum appreciated. Remainder the pelvis is intact with fractures of the pelvis better appreciated on CT scan Gopi Dumont MD Head CT 03/21/162012 Signed Impressions: Service Date/Time: Monday, March 21, 2016 20:30 - CONCLUSION: Intact calvarium. Normal intracranial contents. Facial fractures as described on the facial bone CT Gopi Dumont MD Chest CT 03/21/162012 Signed Impressions: Service Date/Time: Monday, March 21, 2016 20:39 - CONCLUSION: Contiguous left posterior rib fractures #2 through 8 with associated pleural thickening and parenchymal contusion. In the mid to upper right chest anteriorly there is a 1.3 cm pneumothorax without tension . Left chest subcutaneous emphysema Fracture of the proximal right humerus and mid left clavicle additionally appreciated. Gopi Dumont MD Cervical Spine CT 03/21/162012 Signed Impressions: Service Date/Time: Monday, March 21, 2016 20:30 - CONCLUSION: Degenerative changes of the cervical spine. Fractures acute left ribs numbered 2 and 3 posteriorly Gopi Dumont MD Abdomen/Pelvis CT 03/21/162012 Signed Impressions: Service Date/Time: Monday, March 21, 2016 20:39 - CONCLUSION: Multiple fractures inclusive of left inferior superior pubic ramus as well as transverse process and left L5 and left sacrum. Lower chest demonstrates fracture of left rib #8 posteriorly and a small anterior pneumothorax. Intra-abdominal and pelvic contents are normal Gopi Dumont MD Narrative Exam GENERAL: 56 year old well-developed male lying in bed. SKIN: Warm and dry. Surgical incisions healed well. HEAD: Normocephalic. ENT: No nasal bleeding or discharge. Mucous membranes pink and moist. Sores noted inside patients mouth, along gumline. NECK: Trachea midline. No JVD. CARDIOVASCULAR: Regular rate and rhythm. RESPIRATORY: No accessory muscle use. Lungs clear and diminished to auscultation. GASTROINTESTINAL: Abdomen soft, non-tender, nondistended. + BS. MUSCULOSKELETAL: Extremities without cyanosis, GANT. RUE sling in place, warm to touch, decreased sensation and mobility to RIGHT hand. RLE with CKS and fracture boot, + sensation. NEUROLOGICAL: Awake and alert. Normal speech. A/P Problem List: (1) Acute blood loss anemia (2) Shock circulatory (3) Chronic pain (4) Facial fracture (5) Closed fracture of right proximal humerus (6) Open right tibial fracture (7) Closed left clavicular fracture (8) Fracture of left tibia and fibula Assessment and Plan INJURIES: Extensive fx of all king of maxillary sinus Depressed fx of LEFT orbit Non-depressed fx of LEFT zygomatic arch LEFT clavicle fx RIGHT proximal humerus LEFT rib fx (2-8 posterior) with contusions Transverse process fx LEFT L5 Multiple fx of LEFT inferior pubic ramus LEFT sacrum fx LEFT tib fib shaft fx RIGHT tib/fib fx RIGHT prox and distal femur fx * S/P I&D RIGHT tibia with wound vac (03/22) Closed reduction of RIGHT femur * S/P ORIF maxillary leforte fx (03/22) Closed reduction of nasal bone fracture * S/P Remove hardware RIGHT femur with IM rhys fixation (03/23) ORIF BILAT tibia with IM rhys fixation * S/P ORIF RIGHT humerus (03/30) Diet: Regular, soft, difficulty chewing d/t pain. No straws per OMFS. Pulm: IS encouraged to use. Pain: Roxicodone, Flexeril, Neurontin. Activity: BR. (NWB RUE; NWB Bilat LE) PT and OT evaluating. GI: Protonix PO Bowel: Colace. MOM. LBM 04/23 DVT: SCD's. Lovenox. OMFS removed maxillary and mandibular arch bars today. Fungal cream to buttock excoriation BID. Patient encouraged to reposition self in bed. Specialty bed. Plan of care discussed with patient and RN at bedside. Continue aggressive PT and OT. Case management consulted for discharge planning. Patient has no insurance and is not a safe discharge home. Can transfer to [facility] when beds available. Patient is stable and being managed on Med/Surg Problem Qualifiers (1) Facial fracture: Qualified Code: S02.92XA - Closed fracture of facial bone, unspecified facial bone, initial encounter (2) Closed fracture of right proximal humerus: Qualified Code: S42.291A - Other closed displaced fracture of proximal end of right humerus, initial encounter (3) Open right tibial fracture: (4) Closed left clavicular fracture: Qualified Code: S42.022A - Closed displaced fracture of shaft of left clavicle , initial encounter (5) Fracture of left tibia and fibula: Qualified Code: S82.202A - Fracture of left tibia and fibula, closed, initial encounter Tim Shepard Apr 25, 2016 12:27
[2016-04-25] MEDS: CYCLOBENZAPRINE HCL 10 MG TAB PO PRN (14:41)
[2016-04-25 15:42] VITALS: BP 123/63; PULSE 102; RESP 17; TEMP 97.6; O2SAT 98
[2016-04-25 20:00] VITALS: BP 130/74; PULSE 115; RESP 18; TEMP 96.4; O2SAT 98
[2016-04-25] MEDS: MAGNESIUM HYDROXIDE SUSP 30 ML CUP PO SCH (20:32)
[2016-04-25] MEDS: MIRTAZAPINE 15 MG TAB PO SCH (21:00)
[2016-04-26] VITALS: BP 122/80; PULSE 93; RESP 18; TEMP 99; O2SAT 95
[2016-04-26] MEDS: CYCLOBENZAPRINE HCL 10 MG TAB PO PRN ×2 (01:01→09:12)
[2016-04-26] MEDS: ACETAMINOPHEN/HYDROcodone 325 MG/10 MG TAB PO PRN ×6 (01:02→21:43)
[2016-04-26] MEDS: ENOXAPARIN SODIUM 30 MG/0.3 ML SYRINGE SQ SCH ×2 (05:02→17:27)
[2016-04-26] MEDS: GABAPENTIN 300 MG CAP PO SCH ×3 (05:02→21:42)
[2016-04-26 08:00] VITALS: BP 135/82; PULSE 88; RESP 16; TEMP 96.4; O2SAT 98
[2016-04-26] MEDS: BACITRACIN TOP OINT 15 GM TUBE TOP SCH ×2 (09:00→21:00)
[2016-04-26] MEDS: SODIUM CHLORIDE 0.9% FLUSH 5 ML FLUSH IVF SCH ×2 (09:00→21:00)
[2016-04-26] MEDS: LACTULOSE SYRUP 20 GM/30 ML CUP PO SCH (09:00)
[2016-04-26] MEDS: FAMOTIDINE 20 MG TAB PO SCH ×2 (09:11→21:43)
[2016-04-26] MEDS: DOCUSATE SODIUM 100 MG CAP PO SCH ×2 (09:11→21:43)
[2016-04-26] MEDS: METOPROLOL TARTRATE 25 MG TAB PO SCH ×2 (09:12→21:43)
[2016-04-26] MEDS: CALCIUM/VITAMIN D 250 MG/125 U TAB PO SCH ×3 (09:12→17:27)
[2016-04-26] MEDS: FLUoxetine HCL 10 MG CAP PO SCH (09:12)
[2016-04-26 12:00] VITALS: BP 117/72; PULSE 83; RESP 16; TEMP 96.8; O2SAT 98
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
[2016-04-26 16:00] VITALS: BP 126/80; PULSE 93; RESP 16; TEMP 96; O2SAT 96
[2016-04-26 20:00] VITALS: BP 136/81; PULSE 109; RESP 16; TEMP 98; O2SAT 98
[2016-04-26] MEDS: MAGNESIUM HYDROXIDE SUSP 30 ML CUP PO SCH (21:42)
[2016-04-26] MEDS: MIRTAZAPINE 15 MG TAB PO SCH (21:42)
[2016-04-27] VITALS: BP 127/81; PULSE 92; RESP 16; TEMP 96.4; O2SAT 96
[2016-04-27] MEDS: CYCLOBENZAPRINE HCL 10 MG TAB PO PRN ×3 (00:50→21:10)
[2016-04-27] MEDS: ACETAMINOPHEN/HYDROcodone 325 MG/10 MG TAB PO PRN ×5 (02:28→21:12)
[2016-04-27] MEDS: ENOXAPARIN SODIUM 30 MG/0.3 ML SYRINGE SQ SCH ×2 (04:12→16:46)
[2016-04-27] MEDS: GABAPENTIN 300 MG CAP PO SCH ×3 (05:26→22:17)
[2016-04-27 06:07] LABS: HEMATOCRIT 32.6 % (39.0-51.0); MEAN CELL VOLUME 83.3 FL (80.0-100.0); MEAN CORPUSCULAR HEMOGLOBIN 28.1 PG (27.0-34.0); MEAN CORPUSCULAR HGB CONC 33.7 % (32.0-36.0); PLATELET COUNT 447 TH/MM3 (150-450); RED BLOOD COUNT 3.92 MIL/MM3 (4.50-5.90); RED CELL DISTRIBUTION WIDTH 15.4 % (11.6-17.2); REVIEW FLAG FINAL; WHITE BLOOD COUNT 7.4 TH/MM3 (4.0-11.0)
[2016-04-27 06:31] LABS: BICARBONATE 30.4 MEQ/L (21.0-32.0); POTASSIUM 3.8 MEQ/L (3.5-5.1)
[2016-04-27 08:00] VITALS: BP 133/79; PULSE 86; RESP 18; TEMP 96.5; O2SAT 98
[2016-04-27] MEDS: FLUoxetine HCL 10 MG CAP PO SCH (08:04)
[2016-04-27] MEDS: FAMOTIDINE 20 MG TAB PO SCH ×2 (08:04→21:11)
[2016-04-27] MEDS: CALCIUM/VITAMIN D 250 MG/125 U TAB PO SCH ×3 (08:04→16:45)
[2016-04-27] MEDS: DOCUSATE SODIUM 100 MG CAP PO SCH ×2 (08:04→21:10)
[2016-04-27] MEDS: METOPROLOL TARTRATE 25 MG TAB PO SCH ×2 (08:04→21:11)
[2016-04-27] MEDS: SODIUM CHLORIDE 0.9% FLUSH 5 ML FLUSH IVF SCH ×2 (08:05→21:00)
[2016-04-27] MEDS: BACITRACIN TOP OINT 15 GM TUBE TOP SCH (08:05)
[2016-04-27] MEDS: LACTULOSE SYRUP 20 GM/30 ML CUP PO SCH (08:05)
[2016-04-27 12:00] VITALS: BP 136/73; PULSE 86; RESP 18; TEMP 97.4; O2SAT 98
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
[2016-04-27 16:00] VITALS: BP 115/77; PULSE 85; RESP 18; TEMP 98.6; O2SAT 99
[2016-04-27 20:00] VITALS: BP 118/74; PULSE 104; RESP 16; TEMP 97.5; O2SAT 98
[2016-04-27] MEDS: MAGNESIUM HYDROXIDE SUSP 30 ML CUP PO SCH (21:10)
[2016-04-27] MEDS: MIRTAZAPINE 15 MG TAB PO SCH (22:17)
[2016-04-28] VITALS: BP 137/78; PULSE 99; RESP 16; TEMP 97; O2SAT 98
[2016-04-28] MEDS: ACETAMINOPHEN/HYDROcodone 325 MG/10 MG TAB PO PRN ×5 (01:40→20:54)
[2016-04-28] MEDS: ENOXAPARIN SODIUM 30 MG/0.3 ML SYRINGE SQ SCH ×2 (04:54→16:25)
[2016-04-28] MEDS: GABAPENTIN 300 MG CAP PO SCH ×3 (06:35→20:53)
[2016-04-28 08:00] VITALS: BP 120/71; PULSE 85; RESP 18; TEMP 97.6; O2SAT 99
[2016-04-28] MEDS ORDERED: BISACODYL 10 MG SUPP RECTAL ONE (08:15)
[2016-04-28] MEDS ORDERED: BISACODYL EC 5 MG TABEC PO ONE (08:15)
[2016-04-28] MEDS: SODIUM CHLORIDE 0.9% FLUSH 5 ML FLUSH IVF SCH (09:00)
[2016-04-28] MEDS: DOCUSATE SODIUM 100 MG CAP PO SCH ×2 (09:14→20:52)
[2016-04-28] MEDS: FAMOTIDINE 20 MG TAB PO SCH (09:14)
[2016-04-28] MEDS: CALCIUM/VITAMIN D 250 MG/125 U TAB PO SCH ×3 (09:14→16:25)
[2016-04-28] MEDS: METOPROLOL TARTRATE 25 MG TAB PO SCH ×2 (09:14→20:52)
[2016-04-28] MEDS: LACTULOSE SYRUP 20 GM/30 ML CUP PO SCH (09:15)
[2016-04-28] MEDS: FLUoxetine HCL 10 MG CAP PO SCH (09:15)
[2016-04-28] MEDS: CYCLOBENZAPRINE HCL 10 MG TAB PO PRN ×2 (09:17→17:44)
[2016-04-28] MEDS: BACITRACIN TOP OINT 15 GM TUBE TOP SCH ×2 (09:21→21:00)
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
[2016-04-28 12:00] VITALS: BP 122/71; PULSE 102; RESP 18; TEMP 97.8; O2SAT 97
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
[2016-04-28 16:00] VITALS: BP 117/75; PULSE 81; RESP 18; TEMP 98.3; O2SAT 98
[2016-04-28 20:00] VITALS: BP 116/68; PULSE 92; RESP 18; TEMP 97.8; O2SAT 98
[2016-04-28] MEDS: MAGNESIUM HYDROXIDE SUSP 30 ML CUP PO SCH (20:52)
[2016-04-28] MEDS: MIRTAZAPINE 15 MG TAB PO SCH (20:52)
[2016-04-29] VITALS: BP 123/77; PULSE 100; RESP 18; TEMP 97.9; O2SAT 95
[2016-04-29] MEDS: ACETAMINOPHEN/HYDROcodone 325 MG/10 MG TAB PO PRN ×6 (01:10→22:21)
[2016-04-29] MEDS: ENOXAPARIN SODIUM 30 MG/0.3 ML SYRINGE SQ SCH ×2 (03:58→16:20)
[2016-04-29] MEDS: GABAPENTIN 300 MG CAP PO SCH ×3 (05:29→22:20)
[2016-04-29 08:10] VITALS: BP 119/75; PULSE 80; RESP 16; TEMP 97.9; O2SAT 98
[2016-04-29] MEDS: LACTULOSE SYRUP 20 GM/30 ML CUP PO SCH (09:00)
[2016-04-29] MEDS: BACITRACIN TOP OINT 15 GM TUBE TOP SCH ×2 (09:00→21:00)
[2016-04-29] MEDS: DOCUSATE SODIUM 100 MG CAP PO SCH ×2 (09:00→20:58)
[2016-04-29] MEDS: SODIUM CHLORIDE 0.9% FLUSH 5 ML FLUSH IVF SCH ×2 (09:00→21:00)
[2016-04-29] MEDS: FLUoxetine HCL 10 MG CAP PO SCH (09:53)
[2016-04-29] MEDS: CALCIUM/VITAMIN D 250 MG/125 U TAB PO SCH ×3 (09:54→17:09)
[2016-04-29] MEDS: METOPROLOL TARTRATE 25 MG TAB PO SCH ×2 (09:54→20:57)
[2016-04-29] MEDS: FAMOTIDINE 20 MG TAB PO SCH ×3 (09:54→20:57)
[2016-04-29 12:12] VITALS: BP 119/73; PULSE 81; RESP 16; TEMP 96.5; O2SAT 99
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
[2016-04-29 16:20] VITALS: BP 110/73; PULSE 96; RESP 16; TEMP 98; O2SAT 98
[2016-04-29] MEDS: CYCLOBENZAPRINE HCL 10 MG TAB PO PRN (18:30)
[2016-04-29 20:00] VITALS: BP 122/75; PULSE 89; RESP 18; TEMP 96.7; O2SAT 98
[2016-04-29] MEDS: MAGNESIUM HYDROXIDE SUSP 30 ML CUP PO SCH (20:58)
[2016-04-29] MEDS: MIRTAZAPINE 15 MG TAB PO SCH (22:20)
[2016-04-30] VITALS: BP 134/75; PULSE 77; RESP 18; TEMP 98.5; O2SAT 97
[2016-04-30] MEDS: ENOXAPARIN SODIUM 30 MG/0.3 ML SYRINGE SQ SCH ×2 (03:55→16:57)
[2016-04-30] MEDS: ACETAMINOPHEN/HYDROcodone 325 MG/10 MG TAB PO PRN ×2 (03:56→08:28)
[2016-04-30] MEDS: GABAPENTIN 300 MG CAP PO SCH ×3 (06:24→20:50)
[2016-04-30 08:00] VITALS: BP 135/80; PULSE 82; RESP 20; TEMP 96.5; O2SAT 96
[2016-04-30] MEDS: CALCIUM/VITAMIN D 250 MG/125 U TAB PO SCH ×3 (08:27→16:58)
[2016-04-30] MEDS: FLUoxetine HCL 10 MG CAP PO SCH (08:27)
[2016-04-30] MEDS: FAMOTIDINE 20 MG TAB PO SCH (08:27)
[2016-04-30] MEDS: METOPROLOL TARTRATE 25 MG TAB PO SCH ×2 (08:27→20:46)
[2016-04-30] MEDS: DOCUSATE SODIUM 100 MG CAP PO SCH ×2 (08:31→20:46)
[2016-04-30] MEDS: BACITRACIN TOP OINT 15 GM TUBE TOP SCH ×2 (08:31→20:47)
--- NOTE | 2016-04-30 10:22 | HHI.PR ---
Subjective Subjective Notes Feeling well. Objective Vitals/I&O Vital Signs Date Time Temp Pulse Resp B/P Pulse Ox O2 Delivery O2 Flow Rate FiO2 04/30/16 08:00 96.5 82 20 135/80 96 Radiology Last Impressions Shoulder X-Ray 03/30/16 0000 Signed Impressions: Service Date/Time: Wednesday, March 30, 2016 13:14 - CONCLUSION: Satisfactory postoperative appearance of the proximal right humerus following ORIF. Regulo Stewart MD Chest X-Ray 03/26/16 0600 Signed Impressions: Service Date/Time: Saturday, March 26, 2016 05:52 - CONCLUSION: 1. Persistent medial left lower lung consolidation. 2. No pneumothorax seen. Ugo Kim MD Tibia/Fibula X-Ray 03/23/16 0000 Signed Impressions: Service Date/Time: Wednesday, March 23, 2016 17:44 - CONCLUSION: Anatomic alignment. Ifeanyi Suarez MD FACR Femur X-Ray 03/23/16 0000 Signed Impressions: Service Date/Time: Wednesday, March 23, 2016 14:08 - CONCLUSION: Anatomic alignment. Ifeanyi Suarez MD FACR Lower Extremity CT 03/22/16 0000 Signed Impressions: Service Date/Time: Tuesday, March 22, 2016 10:08 - CONCLUSION: 1. Comminuted fractures involving the distal femur, proximal tibia, and proximal fibula with hemarthrosis as detailed above. Ugo Glez Jr., MD Ankle X-Ray 03/22/16 0000 Signed Impressions: Service Date/Time: Tuesday, March 22, 2016 01:27 - CONCLUSION: 1. Comminuted fractures distal tibia and fibula. Naeem Peterson MD Thoracic Spine CT 03/21/162027 Signed Impressions: Service Date/Time: Monday, March 21, 2016 20:39 - CONCLUSION: Intact thoracic spine. Contiguous left rib fractures #2 through 8 posteriorly Gopi Dumont MD Maxillofacial CT 03/21/162027 Signed Impressions: Service Date/Time: Monday, March 21, 2016 20:36 - CONCLUSION: Extensive fractures of all king of the maxillary sinuses And the nasal bone and ala inclusive of extension into the hard palate. There is a slightly depressed fracture of the medial floor of the left orbit and nondepressed fracture left zygomatic arch. Admixture of air and fluid noted in the maxillary sinuses and ethmoid air cells. Intraorbital contents are normal and base of the skull appears intact with normal intracranial contents Gopi Dumont MD Lumbar Spine CT 03/21/162027 Signed Impressions: Service Date/Time: Monday, March 21, 2016 20:39 - CONCLUSION: Nondisplaced fracture transverse process left L5 and left sacrum. Degenerative disc disease L3-S1. Gopi Dumont MD Pelvis X-Ray 03/21/162012 Signed Impressions: Service Date/Time: Monday, March 21, 2016 19:56 - CONCLUSION: Fracture left sacrum appreciated. Remainder the pelvis is intact with fractures of the pelvis better appreciated on CT scan Gopi Dumont MD Head CT 03/21/162012 Signed Impressions: Service Date/Time: Monday, March 21, 2016 20:30 - CONCLUSION: Intact calvarium. Normal intracranial contents. Facial fractures as described on the facial bone CT Gopi Dumont MD Chest CT 03/21/162012 Signed Impressions: Service Date/Time: Monday, March 21, 2016 20:39 - CONCLUSION: Contiguous left posterior rib fractures #2 through 8 with associated pleural thickening and parenchymal contusion. In the mid to upper right chest anteriorly there is a 1.3 cm pneumothorax without tension . Left chest subcutaneous emphysema Fracture of the proximal right humerus and mid left clavicle additionally appreciated. Gopi Dumont MD Cervical Spine CT 03/21/162012 Signed Impressions: Service Date/Time: Monday, March 21, 2016 20:30 - CONCLUSION: Degenerative changes of the cervical spine. Fractures acute left ribs numbered 2 and 3 posteriorly Gopi Dumont MD Abdomen/Pelvis CT 03/21/162012 Signed Impressions: Service Date/Time: Monday, March 21, 2016 20:39 - CONCLUSION: Multiple fractures inclusive of left inferior superior pubic ramus as well as transverse process and left L5 and left sacrum. Lower chest demonstrates fracture of left rib #8 posteriorly and a small anterior pneumothorax. Intra-abdominal and pelvic contents are normal Gopi Dumont MD Narrative Exam GENERAL: 56 year old well-developed male lying in bed. SKIN: Warm and dry. Surgical incisions healed well. HEAD: Normocephalic. ENT: No nasal bleeding or discharge. Mucous membranes pink and moist. NECK: Trachea midline. No JVD. CARDIOVASCULAR: Regular rate and rhythm. RESPIRATORY: No accessory muscle use. Lungs clear and diminished to auscultation. GASTROINTESTINAL: Abdomen soft, non-tender, nondistended. + BS. MUSCULOSKELETAL: Extremities without cyanosis, GANT. RUE sling in place, warm to touch, decreased sensation and mobility to RIGHT hand. RLE with CKS and fracture boot, + sensation. NEUROLOGICAL: Awake and alert. Normal speech. A/P Problem List: (1) Acute blood loss anemia (2) Shock circulatory (3) Chronic pain (4) Facial fracture (5) Closed fracture of right proximal humerus (6) Open right tibial fracture (7) Closed left clavicular fracture (8) Fracture of left tibia and fibula Assessment and Plan INJURIES: Extensive fx of all king of maxillary sinus Depressed fx of LEFT orbit Non-depressed fx of LEFT zygomatic arch LEFT clavicle fx RIGHT proximal humerus LEFT rib fx (2-8 posterior) with contusions Transverse process fx LEFT L5 Multiple fx of LEFT inferior pubic ramus LEFT sacrum fx LEFT tib fib shaft fx RIGHT tib/fib fx RIGHT prox and distal femur fx * S/P I&D RIGHT tibia with wound vac (03/22) Closed reduction of RIGHT femur * S/P ORIF maxillary leforte fx (03/22) Closed reduction of nasal bone fracture * S/P Remove hardware RIGHT femur with IM rhys fixation (03/23) ORIF BILAT tibia with IM rhys fixation * S/P ORIF RIGHT humerus (03/30) Diet: Regular, soft. No straws per OMFS. Pulm: IS encouraged to use. Pain: Flexeril, Neurontin. Pain controlled. Patient has been requesting and receiving his [place] around the clock and getting almost 4,000mg of Tylenol intake daily. [place] dosing decreased to 5mg 1 tab q4H. Activity: BR. (NWB RUE; NWB Bilat LE) PT and OT evaluating. GI: Protonix PO Bowel: Colace. MOM. LBM 04/29 DVT: SCD's. Lovenox. Fungal cream to buttock excoriation BID. Patient encouraged to reposition self in bed. Specialty bed. Plan of care discussed with patient at bedside. Continue aggressive PT and OT. Case management consulted for discharge planning. Patient has no insurance and is not a safe discharge home. Can transfer to [facility] when beds available. Patient is stable and being managed on Med/Surg Attending Statement Placement tissue patient does not require in-hospital care any more but there is no way to go according to case management The exam, history, and the medical decision-making described in the above note were completed with the assistance of the mid-level provider. I reviewed and agree with the findings presented. I attest that I had a [id number] encounter with the patient on the same day, and personally performed and documented my assessment and findings in the medical record. Problem Qualifiers (1) Chronic pain: Qualified Code: G89.21 - Chronic pain due to trauma (2) Facial fracture: (3) Closed fracture of right proximal humerus: (4) Open right tibial fracture: (5) Closed left clavicular fracture: Qualified Code: S42.022A - Closed displaced fracture of shaft of left clavicle , initial encounter (6) Fracture of left tibia and fibula: Tim Shepard Apr 30, 2016 10:22 Karen Nettles MD May 01, 2016 12:14
[2016-04-30 12:00] VITALS: BP 113/69; PULSE 84; RESP 20; TEMP 95.6; O2SAT 97
[2016-04-30] MEDS: oxyCODONE/ACETAMINOPHEN 5 MG/325 MG TAB PO PRN ×3 (12:30→20:50)
[2016-04-30 16:00] VITALS: BP 140/78; PULSE 95; RESP 20; TEMP 97.3; O2SAT 97
[2016-04-30 20:00] VITALS: BP 132/80; PULSE 101; RESP 18; TEMP 97.1; O2SAT 97
[2016-04-30] MEDS: MIRTAZAPINE 15 MG TAB PO SCH (20:46)
[2016-04-30] MEDS: MAGNESIUM HYDROXIDE SUSP 30 ML CUP PO SCH (20:46)
[2016-05-01] VITALS: BP 134/84; PULSE 99; RESP 17; TEMP 97.3; O2SAT 97
[2016-05-01] MEDS: oxyCODONE/ACETAMINOPHEN 5 MG/325 MG TAB PO PRN ×6 (01:16→21:31)
[2016-05-01] MEDS: GABAPENTIN 300 MG CAP PO SCH ×3 (04:49→20:16)
[2016-05-01] MEDS: ENOXAPARIN SODIUM 30 MG/0.3 ML SYRINGE SQ SCH ×2 (04:49→16:17)
[2016-05-01] MEDS: DOCUSATE SODIUM 100 MG CAP PO SCH ×2 (07:18→20:16)
[2016-05-01] MEDS: CALCIUM/VITAMIN D 250 MG/125 U TAB PO SCH ×3 (07:19→16:17)
[2016-05-01] MEDS: CYCLOBENZAPRINE HCL 10 MG TAB PO PRN ×2 (07:19→20:20)
[2016-05-01] MEDS: FLUoxetine HCL 10 MG CAP PO SCH (07:19)
[2016-05-01] MEDS: METOPROLOL TARTRATE 25 MG TAB PO SCH ×2 (07:19→20:16)
[2016-05-01] MEDS: BACITRACIN TOP OINT 15 GM TUBE TOP SCH ×2 (07:22→20:17)
[2016-05-01 08:00] VITALS: BP 140/87; PULSE 76; RESP 20; TEMP 97.8; O2SAT 98
--- NOTE | 2016-05-01 10:54 | HHI.PR ---
Subjective Subjective Notes Feeling well. No further complaints of mouth pain. Objective Vitals/I&O Vital Signs Date Time Temp Pulse Resp B/P Pulse Ox O2 Delivery O2 Flow Rate FiO2 05/01/16 08:00 97.8 76 20 140/87 98 Radiology Last Impressions Shoulder X-Ray 03/30/16 0000 Signed Impressions: Service Date/Time: Wednesday, March 30, 2016 13:14 - CONCLUSION: Satisfactory postoperative appearance of the proximal right humerus following ORIF. Regulo Stewart MD Chest X-Ray 03/26/16 0600 Signed Impressions: Service Date/Time: Saturday, March 26, 2016 05:52 - CONCLUSION: 1. Persistent medial left lower lung consolidation. 2. No pneumothorax seen. Ugo Kim MD Tibia/Fibula X-Ray 03/23/16 0000 Signed Impressions: Service Date/Time: Wednesday, March 23, 2016 17:44 - CONCLUSION: Anatomic alignment. Ifeanyi Suarez MD FACR Femur X-Ray 03/23/16 0000 Signed Impressions: Service Date/Time: Wednesday, March 23, 2016 14:08 - CONCLUSION: Anatomic alignment. Ifeanyi Suarez MD FACR Lower Extremity CT 03/22/16 0000 Signed Impressions: Service Date/Time: Tuesday, March 22, 2016 10:08 - CONCLUSION: 1. Comminuted fractures involving the distal femur, proximal tibia, and proximal fibula with hemarthrosis as detailed above. Ugo Glez Jr., MD Ankle X-Ray 03/22/16 0000 Signed Impressions: Service Date/Time: Tuesday, March 22, 2016 01:27 - CONCLUSION: 1. Comminuted fractures distal tibia and fibula. Naeem Peterson MD Thoracic Spine CT 03/21/162027 Signed Impressions: Service Date/Time: Monday, March 21, 2016 20:39 - CONCLUSION: Intact thoracic spine. Contiguous left rib fractures #2 through 8 posteriorly Gopi Dumont MD Maxillofacial CT 03/21/162027 Signed Impressions: Service Date/Time: Monday, March 21, 2016 20:36 - CONCLUSION: Extensive fractures of all king of the maxillary sinuses And the nasal bone and ala inclusive of extension into the hard palate. There is a slightly depressed fracture of the medial floor of the left orbit and nondepressed fracture left zygomatic arch. Admixture of air and fluid noted in the maxillary sinuses and ethmoid air cells. Intraorbital contents are normal and base of the skull appears intact with normal intracranial contents Gopi Dumont MD Lumbar Spine CT 03/21/162027 Signed Impressions: Service Date/Time: Monday, March 21, 2016 20:39 - CONCLUSION: Nondisplaced fracture transverse process left L5 and left sacrum. Degenerative disc disease L3-S1. Gopi Dumont MD Pelvis X-Ray 03/21/162012 Signed Impressions: Service Date/Time: Monday, March 21, 2016 19:56 - CONCLUSION: Fracture left sacrum appreciated. Remainder the pelvis is intact with fractures of the pelvis better appreciated on CT scan Gopi Dumont MD Head CT 03/21/162012 Signed Impressions: Service Date/Time: Monday, March 21, 2016 20:30 - CONCLUSION: Intact calvarium. Normal intracranial contents. Facial fractures as described on the facial bone CT Gopi Dumont MD Chest CT 03/21/162012 Signed Impressions: Service Date/Time: Monday, March 21, 2016 20:39 - CONCLUSION: Contiguous left posterior rib fractures #2 through 8 with associated pleural thickening and parenchymal contusion. In the mid to upper right chest anteriorly there is a 1.3 cm pneumothorax without tension . Left chest subcutaneous emphysema Fracture of the proximal right humerus and mid left clavicle additionally appreciated. Gopi Dumont MD Cervical Spine CT 03/21/162012 Signed Impressions: Service Date/Time: Monday, March 21, 2016 20:30 - CONCLUSION: Degenerative changes of the cervical spine. Fractures acute left ribs numbered 2 and 3 posteriorly Gopi Dumont MD Abdomen/Pelvis CT 03/21/162012 Signed Impressions: Service Date/Time: Monday, March 21, 2016 20:39 - CONCLUSION: Multiple fractures inclusive of left inferior superior pubic ramus as well as transverse process and left L5 and left sacrum. Lower chest demonstrates fracture of left rib #8 posteriorly and a small anterior pneumothorax. Intra-abdominal and pelvic contents are normal Gopi Dumont MD Narrative Exam GENERAL: 56 year old well-developed male lying in bed. SKIN: Warm and dry. Surgical incisions healed well. HEAD: Normocephalic. ENT: No nasal bleeding or discharge. Mucous membranes pink and moist. NECK: Trachea midline. No JVD. CARDIOVASCULAR: Regular rate and rhythm. RESPIRATORY: No accessory muscle use. Lungs clear to auscultation. GASTROINTESTINAL: Abdomen soft, non-tender, nondistended. + BS. MUSCULOSKELETAL: Extremities without cyanosis, GANT. RUE sling in place, warm to touch, decreased sensation and mobility to RIGHT hand. RLE with CKS and fracture boot, + sensation. NEUROLOGICAL: Awake and alert. Normal speech. A/P Problem List: (1) Acute blood loss anemia (2) Shock circulatory (3) Chronic pain (4) Facial fracture (5) Closed fracture of right proximal humerus (6) Open right tibial fracture (7) Closed left clavicular fracture (8) Fracture of left tibia and fibula Assessment and Plan INJURIES: Extensive fx of all king of maxillary sinus Depressed fx of LEFT orbit Non-depressed fx of LEFT zygomatic arch LEFT clavicle fx RIGHT proximal humerus LEFT rib fx (2-8 posterior) with contusions Transverse process fx LEFT L5 Multiple fx of LEFT inferior pubic ramus LEFT sacrum fx LEFT tib fib shaft fx RIGHT tib/fib fx RIGHT prox and distal femur fx * S/P I&D RIGHT tibia with wound vac (03/22) Closed reduction of RIGHT femur * S/P ORIF maxillary leforte fx (03/22) Closed reduction of nasal bone fracture * S/P Remove hardware RIGHT femur with IM rhys fixation (03/23) ORIF BILAT tibia with IM ryhs fixation * S/P ORIF RIGHT humerus (03/30) Diet: Regular, soft. No straws per OMFS. Pulm: IS encouraged to use. Pain: Flexeril, Neurontin. [place]. Pain controlled. Activity: BR. (NWB RUE; NWB Bilat LE) PT and OT evaluating. GI: Protonix PO Bowel: Colace. MOM. LBM 04/29 DVT: SCD's. Lovenox. Fungal cream to buttock excoriation BID. Patient encouraged to reposition self in bed. Specialty bed. Plan of care discussed with patient at bedside. Continue aggressive PT and OT. Case management consulted for discharge planning. Patient has no insurance and is not a safe discharge home. Can transfer to [facility] when beds available. Patient is stable and being managed on Med/Surg Problem Qualifiers (1) Chronic pain: Qualified Code: G89.21 - Chronic pain due to trauma (2) Facial fracture: (3) Closed fracture of right proximal humerus: (4) Open right tibial fracture: (5) Closed left clavicular fracture: Qualified Code: S42.022A - Closed displaced fracture of shaft of left clavicle , initial encounter (6) Fracture of left tibia and fibula: Tim Shepard May 01, 2016 10:54
[2016-05-01 11:08] VITALS: BP 118/76; PULSE 92; RESP 20; TEMP 96.7; O2SAT 96
[2016-05-01 16:18] VITALS: BP 142/84; PULSE 93; RESP 20; TEMP 97; O2SAT 98
[2016-05-01 20:00] VITALS: BP 141/77; PULSE 105; RESP 16; TEMP 98; O2SAT 97
[2016-05-01] MEDS: MAGNESIUM HYDROXIDE SUSP 30 ML CUP PO SCH (20:16)
[2016-05-01] MEDS: MIRTAZAPINE 15 MG TAB PO SCH (21:31)
[2016-05-02] VITALS: BP 139/83; PULSE 91; RESP 18; TEMP 97.7; O2SAT 98
[2016-05-02] MEDS: GABAPENTIN 300 MG CAP PO SCH ×3 (03:04→20:22)
[2016-05-02] MEDS: oxyCODONE/ACETAMINOPHEN 5 MG/325 MG TAB PO PRN ×5 (03:05→20:22)
[2016-05-02] MEDS: ENOXAPARIN SODIUM 30 MG/0.3 ML SYRINGE SQ SCH ×2 (03:05→15:54)
[2016-05-02] MEDS: DOCUSATE SODIUM 100 MG CAP PO SCH ×2 (07:05→20:22)
[2016-05-02] MEDS: METOPROLOL TARTRATE 25 MG TAB PO SCH ×2 (07:05→20:23)
[2016-05-02] MEDS: FLUoxetine HCL 10 MG CAP PO SCH (07:05)
[2016-05-02] MEDS: MAGNESIUM HYDROXIDE SUSP 30 ML CUP PO SCH ×2 (07:05→20:22)
[2016-05-02] MEDS: CYCLOBENZAPRINE HCL 10 MG TAB PO PRN ×2 (07:05→15:54)
[2016-05-02] MEDS: CALCIUM/VITAMIN D 250 MG/125 U TAB PO SCH ×3 (07:06→15:54)
[2016-05-02] MEDS: BACITRACIN TOP OINT 15 GM TUBE TOP SCH ×2 (07:06→20:23)
[2016-05-02 08:15] VITALS: BP 138/87; PULSE 90; RESP 16; TEMP 96.9; O2SAT 97
--- NOTE | 2016-05-02 11:25 | HHI.PR ---
Subjective Subjective Notes Patient doing well at this time He is a border in the hospital because there is no discharge place that will take him He is doing really well and improving every day Objective Vitals/I&O Vital Signs Date Time Temp Pulse Resp B/P Pulse Ox O2 Delivery O2 Flow Rate FiO2 05/02/16 00:00 97.7 91 18 139/83 98 Radiology Last Impressions Shoulder X-Ray 03/30/16 0000 Signed Impressions: Service Date/Time: Wednesday, March 30, 2016 13:14 - CONCLUSION: Satisfactory postoperative appearance of the proximal right humerus following ORIF. Regulo Stewart MD Chest X-Ray 03/26/16 0600 Signed Impressions: Service Date/Time: Saturday, March 26, 2016 05:52 - CONCLUSION: 1. Persistent medial left lower lung consolidation. 2. No pneumothorax seen. Ugo Kim MD Tibia/Fibula X-Ray 03/23/16 0000 Signed Impressions: Service Date/Time: Wednesday, March 23, 2016 17:44 - CONCLUSION: Anatomic alignment. Ifeanyi Suarez MD FACR Femur X-Ray 03/23/16 0000 Signed Impressions: Service Date/Time: Wednesday, March 23, 2016 14:08 - CONCLUSION: Anatomic alignment. Ifeanyi Suarez MD FACR Lower Extremity CT 03/22/16 0000 Signed Impressions: Service Date/Time: Tuesday, March 22, 2016 10:08 - CONCLUSION: 1. Comminuted fractures involving the distal femur, proximal tibia, and proximal fibula with hemarthrosis as detailed above. Ugo Glez Jr., MD Ankle X-Ray 03/22/16 0000 Signed Impressions: Service Date/Time: Tuesday, March 22, 2016 01:27 - CONCLUSION: 1. Comminuted fractures distal tibia and fibula. Naeem Peterson MD Thoracic Spine CT 03/21/162027 Signed Impressions: Service Date/Time: Monday, March 21, 2016 20:39 - CONCLUSION: Intact thoracic spine. Contiguous left rib fractures #2 through 8 posteriorly Gopi Dumont MD Maxillofacial CT 03/21/162027 Signed Impressions: Service Date/Time: Monday, March 21, 2016 20:36 - CONCLUSION: Extensive fractures of all king of the maxillary sinuses And the nasal bone and ala inclusive of extension into the hard palate. There is a slightly depressed fracture of the medial floor of the left orbit and nondepressed fracture left zygomatic arch. Admixture of air and fluid noted in the maxillary sinuses and ethmoid air cells. Intraorbital contents are normal and base of the skull appears intact with normal intracranial contents Gopi Dumont MD Lumbar Spine CT 03/21/162027 Signed Impressions: Service Date/Time: Monday, March 21, 2016 20:39 - CONCLUSION: Nondisplaced fracture transverse process left L5 and left sacrum. Degenerative disc disease L3-S1. Gopi Dumont MD Pelvis X-Ray 03/21/162012 Signed Impressions: Service Date/Time: Monday, March 21, 2016 19:56 - CONCLUSION: Fracture left sacrum appreciated. Remainder the pelvis is intact with fractures of the pelvis better appreciated on CT scan Gopi Dumont MD Head CT 03/21/162012 Signed Impressions: Service Date/Time: Monday, March 21, 2016 20:30 - CONCLUSION: Intact calvarium. Normal intracranial contents. Facial fractures as described on the facial bone CT Gopi Dumont MD Chest CT 03/21/162012 Signed Impressions: Service Date/Time: Monday, March 21, 2016 20:39 - CONCLUSION: Contiguous left posterior rib fractures #2 through 8 with associated pleural thickening and parenchymal contusion. In the mid to upper right chest anteriorly there is a 1.3 cm pneumothorax without tension . Left chest subcutaneous emphysema Fracture of the proximal right humerus and mid left clavicle additionally appreciated. Gopi Dumont MD Cervical Spine CT 03/21/162012 Signed Impressions: Service Date/Time: Monday, March 21, 2016 20:30 - CONCLUSION: Degenerative changes of the cervical spine. Fractures acute left ribs numbered 2 and 3 posteriorly Gopi Dumont MD Abdomen/Pelvis CT 03/21/162012 Signed Impressions: Service Date/Time: Monday, March 21, 2016 20:39 - CONCLUSION: Multiple fractures inclusive of left inferior superior pubic ramus as well as transverse process and left L5 and left sacrum. Lower chest demonstrates fracture of left rib #8 posteriorly and a small anterior pneumothorax. Intra-abdominal and pelvic contents are normal Gopi Dumont MD A/P Problem List: (1) Acute blood loss anemia (2) Shock circulatory (3) Chronic pain (4) Facial fracture (5) Closed fracture of right proximal humerus (6) Open right tibial fracture (7) Closed left clavicular fracture (8) Fracture of left tibia and fibula Problem Qualifiers (1) Chronic pain: Qualified Code: G89.21 - Chronic pain due to trauma (2) Facial fracture: (3) Closed fracture of right proximal humerus: (4) Open right tibial fracture: (5) Closed left clavicular fracture: Qualified Code: S42.022A - Closed displaced fracture of shaft of left clavicle , initial encounter (6) Fracture of left tibia and fibula: Karen Nettles MD May 02, 2016 11:25
[2016-05-02 12:00] VITALS: BP 120/77; PULSE 106; RESP 16; TEMP 97.5; O2SAT 98
[2016-05-02 16:00] VITALS: BP 127/82; PULSE 96; RESP 17; TEMP 96.8; O2SAT 98
[2016-05-02 20:00] VITALS: BP 118/79; PULSE 103; RESP 17; TEMP 98.3; O2SAT 98
[2016-05-02] MEDS: MIRTAZAPINE 15 MG TAB PO SCH (22:35)
[2016-05-03] VITALS: BP 130/72; PULSE 100; RESP 16; TEMP 96.3; O2SAT 96
[2016-05-03] MEDS: CYCLOBENZAPRINE HCL 10 MG TAB PO PRN ×3 (01:08→18:11)
[2016-05-03] MEDS: oxyCODONE/ACETAMINOPHEN 5 MG/325 MG TAB PO PRN ×6 (01:08→22:13)
[2016-05-03] MEDS: ENOXAPARIN SODIUM 30 MG/0.3 ML SYRINGE SQ SCH ×2 (05:19→18:11)
[2016-05-03] MEDS: GABAPENTIN 300 MG CAP PO SCH ×3 (05:19→21:00)
[2016-05-03 08:00] VITALS: BP 150/86; PULSE 100; RESP 16; TEMP 98.7; O2SAT 98
[2016-05-03 08:12] LABS: HEMATOCRIT 35.5 % (39.0-51.0); MEAN CELL VOLUME 83.4 FL (80.0-100.0); MEAN CORPUSCULAR HEMOGLOBIN 27.9 PG (27.0-34.0); MEAN CORPUSCULAR HGB CONC 33.4 % (32.0-36.0); PLATELET COUNT 570 TH/MM3 (150-450); RED BLOOD COUNT 4.26 MIL/MM3 (4.50-5.90); RED CELL DISTRIBUTION WIDTH 15.7 % (11.6-17.2); REVIEW FLAG FINAL; WHITE BLOOD COUNT 8.6 TH/MM3 (4.0-11.0)
[2016-05-03 08:29] LABS: POTASSIUM 3.6 MEQ/L (3.5-5.1)
[2016-05-03] MEDS: FLUoxetine HCL 10 MG CAP PO SCH (09:47)
[2016-05-03] MEDS: DOCUSATE SODIUM 100 MG CAP PO SCH ×2 (09:47→20:59)
[2016-05-03] MEDS: CALCIUM/VITAMIN D 250 MG/125 U TAB PO SCH ×3 (09:47→18:10)
[2016-05-03] MEDS: BACITRACIN TOP OINT 15 GM TUBE TOP SCH ×2 (09:48→21:00)
[2016-05-03] MEDS: METOPROLOL TARTRATE 25 MG TAB PO SCH ×2 (09:48→20:59)
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
[2016-05-03 12:00] VITALS: BP 122/71; PULSE 92; RESP 16; TEMP 96; O2SAT 97
[2016-05-03 16:00] VITALS: BP 115/73; PULSE 112; RESP 16; TEMP 97.3; O2SAT 93
[2016-05-03 20:00] VITALS: BP 137/86; PULSE 117; RESP 18; TEMP 98.4; O2SAT 98
[2016-05-03] MEDS: MIRTAZAPINE 15 MG TAB PO SCH (20:58)
[2016-05-03] MEDS: MAGNESIUM HYDROXIDE SUSP 30 ML CUP PO SCH (20:59)
[2016-05-03 23:46] VITALS: BP 115/76; PULSE 94; RESP 18; TEMP 97.7; O2SAT 97
[2016-05-04] MEDS: oxyCODONE/ACETAMINOPHEN 5 MG/325 MG TAB PO PRN ×5 (03:25→21:36)
[2016-05-04] MEDS: ENOXAPARIN SODIUM 30 MG/0.3 ML SYRINGE SQ SCH ×2 (03:25→16:29)
[2016-05-04] MEDS: GABAPENTIN 300 MG CAP PO SCH ×3 (06:34→21:36)
[2016-05-04 08:00] VITALS: BP 142/79; PULSE 90; RESP 20; TEMP 97.7; O2SAT 99
[2016-05-04] MEDS: DOCUSATE SODIUM 100 MG CAP PO SCH ×2 (08:34→20:13)
[2016-05-04] MEDS: FLUoxetine HCL 10 MG CAP PO SCH (08:34)
[2016-05-04] MEDS: METOPROLOL TARTRATE 25 MG TAB PO SCH ×2 (08:34→20:13)
[2016-05-04] MEDS: CALCIUM/VITAMIN D 250 MG/125 U TAB PO SCH ×3 (08:34→17:26)
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
[2016-05-04 12:00] VITALS: BP 116/74; PULSE 86; RESP 20; TEMP 96.7; O2SAT 98
[2016-05-04] MEDS ORDERED: KETOROLAC TROMETHAMINE 30 MG/ML (IVP) VIAL IV PUSH SCH (12:00)
[2016-05-04 16:00] VITALS: BP 123/73; PULSE 88; RESP 20; TEMP 97; O2SAT 98
[2016-05-04] MEDS: KETOROLAC TROMETHAMINE 10 MG TAB PO SCH (16:42)
[2016-05-04] MEDS: CYCLOBENZAPRINE HCL 10 MG TAB PO PRN (18:16)
[2016-05-04 20:00] VITALS: BP 126/63; PULSE 98; RESP 18; TEMP 97; O2SAT 98
[2016-05-04] MEDS: MAGNESIUM HYDROXIDE SUSP 30 ML CUP PO SCH (20:14)
[2016-05-04] MEDS: MIRTAZAPINE 15 MG TAB PO SCH (20:14)
[2016-05-04] MEDS: BACITRACIN TOP OINT 15 GM TUBE TOP SCH (21:37)
[2016-05-05] VITALS: BP 117/72; PULSE 90; RESP 17; TEMP 96.6; O2SAT 96
[2016-05-05] MEDS: KETOROLAC TROMETHAMINE 10 MG TAB PO SCH ×3 (00:21→16:18)
[2016-05-05] MEDS: CYCLOBENZAPRINE HCL 10 MG TAB PO PRN ×3 (01:50→18:24)
[2016-05-05] MEDS: oxyCODONE/ACETAMINOPHEN 5 MG/325 MG TAB PO PRN ×6 (01:50→22:13)
[2016-05-05] MEDS: ENOXAPARIN SODIUM 30 MG/0.3 ML SYRINGE SQ SCH ×2 (05:31→16:18)
[2016-05-05] MEDS: GABAPENTIN 300 MG CAP PO SCH ×3 (05:59→22:13)
--- NOTE | 2016-05-05 06:47 | PD.ORT.PN ---
Subjective Subjective Remarks Alert and oriented. Only complaint is right shoulder pain and no increased active extension of fingers Objective Vitals Vital Signs Date Time Temp Pulse Resp B/P Pulse Ox O2 Delivery O2 Flow Rate FiO2 05/05/16 00:00 96.6 90 17 117/72 96 05/04/16 20:00 97.0 98 18 126/63 98 05/04/16 17:42 20 05/04/16 16:00 97.0 88 20 123/73 98 05/04/16 14:26 20 05/04/16 12:00 96.7 86 20 116/74 98 05/04/16 08:00 97.7 90 20 142/79 99 I/O 05/04/16 05/04/16 05/04/16 05/05/16 05/05/16 05/05/16 07:00 15:00 23:00 07:00 15:00 23:00 Intake Total 480 ml 1340 ml 480 ml 480 ml Output Total 1100 ml 1700 ml 1100 ml 500 ml Balance -620 ml -360 ml -620 ml -20 ml Intake Oral 480 ml 1340 ml 480 ml 480 ml Output Urine Total 1100 ml 1700 ml 1100 ml 500 ml # Voids 2 # Bowel Movements 0 0 0 Result Diagram: 05/03/16 0728 05/03/16 07 Imaging Last 72 hours Impressions Chest X-Ray 03/26/16 06 Signed Impressions: Service Date/Time: Saturday, March 26, 2016 05:52 - CONCLUSION: 1. Persistent medial left lower lung consolidation. 2. No pneumothorax seen. Ugo Kim MD Chest X-Ray 03/25/16 06 Signed Impressions: Service Date/Time: March 04:50 - CONCLUSION: 1. Increase in left-sided airspace disease since March 24. Left chest tube, endotracheal tube and nasogastric tube unchanged. Naeem Peterson MD Chest X-Ray 03/25/16 0000 Signed Impressions: Service Date/Time: March 15:09 - CONCLUSION: 1. No pneumothorax status post removal of left chest tube. 2. Persistent left lung scattered patchiness. 3. Endotracheal tube and nasogastric tube remain in good positions. 4. Multiple fractures are stable. Osiel Howard MD Chest X-Ray 03/24/16 0600 Signed Impressions: Service Date/Time: Thursday, March 24, 2016 03:13 - CONCLUSION: 1. Support apparatus unchanged. Left chest tube without pneumothorax. Mostly basilar airspace disease remains present, slightly increased on the right since 03/23. Naeem Peterson MD Last 24 hours Impressions Thoracic Spine CT 03/21/162027 Signed Impressions: Service Date/Time: Monday, March 21, 2016 20:39 - CONCLUSION: Intact thoracic spine. Contiguous left rib fractures #2 through 8 posteriorly Gopi Dumont MD Maxillofacial CT 03/21/162027 Signed Impressions: Service Date/Time: Monday, March 21, 2016 20:36 - CONCLUSION: Extensive fractures of all king of the maxillary sinuses And the nasal bone and ala inclusive of extension into the hard palate. There is a slightly depressed fracture of the medial floor of the left orbit and nondepressed fracture left zygomatic arch. Admixture of air and fluid noted in the maxillary sinuses and ethmoid air cells. Intraorbital contents are normal and base of the skull appears intact with normal intracranial contents Gopi Dumont MD Lumbar Spine CT 03/21/162027 Signed Impressions: Service Date/Time: Monday, March 21, 2016 20:39 - CONCLUSION: Nondisplaced fracture transverse process left L5 and left sacrum. Degenerative disc disease L3-S1. Gopi Dumont MD Pelvis X-Ray 03/21/162012 Signed Impressions: Service Date/Time: Monday, March 21, 2016 19:56 - CONCLUSION: Fracture left sacrum appreciated. Remainder the pelvis is intact with fractures of the pelvis better appreciated on CT scan Gopi Dumont MD Head CT 03/21/162012 Signed Impressions: Service Date/Time: Monday, March 21, 2016 20:30 - CONCLUSION: Intact calvarium. Normal intracranial contents. Facial fractures as described on the facial bone CT Gopi Dumont MD Chest X-Ray 03/21/162012 Signed Impressions: Service Date/Time: Monday, March 21, 2016 19:56 - CONCLUSION: Slightly off set fracture posterior left fourth rib and probably contiguous third and fifth ribs with no pneumothorax Gopi Dumont MD Chest CT 03/21/162012 Signed Impressions: Service Date/Time: Monday, March 21, 2016 20:39 - CONCLUSION: Contiguous left posterior rib fractures #2 through 8 with associated pleural thickening and parenchymal contusion. In the mid to upper right chest anteriorly there is a 1.3 cm pneumothorax without tension . Left chest subcutaneous emphysema Fracture of the proximal right humerus and mid left clavicle additionally appreciated. Gopi Dumont MD Cervical Spine CT 03/21/162012 Signed Impressions: Service Date/Time: Monday, March 21, 2016 20:30 - CONCLUSION: Degenerative changes of the cervical spine. Fractures acute left ribs numbered 2 and 3 posteriorly Gopi Dumont MD Abdomen/Pelvis CT 03/21/162012 Signed Impressions: Service Date/Time: Monday, March 21, 2016 20:39 - CONCLUSION: Multiple fractures inclusive of left inferior superior pubic ramus as well as transverse process and left L5 and left sacrum. Lower chest demonstrates fracture of left rib #8 posteriorly and a small anterior pneumothorax. Intra-abdominal and pelvic contents are normal Gopi Dumont MD Objective Remarks RUE: Clean dry dressings and intact. +sling. no sensation to median/ulnar nerve distribution. RLE: dressing CDI. calf compartments are soft.. Good capillary refills full motion of toes. Knee immobilizer in place as well as fracture boot. traumatic lac on ankle healing well. LLE: dressing CDI. Calf compartments soft. Good capillary refill in toes. LUE: Pain to palpation over left clavicle. Mild tenderness with range of motion of shoulder .Good passive motion of shoulder, elbow, wrist, good cap refill. Assessment & Plan Problem List: (1) Plan: Recommend emergent Irrigation and Debridement of right open tibia fracture I will examine the right femur under anaesthesia I will examine the right shoulder under anaesthesia Possible internal or external fixation right tibial He will ultimately require multiple interventions Based on complexity of the multiple injuries will request consultation with Dr. Anatoly Hogan Informed consent obtained for above plan Assessment and Plan 1) Right Proximal Humerus Fx s/p ORIF - POD 16 2) Right Segmental Periprosthetic Femoral Shaft Fracture status post IM nail 3) Right Distal Tibial Shaft Fracture status post IM nail 03/23/16 4) Left Tibial Shaft Fracture status post IM nail 03/23/16 5) bilateral tibial plateaus status post ORIF on 03/23/16 6)left clavicle fracture - nonop 7) left sacrum fracture and inferior/superior rami fractures - nonop -NWB RUE,BLE. daily dressing change to right shoulder monitor nerve palsy right arm maintain sling R UE X-rays today of all fractures -maintain splint, CKS daily dressing changes over medial right ankle bacitracin and Adaptic Lovenox Discharge planning to rehabilitation Incentive spirometry TRISTON PICKETT PA-C May 05, 2016 06:47
[2016-05-05 08:00] VITALS: BP 131/81; PULSE 83; RESP 16; TEMP 96.2; O2SAT 98
[2016-05-05] MEDS: METOPROLOL TARTRATE 25 MG TAB PO SCH ×2 (08:32→20:20)
[2016-05-05] MEDS: FLUoxetine HCL 10 MG CAP PO SCH (08:32)
[2016-05-05] MEDS: BACITRACIN TOP OINT 15 GM TUBE TOP SCH ×2 (08:32→20:20)
[2016-05-05] MEDS: CALCIUM/VITAMIN D 250 MG/125 U TAB PO SCH ×3 (08:32→16:18)
[2016-05-05] MEDS: DOCUSATE SODIUM 100 MG CAP PO SCH ×2 (08:32→20:20)
--- NOTE | 2016-05-05 09:47 | RADRPT ---
EXAM DATE/TIME: 05/05/2016 09:10 [facility] COMPARISON: CLAVICLE LEFT, April 06, 2016, 9:19. INDICATIONS : Follow up left clavicle fracture. MEDICAL HISTORY : None. SURGICAL HISTORY : None. ENCOUNTER: Subsequent ACUITY: 1 month PAIN SCORE: 8/10 LOCATION: Left clavicle. FINDINGS: There is a healing fracture involving the midshaft of the left clavicle. Callus formation is demonstr ated. There has been no significant change in the alignment or position of the fracture fragments. Th ere continues to be some cephalad elevation of the proximal fragment. CONCLUSION: Healing displaced fracture of the left clavicle. No significant change compared to the prior exam. Tristan Ellison MD on May 05, 2016 at 9:44 Board Certified Radiologist. This report was verified electronically.
--- NOTE | 2016-05-05 09:48 | RADRPT ---
EXAM DATE/TIME: 05/05/2016 09:13 [facility] COMPARISON: SHOULDER RIGHT COMPLETE (>2VWS), April 06, 2016, 9:54. INDICATIONS : Follow up right proximal humerus surgery. MEDICAL HISTORY : None. SURGICAL HISTORY : ORIF right proximal humerus. ENCOUNTER: Subsequent ACUITY: 1 month PAIN SCORE: 5/10 LOCATION: Right proximal humerus. FINDINGS: Surgical superficial isai have been removed. Sideplate and multiple screws transfixing the proxima l humeral fracture remain in place unchanged in approximation of fragments and alignment with no evid ence of dislocation. CONCLUSION: Stable postsurgical changes plating and screws fixating a proximal humeral fracture. Gopi Dumont MD on May 05, 2016 at 9:45 Board Certified Radiologist. This report was verified electronically.
--- NOTE | 2016-05-05 09:50 | RADRPT ---
EXAM DATE/TIME: 05/05/2016 09:18 [facility] COMPARISON: FEMUR RIGHT (AP & LAT/2VWS), April 06, 2016, 9:31. INDICATIONS : Follow up right femur surgery. MEDICAL HISTORY : None. SURGICAL HISTORY : ORIF right femur. ENCOUNTER: Subsequent ACUITY: 1 month PAIN SCORE: 4/10 LOCATION: Right femur. FINDINGS: Superficial surgical isai have been removed. Intramedullary rhys is noted in place with fracture of the mid femur and comminuted fracture of the distal femur appreciated unchanged in alignment of frag ments approximation or healing. There is no evidence dislocation. CONCLUSION: Removal of superficial surgical isai. Otherwise stable femur Gopi Dumont MD on May 05, 2016 at 9:47 Board Certified Radiologist. This report was verified electronically.
--- NOTE | 2016-05-05 09:50 | RADRPT ---
EXAM DATE/TIME: 05/05/2016 08:57 [facility] COMPARISON: TIBIA/FIBULA RIGHT (AP/LAT), March 21, 2016, 19:56. ANKLE RIGHT COMPLETE ([id number]), April 06, 2016, 9:51. INDICATIONS : Follow up right ankle surgery. MEDICAL HISTORY : None. SURGICAL HISTORY : ORIF right ankle. ENCOUNTER: Subsequent ACUITY: 1 month PAIN SCORE: 2/10 LOCATION: Right ankle. FINDINGS: 3 views of the right ankle show comminuted fractures involving the distal fibular and tibial metaphys es. An intramedullary rhys is seen traversing the tibial fracture. The fractures are highly comminuted . Normal anatomical alignment is noted. No significant callus formation observed. Fracture lines [place] in. No angulation or distraction. 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 CONCLUSION: Intramedullary rhys with good alignment but no significant callus formation. Ugo Glez Jr., MD on May 05, 2016 at 9:45 Board Certified Radiologist. This report was verified electronically.
--- NOTE | 2016-05-05 09:52 | RADRPT ---
EXAM DATE/TIME: 05/05/2016 09:00 [facility] COMPARISON: TIBIA/FIBULA RIGHT (AP/LAT), April 06, 2016, 9:45. INDICATIONS : Follow up right tibia surgery. MEDICAL HISTORY : None. SURGICAL HISTORY : ORIF right tibia. ENCOUNTER: Subsequent ACUITY: 1 month PAIN SCORE: 2/10 LOCATION: Right tibia. FINDINGS: 2 views of the right lower leg show an intramedullary rhys throughout the tibia traversing a comminute d fracture of the distal metaphyseal level. An orthopedic plate is seen involving the lateral cortex of the proximal tibia with multiple anchoring screws. The alignment is seen at the fracture sites. Fr actures involving the fibula are also in good alignment. The distal metaphyseal fracture is comminute d. The proximal is simple in appearance. No significant callus formation is seen involving any of the fracture sites. An intramedullary rhys is partially seen involving the distal femur. CONCLUSION: Orthopedic hardware with good alignment but little callus formation observed. Ugo Glez Jr., MD on May 05, 2016 at 9:49 Board Certified Radiologist. This report was verified electronically.
--- NOTE | 2016-05-05 09:54 | RADRPT ---
EXAM DATE/TIME: 05/05/2016 09:00 [facility] COMPARISON: KNEE RIGHT LTD (1 OR 2 VWS), April 06, 2016, 9:41. INDICATIONS : Follow up right knee surgery. MEDICAL HISTORY : None. SURGICAL HISTORY : ORIF right tibial plateau. ENCOUNTER: Subsequent ACUITY: 1 month PAIN SCORE: 2/10 LOCATION: Right knee. FINDINGS: 2 views of the right knee show an intramedullary rhys involving the distal part traversing a comminute d femoral metaphyseal fracture. Orthopedic hardware is seen involving the proximal tibia previously d escribed in the lower leg report. Limited callus formation about the distal femoral fracture site. Go od alignment noted. No joint effusion. Soft tissues are unremarkable. CONCLUSION: Orthopedic hardware involving the distal femur and proximal tibia with good alignment and little call us formation. Ugo Glez Jr., MD on May 05, 2016 at 9:50 Board Certified Radiologist. This report was verified electronically.
--- NOTE | 2016-05-05 09:55 | RADRPT ---
EXAM DATE/TIME: 05/05/2016 09:02 [facility] COMPARISON: TIBIA/FIBULA LEFT (AP/LAT), April 06, 2016, 9:45. INDICATIONS : Follow up left tibia surgery. MEDICAL HISTORY : None. SURGICAL HISTORY : ORIF left tibia. ENCOUNTER: Subsequent ACUITY: 1 month PAIN SCORE: 2/10 LOCATION: Left tibia. FINDINGS: 2 views of the left lower leg show an intramedullary rhys throughout the tibia with multiple anchoring screws. This traverses a comminuted fracture of the mid diaphysis. Alignment is noted. An obliquely oriented fracture is seen involving the mid to distal diaphysis of the fibula. Good alignment is note d at that site as well. There is little callus formation observed at the fracture sites. No angulatio n or distraction. Soft tissues are unremarkable. CONCLUSION: Orthopedic hardware with good alignment and little callus formation. Ugo Glez Jr., MD on May 05, 2016 at 9:52 Board Certified Radiologist. This report was verified electronically.
--- NOTE | 2016-05-05 11:45 | HHI.PR ---
Subjective Subjective Notes No complaints. Eating well. Objective Vitals/I&O Vital Signs Date Time Temp Pulse Resp B/P Pulse Ox O2 Delivery O2 Flow Rate FiO2 05/05/16 08:00 96.2 83 16 131/81 98 Radiology Last Impressions Shoulder X-Ray 03/30/16 0000 Signed Impressions: Service Date/Time: Wednesday, March 30, 2016 13:14 - CONCLUSION: Satisfactory postoperative appearance of the proximal right humerus following ORIF. Regulo Stewart MD Chest X-Ray 03/26/16 0600 Signed Impressions: Service Date/Time: Saturday, March 26, 2016 05:52 - CONCLUSION: 1. Persistent medial left lower lung consolidation. 2. No pneumothorax seen. Ugo Kim MD Tibia/Fibula X-Ray 03/23/16 0000 Signed Impressions: Service Date/Time: Wednesday, March 23, 2016 17:44 - CONCLUSION: Anatomic alignment. Ifeanyi Suarez MD FACR Femur X-Ray 03/23/16 0000 Signed Impressions: Service Date/Time: Wednesday, March 23, 2016 14:08 - CONCLUSION: Anatomic alignment. Ifeanyi Suarez MD FACR Lower Extremity CT 03/22/16 0000 Signed Impressions: Service Date/Time: Tuesday, March 22, 2016 10:08 - CONCLUSION: 1. Comminuted fractures involving the distal femur, proximal tibia, and proximal fibula with hemarthrosis as detailed above. Ugo Glez Jr., MD Ankle X-Ray 03/22/16 0000 Signed Impressions: Service Date/Time: Tuesday, March 22, 2016 01:27 - CONCLUSION: 1. Comminuted fractures distal tibia and fibula. Naeem Peterson MD Thoracic Spine CT 03/21/162027 Signed Impressions: Service Date/Time: Monday, March 21, 2016 20:39 - CONCLUSION: Intact thoracic spine. Contiguous left rib fractures #2 through 8 posteriorly Gopi Dumont MD Maxillofacial CT 03/21/162027 Signed Impressions: Service Date/Time: Monday, March 21, 2016 20:36 - CONCLUSION: Extensive fractures of all king of the maxillary sinuses And the nasal bone and ala inclusive of extension into the hard palate. There is a slightly depressed fracture of the medial floor of the left orbit and nondepressed fracture left zygomatic arch. Admixture of air and fluid noted in the maxillary sinuses and ethmoid air cells. Intraorbital contents are normal and base of the skull appears intact with normal intracranial contents Gopi Dumont MD Lumbar Spine CT 03/21/162027 Signed Impressions: Service Date/Time: Monday, March 21, 2016 20:39 - CONCLUSION: Nondisplaced fracture transverse process left L5 and left sacrum. Degenerative disc disease L3-S1. Gopi Dumont MD Pelvis X-Ray 03/21/162012 Signed Impressions: Service Date/Time: Monday, March 21, 2016 19:56 - CONCLUSION: Fracture left sacrum appreciated. Remainder the pelvis is intact with fractures of the pelvis better appreciated on CT scan Gopi Dumont MD Head CT 03/21/162012 Signed Impressions: Service Date/Time: Monday, March 21, 2016 20:30 - CONCLUSION: Intact calvarium. Normal intracranial contents. Facial fractures as described on the facial bone CT Gopi Dumont MD Chest CT 03/21/162012 Signed Impressions: Service Date/Time: Monday, March 21, 2016 20:39 - CONCLUSION: Contiguous left posterior rib fractures #2 through 8 with associated pleural thickening and parenchymal contusion. In the mid to upper right chest anteriorly there is a 1.3 cm pneumothorax without tension . Left chest subcutaneous emphysema Fracture of the proximal right humerus and mid left clavicle additionally appreciated. Gopi Dumont MD Cervical Spine CT 03/21/162012 Signed Impressions: Service Date/Time: Monday, March 21, 2016 20:30 - CONCLUSION: Degenerative changes of the cervical spine. Fractures acute left ribs numbered 2 and 3 posteriorly Gopi Dumont MD Abdomen/Pelvis CT 03/21/162012 Signed Impressions: Service Date/Time: Monday, March 21, 2016 20:39 - CONCLUSION: Multiple fractures inclusive of left inferior superior pubic ramus as well as transverse process and left L5 and left sacrum. Lower chest demonstrates fracture of left rib #8 posteriorly and a small anterior pneumothorax. Intra-abdominal and pelvic contents are normal Gopi Dumont MD Narrative Exam GENERAL: 56 year old well-developed male OOB in chair. SKIN: Warm and dry. Surgical incisions healed well. HEAD: Normocephalic. ENT: No nasal bleeding or discharge. Mucous membranes pink and moist. NECK: Trachea midline. No JVD. CARDIOVASCULAR: Regular rate and rhythm. RESPIRATORY: No accessory muscle use. Lungs clear to auscultation. GASTROINTESTINAL: Abdomen soft, non-tender, nondistended. + BS. MUSCULOSKELETAL: Extremities without cyanosis, GANT. RUE sling in place, warm to touch, decreased sensation and mobility to RIGHT hand. RLE with CKS and fracture boot, + sensation. NEUROLOGICAL: Awake and alert. Normal speech. A/P Problem List: (1) Acute blood loss anemia (2) Shock circulatory (3) Chronic pain (4) Facial fracture (5) Closed fracture of right proximal humerus (6) Open right tibial fracture (7) Closed left clavicular fracture (8) Fracture of left tibia and fibula Assessment and Plan INJURIES: Extensive fx of all king of maxillary sinus Depressed fx of LEFT orbit Non-depressed fx of LEFT zygomatic arch LEFT clavicle fx RIGHT proximal humerus LEFT rib fx (2-8 posterior) with contusions Transverse process fx LEFT L5 Multiple fx of LEFT inferior pubic ramus LEFT sacrum fx LEFT tib fib shaft fx RIGHT tib/fib fx RIGHT prox and distal femur fx * S/P I&D RIGHT tibia with wound vac (03/22) Closed reduction of RIGHT femur * S/P ORIF maxillary [place] fx (03/22) Closed reduction of nasal bone fracture * S/P Remove hardware RIGHT femur with IM rhys fixation (03/23) ORIF BILAT tibia with IM rhys fixation * S/P ORIF RIGHT humerus (03/30) Diet: Regular, soft. Tolerating well. No straws per OMFS. Pulm: IS encouraged to use. Pain: Flexeril, Neurontin. Garner. Pain controlled. Activity: OOB with assist. (NWB RUE; NWB Bilat LE) PT and OT evaluating. GI: Protonix PO Bowel: Colace. MOM. LBM 05/03 DVT: SCD's. Lovenox. Fungal cream to buttock excoriation BID. Patient encouraged to reposition self in bed. Specialty bed. Continue aggressive PT and OT. Case management consulted for discharge planning. Patient has no insurance and is not a safe discharge home. Can transfer to [facility] when beds available. Plan of care discussed with patient at bedside. Problem Qualifiers (1) Chronic pain: Qualified Code: G89.21 - Chronic pain due to trauma (2) Facial fracture: (3) Closed fracture of right proximal humerus: (4) Open right tibial fracture: (5) Closed left clavicular fracture: Qualified Code: S42.022A - Closed displaced fracture of shaft of left clavicle , initial encounter (6) Fracture of left tibia and fibula: Tim Shepard May 05, 2016 11:44
[2016-05-05 11:53] VITALS: BP 129/79; PULSE 79; RESP 16; TEMP 96; O2SAT 97
[2016-05-05 16:36] VITALS: BP 119/75; PULSE 96; RESP 16; TEMP 96.8; O2SAT 97
[2016-05-05 20:00] VITALS: BP 130/79; PULSE 104; RESP 16; TEMP 97.2; O2SAT 97
[2016-05-05] MEDS: MAGNESIUM HYDROXIDE SUSP 30 ML CUP PO SCH (20:20)
[2016-05-05] MEDS: MIRTAZAPINE 15 MG TAB PO SCH (20:20)
[2016-05-06] MEDS: KETOROLAC TROMETHAMINE 10 MG TAB PO SCH ×3 (00:07→16:06)
[2016-05-06] MEDS: CYCLOBENZAPRINE HCL 10 MG TAB PO PRN ×3 (03:54→20:55)
[2016-05-06] MEDS: ENOXAPARIN SODIUM 30 MG/0.3 ML SYRINGE SQ SCH ×2 (03:54→16:06)
[2016-05-06] MEDS: oxyCODONE/ACETAMINOPHEN 5 MG/325 MG TAB PO PRN ×5 (03:55→20:56)
[2016-05-06] MEDS: GABAPENTIN 300 MG CAP PO SCH ×3 (05:17→20:55)
[2016-05-06 08:00] VITALS: BP 142/83; PULSE 95; RESP 18; TEMP 96.5; O2SAT 99
[2016-05-06] MEDS: DOCUSATE SODIUM 100 MG CAP PO SCH ×2 (08:29→20:55)
[2016-05-06] MEDS: CALCIUM/VITAMIN D 250 MG/125 U TAB PO SCH ×3 (08:29→16:06)
[2016-05-06] MEDS: METOPROLOL TARTRATE 25 MG TAB PO SCH ×2 (08:29→20:55)
[2016-05-06] MEDS: FLUoxetine HCL 10 MG CAP PO SCH (08:35)
[2016-05-06] MEDS: BACITRACIN TOP OINT 15 GM TUBE TOP SCH ×2 (09:00→20:56)
--- NOTE | 2016-05-06 11:38 | HHI.PR ---
Subjective Subjective Notes Reports decreased clavicle pain Objective Vitals/I&O Vital Signs Date Time Temp Pulse Resp B/P Pulse Ox O2 Delivery O2 Flow Rate FiO2 05/06/16 08:00 96.5 95 18 142/83 99 Radiology Last Impressions Shoulder X-Ray 03/30/16 0000 Signed Impressions: Service Date/Time: Wednesday, March 30, 2016 13:14 - CONCLUSION: Satisfactory postoperative appearance of the proximal right humerus following ORIF. Regulo Stewart MD Chest X-Ray 03/26/16 0600 Signed Impressions: Service Date/Time: Saturday, March 26, 2016 05:52 - CONCLUSION: 1. Persistent medial left lower lung consolidation. 2. No pneumothorax seen. Ugo Kim MD Tibia/Fibula X-Ray 03/23/16 0000 Signed Impressions: Service Date/Time: Wednesday, March 23, 2016 17:44 - CONCLUSION: Anatomic alignment. Ifeanyi Suarez MD FACR Femur X-Ray 03/23/16 0000 Signed Impressions: Service Date/Time: Wednesday, March 23, 2016 14:08 - CONCLUSION: Anatomic alignment. Ifeanyi Suarez MD FACR Lower Extremity CT 03/22/16 0000 Signed Impressions: Service Date/Time: Tuesday, March 22, 2016 10:08 - CONCLUSION: 1. Comminuted fractures involving the distal femur, proximal tibia, and proximal fibula with hemarthrosis as detailed above. Ugo Glez Jr., MD Ankle X-Ray 03/22/16 0000 Signed Impressions: Service Date/Time: Tuesday, March 22, 2016 01:27 - CONCLUSION: 1. Comminuted fractures distal tibia and fibula. Naeem Peterson MD Thoracic Spine CT 03/21/162027 Signed Impressions: Service Date/Time: Monday, March 21, 2016 20:39 - CONCLUSION: Intact thoracic spine. Contiguous left rib fractures #2 through 8 posteriorly Gopi Dumont MD Maxillofacial CT 03/21/162027 Signed Impressions: Service Date/Time: Monday, March 21, 2016 20:36 - CONCLUSION: Extensive fractures of all king of the maxillary sinuses And the nasal bone and ala inclusive of extension into the hard palate. There is a slightly depressed fracture of the medial floor of the left orbit and nondepressed fracture left zygomatic arch. Admixture of air and fluid noted in the maxillary sinuses and ethmoid air cells. Intraorbital contents are normal and base of the skull appears intact with normal intracranial contents Gopi Dumont MD Lumbar Spine CT 03/21/162027 Signed Impressions: Service Date/Time: Monday, March 21, 2016 20:39 - CONCLUSION: Nondisplaced fracture transverse process left L5 and left sacrum. Degenerative disc disease L3-S1. Gopi Dumont MD Pelvis X-Ray 03/21/162012 Signed Impressions: Service Date/Time: Monday, March 21, 2016 19:56 - CONCLUSION: Fracture left sacrum appreciated. Remainder the pelvis is intact with fractures of the pelvis better appreciated on CT scan Gopi Dumont MD Head CT 03/21/162012 Signed Impressions: Service Date/Time: Monday, March 21, 2016 20:30 - CONCLUSION: Intact calvarium. Normal intracranial contents. Facial fractures as described on the facial bone CT Gopi Dumont MD Chest CT 03/21/162012 Signed Impressions: Service Date/Time: Monday, March 21, 2016 20:39 - CONCLUSION: Contiguous left posterior rib fractures #2 through 8 with associated pleural thickening and parenchymal contusion. In the mid to upper right chest anteriorly there is a 1.3 cm pneumothorax without tension . Left chest subcutaneous emphysema Fracture of the proximal right humerus and mid left clavicle additionally appreciated. Gopi Dumont MD Cervical Spine CT 03/21/162012 Signed Impressions: Service Date/Time: Monday, March 21, 2016 20:30 - CONCLUSION: Degenerative changes of the cervical spine. Fractures acute left ribs numbered 2 and 3 posteriorly Gopi Dumont MD Abdomen/Pelvis CT 03/21/162012 Signed Impressions: Service Date/Time: Monday, March 21, 2016 20:39 - CONCLUSION: Multiple fractures inclusive of left inferior superior pubic ramus as well as transverse process and left L5 and left sacrum. Lower chest demonstrates fracture of left rib #8 posteriorly and a small anterior pneumothorax. Intra-abdominal and pelvic contents are normal Gopi Dumont MD Narrative Exam GENERAL: 56 year old well-developed male OOB in chair. SKIN: Warm and dry. Surgical incisions healed well. HEAD: Normocephalic. ENT: No nasal bleeding or discharge. Mucous membranes pink and moist. NECK: Trachea midline. No JVD. CARDIOVASCULAR: Regular rate and rhythm. RESPIRATORY: No accessory muscle use. Lungs clear to auscultation. GASTROINTESTINAL: Abdomen soft, non-tender, nondistended. + BS. MUSCULOSKELETAL: Extremities without cyanosis, GANT. RUE sling in place, warm to touch, decreased sensation and mobility to RIGHT hand. RLE with CKS and fracture boot, + sensation. NEUROLOGICAL: Awake and alert. Normal speech. A/P Problem List: (1) Acute blood loss anemia (2) Shock circulatory (3) Chronic pain (4) Facial fracture (5) Closed fracture of right proximal humerus (6) Open right tibial fracture (7) Closed left clavicular fracture (8) Fracture of left tibia and fibula Assessment and Plan INJURIES: Extensive fx of all king of maxillary sinus Depressed fx of LEFT orbit Non-depressed fx of LEFT zygomatic arch LEFT clavicle fx RIGHT proximal humerus LEFT rib fx (2-8 posterior) with contusions Transverse process fx LEFT L5 Multiple fx of LEFT inferior pubic ramus LEFT sacrum fx LEFT tib fib shaft fx RIGHT tib/fib fx RIGHT prox and distal femur fx * S/P I&D RIGHT tibia with wound vac (03/22) Closed reduction of RIGHT femur * S/P ORIF maxillary leforte fx (03/22) Closed reduction of nasal bone fracture * S/P Remove hardware RIGHT femur with IM rhys fixation (03/23) ORIF BILAT tibia with IM rhys fixation * S/P ORIF RIGHT humerus (03/30) Diet: Regular, soft. Tolerating well. No straws per OMFS. Pulm: IS encouraged to use. Pain: Flexeril, Neurontin. [place]. Toradol x5 days. Activity: OOB with assist. (NWB RUE; NWB Bilat LE) PT and OT evaluating. GI: Protonix PO Bowel: Colace. MOM. LBM 05/06 DVT: SCD's. Lovenox. Fungal cream to buttock excoriation BID. Patient encouraged to reposition self in bed. Specialty bed. Continue aggressive PT and OT. Case management consulted for discharge planning. Patient has no insurance and is not a safe discharge home. Can transfer to [facility] when beds available. Plan of care discussed with patient at bedside. Problem Qualifiers (1) Chronic pain: Qualified Code: G89.21 - Chronic pain due to trauma (2) Facial fracture: (3) Closed fracture of right proximal humerus: (4) Open right tibial fracture: (5) Closed left clavicular fracture: Qualified Code: S42.022A - Closed displaced fracture of shaft of left clavicle , initial encounter (6) Fracture of left tibia and fibula: Tim Shepard May 06, 2016 11:38
[2016-05-06 12:00] VITALS: BP 139/82; PULSE 93; RESP 18; TEMP 97.2; O2SAT 99
[2016-05-06 16:00] VITALS: BP 134/78; PULSE 94; RESP 18; TEMP 97.2; O2SAT 96
[2016-05-06 20:00] VITALS: BP 124/81; PULSE 94; RESP 16; TEMP 97.7; O2SAT 98
[2016-05-06] MEDS: MIRTAZAPINE 15 MG TAB PO SCH (20:55)
[2016-05-06] MEDS: MAGNESIUM HYDROXIDE SUSP 30 ML CUP PO SCH (20:56)
[2016-05-07] VITALS: BP_SYST 112; BP_SYST 132; BP_DIAS 74; BP_DIAS 81; PULSE 93; PULSE 95; RESP 18; RESP 24; TEMP 97.2; TEMP 97.3; O2SAT 98
[2016-05-07] MEDS: KETOROLAC TROMETHAMINE 10 MG TAB PO SCH ×3 (00:27→16:11)
[2016-05-07] MEDS: oxyCODONE/ACETAMINOPHEN 5 MG/325 MG TAB PO PRN ×6 (00:59→21:15)
[2016-05-07] MEDS: GABAPENTIN 300 MG CAP PO SCH ×3 (05:03→21:15)
[2016-05-07] MEDS: ENOXAPARIN SODIUM 30 MG/0.3 ML SYRINGE SQ SCH ×2 (05:03→16:10)
[2016-05-07 08:00] VITALS: BP 140/85; PULSE 80; RESP 16; TEMP 97.3; O2SAT 98
[2016-05-07] MEDS: FLUoxetine HCL 10 MG CAP PO SCH (08:56)
[2016-05-07] MEDS: DOCUSATE SODIUM 100 MG CAP PO SCH ×2 (08:56→21:15)
[2016-05-07] MEDS: METOPROLOL TARTRATE 25 MG TAB PO SCH ×2 (08:57→21:15)
[2016-05-07] MEDS: CYCLOBENZAPRINE HCL 10 MG TAB PO PRN ×2 (08:57→17:04)
[2016-05-07] MEDS: CALCIUM/VITAMIN D 250 MG/125 U TAB PO SCH ×3 (08:57→16:10)
[2016-05-07] MEDS: BACITRACIN TOP OINT 15 GM TUBE TOP SCH ×2 (08:58→21:00)
[2016-05-07 11:49] VITALS: BP 120/72; PULSE 81; RESP 20; TEMP 95.8; O2SAT 98
--- NOTE | 2016-05-07 13:31 | HHI.PR ---
Subjective Subjective Notes OOB in chair No complaints Objective Vitals/I&O Vital Signs Date Time Temp Pulse Resp B/P Pulse Ox O2 Delivery O2 Flow Rate FiO2 05/07/16 11:49 95.8 81 20 120/72 98 Radiology Last Impressions Shoulder X-Ray 03/30/16 0000 Signed Impressions: Service Date/Time: Wednesday, March 30, 2016 13:14 - CONCLUSION: Satisfactory postoperative appearance of the proximal right humerus following ORIF. Regulo Stewart MD Chest X-Ray 03/26/16 0600 Signed Impressions: Service Date/Time: Saturday, March 26, 2016 05:52 - CONCLUSION: 1. Persistent medial left lower lung consolidation. 2. No pneumothorax seen. Ugo Kim MD Tibia/Fibula X-Ray 03/23/16 0000 Signed Impressions: Service Date/Time: Wednesday, March 23, 2016 17:44 - CONCLUSION: Anatomic alignment. Ifeanyi Suarez MD FACR Femur X-Ray 03/23/16 0000 Signed Impressions: Service Date/Time: Wednesday, March 23, 2016 14:08 - CONCLUSION: Anatomic alignment. Ifeanyi Suarez MD FACR Lower Extremity CT 03/22/16 0000 Signed Impressions: Service Date/Time: Tuesday, March 22, 2016 10:08 - CONCLUSION: 1. Comminuted fractures involving the distal femur, proximal tibia, and proximal fibula with hemarthrosis as detailed above. Ugo Glez Jr., MD Ankle X-Ray 03/22/16 0000 Signed Impressions: Service Date/Time: Tuesday, March 22, 2016 01:27 - CONCLUSION: 1. Comminuted fractures distal tibia and fibula. Naeem Peterson MD Thoracic Spine CT 03/21/162027 Signed Impressions: Service Date/Time: Monday, March 21, 2016 20:39 - CONCLUSION: Intact thoracic spine. Contiguous left rib fractures #2 through 8 posteriorly Gopi Dumont MD Maxillofacial CT 03/21/162027 Signed Impressions: Service Date/Time: Monday, March 21, 2016 20:36 - CONCLUSION: Extensive fractures of all king of the maxillary sinuses And the nasal bone and ala inclusive of extension into the hard palate. There is a slightly depressed fracture of the medial floor of the left orbit and nondepressed fracture left zygomatic arch. Admixture of air and fluid noted in the maxillary sinuses and ethmoid air cells. Intraorbital contents are normal and base of the skull appears intact with normal intracranial contents Gopi Dumont MD Lumbar Spine CT 03/21/162027 Signed Impressions: Service Date/Time: Monday, March 21, 2016 20:39 - CONCLUSION: Nondisplaced fracture transverse process left L5 and left sacrum. Degenerative disc disease L3-S1. Gopi Dumont MD Pelvis X-Ray 03/21/162012 Signed Impressions: Service Date/Time: Monday, March 21, 2016 19:56 - CONCLUSION: Fracture left sacrum appreciated. Remainder the pelvis is intact with fractures of the pelvis better appreciated on CT scan Gopi Dumont MD Head CT 03/21/162012 Signed Impressions: Service Date/Time: Monday, March 21, 2016 20:30 - CONCLUSION: Intact calvarium. Normal intracranial contents. Facial fractures as described on the facial bone CT Gopi Dumont MD Chest CT 03/21/162012 Signed Impressions: Service Date/Time: Monday, March 21, 2016 20:39 - CONCLUSION: Contiguous left posterior rib fractures #2 through 8 with associated pleural thickening and parenchymal contusion. In the mid to upper right chest anteriorly there is a 1.3 cm pneumothorax without tension . Left chest subcutaneous emphysema Fracture of the proximal right humerus and mid left clavicle additionally appreciated. Gopi Dumont MD Cervical Spine CT 03/21/162012 Signed Impressions: Service Date/Time: Monday, March 21, 2016 20:30 - CONCLUSION: Degenerative changes of the cervical spine. Fractures acute left ribs numbered 2 and 3 posteriorly Gopi Dumont MD Abdomen/Pelvis CT 03/21/162012 Signed Impressions: Service Date/Time: Monday, March 21, 2016 20:39 - CONCLUSION: Multiple fractures inclusive of left inferior superior pubic ramus as well as transverse process and left L5 and left sacrum. Lower chest demonstrates fracture of left rib #8 posteriorly and a small anterior pneumothorax. Intra-abdominal and pelvic contents are normal Gopi Dumont MD Narrative Exam GENERAL: 56 year old well-developed male OOB in chair. SKIN: Warm and dry. HEAD: Normocephalic. ENT: No nasal bleeding or discharge. Mucous membranes pink and moist. NECK: Trachea midline. No JVD. CARDIOVASCULAR: Regular rate and rhythm. RESPIRATORY: No accessory muscle use. Lungs clear to auscultation. GASTROINTESTINAL: Abdomen soft, non-tender, nondistended. + BS. MUSCULOSKELETAL: Extremities without cyanosis, GANT. RUE sling in place, warm to touch, decreased sensation and mobility to RIGHT hand. RLE with CKS and fracture boot, + sensation. NEUROLOGICAL: Awake and alert. Normal speech. A/P Problem List: (1) Acute blood loss anemia (2) Shock circulatory (3) Chronic pain (4) Facial fracture (5) Closed fracture of right proximal humerus (6) Open right tibial fracture (7) Closed left clavicular fracture (8) Fracture of left tibia and fibula Assessment and Plan INJURIES: Extensive fx of all king of maxillary sinus Depressed fx of LEFT orbit Non-depressed fx of LEFT zygomatic arch LEFT clavicle fx RIGHT proximal humerus LEFT rib fx (2-8 posterior) with contusions Transverse process fx LEFT L5 Multiple fx of LEFT inferior pubic ramus LEFT sacrum fx LEFT tib fib shaft fx RIGHT tib/fib fx RIGHT prox and distal femur fx * S/P I&D RIGHT tibia with wound vac (03/22) Closed reduction of RIGHT femur * S/P ORIF maxillary leforte fx (03/22) Closed reduction of nasal bone fracture * S/P Remove hardware RIGHT femur with IM rhys fixation (03/23) ORIF BILAT tibia with IM rhys fixation * S/P ORIF RIGHT humerus (03/30) Diet: Regular, soft. Tolerating well. No straws per OMFS. Pulm: IS encouraged to use. Pain: Flexeril, Neurontin. [place]. Toradol x5 days. Activity: OOB with assist. (NWB RUE; NWB Bilat LE) PT and OT evaluating. GI: Protonix PO Bowel: Colace. MOM. LBM 05/06 DVT: SCD's. Lovenox. Fungal cream to buttock excoriation BID. Patient encouraged to reposition self in bed. Specialty bed. Continue aggressive PT and OT. Case management consulted for discharge planning. Patient has no payer source for rehabilitation placement and is not a safe discharge home. Can transfer to [facility] when bed available. Plan of care discussed with patient at bedside. Attending Statement The exam, history, and the medical decision-making described in the above note were completed with the assistance of the mid-level provider. I reviewed and agree with the findings presented. I attest that I had a [id number] encounter with the patient on the same day, and personally performed and documented my assessment and findings in the medical record. Problem Qualifiers (1) Chronic pain: Qualified Code: G89.21 - Chronic pain due to trauma (2) Facial fracture: (3) Closed fracture of right proximal humerus: (4) Open right tibial fracture: (5) Closed left clavicular fracture: Qualified Code: S42.022A - Closed displaced fracture of shaft of left clavicle , initial encounter (6) Fracture of left tibia and fibula: Tim Shepard May 07, 2016 13:31 Karen Nettles MD May 09, 2016 02:11
[2016-05-07 16:00] VITALS: BP 136/85; PULSE 85; RESP 20; TEMP 96.7; O2SAT 98
[2016-05-07 19:57] VITALS: BP 134/75; PULSE 97; RESP 24; TEMP 97.4; O2SAT 98
[2016-05-07] MEDS: MAGNESIUM HYDROXIDE SUSP 30 ML CUP PO SCH (21:00)
[2016-05-07] MEDS: MIRTAZAPINE 15 MG TAB PO SCH (21:15)
[2016-05-08] VITALS: BP 112/74; PULSE 95; RESP 26; TEMP 97.2; O2SAT 98
[2016-05-08] MEDS: KETOROLAC TROMETHAMINE 10 MG TAB PO SCH ×4 (00:24→23:57)
[2016-05-08] MEDS: oxyCODONE/ACETAMINOPHEN 5 MG/325 MG TAB PO PRN ×6 (00:58→22:39)
[2016-05-08] MEDS: CYCLOBENZAPRINE HCL 10 MG TAB PO PRN ×3 (00:58→20:23)
[2016-05-08] MEDS: GABAPENTIN 300 MG CAP PO SCH ×3 (05:17→22:39)
[2016-05-08] MEDS: ENOXAPARIN SODIUM 30 MG/0.3 ML SYRINGE SQ SCH ×2 (05:17→16:37)
[2016-05-08 07:21] VITALS: BP 126/79; PULSE 86; RESP 16; TEMP 96; O2SAT 97
[2016-05-08] MEDS ORDERED: LACTULOSE SYRUP 20 GM/30 ML CUP PO ONE (08:30)
[2016-05-08] MEDS: BACITRACIN TOP OINT 15 GM TUBE TOP SCH ×2 (09:00→20:23)
[2016-05-08] MEDS: METOPROLOL TARTRATE 25 MG TAB PO SCH ×2 (09:31→20:22)
[2016-05-08] MEDS: DOCUSATE SODIUM 100 MG CAP PO SCH ×2 (09:32→20:22)
[2016-05-08] MEDS: CALCIUM/VITAMIN D 250 MG/125 U TAB PO SCH ×3 (09:32→16:37)
[2016-05-08] MEDS: FLUoxetine HCL 10 MG CAP PO SCH (09:32)
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
[2016-05-08 11:29] VITALS: BP 128/81; PULSE 76; RESP 16; TEMP 96.6; O2SAT 96
[2016-05-08 15:21] VITALS: BP 126/84; PULSE 93; RESP 16; TEMP 96.4; O2SAT 97
[2016-05-08 20:00] VITALS: BP 130/86; PULSE 93; RESP 20; TEMP 96.8; O2SAT 96
[2016-05-08] MEDS: MIRTAZAPINE 15 MG TAB PO SCH (20:23)
[2016-05-08] MEDS: MAGNESIUM HYDROXIDE SUSP 30 ML CUP PO SCH (20:23)
[2016-05-09] VITALS: BP 108/77; PULSE 82; RESP 18; TEMP 98.1; O2SAT 96
[2016-05-09] MEDS: oxyCODONE/ACETAMINOPHEN 5 MG/325 MG TAB PO PRN ×5 (02:29→21:29)
[2016-05-09] MEDS: GABAPENTIN 300 MG CAP PO SCH ×3 (04:57→21:29)
[2016-05-09] MEDS: ENOXAPARIN SODIUM 30 MG/0.3 ML SYRINGE SQ SCH ×2 (04:57→17:13)
[2016-05-09] MEDS: CYCLOBENZAPRINE HCL 10 MG TAB PO PRN ×2 (04:57→21:29)
[2016-05-09 07:07] VITALS: BP 122/69; PULSE 93; RESP 17; TEMP 96.4; O2SAT 98
[2016-05-09] MEDS: CALCIUM/VITAMIN D 250 MG/125 U TAB PO SCH ×3 (08:03→17:13)
[2016-05-09] MEDS: KETOROLAC TROMETHAMINE 10 MG TAB PO SCH (08:04)
[2016-05-09] MEDS: DOCUSATE SODIUM 100 MG CAP PO SCH ×2 (08:04→21:29)
[2016-05-09] MEDS: METOPROLOL TARTRATE 25 MG TAB PO SCH ×2 (08:04→21:00)
[2016-05-09] MEDS: FLUoxetine HCL 10 MG CAP PO SCH (08:04)
[2016-05-09] MEDS: BACITRACIN TOP OINT 15 GM TUBE TOP SCH ×2 (08:13→21:00)
[2016-05-09] MEDS ORDERED: BISACODYL 10 MG SUPP RECTAL ONE (08:45)
[2016-05-09] MEDS ORDERED: BISACODYL EC 5 MG TABEC PO ONE (08:45)
[2016-05-09 11:32] VITALS: BP 119/74; PULSE 78; RESP 17; TEMP 96.2; O2SAT 98
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
[2016-05-09 15:45] VITALS: BP 138/85; PULSE 82; RESP 17; TEMP 96.6; O2SAT 96
[2016-05-09 20:00] VITALS: BP 121/79; PULSE 106; RESP 18; TEMP 98.1; O2SAT 97
[2016-05-09] MEDS: MAGNESIUM HYDROXIDE SUSP 30 ML CUP PO SCH (21:00)
[2016-05-09] MEDS: MIRTAZAPINE 15 MG TAB PO SCH (21:28)
[2016-05-10] VITALS: BP 130/84; PULSE 90; RESP 16; TEMP 97.8; O2SAT 95
[2016-05-10] MEDS: oxyCODONE/ACETAMINOPHEN 5 MG/325 MG TAB PO PRN ×5 (02:56→21:28)
[2016-05-10] MEDS: ENOXAPARIN SODIUM 30 MG/0.3 ML SYRINGE SQ SCH ×2 (05:12→14:58)
[2016-05-10] MEDS: GABAPENTIN 300 MG CAP PO SCH ×3 (05:12→21:28)
[2016-05-10 07:36] LABS: HEMATOCRIT 34.8 % (39.0-51.0); MEAN CELL VOLUME 83.2 FL (80.0-100.0); MEAN CORPUSCULAR HEMOGLOBIN 27.8 PG (27.0-34.0); MEAN CORPUSCULAR HGB CONC 33.4 % (32.0-36.0); PLATELET COUNT 525 TH/MM3 (150-450); RED BLOOD COUNT 4.19 MIL/MM3 (4.50-5.90); RED CELL DISTRIBUTION WIDTH 15.7 % (11.6-17.2); REVIEW FLAG FINAL
[2016-05-10 08:00] VITALS: BP 131/78; PULSE 97; RESP 20; TEMP 96.7; O2SAT 98
[2016-05-10 08:06] LABS: BICARBONATE 27.1 MEQ/L (21.0-32.0); MAGNESIUM 1.8 MG/DL (1.5-2.5); POTASSIUM 3.6 MEQ/L (3.5-5.1)
[2016-05-10] MEDS: DOCUSATE SODIUM 100 MG CAP PO SCH ×2 (09:25→21:28)
[2016-05-10] MEDS: CALCIUM/VITAMIN D 250 MG/125 U TAB PO SCH ×3 (09:25→17:01)
[2016-05-10] MEDS: METOPROLOL TARTRATE 25 MG TAB PO SCH ×2 (09:25→21:28)
[2016-05-10] MEDS: FLUoxetine HCL 10 MG CAP PO SCH (09:25)
[2016-05-10] MEDS: CYCLOBENZAPRINE HCL 10 MG TAB PO PRN ×2 (09:25→17:01)
[2016-05-10] MEDS: BACITRACIN TOP OINT 15 GM TUBE TOP SCH ×2 (09:26→21:00)
[2016-05-10 12:00] VITALS: BP 137/79; PULSE 88; RESP 18; TEMP 97.3; O2SAT 98
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
[2016-05-10 16:00] VITALS: BP 142/80; PULSE 96; RESP 20; TEMP 96.3; O2SAT 98
[2016-05-10 20:00] VITALS: BP 125/72; PULSE 101; RESP 17; TEMP 97.3; O2SAT 96
[2016-05-10] MEDS: MAGNESIUM HYDROXIDE SUSP 30 ML CUP PO SCH (21:00)
[2016-05-11] MEDS: CYCLOBENZAPRINE HCL 10 MG TAB PO PRN ×3 (01:30→18:19)
[2016-05-11] MEDS: MIRTAZAPINE 15 MG TAB PO SCH ×2 (01:30→21:50)
[2016-05-11] MEDS: oxyCODONE/ACETAMINOPHEN 5 MG/325 MG TAB PO PRN ×6 (01:31→22:29)
[2016-05-11] MEDS: ENOXAPARIN SODIUM 30 MG/0.3 ML SYRINGE SQ SCH ×2 (03:58→14:58)
[2016-05-11] MEDS: GABAPENTIN 300 MG CAP PO SCH ×3 (06:29→22:29)
[2016-05-11] MEDS: CALCIUM/VITAMIN D 250 MG/125 U TAB PO SCH ×3 (08:35→18:19)
[2016-05-11] MEDS: METOPROLOL TARTRATE 25 MG TAB PO SCH ×2 (08:35→21:48)
[2016-05-11] MEDS: DOCUSATE SODIUM 100 MG CAP PO SCH ×2 (08:35→21:48)
[2016-05-11] MEDS: FLUoxetine HCL 10 MG CAP PO SCH (08:35)
[2016-05-11] MEDS: BACITRACIN TOP OINT 15 GM TUBE TOP SCH ×2 (08:36→21:50)
[2016-05-11 09:10] VITALS: BP 130/83; PULSE 88; RESP 18; TEMP 96.2; O2SAT 97
[2016-05-11 12:08] VITALS: BP 134/76; PULSE 86; RESP 18; TEMP 97; O2SAT 96
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
[2016-05-11 16:15] VITALS: BP 122/79; PULSE 83; RESP 16; TEMP 97; O2SAT 98
[2016-05-11 20:26] VITALS: BP 125/73; PULSE 95; RESP 17; TEMP 96.8; O2SAT 98
[2016-05-11] MEDS: MAGNESIUM HYDROXIDE SUSP 30 ML CUP PO SCH (21:00)
[2016-05-12 00:30] VITALS: BP 121/69; PULSE 78; RESP 16; TEMP 96.9; O2SAT 97
[2016-05-12] MEDS: ENOXAPARIN SODIUM 30 MG/0.3 ML SYRINGE SQ SCH ×2 (04:05→17:43)
[2016-05-12] MEDS: CYCLOBENZAPRINE HCL 10 MG TAB PO PRN ×3 (04:06→23:17)
[2016-05-12] MEDS: oxyCODONE/ACETAMINOPHEN 5 MG/325 MG TAB PO PRN ×5 (04:07→23:17)
[2016-05-12] MEDS: GABAPENTIN 300 MG CAP PO SCH (05:47)
[2016-05-12 08:03] VITALS: BP 139/76; PULSE 94; RESP 16; TEMP 96.2; O2SAT 98
[2016-05-12] MEDS: FLUoxetine HCL 10 MG CAP PO SCH (09:11)
[2016-05-12] MEDS: DOCUSATE SODIUM 100 MG CAP PO SCH ×2 (09:11→20:33)
[2016-05-12] MEDS: CALCIUM/VITAMIN D 250 MG/125 U TAB PO SCH ×3 (09:11→17:48)
[2016-05-12] MEDS: METOPROLOL TARTRATE 25 MG TAB PO SCH ×2 (09:11→20:33)
[2016-05-12] MEDS: BACITRACIN TOP OINT 15 GM TUBE TOP SCH ×2 (09:16→20:38)
[2016-05-12 12:08] VITALS: BP 130/79; PULSE 77; RESP 16; TEMP 97.6; O2SAT 99
[2016-05-12] MEDS: PREGABALIN 75 MG CAP PO SCH ×2 (12:33→20:33)
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
[2016-05-12 20:13] VITALS: BP 142/79; PULSE 117; RESP 17; TEMP 98.8; O2SAT 98
[2016-05-12] MEDS: MAGNESIUM HYDROXIDE SUSP 30 ML CUP PO SCH (20:34)
[2016-05-12] MEDS: MIRTAZAPINE 15 MG TAB PO SCH (20:38)
[2016-05-13 00:30] VITALS: BP 118/75; PULSE 87; RESP 16; TEMP 97.3; O2SAT 97
[2016-05-13] MEDS: ENOXAPARIN SODIUM 30 MG/0.3 ML SYRINGE SQ SCH ×2 (03:42→16:21)
[2016-05-13] MEDS: oxyCODONE/ACETAMINOPHEN 5 MG/325 MG TAB PO PRN ×5 (03:42→21:38)
[2016-05-13 07:37] VITALS: BP 123/86; PULSE 97; RESP 16; TEMP 96.2; O2SAT 98
[2016-05-13] MEDS: DOCUSATE SODIUM 100 MG CAP PO SCH ×2 (08:15→21:38)
[2016-05-13] MEDS: CALCIUM/VITAMIN D 250 MG/125 U TAB PO SCH ×3 (08:15→16:21)
[2016-05-13] MEDS: FLUoxetine HCL 10 MG CAP PO SCH (08:15)
[2016-05-13] MEDS: PREGABALIN 75 MG CAP PO SCH ×2 (08:15→21:38)
[2016-05-13] MEDS: METOPROLOL TARTRATE 25 MG TAB PO SCH ×2 (08:17→21:38)
[2016-05-13] MEDS: BACITRACIN TOP OINT 15 GM TUBE TOP SCH ×2 (08:22→21:39)
[2016-05-13 11:37] VITALS: BP 130/78; PULSE 85; RESP 16; TEMP 96; O2SAT 97
--- NOTE | 2016-05-13 11:50 | HHI.PR ---
Subjective Subjective Notes Complains of LEFT clavicle pain with activity. Objective Vitals/I&O Vital Signs Date Time Temp Pulse Resp B/P Pulse Ox O2 Delivery O2 Flow Rate FiO2 05/13/16 07:37 96.2 97 16 123/86 98 Radiology Last Impressions Shoulder X-Ray 03/30/16 0000 Signed Impressions: Service Date/Time: Wednesday, March 30, 2016 13:14 - CONCLUSION: Satisfactory postoperative appearance of the proximal right humerus following ORIF. Regulo Stewart MD Chest X-Ray 03/26/16 0600 Signed Impressions: Service Date/Time: Saturday, March 26, 2016 05:52 - CONCLUSION: 1. Persistent medial left lower lung consolidation. 2. No pneumothorax seen. Ugo Kim MD Tibia/Fibula X-Ray 03/23/16 0000 Signed Impressions: Service Date/Time: Wednesday, March 23, 2016 17:44 - CONCLUSION: Anatomic alignment. Ifeanyi Suarez MD FACR Femur X-Ray 03/23/16 0000 Signed Impressions: Service Date/Time: Wednesday, March 23, 2016 14:08 - CONCLUSION: Anatomic alignment. Ifeanyi Suarez MD FACR Lower Extremity CT 03/22/16 0000 Signed Impressions: Service Date/Time: Tuesday, March 22, 2016 10:08 - CONCLUSION: 1. Comminuted fractures involving the distal femur, proximal tibia, and proximal fibula with hemarthrosis as detailed above. Ugo Glez Jr., MD Ankle X-Ray 03/22/16 0000 Signed Impressions: Service Date/Time: Tuesday, March 22, 2016 01:27 - CONCLUSION: 1. Comminuted fractures distal tibia and fibula. Naeem Peterson MD Thoracic Spine CT 03/21/162027 Signed Impressions: Service Date/Time: Monday, March 21, 2016 20:39 - CONCLUSION: Intact thoracic spine. Contiguous left rib fractures #2 through 8 posteriorly Gopi Dumont MD Maxillofacial CT 03/21/162027 Signed Impressions: Service Date/Time: Monday, March 21, 2016 20:36 - CONCLUSION: Extensive fractures of all king of the maxillary sinuses And the nasal bone and ala inclusive of extension into the hard palate. There is a slightly depressed fracture of the medial floor of the left orbit and nondepressed fracture left zygomatic arch. Admixture of air and fluid noted in the maxillary sinuses and ethmoid air cells. Intraorbital contents are normal and base of the skull appears intact with normal intracranial contents Gopi Dumont MD Lumbar Spine CT 03/21/162027 Signed Impressions: Service Date/Time: Monday, March 21, 2016 20:39 - CONCLUSION: Nondisplaced fracture transverse process left L5 and left sacrum. Degenerative disc disease L3-S1. Gopi Dumont MD Pelvis X-Ray 03/21/162012 Signed Impressions: Service Date/Time: Monday, March 21, 2016 19:56 - CONCLUSION: Fracture left sacrum appreciated. Remainder the pelvis is intact with fractures of the pelvis better appreciated on CT scan Gopi Dumont MD Head CT 03/21/162012 Signed Impressions: Service Date/Time: Monday, March 21, 2016 20:30 - CONCLUSION: Intact calvarium. Normal intracranial contents. Facial fractures as described on the facial bone CT Gopi Dumont MD Chest CT 03/21/162012 Signed Impressions: Service Date/Time: Monday, March 21, 2016 20:39 - CONCLUSION: Contiguous left posterior rib fractures #2 through 8 with associated pleural thickening and parenchymal contusion. In the mid to upper right chest anteriorly there is a 1.3 cm pneumothorax without tension . Left chest subcutaneous emphysema Fracture of the proximal right humerus and mid left clavicle additionally appreciated. Gopi Dumont MD Cervical Spine CT 03/21/162012 Signed Impressions: Service Date/Time: Monday, March 21, 2016 20:30 - CONCLUSION: Degenerative changes of the cervical spine. Fractures acute left ribs numbered 2 and 3 posteriorly Gopi Dumont MD Abdomen/Pelvis CT 03/21/162012 Signed Impressions: Service Date/Time: Monday, March 21, 2016 20:39 - CONCLUSION: Multiple fractures inclusive of left inferior superior pubic ramus as well as transverse process and left L5 and left sacrum. Lower chest demonstrates fracture of left rib #8 posteriorly and a small anterior pneumothorax. Intra-abdominal and pelvic contents are normal Gopi Dumont MD Narrative Exam GENERAL: 56 year old well-developed male lying in bed. SKIN: Warm and dry. HEAD: Normocephalic. ENT: No nasal bleeding or discharge. Mucous membranes pink and moist. NECK: Trachea midline. No JVD. CARDIOVASCULAR: Regular rate and rhythm. RESPIRATORY: No accessory muscle use. Lungs clear to auscultation. GASTROINTESTINAL: Abdomen soft, non-tender, nondistended. + BS. MUSCULOSKELETAL: Extremities without cyanosis, GANT. RUE sling in place, warm to touch, decreased sensation and mobility to RIGHT hand. RLE with CKS and fracture boot, + sensation. NEUROLOGICAL: Awake and alert. Normal speech. A/P Problem List: (1) Acute blood loss anemia (2) Shock circulatory (3) Chronic pain (4) Facial fracture (5) Closed fracture of right proximal humerus (6) Open right tibial fracture (7) Closed left clavicular fracture (8) Fracture of left tibia and fibula Assessment and Plan INJURIES: Extensive fx of all king of maxillary sinus Depressed fx of LEFT orbit Non-depressed fx of LEFT zygomatic arch LEFT clavicle fx RIGHT proximal humerus LEFT rib fx (2-8 posterior) with contusions Transverse process fx LEFT L5 Multiple fx of LEFT inferior pubic ramus LEFT sacrum fx LEFT tib fib shaft fx RIGHT tib/fib fx RIGHT prox and distal femur fx * S/P I&D RIGHT tibia with wound vac (03/22) Closed reduction of RIGHT femur * S/P ORIF maxillary leforte fx (03/22) Closed reduction of nasal bone fracture * S/P Remove hardware RIGHT femur with IM rhys fixation (03/23) ORIF BILAT tibia with IM rhys fixation * S/P ORIF RIGHT humerus (03/30) Diet: Regular, soft. Tolerating well. No straws per OMFS. Pulm: IS encouraged to use. Pain: Flexeril, Neurontin. [place]. Toradol x5 days. Activity: OOB with assist. (NWB RUE; NWB Bilat LE) PT and OT evaluating. GI: Protonix PO Bowel: Colace. MOM. LBM / DVT: SCD's. Lovenox. Fungal cream to buttock excoriation BID. Patient encouraged to reposition self in bed. Specialty bed. Continue aggressive PT and OT. Case management consulted for discharge planning. Patient has no payer source for rehabilitation placement and is not a safe discharge home. Transfer to [facility] placed, awaiting bed. Will transfer care to [facility] when bed available. Plan of care discussed with patient at bedside. Problem Qualifiers (1) Chronic pain: Qualified Code: G89.21 - Chronic pain due to trauma (2) Facial fracture: (3) Closed fracture of right proximal humerus: (4) Open right tibial fracture: (5) Closed left clavicular fracture: Qualified Code: S42.022A - Closed displaced fracture of shaft of left clavicle , initial encounter (6) Fracture of left tibia and fibula: Tim Shepard May 13, 2016 11:50
[2016-05-13 15:25] VITALS: BP 128/78; PULSE 87; RESP 16; TEMP 96.4; O2SAT 98
[2016-05-13 20:00] VITALS: BP 113/65; PULSE 98; RESP 16; TEMP 97; O2SAT 95
[2016-05-13] MEDS: MAGNESIUM HYDROXIDE SUSP 30 ML CUP PO SCH (21:00)
[2016-05-13] MEDS: MIRTAZAPINE 15 MG TAB PO SCH (21:38)
[2016-05-13] MEDS: CYCLOBENZAPRINE HCL 10 MG TAB PO PRN (21:38)
[2016-05-14] VITALS: BP 113/65; PULSE 98; RESP 16; TEMP 97; O2SAT 95
[2016-05-14] MEDS: oxyCODONE/ACETAMINOPHEN 5 MG/325 MG TAB PO PRN ×5 (01:55→20:34)
[2016-05-14] MEDS: ENOXAPARIN SODIUM 30 MG/0.3 ML SYRINGE SQ SCH ×2 (03:53→16:00)
[2016-05-14 07:56] VITALS: BP 144/84; PULSE 90; RESP 18; TEMP 96; O2SAT 98
[2016-05-14] MEDS: METOPROLOL TARTRATE 25 MG TAB PO SCH ×2 (09:09→20:34)
[2016-05-14] MEDS: CALCIUM/VITAMIN D 250 MG/125 U TAB PO SCH ×2 (09:09→16:08)
[2016-05-14] MEDS: PREGABALIN 75 MG CAP PO SCH ×2 (09:09→20:34)
[2016-05-14] MEDS: DOCUSATE SODIUM 100 MG CAP PO SCH ×2 (09:09→20:34)
[2016-05-14] MEDS: FLUoxetine HCL 10 MG CAP PO SCH (09:09)
[2016-05-14] MEDS: BACITRACIN TOP OINT 15 GM TUBE TOP SCH ×2 (09:09→20:35)
[2016-05-14 12:06] VITALS: BP 129/76; PULSE 70; RESP 16; TEMP 97.2; O2SAT 98
--- NOTE | 2016-05-14 12:29 | HHI.PR ---
Subjective Subjective Notes No new complaints Objective Vitals/I&O Vital Signs Date Time Temp Pulse Resp B/P Pulse Ox O2 Delivery O2 Flow Rate FiO2 05/14/16 07:56 96.0 90 18 144/84 98 Radiology Last Impressions Shoulder X-Ray 03/30/16 0000 Signed Impressions: Service Date/Time: Wednesday, March 30, 2016 13:14 - CONCLUSION: Satisfactory postoperative appearance of the proximal right humerus following ORIF. Regulo Stewart MD Chest X-Ray 03/26/16 0600 Signed Impressions: Service Date/Time: Saturday, March 26, 2016 05:52 - CONCLUSION: 1. Persistent medial left lower lung consolidation. 2. No pneumothorax seen. Ugo Kim MD Tibia/Fibula X-Ray 03/23/16 0000 Signed Impressions: Service Date/Time: Wednesday, March 23, 2016 17:44 - CONCLUSION: Anatomic alignment. Ifeanyi Suarez MD FACR Femur X-Ray 03/23/16 0000 Signed Impressions: Service Date/Time: Wednesday, March 23, 2016 14:08 - CONCLUSION: Anatomic alignment. Ifeanyi Suarez MD FACR Lower Extremity CT 03/22/16 0000 Signed Impressions: Service Date/Time: Tuesday, March 22, 2016 10:08 - CONCLUSION: 1. Comminuted fractures involving the distal femur, proximal tibia, and proximal fibula with hemarthrosis as detailed above. Ugo Glez Jr., MD Ankle X-Ray 03/22/16 0000 Signed Impressions: Service Date/Time: Tuesday, March 22, 2016 01:27 - CONCLUSION: 1. Comminuted fractures distal tibia and fibula. Naeem Peterson MD Thoracic Spine CT 03/21/162027 Signed Impressions: Service Date/Time: Monday, March 21, 2016 20:39 - CONCLUSION: Intact thoracic spine. Contiguous left rib fractures #2 through 8 posteriorly Gopi Dumont MD Maxillofacial CT 03/21/162027 Signed Impressions: Service Date/Time: Monday, March 21, 2016 20:36 - CONCLUSION: Extensive fractures of all king of the maxillary sinuses And the nasal bone and ala inclusive of extension into the hard palate. There is a slightly depressed fracture of the medial floor of the left orbit and nondepressed fracture left zygomatic arch. Admixture of air and fluid noted in the maxillary sinuses and ethmoid air cells. Intraorbital contents are normal and base of the skull appears intact with normal intracranial contents Gopi Dumont MD Lumbar Spine CT 03/21/162027 Signed Impressions: Service Date/Time: Monday, March 21, 2016 20:39 - CONCLUSION: Nondisplaced fracture transverse process left L5 and left sacrum. Degenerative disc disease L3-S1. Gopi Dumont MD Pelvis X-Ray 03/21/162012 Signed Impressions: Service Date/Time: Monday, March 21, 2016 19:56 - CONCLUSION: Fracture left sacrum appreciated. Remainder the pelvis is intact with fractures of the pelvis better appreciated on CT scan Gopi Dumont MD Head CT 03/21/162012 Signed Impressions: Service Date/Time: Monday, March 21, 2016 20:30 - CONCLUSION: Intact calvarium. Normal intracranial contents. Facial fractures as described on the facial bone CT Gopi Dumont MD Chest CT 03/21/162012 Signed Impressions: Service Date/Time: Monday, March 21, 2016 20:39 - CONCLUSION: Contiguous left posterior rib fractures #2 through 8 with associated pleural thickening and parenchymal contusion. In the mid to upper right chest anteriorly there is a 1.3 cm pneumothorax without tension . Left chest subcutaneous emphysema Fracture of the proximal right humerus and mid left clavicle additionally appreciated. Gopi Dumont MD Cervical Spine CT 03/21/162012 Signed Impressions: Service Date/Time: Monday, March 21, 2016 20:30 - CONCLUSION: Degenerative changes of the cervical spine. Fractures acute left ribs numbered 2 and 3 posteriorly Gopi Dumont MD Abdomen/Pelvis CT 03/21/162012 Signed Impressions: Service Date/Time: Monday, March 21, 2016 20:39 - CONCLUSION: Multiple fractures inclusive of left inferior superior pubic ramus as well as transverse process and left L5 and left sacrum. Lower chest demonstrates fracture of left rib #8 posteriorly and a small anterior pneumothorax. Intra-abdominal and pelvic contents are normal Gopi Dumont MD Narrative Exam GENERAL: 56 year old well-developed male lying in bed. SKIN: Warm and dry. HEAD: Normocephalic. ENT: No nasal bleeding or discharge. Mucous membranes pink and moist. NECK: Trachea midline. No JVD. CARDIOVASCULAR: Regular rate and rhythm. RESPIRATORY: No accessory muscle use. Lungs clear to auscultation. GASTROINTESTINAL: Abdomen soft, non-tender, nondistended. + BS. MUSCULOSKELETAL: Extremities without cyanosis, GANT. RUE sling in place, warm to touch, decreased sensation and mobility to RIGHT hand. RLE with CKS and fracture boot, + sensation. NEUROLOGICAL: Awake and alert. Normal speech. A/P Problem List: (1) Acute blood loss anemia (2) Shock circulatory (3) Chronic pain (4) Facial fracture (5) Closed fracture of right proximal humerus (6) Open right tibial fracture (7) Closed left clavicular fracture (8) Fracture of left tibia and fibula Assessment and Plan INJURIES: Extensive fx of all king of maxillary sinus Depressed fx of LEFT orbit Non-depressed fx of LEFT zygomatic arch LEFT clavicle fx RIGHT proximal humerus LEFT rib fx (2-8 posterior) with contusions Transverse process fx LEFT L5 Multiple fx of LEFT inferior pubic ramus LEFT sacrum fx LEFT tib fib shaft fx RIGHT tib/fib fx RIGHT prox and distal femur fx * S/P I&D RIGHT tibia with wound vac (03/22) Closed reduction of RIGHT femur * S/P ORIF maxillary leforte fx (03/22) Closed reduction of nasal bone fracture * S/P Remove hardware RIGHT femur with IM rhys fixation (03/23) ORIF BILAT tibia with IM rhys fixation * S/P ORIF RIGHT humerus (03/30) Diet: Regular, soft. Tolerating well. No straws per OMFS. Pulm: IS encouraged to use. Pain: Flexeril, Lyrica, Percocet. Pain controlled. Activity: OOB with assist. (NWB RUE; NWB Bilat LE) PT and OT evaluating. GI: Protonix PO Bowel: Colace. MOM. LBM 05/12 DVT: SCD's. Lovenox. Fungal cream to buttock excoriation BID. Patient encouraged to reposition self in bed. Specialty bed. Continue aggressive PT and OT. Case management consulted for discharge planning. Patient has no payer source for rehabilitation placement and is not a safe discharge home. Transfer to [facility] placed 05/08, awaiting bed. Will transfer care to [facility] when bed available. Plan of care discussed with patient at bedside. Problem Qualifiers (1) Chronic pain: Qualified Code: G89.21 - Chronic pain due to trauma (2) Facial fracture: (3) Closed fracture of right proximal humerus: (4) Open right tibial fracture: (5) Closed left clavicular fracture: Qualified Code: S42.022A - Closed displaced fracture of shaft of left clavicle , initial encounter (6) Fracture of left tibia and fibula: Tim Shepard May 14, 2016 12:29
[2016-05-14 16:32] VITALS: BP 138/80; PULSE 89; RESP 16; TEMP 97.2; O2SAT 97
[2016-05-14] MEDS: CYCLOBENZAPRINE HCL 10 MG TAB PO PRN (17:36)
[2016-05-14 20:00] VITALS: BP 133/74; PULSE 97; RESP 20; TEMP 97.6; O2SAT 97
[2016-05-14] MEDS: MAGNESIUM HYDROXIDE SUSP 30 ML CUP PO SCH (20:35)
[2016-05-15] VITALS: BP 118/74; PULSE 93; RESP 16; TEMP 97.5; O2SAT 96
[2016-05-15] MEDS: CYCLOBENZAPRINE HCL 10 MG TAB PO PRN ×3 (00:46→15:36)
[2016-05-15] MEDS: MIRTAZAPINE 15 MG TAB PO SCH (00:47)
[2016-05-15] MEDS: oxyCODONE/ACETAMINOPHEN 5 MG/325 MG TAB PO PRN ×5 (00:47→20:28)
[2016-05-15] MEDS: ENOXAPARIN SODIUM 30 MG/0.3 ML SYRINGE SQ SCH ×2 (03:52→15:36)
[2016-05-15] MEDS: DOCUSATE SODIUM 100 MG CAP PO SCH ×2 (07:49→20:28)
[2016-05-15] MEDS: PREGABALIN 75 MG CAP PO SCH ×2 (07:49→20:28)
[2016-05-15] MEDS: CALCIUM/VITAMIN D 250 MG/125 U TAB PO SCH ×3 (07:49→15:36)
[2016-05-15] MEDS: FLUoxetine HCL 10 MG CAP PO SCH (07:49)
[2016-05-15] MEDS: METOPROLOL TARTRATE 25 MG TAB PO SCH ×2 (07:49→20:28)
[2016-05-15] MEDS: MAGNESIUM HYDROXIDE SUSP 30 ML CUP PO SCH ×2 (07:49→20:28)
[2016-05-15 07:50] VITALS: BP 139/76; PULSE 93; RESP 16; TEMP 97.6; O2SAT 97
[2016-05-15] MEDS: BACITRACIN TOP OINT 15 GM TUBE TOP SCH ×2 (07:52→20:27)
--- NOTE | 2016-05-15 11:27 | HHI.PR ---
Subjective Subjective Notes Awaiting bed at [facility] for continuation of care Objective Vitals/I&O Vital Signs Date Time Temp Pulse Resp B/P Pulse Ox O2 Delivery O2 Flow Rate FiO2 05/15/16 07:50 97.6 93 16 139/76 97 Radiology Last Impressions Shoulder X-Ray 03/30/16 0000 Signed Impressions: Service Date/Time: Wednesday, March 30, 2016 13:14 - CONCLUSION: Satisfactory postoperative appearance of the proximal right humerus following ORIF. Regulo Stewart MD Chest X-Ray 03/26/16 0600 Signed Impressions: Service Date/Time: Saturday, March 26, 2016 05:52 - CONCLUSION: 1. Persistent medial left lower lung consolidation. 2. No pneumothorax seen. Ugo Kim MD Tibia/Fibula X-Ray 03/23/16 0000 Signed Impressions: Service Date/Time: Wednesday, March 23, 2016 17:44 - CONCLUSION: Anatomic alignment. Ifeanyi Suarez MD FACR Femur X-Ray 03/23/16 0000 Signed Impressions: Service Date/Time: Wednesday, March 23, 2016 14:08 - CONCLUSION: Anatomic alignment. Ifeanyi Suarez MD FACR Lower Extremity CT 03/22/16 0000 Signed Impressions: Service Date/Time: Tuesday, March 22, 2016 10:08 - CONCLUSION: 1. Comminuted fractures involving the distal femur, proximal tibia, and proximal fibula with hemarthrosis as detailed above. Ugo Glez Jr., MD Ankle X-Ray 03/22/16 0000 Signed Impressions: Service Date/Time: Tuesday, March 22, 2016 01:27 - CONCLUSION: 1. Comminuted fractures distal tibia and fibula. Naeem Peterson MD Thoracic Spine CT 03/21/162027 Signed Impressions: Service Date/Time: Monday, March 21, 2016 20:39 - CONCLUSION: Intact thoracic spine. Contiguous left rib fractures #2 through 8 posteriorly Gopi Dumont MD Maxillofacial CT 03/21/162027 Signed Impressions: Service Date/Time: Monday, March 21, 2016 20:36 - CONCLUSION: Extensive fractures of all king of the maxillary sinuses And the nasal bone and ala inclusive of extension into the hard palate. There is a slightly depressed fracture of the medial floor of the left orbit and nondepressed fracture left zygomatic arch. Admixture of air and fluid noted in the maxillary sinuses and ethmoid air cells. Intraorbital contents are normal and base of the skull appears intact with normal intracranial contents Gopi Dumont MD Lumbar Spine CT 03/21/162027 Signed Impressions: Service Date/Time: Monday, March 21, 2016 20:39 - CONCLUSION: Nondisplaced fracture transverse process left L5 and left sacrum. Degenerative disc disease L3-S1. Gopi Dumont MD Pelvis X-Ray 03/21/162012 Signed Impressions: Service Date/Time: Monday, March 21, 2016 19:56 - CONCLUSION: Fracture left sacrum appreciated. Remainder the pelvis is intact with fractures of the pelvis better appreciated on CT scan Gopi Dumont MD Head CT 03/21/162012 Signed Impressions: Service Date/Time: Monday, March 21, 2016 20:30 - CONCLUSION: Intact calvarium. Normal intracranial contents. Facial fractures as described on the facial bone CT Gopi Dumont MD Chest CT 03/21/162012 Signed Impressions: Service Date/Time: Monday, March 21, 2016 20:39 - CONCLUSION: Contiguous left posterior rib fractures #2 through 8 with associated pleural thickening and parenchymal contusion. In the mid to upper right chest anteriorly there is a 1.3 cm pneumothorax without tension . Left chest subcutaneous emphysema Fracture of the proximal right humerus and mid left clavicle additionally appreciated. Gopi Dumont MD Cervical Spine CT 03/21/162012 Signed Impressions: Service Date/Time: Monday, March 21, 2016 20:30 - CONCLUSION: Degenerative changes of the cervical spine. Fractures acute left ribs numbered 2 and 3 posteriorly Gopi Dumont MD Abdomen/Pelvis CT 03/21/162012 Signed Impressions: Service Date/Time: Monday, March 21, 2016 20:39 - CONCLUSION: Multiple fractures inclusive of left inferior superior pubic ramus as well as transverse process and left L5 and left sacrum. Lower chest demonstrates fracture of left rib #8 posteriorly and a small anterior pneumothorax. Intra-abdominal and pelvic contents are normal Gopi Dumont MD Narrative Exam GENERAL: 56 year old pleasant male lying in bed. SKIN: Warm and dry. HEAD: Normocephalic. ENT: No nasal bleeding or discharge. Mucous membranes pink and moist. NECK: Trachea midline. No JVD. CARDIOVASCULAR: Regular rate and rhythm. RESPIRATORY: No accessory muscle use. Lungs clear to auscultation. GASTROINTESTINAL: Abdomen soft, non-tender, nondistended. + BS. MUSCULOSKELETAL: Extremities without cyanosis, GANT. RUE sling in place, warm to touch, decreased sensation and mobility to RIGHT hand. RLE with CKS and fracture boot, + sensation. NEUROLOGICAL: Awake and alert. Normal speech. A/P Problem List: (1) Acute blood loss anemia (2) Shock circulatory (3) Chronic pain (4) Facial fracture (5) Closed fracture of right proximal humerus (6) Open right tibial fracture (7) Closed left clavicular fracture (8) Fracture of left tibia and fibula Assessment and Plan INJURIES: Extensive fx of all king of maxillary sinus Depressed fx of LEFT orbit Non-depressed fx of LEFT zygomatic arch LEFT clavicle fx RIGHT proximal humerus LEFT rib fx (2-8 posterior) with contusions Transverse process fx LEFT L5 Multiple fx of LEFT inferior pubic ramus LEFT sacrum fx LEFT tib fib shaft fx RIGHT tib/fib fx RIGHT prox and distal femur fx * S/P I&D RIGHT tibia with wound vac (03/22) Closed reduction of RIGHT femur * S/P ORIF maxillary leforte fx (03/22) Closed reduction of nasal bone fracture * S/P Remove hardware RIGHT femur with IM rhys fixation (03/23) ORIF BILAT tibia with IM rhys fixation * S/P ORIF RIGHT humerus (03/30) Diet: Regular, soft. Tolerating well. No straws per OMFS. Pulm: IS encouraged to use. Pain: Flexeril, Lyrica, Percocet. Pain controlled. Activity: OOB with assist. (NWB RUE; NWB Bilnilay LE) PT and OT evaluating. OOB BID. GI: Protonix PO Bowel: Colace. MOM. LBM /. Added Emily-colace daily. Lactulose x1 today. DVT: SCD's. Lovenox. Patient still has pain in LEFT clavicle, Ortho aware. No surgical intervention warranted per Ortho. Fungal cream to buttock excoriation BID. Patient encouraged to reposition self in bed. Specialty bed. Continue aggressive PT and OT. Case management consulted for discharge planning. Patient has no payer source for rehabilitation placement and is not a safe discharge home. Transfer to [facility] placed 05/08, awaiting bed. Will transfer care to [facility] when bed available. Plan of care discussed with patient at bedside. Problem Qualifiers (1) Chronic pain: Qualified Code: G89.21 - Chronic pain due to trauma (2) Facial fracture: (3) Closed fracture of right proximal humerus: (4) Open right tibial fracture: (5) Closed left clavicular fracture: Qualified Code: S42.022A - Closed displaced fracture of shaft of left clavicle , initial encounter (6) Fracture of left tibia and fibula: Tim Shepadr May 15, 2016 11:27
[2016-05-15] MEDS ORDERED: LACTULOSE SYRUP 20 GM/30 ML CUP PO ONE (11:30)
[2016-05-15] MEDS: DOCUSATE SODIUM 50 MG/SENNA 8.6 MG TAB PO SCH (11:37)
[2016-05-15 11:38] VITALS: BP 145/84; PULSE 95; RESP 16; TEMP 96.5; O2SAT 94
[2016-05-15 15:38] VITALS: BP 135/74; PULSE 100; RESP 16; TEMP 96.3; O2SAT 97
[2016-05-15 20:15] VITALS: BP 138/84; PULSE 109; RESP 17; TEMP 97.9; O2SAT 98
[2016-05-16] VITALS: BP 118/69; PULSE 88; RESP 17; TEMP 97.9; O2SAT 98
[2016-05-16] MEDS: oxyCODONE/ACETAMINOPHEN 5 MG/325 MG TAB PO PRN ×6 (00:31→20:52)
[2016-05-16] MEDS: MIRTAZAPINE 15 MG TAB PO SCH (00:31)
[2016-05-16] MEDS: ENOXAPARIN SODIUM 30 MG/0.3 ML SYRINGE SQ SCH ×2 (04:27→16:19)
[2016-05-16 07:21] VITALS: BP 142/84; PULSE 93; RESP 18; TEMP 96.8; O2SAT 97
[2016-05-16] MEDS: CALCIUM/VITAMIN D 250 MG/125 U TAB PO SCH ×3 (08:11→16:19)
[2016-05-16] MEDS: DOCUSATE SODIUM 100 MG CAP PO SCH ×2 (08:11→20:52)
[2016-05-16] MEDS: CYCLOBENZAPRINE HCL 10 MG TAB PO PRN (08:11)
[2016-05-16] MEDS: FLUoxetine HCL 10 MG CAP PO SCH (08:11)
[2016-05-16] MEDS: PREGABALIN 75 MG CAP PO SCH ×2 (08:11→20:52)
[2016-05-16] MEDS: METOPROLOL TARTRATE 25 MG TAB PO SCH ×2 (08:11→20:52)
[2016-05-16] MEDS: DOCUSATE SODIUM 50 MG/SENNA 8.6 MG TAB PO SCH (08:27)
[2016-05-16] MEDS: BACITRACIN TOP OINT 15 GM TUBE TOP SCH ×2 (08:27→20:52)
[2016-05-16 11:48] VITALS: BP 133/89; PULSE 82; RESP 18; TEMP 95.5; O2SAT 98
--- NOTE | 2016-05-16 13:16 | HHI.PR ---
Subjective Subjective Notes No complaints Objective Vitals/I&O Vital Signs Date Time Temp Pulse Resp B/P Pulse Ox O2 Delivery O2 Flow Rate FiO2 05/16/16 11:48 95.5 82 18 133/89 98 Radiology Last Impressions Shoulder X-Ray 03/30/16 0000 Signed Impressions: Service Date/Time: Wednesday, March 30, 2016 13:14 - CONCLUSION: Satisfactory postoperative appearance of the proximal right humerus following ORIF. Regulo Stewart MD Chest X-Ray 03/26/16 0600 Signed Impressions: Service Date/Time: Saturday, March 26, 2016 05:52 - CONCLUSION: 1. Persistent medial left lower lung consolidation. 2. No pneumothorax seen. Ugo Kim MD Tibia/Fibula X-Ray 03/23/16 0000 Signed Impressions: Service Date/Time: Wednesday, March 23, 2016 17:44 - CONCLUSION: Anatomic alignment. Ifeanyi Suarez MD FACR Femur X-Ray 03/23/16 0000 Signed Impressions: Service Date/Time: Wednesday, March 23, 2016 14:08 - CONCLUSION: Anatomic alignment. Ifeanyi Suarez MD FACR Lower Extremity CT 03/22/16 0000 Signed Impressions: Service Date/Time: Tuesday, March 22, 2016 10:08 - CONCLUSION: 1. Comminuted fractures involving the distal femur, proximal tibia, and proximal fibula with hemarthrosis as detailed above. Ugo Glez Jr., MD Ankle X-Ray 03/22/16 0000 Signed Impressions: Service Date/Time: Tuesday, March 22, 2016 01:27 - CONCLUSION: 1. Comminuted fractures distal tibia and fibula. Naeem Peterson MD Thoracic Spine CT 03/21/162027 Signed Impressions: Service Date/Time: Monday, March 21, 2016 20:39 - CONCLUSION: Intact thoracic spine. Contiguous left rib fractures #2 through 8 posteriorly Gopi Dumont MD Maxillofacial CT 03/21/162027 Signed Impressions: Service Date/Time: Monday, March 21, 2016 20:36 - CONCLUSION: Extensive fractures of all king of the maxillary sinuses And the nasal bone and ala inclusive of extension into the hard palate. There is a slightly depressed fracture of the medial floor of the left orbit and nondepressed fracture left zygomatic arch. Admixture of air and fluid noted in the maxillary sinuses and ethmoid air cells. Intraorbital contents are normal and base of the skull appears intact with normal intracranial contents Gopi Dumont MD Lumbar Spine CT 03/21/162027 Signed Impressions: Service Date/Time: Monday, March 21, 2016 20:39 - CONCLUSION: Nondisplaced fracture transverse process left L5 and left sacrum. Degenerative disc disease L3-S1. Gopi Dumont MD Pelvis X-Ray 03/21/162012 Signed Impressions: Service Date/Time: Monday, March 21, 2016 19:56 - CONCLUSION: Fracture left sacrum appreciated. Remainder the pelvis is intact with fractures of the pelvis better appreciated on CT scan Gopi Dumont MD Head CT 03/21/162012 Signed Impressions: Service Date/Time: Monday, March 21, 2016 20:30 - CONCLUSION: Intact calvarium. Normal intracranial contents. Facial fractures as described on the facial bone CT Gopi Dumont MD Chest CT 03/21/162012 Signed Impressions: Service Date/Time: Monday, March 21, 2016 20:39 - CONCLUSION: Contiguous left posterior rib fractures #2 through 8 with associated pleural thickening and parenchymal contusion. In the mid to upper right chest anteriorly there is a 1.3 cm pneumothorax without tension . Left chest subcutaneous emphysema Fracture of the proximal right humerus and mid left clavicle additionally appreciated. Gopi Dumont MD Cervical Spine CT 03/21/162012 Signed Impressions: Service Date/Time: Monday, March 21, 2016 20:30 - CONCLUSION: Degenerative changes of the cervical spine. Fractures acute left ribs numbered 2 and 3 posteriorly Gopi Dumont MD Abdomen/Pelvis CT 03/21/162012 Signed Impressions: Service Date/Time: Monday, March 21, 2016 20:39 - CONCLUSION: Multiple fractures inclusive of left inferior superior pubic ramus as well as transverse process and left L5 and left sacrum. Lower chest demonstrates fracture of left rib #8 posteriorly and a small anterior pneumothorax. Intra-abdominal and pelvic contents are normal Gopi Dumont MD Narrative Exam GENERAL: 56 year old pleasant male lying in bed. SKIN: Warm and dry. HEAD: Normocephalic. ENT: No nasal bleeding or discharge. Mucous membranes pink and moist. NECK: Trachea midline. No JVD. CARDIOVASCULAR: Regular rate and rhythm. RESPIRATORY: No accessory muscle use. Lungs clear to auscultation. GASTROINTESTINAL: Abdomen soft, non-tender, nondistended. + BS. MUSCULOSKELETAL: Extremities without cyanosis, GANT. RUE sling in place, warm to touch, decreased sensation and mobility to RIGHT hand. RIGHT hand splint in place. RLE with CKS and fracture boot, + sensation. NEUROLOGICAL: Awake and alert. Normal speech. A/P Problem List: (1) Acute blood loss anemia (2) Shock circulatory (3) Chronic pain (4) Facial fracture (5) Closed fracture of right proximal humerus (6) Open right tibial fracture (7) Closed left clavicular fracture (8) Fracture of left tibia and fibula Assessment and Plan INJURIES: Extensive fx of all king of maxillary sinus Depressed fx of LEFT orbit Non-depressed fx of LEFT zygomatic arch LEFT clavicle fx RIGHT proximal humerus LEFT rib fx (2-8 posterior) with contusions Transverse process fx LEFT L5 Multiple fx of LEFT inferior pubic ramus LEFT sacrum fx LEFT tib fib shaft fx RIGHT tib/fib fx RIGHT prox and distal femur fx * S/P I&D RIGHT tibia with wound vac (03/22) Closed reduction of RIGHT femur * S/P ORIF maxillary [place] fx (03/22) Closed reduction of nasal bone fracture * S/P Remove hardware RIGHT femur with IM rhys fixation (03/23) ORIF BILAT tibia with IM rhys fixation * S/P ORIF RIGHT humerus (03/30) Diet: Regular, soft. Tolerating well. No straws per OMFS. Pulm: IS encouraged to use. Pain: Flexeril, Lyrica, Percocet. Pain controlled. Activity: OOB with assist. (NWB RUE; NWB Bilat LE) PT and OT evaluating. OOB BID. GI: Protonix PO Bowel: Colace, MOM, Emily-colace daily. LBM 05/16. DVT: SCD's. Lovenox. Patient still has pain in LEFT clavicle, Ortho aware. No surgical intervention warranted per Ortho. Fungal cream to buttock excoriation BID. Patient encouraged to reposition self in bed. Specialty bed. Continue aggressive PT and OT. Case management consulted for discharge planning. Patient has no payer source for rehabilitation placement and is not a safe discharge home. Transfer to [facility] placed 05/08, awaiting bed. Will transfer care to [facility] when bed available. Plan of care discussed with patient at bedside. Problem Qualifiers (1) Chronic pain: Qualified Code: G89.21 - Chronic pain due to trauma (2) Facial fracture: (3) Closed fracture of right proximal humerus: (4) Open right tibial fracture: (5) Closed left clavicular fracture: Qualified Code: S42.022A - Closed displaced fracture of shaft of left clavicle , initial encounter (6) Fracture of left tibia and fibula: Tim Shepard May 16, 2016 13:16
[2016-05-16 15:15] VITALS: BP 130/78; PULSE 101; RESP 18; TEMP 96; O2SAT 98
[2016-05-16] MEDS: MAGNESIUM HYDROXIDE SUSP 30 ML CUP PO SCH (20:52)
[2016-05-16 22:00] VITALS: BP 125/73; PULSE 112; RESP 16; TEMP 96.5; O2SAT 95
[2016-05-17] MEDS: CYCLOBENZAPRINE HCL 10 MG TAB PO PRN ×2 (00:57→22:44)
[2016-05-17] MEDS: oxyCODONE/ACETAMINOPHEN 5 MG/325 MG TAB PO PRN ×5 (00:57→22:47)
[2016-05-17] MEDS: MIRTAZAPINE 15 MG TAB PO SCH ×2 (00:58→22:43)
[2016-05-17] MEDS: ENOXAPARIN SODIUM 30 MG/0.3 ML SYRINGE SQ SCH ×2 (05:02→15:39)
[2016-05-17 07:35] VITALS: BP 142/80; PULSE 93; RESP 16; TEMP 96.5; O2SAT 97
[2016-05-17] MEDS: BACITRACIN TOP OINT 15 GM TUBE TOP SCH ×2 (09:00→22:47)
[2016-05-17] MEDS: DOCUSATE SODIUM 100 MG CAP PO SCH ×2 (09:47→22:43)
[2016-05-17] MEDS: PREGABALIN 75 MG CAP PO SCH ×2 (09:47→22:43)
[2016-05-17] MEDS: CALCIUM/VITAMIN D 250 MG/125 U TAB PO SCH ×3 (09:47→17:43)
[2016-05-17] MEDS: FLUoxetine HCL 10 MG CAP PO SCH (09:47)
[2016-05-17] MEDS: METOPROLOL TARTRATE 25 MG TAB PO SCH ×2 (09:47→22:43)
[2016-05-17] MEDS: DOCUSATE SODIUM 50 MG/SENNA 8.6 MG TAB PO SCH (09:47)
[2016-05-17 11:32] VITALS: BP 141/81; PULSE 81; RESP 16; TEMP 97; O2SAT 97
--- NOTE | 2016-05-17 13:27 | HHI.PR ---
Subjective Subjective Notes Transfer to [facility] today Objective Vitals/I&O Vital Signs Date Time Temp Pulse Resp B/P Pulse Ox O2 Delivery O2 Flow Rate FiO2 05/17/16 11:32 97.0 81 16 141/81 97 05/17/16 07:15 Room Air Radiology Last Impressions Shoulder X-Ray 03/30/16 0000 Signed Impressions: Service Date/Time: Wednesday, March 30, 2016 13:14 - CONCLUSION: Satisfactory postoperative appearance of the proximal right humerus following ORIF. Regulo Stewart MD Chest X-Ray 03/26/16 0600 Signed Impressions: Service Date/Time: Saturday, March 26, 2016 05:52 - CONCLUSION: 1. Persistent medial left lower lung consolidation. 2. No pneumothorax seen. Ugo Kim MD Tibia/Fibula X-Ray 03/23/16 0000 Signed Impressions: Service Date/Time: Wednesday, March 23, 2016 17:44 - CONCLUSION: Anatomic alignment. Ifeanyi Suarez MD FACR Femur X-Ray 03/23/16 0000 Signed Impressions: Service Date/Time: Wednesday, March 23, 2016 14:08 - CONCLUSION: Anatomic alignment. Ifeanyi Suarez MD FACR Lower Extremity CT 03/22/16 0000 Signed Impressions: Service Date/Time: Tuesday, March 22, 2016 10:08 - CONCLUSION: 1. Comminuted fractures involving the distal femur, proximal tibia, and proximal fibula with hemarthrosis as detailed above. Ugo Glez Jr., MD Ankle X-Ray 03/22/16 0000 Signed Impressions: Service Date/Time: Tuesday, March 22, 2016 01:27 - CONCLUSION: 1. Comminuted fractures distal tibia and fibula. Naeem Peterson MD Thoracic Spine CT 03/21/162027 Signed Impressions: Service Date/Time: Monday, March 21, 2016 20:39 - CONCLUSION: Intact thoracic spine. Contiguous left rib fractures #2 through 8 posteriorly Gopi Dumont MD Maxillofacial CT 03/21/162027 Signed Impressions: Service Date/Time: Monday, March 21, 2016 20:36 - CONCLUSION: Extensive fractures of all king of the maxillary sinuses And the nasal bone and ala inclusive of extension into the hard palate. There is a slightly depressed fracture of the medial floor of the left orbit and nondepressed fracture left zygomatic arch. Admixture of air and fluid noted in the maxillary sinuses and ethmoid air cells. Intraorbital contents are normal and base of the skull appears intact with normal intracranial contents Gopi Dumont MD Lumbar Spine CT 03/21/162027 Signed Impressions: Service Date/Time: Monday, March 21, 2016 20:39 - CONCLUSION: Nondisplaced fracture transverse process left L5 and left sacrum. Degenerative disc disease L3-S1. Gopi Dumont MD Pelvis X-Ray 03/21/162012 Signed Impressions: Service Date/Time: Monday, March 21, 2016 19:56 - CONCLUSION: Fracture left sacrum appreciated. Remainder the pelvis is intact with fractures of the pelvis better appreciated on CT scan Goip Dumont MD Head CT 03/21/162012 Signed Impressions: Service Date/Time: Monday, March 21, 2016 20:30 - CONCLUSION: Intact calvarium. Normal intracranial contents. Facial fractures as described on the facial bone CT Gopi Dumont MD Chest CT 03/21/162012 Signed Impressions: Service Date/Time: Monday, March 21, 2016 20:39 - CONCLUSION: Contiguous left posterior rib fractures #2 through 8 with associated pleural thickening and parenchymal contusion. In the mid to upper right chest anteriorly there is a 1.3 cm pneumothorax without tension . Left chest subcutaneous emphysema Fracture of the proximal right humerus and mid left clavicle additionally appreciated. Gopi Dumont MD Cervical Spine CT 03/21/162012 Signed Impressions: Service Date/Time: Monday, March 21, 2016 20:30 - CONCLUSION: Degenerative changes of the cervical spine. Fractures acute left ribs numbered 2 and 3 posteriorly Gopi Dumont MD Abdomen/Pelvis CT 03/21/162012 Signed Impressions: Service Date/Time: Monday, March 21, 2016 20:39 - CONCLUSION: Multiple fractures inclusive of left inferior superior pubic ramus as well as transverse process and left L5 and left sacrum. Lower chest demonstrates fracture of left rib #8 posteriorly and a small anterior pneumothorax. Intra-abdominal and pelvic contents are normal Gopi Dumont MD Narrative Exam GENERAL: 56 year old pleasant male lying in bed. SKIN: Warm and dry. HEAD: Normocephalic. ENT: No nasal bleeding or discharge. Mucous membranes pink and moist. NECK: Trachea midline. No JVD. CARDIOVASCULAR: Regular rate and rhythm. RESPIRATORY: No accessory muscle use. Lungs clear to auscultation. GASTROINTESTINAL: Abdomen soft, non-tender, nondistended. + BS. MUSCULOSKELETAL: Extremities without cyanosis, GANT. RUE sling in place, warm to touch, decreased sensation and mobility to RIGHT hand. RIGHT hand splint in place. RLE with CKS and fracture boot, + sensation. NEUROLOGICAL: Awake and alert. Normal speech. A/P Problem List: (1) Acute blood loss anemia (2) Shock circulatory (3) Chronic pain (4) Facial fracture (5) Closed fracture of right proximal humerus (6) Open right tibial fracture (7) Closed left clavicular fracture (8) Fracture of left tibia and fibula Assessment and Plan INJURIES: Extensive fx of all king of maxillary sinus Depressed fx of LEFT orbit Non-depressed fx of LEFT zygomatic arch LEFT clavicle fx RIGHT proximal humerus LEFT rib fx (2-8 posterior) with contusions Transverse process fx LEFT L5 Multiple fx of LEFT inferior pubic ramus LEFT sacrum fx LEFT tib fib shaft fx RIGHT tib/fib fx RIGHT prox and distal femur fx * S/P I&D RIGHT tibia with wound vac (03/22) Closed reduction of RIGHT femur * S/P ORIF maxillary [place] fx (03/22) Closed reduction of nasal bone fracture * S/P Remove hardware RIGHT femur with IM rhys fixation (03/23) ORIF BILAT tibia with IM rhys fixation * S/P ORIF RIGHT humerus (03/30) Diet: Regular, soft. Tolerating well. No straws per OMFS. Pulm: IS encouraged to use. Pain: Flexeril, Lyrica, Percocet. Pain controlled. Activity: OOB with assist. (NWB DEBIE; NWB Carrie GUEVARA) PT and OT evaluating. OOB BID. GI: Protonix PO Bowel: Colace, MOM, Emily-colace daily. LBM 05/16. DVT: SCD's. Lovenox. Patient still has pain in LEFT clavicle. No surgical intervention warranted per Ortho. Ortho will need to be reconsulted to evaluate weight bearing status, no end date can be provided at this time. Fungal cream to buttock excoriation BID. Patient encouraged to reposition self in bed. Specialty bed. Continue aggressive PT and OT. Case management consulted for discharge planning. Patient has no payer source for rehabilitation placement and is not a safe discharge home. Transfer to [facility] today. HEPAS consulted, hand off provided to Dr Dallas. Problem Qualifiers (1) Chronic pain: Qualified Code: G89.21 - Chronic pain due to trauma (2) Facial fracture: (3) Closed fracture of right proximal humerus: (4) Open right tibial fracture: (5) Closed left clavicular fracture: Qualified Code: S42.022A - Closed displaced fracture of shaft of left clavicle , initial encounter (6) Fracture of left tibia and fibula: Tim Shepard May 17, 2016 13:27 Tim Shepard May 17, 2016 13:27
[2016-05-17] MEDS: COLLAGENASE OINT 30 GM TUBE TOP SCH (15:00)
[2016-05-17 16:00] VITALS: BP 129/80; PULSE 88; RESP 16; TEMP 98; O2SAT 96
[2016-05-17 20:00] VITALS: BP 134/89; PULSE 103; RESP 20; TEMP 97.8; O2SAT 99
[2016-05-17] MEDS: MAGNESIUM HYDROXIDE SUSP 30 ML CUP PO SCH (22:44)
[2016-05-18] VITALS: BP 138/91; PULSE 95; RESP 20; TEMP 97.9; O2SAT 98
[2016-05-18] MEDS: oxyCODONE/ACETAMINOPHEN 5 MG/325 MG TAB PO PRN ×5 (03:25→21:15)
[2016-05-18] MEDS: ENOXAPARIN SODIUM 30 MG/0.3 ML SYRINGE SQ SCH ×2 (03:25→17:04)
[2016-05-18 04:00] VITALS: BP 147/88; PULSE 97; RESP 20; TEMP 97.4; O2SAT 97
[2016-05-18 08:00] VITALS: BP 127/91; PULSE 91; RESP 16; TEMP 97; O2SAT 97
[2016-05-18] MEDS: COLLAGENASE OINT 30 GM TUBE TOP SCH (09:00)
[2016-05-18] MEDS: METOPROLOL TARTRATE 25 MG TAB PO SCH ×2 (09:13→21:16)
[2016-05-18] MEDS: FLUoxetine HCL 10 MG CAP PO SCH (09:13)
[2016-05-18] MEDS: PREGABALIN 75 MG CAP PO SCH ×2 (09:13→21:16)
[2016-05-18] MEDS: CALCIUM/VITAMIN D 250 MG/125 U TAB PO SCH ×3 (09:13→17:03)
[2016-05-18] MEDS: DOCUSATE SODIUM 50 MG/SENNA 8.6 MG TAB PO SCH (09:13)
[2016-05-18] MEDS: DOCUSATE SODIUM 100 MG CAP PO SCH ×2 (09:13→21:15)
[2016-05-18] MEDS: BACITRACIN TOP OINT 15 GM TUBE TOP SCH ×2 (09:14→21:20)
[2016-05-18 12:00] VITALS: BP 136/85; PULSE 77; RESP 16; TEMP 96.7; O2SAT 97
[2016-05-18] MEDS: CYCLOBENZAPRINE HCL 10 MG TAB PO PRN ×2 (13:00→21:16)
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
[2016-05-18 16:00] VITALS: BP 147/87; PULSE 92; RESP 16; TEMP 96.7; O2SAT 97
[2016-05-18 20:00] VITALS: BP 133/80; PULSE 93; RESP 18; TEMP 96.7; O2SAT 98
[2016-05-18] MEDS: MIRTAZAPINE 15 MG TAB PO SCH (21:15)
[2016-05-18] MEDS: MAGNESIUM HYDROXIDE SUSP 30 ML CUP PO SCH (21:16)
[2016-05-19] VITALS: BP 116/72; PULSE 95; RESP 18; TEMP 98.8; O2SAT 97
[2016-05-19] MEDS: oxyCODONE/ACETAMINOPHEN 5 MG/325 MG TAB PO PRN ×6 (01:26→23:09)
[2016-05-19] MEDS: ENOXAPARIN SODIUM 30 MG/0.3 ML SYRINGE SQ SCH ×2 (03:24→18:21)
[2016-05-19 08:00] VITALS: BP 140/87; PULSE 86; RESP 20; TEMP 96; O2SAT 98
[2016-05-19] MEDS: DOCUSATE SODIUM 50 MG/SENNA 8.6 MG TAB PO SCH (09:00)
[2016-05-19] MEDS: DOCUSATE SODIUM 100 MG CAP PO SCH ×2 (09:00→21:20)
[2016-05-19] MEDS: FLUoxetine HCL 10 MG CAP PO SCH (10:17)
[2016-05-19] MEDS: PREGABALIN 75 MG CAP PO SCH ×2 (10:18→21:20)
[2016-05-19] MEDS: CYCLOBENZAPRINE HCL 10 MG TAB PO PRN ×2 (10:18→23:08)
[2016-05-19] MEDS: METOPROLOL TARTRATE 25 MG TAB PO SCH ×2 (10:19→21:20)
[2016-05-19] MEDS: CALCIUM/VITAMIN D 250 MG/125 U TAB PO SCH ×3 (10:19→18:20)
[2016-05-19] MEDS: BACITRACIN TOP OINT 15 GM TUBE TOP SCH ×2 (10:22→21:22)
[2016-05-19] MEDS: COLLAGENASE OINT 30 GM TUBE TOP SCH (10:22)
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
[2016-05-19 20:00] VITALS: BP 120/75; PULSE 81; RESP 18; TEMP 97; O2SAT 97
[2016-05-19] MEDS: MAGNESIUM HYDROXIDE SUSP 30 ML CUP PO SCH (21:19)
[2016-05-19] MEDS: MIRTAZAPINE 15 MG TAB PO SCH (21:20)
[2016-05-20] VITALS: BP 121/75; PULSE 98; RESP 18; TEMP 97.4; O2SAT 77
[2016-05-20] MEDS: ENOXAPARIN SODIUM 30 MG/0.3 ML SYRINGE SQ SCH ×2 (03:39→16:40)
[2016-05-20] MEDS: oxyCODONE/ACETAMINOPHEN 5 MG/325 MG TAB PO PRN ×5 (03:39→20:14)
[2016-05-20 08:00] VITALS: BP 135/88; PULSE 85; RESP 16; TEMP 97.8; O2SAT 98
[2016-05-20] MEDS: DOCUSATE SODIUM 100 MG CAP PO SCH ×2 (08:12→20:13)
[2016-05-20] MEDS: DOCUSATE SODIUM 50 MG/SENNA 8.6 MG TAB PO SCH (08:12)
[2016-05-20] MEDS: PREGABALIN 75 MG CAP PO SCH (08:12)
[2016-05-20] MEDS: METOPROLOL TARTRATE 25 MG TAB PO SCH ×2 (08:12→20:14)
[2016-05-20] MEDS: CALCIUM/VITAMIN D 250 MG/125 U TAB PO SCH ×3 (08:13→16:40)
[2016-05-20] MEDS: FLUoxetine HCL 10 MG CAP PO SCH (08:13)
[2016-05-20] MEDS: COLLAGENASE OINT 30 GM TUBE TOP SCH (08:16)
[2016-05-20] MEDS: BACITRACIN TOP OINT 15 GM TUBE TOP SCH ×2 (08:16→20:16)
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
[2016-05-20] MEDS: GABAPENTIN 300 MG CAP PO SCH ×2 (12:45→22:40)
[2016-05-20 13:47] VITALS: BP 143/83; PULSE 80; RESP 16; TEMP 96.1; O2SAT 99
[2016-05-20 20:00] VITALS: BP 121/87; PULSE 103; RESP 20; TEMP 97.7; O2SAT 98
[2016-05-20] MEDS: MAGNESIUM HYDROXIDE SUSP 30 ML CUP PO SCH (20:13)
[2016-05-20] MEDS: MIRTAZAPINE 15 MG TAB PO SCH (20:14)
[2016-05-21] MEDS: oxyCODONE/ACETAMINOPHEN 5 MG/325 MG TAB PO PRN ×5 (03:45→21:42)
[2016-05-21] MEDS: ENOXAPARIN SODIUM 30 MG/0.3 ML SYRINGE SQ SCH ×2 (03:45→17:01)
[2016-05-21] MEDS: GABAPENTIN 300 MG CAP PO SCH ×3 (06:03→22:07)
[2016-05-21] MEDS: FLUoxetine HCL 10 MG CAP PO SCH (08:46)
[2016-05-21] MEDS: DOCUSATE SODIUM 100 MG CAP PO SCH ×2 (08:46→21:41)
[2016-05-21] MEDS: METOPROLOL TARTRATE 25 MG TAB PO SCH ×2 (08:47→21:41)
[2016-05-21] MEDS: DOCUSATE SODIUM 50 MG/SENNA 8.6 MG TAB PO SCH (08:47)
[2016-05-21] MEDS: CALCIUM/VITAMIN D 250 MG/125 U TAB PO SCH ×3 (08:47→17:01)
[2016-05-21] MEDS: COLLAGENASE OINT 30 GM TUBE TOP SCH (08:52)
[2016-05-21] MEDS: BACITRACIN TOP OINT 15 GM TUBE TOP SCH ×2 (08:52→21:43)
[2016-05-21 09:09] VITALS: BP 139/82; PULSE 95; RESP 15; TEMP 97.3; O2SAT 97
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
[2016-05-21] MEDS: CYCLOBENZAPRINE HCL 10 MG TAB PO PRN (17:01)
[2016-05-21 20:20] VITALS: BP 142/93; PULSE 82; RESP 20; TEMP 97.2; O2SAT 98
[2016-05-21] MEDS: MAGNESIUM HYDROXIDE SUSP 30 ML CUP PO SCH (21:00)
[2016-05-21] MEDS: MIRTAZAPINE 15 MG TAB PO SCH (21:41)
[2016-05-22 01:00] VITALS: BP 146/88; PULSE 81; RESP 16; TEMP 96.2; O2SAT 98
[2016-05-22] MEDS: oxyCODONE/ACETAMINOPHEN 5 MG/325 MG TAB PO PRN ×5 (03:20→21:19)
[2016-05-22] MEDS: ENOXAPARIN SODIUM 30 MG/0.3 ML SYRINGE SQ SCH ×2 (03:20→15:52)
[2016-05-22] MEDS: GABAPENTIN 300 MG CAP PO SCH ×3 (05:40→21:18)
[2016-05-22 08:00] VITALS: BP 138/91; PULSE 88; RESP 17; TEMP 97; O2SAT 96
[2016-05-22] MEDS: DOCUSATE SODIUM 50 MG/SENNA 8.6 MG TAB PO SCH (08:17)
[2016-05-22] MEDS: FLUoxetine HCL 10 MG CAP PO SCH (08:17)
[2016-05-22] MEDS: CALCIUM/VITAMIN D 250 MG/125 U TAB PO SCH ×3 (08:17→17:08)
[2016-05-22] MEDS: DOCUSATE SODIUM 100 MG CAP PO SCH ×2 (08:17→20:50)
[2016-05-22] MEDS: METOPROLOL TARTRATE 25 MG TAB PO SCH ×2 (08:17→20:49)
[2016-05-22] MEDS: BACITRACIN TOP OINT 15 GM TUBE TOP SCH ×2 (08:18→20:50)
[2016-05-22] MEDS: COLLAGENASE OINT 30 GM TUBE TOP SCH (08:18)
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
[2016-05-22] MEDS: MAGNESIUM HYDROXIDE SUSP 30 ML CUP PO SCH (20:49)
[2016-05-22] MEDS: MIRTAZAPINE 15 MG TAB PO SCH (20:50)
[2016-05-22 21:14] VITALS: BP 145/86; PULSE 116; RESP 16; TEMP 98.1; O2SAT 97
[2016-05-23] MEDS: oxyCODONE/ACETAMINOPHEN 5 MG/325 MG TAB PO PRN ×6 (02:11→21:28)
[2016-05-23] MEDS: ENOXAPARIN SODIUM 30 MG/0.3 ML SYRINGE SQ SCH ×2 (04:21→16:33)
[2016-05-23] MEDS: GABAPENTIN 300 MG CAP PO SCH ×3 (06:14→21:28)
[2016-05-23 08:00] VITALS: BP 121/77; PULSE 92; RESP 17; TEMP 97.3; O2SAT 95
[2016-05-23] MEDS: METOPROLOL TARTRATE 25 MG TAB PO SCH ×2 (09:37→20:16)
[2016-05-23] MEDS: DOCUSATE SODIUM 100 MG CAP PO SCH ×2 (09:37→20:16)
[2016-05-23] MEDS: COLLAGENASE OINT 30 GM TUBE TOP SCH (09:38)
[2016-05-23] MEDS: BACITRACIN TOP OINT 15 GM TUBE TOP SCH ×2 (09:38→20:17)
[2016-05-23] MEDS: FLUoxetine HCL 10 MG CAP PO SCH (09:38)
[2016-05-23] MEDS: DOCUSATE SODIUM 50 MG/SENNA 8.6 MG TAB PO SCH (09:38)
[2016-05-23] MEDS: CALCIUM/VITAMIN D 250 MG/125 U TAB PO SCH ×3 (09:38→18:15)
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
[2016-05-23] MEDS: MIRTAZAPINE 15 MG TAB PO SCH (20:16)
[2016-05-23] MEDS: MAGNESIUM HYDROXIDE SUSP 30 ML CUP PO SCH (20:17)
[2016-05-23 21:21] VITALS: BP 122/76; PULSE 98; RESP 18; TEMP 97.8; O2SAT 97
[2016-05-24] MEDS: oxyCODONE/ACETAMINOPHEN 5 MG/325 MG TAB PO PRN ×5 (01:49→20:47)
[2016-05-24] MEDS: ENOXAPARIN SODIUM 30 MG/0.3 ML SYRINGE SQ SCH ×2 (03:29→16:46)
[2016-05-24] MEDS: GABAPENTIN 300 MG CAP PO SCH ×3 (05:43→20:46)
[2016-05-24 08:00] VITALS: BP 124/83; PULSE 96; RESP 18; TEMP 97; O2SAT 97
[2016-05-24] MEDS: DOCUSATE SODIUM 50 MG/SENNA 8.6 MG TAB PO SCH (09:00)
[2016-05-24] MEDS: METOPROLOL TARTRATE 25 MG TAB PO SCH ×2 (09:42→20:46)
[2016-05-24] MEDS: FLUoxetine HCL 10 MG CAP PO SCH (09:42)
[2016-05-24] MEDS: CALCIUM/VITAMIN D 250 MG/125 U TAB PO SCH ×3 (09:42→17:15)
[2016-05-24] MEDS: DOCUSATE SODIUM 100 MG CAP PO SCH ×2 (09:42→20:47)
[2016-05-24] MEDS: BACITRACIN TOP OINT 15 GM TUBE TOP SCH (09:44)
[2016-05-24] MEDS: COLLAGENASE OINT 30 GM TUBE TOP SCH (09:44)
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
[2016-05-24] MEDS ORDERED: ACETAMINOPHEN 500 MG CPLT PO PRN (15:00)
[2016-05-24 20:00] VITALS: BP 156/88; PULSE 114; RESP 20; TEMP 99; O2SAT 97
[2016-05-24] MEDS: MAGNESIUM HYDROXIDE SUSP 30 ML CUP PO SCH (20:47)
[2016-05-24] MEDS: MIRTAZAPINE 15 MG TAB PO SCH (20:48)
[2016-05-25] MEDS: oxyCODONE/ACETAMINOPHEN 5 MG/325 MG TAB PO PRN ×4 (03:28→22:03)
[2016-05-25] MEDS: ENOXAPARIN SODIUM 30 MG/0.3 ML SYRINGE SQ SCH ×2 (03:28→14:56)
[2016-05-25] MEDS: GABAPENTIN 300 MG CAP PO SCH ×3 (05:22→22:03)
[2016-05-25 08:00] VITALS: BP 147/89; PULSE 98; RESP 18; TEMP 97.4; O2SAT 96
[2016-05-25] MEDS: DOCUSATE SODIUM 50 MG/SENNA 8.6 MG TAB PO SCH (09:00)
[2016-05-25] MEDS: METOPROLOL TARTRATE 25 MG TAB PO SCH ×2 (09:31→20:14)
[2016-05-25] MEDS: DOCUSATE SODIUM 100 MG CAP PO SCH ×2 (09:31→20:14)
[2016-05-25] MEDS: BACITRACIN TOP OINT 15 GM TUBE TOP SCH ×2 (09:31→20:14)
[2016-05-25] MEDS: FLUoxetine HCL 10 MG CAP PO SCH (09:31)
[2016-05-25] MEDS: CALCIUM/VITAMIN D 250 MG/125 U TAB PO SCH ×3 (09:31→17:30)
[2016-05-25] MEDS: COLLAGENASE OINT 30 GM TUBE TOP SCH (09:32)
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
--- NOTE | 2016-05-25 17:38 | RADHPO ---
EXAM DATE/TIME: 05/25/2016 15:42 [place] COMPARISON: SHOULDER RIGHT LTD (2VWS), May 05, 2016, 9:13. INDICATIONS : Follow up right proximal humerus surgery. MEDICAL HISTORY : None. SURGICAL HISTORY : ORIF right proximal humerus. ENCOUNTER: Subsequent ACUITY: 2 months PAIN SCORE: 0/10 LOCATION: Right shoulder. FINDINGS: Two view examination of the right shoulder demonstrates a surgical plate and multiple screws at the p roximal humerus fracture. The glenohumeral and acromioclavicular joints appear normally aligned. CONCLUSION: Surgical hardware are in good position. Deandre Huizar MD on May 25, 2016 at 17:35 Board Certified Radiologist. This report was verified electronically.
[2016-05-25 20:00] VITALS: BP 118/79; PULSE 106; RESP 22; TEMP 97.3; O2SAT 97
[2016-05-25] MEDS: MAGNESIUM HYDROXIDE SUSP 30 ML CUP PO SCH (20:13)
[2016-05-25] MEDS: MIRTAZAPINE 15 MG TAB PO SCH (20:14)
[2016-05-26] MEDS: ENOXAPARIN SODIUM 30 MG/0.3 ML SYRINGE SQ SCH ×2 (04:42→16:26)
[2016-05-26] MEDS: oxyCODONE/ACETAMINOPHEN 5 MG/325 MG TAB PO PRN ×3 (04:43→17:44)
[2016-05-26] MEDS: GABAPENTIN 300 MG CAP PO SCH ×3 (05:07→21:07)
[2016-05-26 08:00] VITALS: BP 129/96; PULSE 119; RESP 20; TEMP 97.6; O2SAT 96
[2016-05-26] MEDS: CALCIUM/VITAMIN D 250 MG/125 U TAB PO SCH ×3 (09:00→17:44)
[2016-05-26] MEDS: FLUoxetine HCL 10 MG CAP PO SCH (09:13)
[2016-05-26] MEDS: COLLAGENASE OINT 30 GM TUBE TOP SCH (09:13)
[2016-05-26] MEDS: DOCUSATE SODIUM 100 MG CAP PO SCH ×2 (09:13→21:07)
[2016-05-26] MEDS: METOPROLOL TARTRATE 25 MG TAB PO SCH ×2 (09:13→21:07)
[2016-05-26] MEDS: BACITRACIN TOP OINT 15 GM TUBE TOP SCH ×2 (09:13→21:08)
[2016-05-26] MEDS: DOCUSATE SODIUM 50 MG/SENNA 8.6 MG TAB PO SCH (09:13)
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
--- NOTE | 2016-05-26 12:41 | PD.ORT.PN ---
Subjective Subjective Remarks s/p ORIF right proximal humerus, right ankle and bilateral tibial nails reports doing well. pain controlled. states has been working on bending knees and moving fingers on right arm Objective Vitals Vital Signs Date Time Temp Pulse Resp B/P Pulse Ox O2 Delivery O2 Flow Rate FiO2 05/26/16 12:00 18 05/26/16 08:00 97.6 119 20 129/96 96 05/25/16 20:00 97.3 106 22 118/79 97 I/O 05/25/16 05/25/16 05/25/16 05/26/16 05/26/16 05/26/16 07:00 15:00 23:00 07:00 15:00 23:00 Intake Total 200 ml 620 ml 240 ml 700 ml Output Total 550 ml 450 ml 850 ml Balance -350 ml 620 ml -210 ml -150 ml Intake Oral 200 ml 620 ml 240 ml 700 ml Output Urine Total 550 ml 450 ml 850 ml # Voids 3 # Bowel Movements 1 0 0 Imaging Last 72 hours Impressions Chest X-Ray 03/26/16 0600 Signed Impressions: Service Date/Time: Saturday, March 26, 2016 05:52 - CONCLUSION: 1. Persistent medial left lower lung consolidation. 2. No pneumothorax seen. Ugo Kim MD Chest X-Ray 03/25/16 0600 Signed Impressions: Service Date/Time: March 04:50 - CONCLUSION: 1. Increase in left-sided airspace disease since March 24. Left chest tube, endotracheal tube and nasogastric tube unchanged. Naeem Peterson MD Chest X-Ray 03/25/16 0000 Signed Impressions: Service Date/Time: March 15:09 - CONCLUSION: 1. No pneumothorax status post removal of left chest tube. 2. Persistent left lung scattered patchiness. 3. Endotracheal tube and nasogastric tube remain in good positions. 4. Multiple fractures are stable. Osiel Howard MD Chest X-Ray 03/24/16 0600 Signed Impressions: Service Date/Time: Thursday, March 24, 2016 03:13 - CONCLUSION: 1. Support apparatus unchanged. Left chest tube without pneumothorax. Mostly basilar airspace disease remains present, slightly increased on the right since 03/23. Naeem Peterson MD Last 24 hours Imp[address]ine CT 03/21/162027 Signed Impressions: Service Date/Time: Monday, March 21, 2016 20:39 - CONCLUSION: Intact thoracic spine. Contiguous left rib fractures #2 through 8 posteriorly Gopi Dumont MD Maxillofacial CT 03/21/162027 Signed Impressions: Service Date/Time: Monday, March 21, 2016 20:36 - CONCLUSION: Extensive fractures of all king of the maxillary sinuses And the nasal bone and ala inclusive of extension into the hard palate. There is a slightly depressed fracture of the medial floor of the left orbit and nondepressed fracture left zygomatic arch. Admixture of air and fluid noted in the maxillary sinuses and ethmoid air cells. Intraorbital contents are normal and base of the skull appears intact with normal intracranial contents Gopi Dumont MD Lumbar Spine CT 03/21/162027 Signed Impressions: Service Date/Time: Monday, March 21, 2016 20:39 - CONCLUSION: Nondisplaced fracture transverse process left L5 and left sacrum. Degenerative disc disease L3-S1. Gopi Dumont MD Pelvis X-Ray 03/21/162012 Signed Impressions: Service Date/Time: Monday, March 21, 2016 19:56 - CONCLUSION: Fracture left sacrum appreciated. Remainder the pelvis is intact with fractures of the pelvis better appreciated on CT scan Gopi Dumont MD Head CT 03/21/162012 Signed Impressions: Service Date/Time: Monday, March 21, 2016 20:30 - CONCLUSION: Intact calvarium. Normal intracranial contents. Facial fractures as described on the facial bone CT Gopi Dumont MD Chest X-Ray 03/21/162012 Signed Impressions: Service Date/Time: Monday, March 21, 2016 19:56 - CONCLUSION: Slightly off set fracture posterior left fourth rib and probably contiguous third and fifth ribs with no pneumothorax Gopi Dumont MD Chest CT 03/21/162012 Signed Impressions: Service Date/Time: Monday, March 21, 2016 20:39 - CONCLUSION: Contiguous left posterior rib fractures #2 through 8 with associated pleural thickening and parenchymal contusion. In the mid to upper right chest anteriorly there is a 1.3 cm pneumothorax without tension . Left chest subcutaneous emphysema Fracture of the proximal right humerus and mid left clavicle additionally appreciated. Gopi Dumont MD Cervical Spine CT 03/21/162012 Signed Impressions: Service Date/Time: Monday, March 21, 2016 20:30 - CONCLUSION: Degenerative changes of the cervical spine. Fractures acute left ribs numbered 2 and 3 posteriorly Gopi Dumont MD Abdomen/Pelvis CT 03/21/162012 Signed Impressions: Service Date/Time: Monday, March 21, 2016 20:39 - CONCLUSION: Multiple fractures inclusive of left inferior superior pubic ramus as well as transverse process and left L5 and left sacrum. Lower chest demonstrates fracture of left rib #8 posteriorly and a small anterior pneumothorax. Intra-abdominal and pelvic contents are normal Gopi Dumont MD Objective Remarks RUE: Clean dry dressings and intact. +sling. no sensation to median/ulnar nerve distribution. RLE: dressing CDI. calf compartments are soft.. Good capillary refills full motion of toes. Knee immobilizer in place as well as fracture boot. traumatic lac on ankle healing well. LLE: dressing CDI. Calf compartments soft. Good capillary refill in toes. LUE: Pain to palpation over left clavicle. Mild tenderness with range of motion of shoulder .Good passive motion of shoulder, elbow, wrist, good cap refill. Assessment & Plan Assessment and Plan 1) Right Proximal Humerus Fx s/p ORIF 2) Right Segmental Periprosthetic Femoral Shaft Fracture status post IM nail 3) Right Distal Tibial Shaft Fracture status post IM nail 03/23/16 4) Left Tibial Shaft Fracture status post IM nail 03/23/16 5) bilateral tibial plateaus status post ORIF on 03/23/16 6)left clavicle fracture - nonop 7) left sacrum fracture and inferior/superior rami fractures - nonop -NWB RUE,BLE. monitor nerve palsy right arm -ROm of right shoulder and right knee/ankle. Fracisco Haynes May 26, 2016 12:41
[2016-05-26 20:00] VITALS: BP 144/86; PULSE 95; RESP 15; TEMP 96.8; O2SAT 98
[2016-05-26] MEDS: MAGNESIUM HYDROXIDE SUSP 30 ML CUP PO SCH (21:00)
[2016-05-26] MEDS: MIRTAZAPINE 15 MG TAB PO SCH (21:07)
[2016-05-27] MEDS: oxyCODONE/ACETAMINOPHEN 5 MG/325 MG TAB PO PRN ×5 (00:05→23:56)
[2016-05-27] MEDS: GABAPENTIN 300 MG CAP PO SCH ×3 (05:04→21:18)
[2016-05-27] MEDS: ENOXAPARIN SODIUM 30 MG/0.3 ML SYRINGE SQ SCH ×2 (05:05→16:56)
[2016-05-27 08:00] VITALS: BP 116/84; PULSE 89; RESP 24; TEMP 96.6; O2SAT 96
[2016-05-27] MEDS: DOCUSATE SODIUM 100 MG CAP PO SCH ×2 (08:24→21:18)
[2016-05-27] MEDS: FLUoxetine HCL 10 MG CAP PO SCH (08:24)
[2016-05-27] MEDS: DOCUSATE SODIUM 50 MG/SENNA 8.6 MG TAB PO SCH (08:25)
[2016-05-27] MEDS: METOPROLOL TARTRATE 25 MG TAB PO SCH ×2 (08:25→21:18)
[2016-05-27] MEDS: BACITRACIN TOP OINT 15 GM TUBE TOP SCH ×2 (08:25→21:00)
[2016-05-27] MEDS: CALCIUM/VITAMIN D 250 MG/125 U TAB PO SCH ×3 (08:25→18:02)
[2016-05-27] MEDS: COLLAGENASE OINT 30 GM TUBE TOP SCH (08:25)
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
[2016-05-27 20:00] VITALS: BP 119/81; PULSE 102; RESP 20; TEMP 97.9; O2SAT 94
[2016-05-27] MEDS: MAGNESIUM HYDROXIDE SUSP 30 ML CUP PO SCH (21:00)
[2016-05-27] MEDS: MIRTAZAPINE 15 MG TAB PO SCH (21:18)
[2016-05-28] MEDS: GABAPENTIN 300 MG CAP PO SCH ×3 (06:00→21:29)
[2016-05-28] MEDS: ENOXAPARIN SODIUM 30 MG/0.3 ML SYRINGE SQ SCH ×2 (06:00→17:00)
[2016-05-28] MEDS: oxyCODONE/ACETAMINOPHEN 5 MG/325 MG TAB PO PRN ×3 (06:00→18:19)
[2016-05-28 08:00] VITALS: BP 127/84; PULSE 85; RESP 18; TEMP 97.2; O2SAT 94
[2016-05-28] MEDS: METOPROLOL TARTRATE 25 MG TAB PO SCH ×2 (09:27→21:29)
[2016-05-28] MEDS: DOCUSATE SODIUM 100 MG CAP PO SCH ×2 (09:27→21:29)
[2016-05-28] MEDS: DOCUSATE SODIUM 50 MG/SENNA 8.6 MG TAB PO SCH (09:27)
[2016-05-28] MEDS: BACITRACIN TOP OINT 15 GM TUBE TOP SCH ×2 (09:28→21:30)
[2016-05-28] MEDS: CALCIUM/VITAMIN D 250 MG/125 U TAB PO SCH ×3 (09:28→18:19)
[2016-05-28] MEDS: FLUoxetine HCL 10 MG CAP PO SCH (09:28)
[2016-05-28] MEDS: COLLAGENASE OINT 30 GM TUBE TOP SCH (09:28)
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
[2016-05-28 20:00] VITALS: BP 131/77; PULSE 104; RESP 18; TEMP 96.7; O2SAT 97
[2016-05-28] MEDS: MAGNESIUM HYDROXIDE SUSP 30 ML CUP PO SCH (21:29)
[2016-05-28] MEDS: MIRTAZAPINE 15 MG TAB PO SCH (21:29)
[2016-05-29] MEDS: oxyCODONE/ACETAMINOPHEN 5 MG/325 MG TAB PO PRN ×4 (00:21→18:30)
[2016-05-29] MEDS: ENOXAPARIN SODIUM 30 MG/0.3 ML SYRINGE SQ SCH ×2 (05:25→16:25)
[2016-05-29] MEDS: GABAPENTIN 300 MG CAP PO SCH ×3 (05:25→20:54)
[2016-05-29 08:00] VITALS: BP 137/87; PULSE 78; RESP 18; TEMP 97; O2SAT 93
[2016-05-29] MEDS: FLUoxetine HCL 10 MG CAP PO SCH (09:01)
[2016-05-29] MEDS: DOCUSATE SODIUM 50 MG/SENNA 8.6 MG TAB PO SCH (09:01)
[2016-05-29] MEDS: DOCUSATE SODIUM 100 MG CAP PO SCH ×2 (09:01→20:54)
[2016-05-29] MEDS: METOPROLOL TARTRATE 25 MG TAB PO SCH ×2 (09:01→20:54)
[2016-05-29] MEDS: CALCIUM/VITAMIN D 250 MG/125 U TAB PO SCH ×3 (09:01→17:38)
[2016-05-29] MEDS: BACITRACIN TOP OINT 15 GM TUBE TOP SCH ×2 (09:02→20:55)
[2016-05-29] MEDS: COLLAGENASE OINT 30 GM TUBE TOP SCH (09:02)
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
[2016-05-29 20:00] VITALS: BP 118/79; PULSE 97; RESP 18; TEMP 97.1; O2SAT 97
[2016-05-29] MEDS: MIRTAZAPINE 15 MG TAB PO SCH (20:54)
[2016-05-29] MEDS: MAGNESIUM HYDROXIDE SUSP 30 ML CUP PO SCH (20:55)
[2016-05-30] MEDS: oxyCODONE/ACETAMINOPHEN 5 MG/325 MG TAB PO PRN ×4 (00:45→18:40)
[2016-05-30] MEDS: ENOXAPARIN SODIUM 30 MG/0.3 ML SYRINGE SQ SCH ×2 (04:00→16:13)
[2016-05-30] MEDS: GABAPENTIN 300 MG CAP PO SCH ×3 (05:26→21:03)
[2016-05-30 08:00] VITALS: BP 131/78; PULSE 92; RESP 18; TEMP 98.6; O2SAT 97
[2016-05-30] MEDS: COLLAGENASE OINT 30 GM TUBE TOP SCH (09:42)
[2016-05-30] MEDS: BACITRACIN TOP OINT 15 GM TUBE TOP SCH ×2 (09:42→21:04)
[2016-05-30] MEDS: FLUoxetine HCL 10 MG CAP PO SCH (09:42)
[2016-05-30] MEDS: DOCUSATE SODIUM 100 MG CAP PO SCH ×2 (09:42→21:03)
[2016-05-30] MEDS: CALCIUM/VITAMIN D 250 MG/125 U TAB PO SCH ×3 (09:42→18:09)
[2016-05-30] MEDS: METOPROLOL TARTRATE 25 MG TAB PO SCH ×2 (09:42→21:03)
[2016-05-30] MEDS: DOCUSATE SODIUM 50 MG/SENNA 8.6 MG TAB PO SCH (09:42)
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
[2016-05-30 20:00] VITALS: BP 131/85; PULSE 87; RESP 18; TEMP 97.3; O2SAT 94
[2016-05-30] MEDS: MAGNESIUM HYDROXIDE SUSP 30 ML CUP PO SCH (21:00)
[2016-05-30] MEDS: MIRTAZAPINE 15 MG TAB PO SCH (21:03)
[2016-05-31] MEDS: oxyCODONE/ACETAMINOPHEN 5 MG/325 MG TAB PO PRN ×4 (00:59→20:08)
[2016-05-31] MEDS: ENOXAPARIN SODIUM 30 MG/0.3 ML SYRINGE SQ SCH ×2 (04:00→16:16)
[2016-05-31] MEDS: GABAPENTIN 300 MG CAP PO SCH ×3 (06:06→21:07)
[2016-05-31 08:00] VITALS: BP 131/82; PULSE 85; RESP 20; TEMP 96.7; O2SAT 97
[2016-05-31] MEDS: COLLAGENASE OINT 30 GM TUBE TOP SCH ×2 (09:00→09:44)
[2016-05-31] MEDS: DOCUSATE SODIUM 100 MG CAP PO SCH ×2 (09:43→20:07)
[2016-05-31] MEDS: FLUoxetine HCL 10 MG CAP PO SCH (09:43)
[2016-05-31] MEDS: METOPROLOL TARTRATE 25 MG TAB PO SCH ×2 (09:43→20:08)
[2016-05-31] MEDS: DOCUSATE SODIUM 50 MG/SENNA 8.6 MG TAB PO SCH (09:43)
[2016-05-31] MEDS: CALCIUM/VITAMIN D 250 MG/125 U TAB PO SCH ×3 (09:43→18:13)
[2016-05-31] MEDS: BACITRACIN TOP OINT 15 GM TUBE TOP SCH ×2 (09:44→20:09)
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
[2016-05-31 20:00] VITALS: BP 119/76; PULSE 105; RESP 16; TEMP 98.4; O2SAT 96
[2016-05-31] MEDS: MIRTAZAPINE 15 MG TAB PO SCH (20:08)
[2016-05-31] MEDS: MAGNESIUM HYDROXIDE SUSP 30 ML CUP PO SCH (20:08)
[2016-05-31] MEDS: CYCLOBENZAPRINE HCL 10 MG TAB PO PRN (21:07)
[2016-06-01] MEDS: oxyCODONE/ACETAMINOPHEN 5 MG/325 MG TAB PO PRN ×4 (03:45→22:12)
[2016-06-01] MEDS: ENOXAPARIN SODIUM 30 MG/0.3 ML SYRINGE SQ SCH ×2 (03:45→16:47)
[2016-06-01] MEDS: GABAPENTIN 300 MG CAP PO SCH ×3 (05:58→22:12)
[2016-06-01 08:00] VITALS: BP 138/85; PULSE 92; RESP 18; TEMP 96.2; O2SAT 97
[2016-06-01] MEDS: COLLAGENASE OINT 30 GM TUBE TOP SCH (09:00)
[2016-06-01] MEDS: BACITRACIN TOP OINT 15 GM TUBE TOP SCH ×2 (09:00→20:06)
[2016-06-01] MEDS: CALCIUM/VITAMIN D 250 MG/125 U TAB PO SCH ×3 (09:46→16:47)
[2016-06-01] MEDS: METOPROLOL TARTRATE 25 MG TAB PO SCH ×2 (09:46→20:06)
[2016-06-01] MEDS: FLUoxetine HCL 10 MG CAP PO SCH (09:46)
[2016-06-01] MEDS: DOCUSATE SODIUM 50 MG/SENNA 8.6 MG TAB PO SCH (09:46)
[2016-06-01] MEDS: DOCUSATE SODIUM 100 MG CAP PO SCH ×2 (09:46→20:06)
[2016-06-01] MEDS: CYCLOBENZAPRINE HCL 10 MG TAB PO PRN (09:46)
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
[2016-06-01 20:00] VITALS: BP 126/79; PULSE 82; RESP 20; TEMP 97.6; O2SAT 94
[2016-06-01] MEDS: MIRTAZAPINE 15 MG TAB PO SCH (20:06)
[2016-06-01] MEDS: MAGNESIUM HYDROXIDE SUSP 30 ML CUP PO SCH (20:08)
[2016-06-02] MEDS: ENOXAPARIN SODIUM 30 MG/0.3 ML SYRINGE SQ SCH ×2 (04:00→15:57)
[2016-06-02] MEDS: oxyCODONE/ACETAMINOPHEN 5 MG/325 MG TAB PO PRN ×4 (04:19→20:56)
[2016-06-02] MEDS: GABAPENTIN 300 MG CAP PO SCH ×3 (06:06→20:54)
[2016-06-02 08:00] VITALS: BP 126/84; PULSE 79; RESP 16; TEMP 96.4; O2SAT 97
--- NOTE | 2016-06-02 09:02 | HHI.PR ---
Subjective Remarks Follow-up for multiple fractures and nerve injury RUE. No acute complaints. Objective Vitals Vital Signs Date Time Temp Pulse Resp B/P Pulse Ox O2 Delivery O2 Flow Rate FiO2 06/02/16 08:00 96.4 79 16 126/84 97 06/02/16 05:19 16 06/01/16 20:00 97.6 82 20 126/79 94 I/O 06/01/16 06/01/16 06/01/16 06/02/16 06/02/16 06/02/16 07:00 15:00 23:00 07:00 15:00 23:00 Intake Total 0 ml 750 ml 480 ml 480 ml Output Total 1000 ml 1150 ml 400 ml Balance -1000 ml 750 ml -670 ml 80 ml Intake Oral 750 ml 480 ml 480 ml IV Total 0 ml Output Urine Total 1000 ml 1150 ml 400 ml Objective Remarks GENERAL: Well-nourished well-developed patient in no apparent distress. CARDIOVASCULAR: Regular rate and rhythm. RESPIRATORY: No accessory muscle use. Clear to auscultation. Breath sounds equal bilaterally. MUSCULOSKELETAL: Knee immobilizer R leg. Capillary refill normal in digits of right foot. 2+ R TP pulse. 2+ L DP pulse. Moves all toes. NEUROLOGICAL: Awake and alert. Normal speech. PSYCHIATRIC: Appropriate mood and affect; insight and judgment normal. Procedures 03/21/16: Left-sided chest tube placement for pneumothorax 03/22/16: ORIF LeFort 1 maxillary fracture right side, close reduction of nasal bone, and stabilization of maxillo-palatal fracture with arch bars. 03/22/16: Irrigation and Debridement of Right Grade 2 Open Tibial shaft Fracture 03/23/16: Multiple surgeries BLE. See OP notes. 03/30/16: ORIF right proximal humerus 04/25/16: Removal maxillary mandibular arch bars Urinary Catheter: No Date of Insertion: Mar 21, 2016 Vascular Central Line Catheter: No A/P Problem List: (1) Trauma ICD Code: T14.90 Status: Acute (2) Tachycardia ICD Code: R00.0 Status: Acute Assessment and Plan Trauma Face: Extensive fx of all king of maxillary sinus Depressed fx of LEFT orbit Non-depressed fx of LEFT zygomatic arch -S/P ORIF maxillary le forte fx, Closed reduction of nasal bone fracture Clavicle: left -No surgical intervention warranted per Ortho. Humerus: S/P ORIF RIGHT humerus -Daily dressing change (santyl) to right shoulder, monitor nerve palsy right arm , ROM R shoulder. -NWB RUE (right handed male) RIGHT tib/fib fx: -S/P I&D RIGHT tibia with wound vac with closed reduction of RIGHT femur. S/P removal hardware right femur with IM rhys fixation and ORIF Bilateral tibia with IM rhys fixation -Knee immobilizer and boot RLE -ROM R knee and ankle -NWB BLE LEFT rib fx (2-8 posterior) with contusions, resolved Transverse process fx LEFT L5, stable Multiple fx of LEFT inferior pubic ramus LEFT sacrum fx LEFT tib fib shaft fx Pain control: -Tylenol prn pain 1-3. Percocet 5 mg q6 hours prn pain 4-10. -Bowel regimen in place. -Continue Gabapentin 600 mg q 8 hours. Tachycardia: controlled on Metoprolol DVT prevention: Lovenox Discharge Planning Patient cannot go to rehabilitation. OT and PT recommend drop arm commode, sliding board, wheelchair with removal arms and legs and elevating leg rest. Patient receives PT 5-7 times per week. 06/01/16: Patient tells me his brother lives in [facility] and he could go stay with him. I informed the patient it is important that he continues occupational and physical therapy and this would have to be arranged if he were to be discharged which may be an issue. 06/02/16: I made cyanide case hardener Henok Rock aware of above. Patient would likely be unable to get C and we agree patient would be unable to physically go to outpatient therapy at this time. Petey Whitt, orthopedic PA, to evaluate the patient today 06/02. Yvette Armas Jun 02, 2016 09:02
[2016-06-02] MEDS: METOPROLOL TARTRATE 25 MG TAB PO SCH ×2 (09:57→20:56)
[2016-06-02] MEDS: DOCUSATE SODIUM 50 MG/SENNA 8.6 MG TAB PO SCH (09:57)
[2016-06-02] MEDS: DOCUSATE SODIUM 100 MG CAP PO SCH ×2 (09:57→21:03)
[2016-06-02] MEDS: CALCIUM/VITAMIN D 250 MG/125 U TAB PO SCH ×3 (09:57→16:40)
[2016-06-02] MEDS: FLUoxetine HCL 10 MG CAP PO SCH (09:57)
[2016-06-02] MEDS: COLLAGENASE OINT 30 GM TUBE TOP SCH ×2 (09:59→18:18)
[2016-06-02] MEDS: BACITRACIN TOP OINT 15 GM TUBE TOP SCH ×2 (09:59→20:57)
--- NOTE | 2016-06-02 13:02 | PD.ORT.PN ---
Subjective Subjective Remarks Alert and oriented. no new complaints Objective Vitals Vital Signs Date Time Temp Pulse Resp B/P Pulse Ox O2 Delivery O2 Flow Rate FiO2 06/02/16 08:00 96.4 79 16 126/84 97 06/02/16 05:19 16 06/01/16 20:00 97.6 82 20 126/79 94 I/O 06/01/16 06/01/16 06/01/16 06/02/16 06/02/16 06/02/16 07:00 15:00 23:00 07:00 15:00 23:00 Intake Total 0 ml 750 ml 480 ml 480 ml Output Total 1000 ml 1150 ml 400 ml Balance -1000 ml 750 ml -670 ml 80 ml Intake Oral 750 ml 480 ml 480 ml IV Total 0 ml Output Urine Total 1000 ml 1150 ml 400 ml Imaging Last 72 hours Impressions Chest X-Ray 03/26/16 06 Signed Impressions: Service Date/Time: Saturday, March 26, 2016 05:52 - CONCLUSION: 1. Persistent medial left lower lung consolidation. 2. No pneumothorax seen. Ugo Kim MD Chest X-Ray 03/25/16 0600 Signed Impressions: Service Date/Time: March 04:50 - CONCLUSION: 1. Increase in left-sided airspace disease since March 24. Left chest tube, endotracheal tube and nasogastric tube unchanged. Naeem Peterson MD Chest X-Ray 03/25/16 0000 Signed Impressions: Service Date/Time: March 15:09 - CONCLUSION: 1. No pneumothorax status post removal of left chest tube. 2. Persistent left lung scattered patchiness. 3. Endotracheal tube and nasogastric tube remain in good positions. 4. Multiple fractures are stable. Osiel Howard MD Chest X-Ray 03/24/16 0600 Signed Impressions: Service Date/Time: Thursday, March 24, 2016 03:13 - CONCLUSION: 1. Support apparatus unchanged. Left chest tube without pneumothorax. Mostly basilar airspace disease remains present, slightly increased on the right since 03/23. Naeem Peterson MD Last 24 hours Impressions [address]ine [address] 03/21/162027 Signed Impressions: Service Date/Time: Monday, March 21, 2016 20:39 - CONCLUSION: Intact thoracic spine. Contiguous left rib fractures #2 through 8 posteriorly Gopi Stone, MD Maxillofacial CT 03/21/162027 Signed Impressions: Service Date/Time: Monday, March 21, 2016 20:36 - CONCLUSION: Extensive fractures of all king of the maxillary sinuses And the nasal bone and ala inclusive of extension into the hard palate. There is a slightly depressed fracture of the medial floor of the left orbit and nondepressed fracture left zygomatic arch. Admixture of air and fluid noted in the maxillary sinuses and ethmoid air cells. Intraorbital contents are normal and base of the skull appears intact with normal intracranial contents Gopi Dumont MD Lumbar Spine CT 03/21/162027 Signed Impressions: Service Date/Time: Monday, March 21, 2016 20:39 - CONCLUSION: Nondisplaced fracture transverse process left L5 and left sacrum. Degenerative disc disease L3-S1. Gopi Dumont MD Pelvis X-Ray 03/21/162012 Signed Impressions: Service Date/Time: Monday, March 21, 2016 19:56 - CONCLUSION: Fracture left sacrum appreciated. Remainder the pelvis is intact with fractures of the pelvis better appreciated on CT scan Gopi Dumont MD Head CT 03/21/162012 Signed Impressions: Service Date/Time: Monday, March 21, 2016 20:30 - CONCLUSION: Intact calvarium. Normal intracranial contents. Facial fractures as described on the facial bone CT Gopi Dumont MD Chest X-Ray 03/21/162012 Signed Impressions: Service Date/Time: Monday, March 21, 2016 19:56 - CONCLUSION: Slightly off set fracture posterior left fourth rib and probably contiguous third and fifth ribs with no pneumothorax Gopi Dumont MD Chest CT 03/21/162012 Signed Impressions: Service Date/Time: Monday, March 21, 2016 20:39 - CONCLUSION: Contiguous left posterior rib fractures #2 through 8 with associated pleural thickening and parenchymal contusion. In the mid to upper right chest anteriorly there is a 1.3 cm pneumothorax without tension . Left chest subcutaneous emphysema Fracture of the proximal right humerus and mid left clavicle additionally appreciated. Gopi Dumont MD Cervical Spine CT 03/21/162012 Signed Impressions: Service Date/Time: Monday, March 21, 2016 20:30 - CONCLUSION: Degenerative changes of the cervical spine. Fractures acute left ribs numbered 2 and 3 posteriorly Gopi Dumont MD Abdomen/Pelvis CT 03/21/162012 Signed Impressions: Service Date/Time: Monday, March 21, 2016 20:39 - CONCLUSION: Multiple fractures inclusive of left inferior superior pubic ramus as well as transverse process and left L5 and left sacrum. Lower chest demonstrates fracture of left rib #8 posteriorly and a small anterior pneumothorax. Intra-abdominal and pelvic contents are normal Gopi Dumont MD Objective Remarks RUE: Clean dry dressings and intact. +sling. no sensation to median/ulnar nerve distribution. passive range of motion shoulder from 80 of abduction and 90 of forward flexion RLE: dressing CDI. calf compartments are soft.. Good capillary refills full motion of toes. Knee immobilizer in place as well as fracture boot. traumatic lac on ankle healing well. LLE: dressing CDI. Calf compartments soft. Good capillary refill in toes. LUE:no pain with palpation of the clavicle. Active range of motion shoulder without any discomfort Assessment & Plan Assessment and Plan 1) Right Proximal Humerus Fx s/p ORIF 2) Right Segmental Periprosthetic Femoral Shaft Fracture status post IM nail 3) Right Distal Tibial Shaft Fracture status post IM nail 03/23/16 4) Left Tibial Shaft Fracture status post IM nail 03/23/16 5) bilateral tibial plateaus status post ORIF on 03/23/16 6)left clavicle fracture - nonop 7) left sacrum fracture and inferior/superior rami fractures - nonop -NWB RUE,BLE. monitor nerve palsy right arm -PROM of right shoulder bilateral lower extremities Maintain knee immobilizer and fracture boot right lower extremity- removed for physical therapy Patient states that he has home with 2 brothers live with him. They are wanting him to come home and help take care of him. Case management to look into the feasibility of going home with nonweightbearing right upper extremity and bilateral lower extremities. Must have access with wheelchair. We'll consider discharge to home if confirmed safety TRISTON PICKETT PA-C Jun 02, 2016 13:02
[2016-06-02 20:00] VITALS: BP 121/80; PULSE 80; RESP 18; TEMP 96.7; O2SAT 96
[2016-06-02] MEDS: MIRTAZAPINE 15 MG TAB PO SCH (20:54)
[2016-06-02] MEDS: MAGNESIUM HYDROXIDE SUSP 30 ML CUP PO SCH (20:56)
[2016-06-03] MEDS: ENOXAPARIN SODIUM 30 MG/0.3 ML SYRINGE SQ SCH ×2 (04:00→17:34)
[2016-06-03] MEDS: oxyCODONE/ACETAMINOPHEN 5 MG/325 MG TAB PO PRN ×4 (04:54→23:33)
[2016-06-03] MEDS: GABAPENTIN 300 MG CAP PO SCH ×3 (05:39→21:26)
[2016-06-03 08:00] VITALS: BP 119/69; PULSE 74; RESP 17; TEMP 96; O2SAT 96
[2016-06-03] MEDS: BACITRACIN TOP OINT 15 GM TUBE TOP SCH ×2 (09:00→21:00)
[2016-06-03] MEDS: CALCIUM/VITAMIN D 250 MG/125 U TAB PO SCH ×3 (09:06→17:33)
[2016-06-03] MEDS: DOCUSATE SODIUM 50 MG/SENNA 8.6 MG TAB PO SCH (09:06)
[2016-06-03] MEDS: DOCUSATE SODIUM 100 MG CAP PO SCH ×2 (09:07→21:26)
[2016-06-03] MEDS: FLUoxetine HCL 10 MG CAP PO SCH (09:07)
[2016-06-03] MEDS: METOPROLOL TARTRATE 25 MG TAB PO SCH ×2 (09:07→21:26)
--- NOTE | 2016-06-03 12:22 | HHI.PR ---
Subjective Remarks No acute complaints. OT has molded new foam splint for right hand. Objective Vitals Vital Signs Date Time Temp Pulse Resp B/P Pulse Ox O2 Delivery O2 Flow Rate FiO2 06/03/16 08:00 96.0 74 17 119/69 96 06/03/16 05:54 16 06/02/16 20:00 96.7 80 18 121/80 96 I/O 06/02/16 06/02/16 06/02/16 06/03/16 06/03/16 06/03/16 07:00 15:00 23:00 07:00 15:00 23:00 Intake Total 480 ml 620 ml 720 ml 600 ml Output Total 400 ml 750 ml 750 ml Balance 80 ml -130 ml 720 ml -150 ml Intake Oral 480 ml 620 ml 720 ml 600 ml Output Urine Total 400 ml 750 ml 750 ml # Voids 2 # Bowel Movements 0 0 0 Objective Remarks GENERAL: Well-nourished well-developed patient in no apparent distress. CARDIOVASCULAR: Regular rate and rhythm. RESPIRATORY: No accessory muscle use. Clear to auscultation. Breath sounds equal bilaterally. GASTROINTESTINAL: Abdomen soft, non-tender, non-distended. MUSCULOSKELETAL: Capillary refill normal in digits of right hand. 2+ TP pulses bilaterally. NEUROLOGICAL: Awake and alert. Normal speech. PSYCHIATRIC: Appropriate mood and affect; insight and judgment normal. Procedures 03/21/16: Left-sided chest tube placement for pneumothorax 03/22/16: ORIF LeFort 1 maxillary fracture right side, close reduction of nasal bone, and stabilization of maxillo-palatal fracture with arch bars. 03/22/16: Irrigation and Debridement of Right Grade 2 Open Tibial shaft Fracture 03/23/16: Multiple surgeries BLE. See OP notes. 03/30/16: ORIF right proximal humerus 04/25/16: Removal maxillary mandibular arch bars Urinary Catheter: No Date of Insertion: Mar 21, 2016 Vascular Central Line Catheter: No A/P Problem List: (1) Trauma ICD Code: T14.90 Status: Acute (2) Tachycardia ICD Code: R00.0 Status: Acute Assessment and Plan Ortho last evaluated patient on 06/02/16. Trauma Face: Extensive fx of all king of maxillary sinus Depressed fx of LEFT orbit Non-depressed fx of LEFT zygomatic arch -S/P ORIF maxillary le forte fx, Closed reduction of nasal bone fracture Clavicle: left -No surgical intervention warranted per Ortho. Humerus: S/P ORIF RIGHT humerus -Daily dressing change (santyl) to right shoulder, monitor nerve palsy right arm , PROM R shoulder. -NWB RUE (right handed male) RIGHT tib/fib fx: -S/P I&D RIGHT tibia with wound vac with closed reduction of RIGHT femur. S/P removal hardware right femur with IM rhys fixation and ORIF Bilateral tibia with IM rhys fixation -Maintain knee immobilizer and fracture boot right lower extremity- removed for physical therapy -PROM B/L lower extremities -NWB BLE LEFT rib fx (2-8 posterior) with contusions, resolved Transverse process fx LEFT L5, stable Multiple fx of LEFT inferior pubic ramus LEFT sacrum fx LEFT tib fib shaft fx Pain control: -Tylenol prn pain 1-3. Percocet 5 mg q6 hours prn pain 4-10. -Bowel regimen in place. -Continue Gabapentin 600 mg q 8 hours. Tachycardia: controlled on Metoprolol DVT prevention: Lovenox Discharge Planning Patient cannot go to rehabilitation. OT and PT recommend drop arm commode, sliding board, wheelchair with removal arms and legs and elevating leg rest. Patient receives PT 5-7 times per week. 06/01/16: Patient tells me his brother lives in [facility] and he could go stay with him. I informed the patient it is important that he continues occupational and physical therapy and this would have to be arranged if he were to be discharged which may be an issue. 06/02/16: I made case investigator Henok Rock aware of above. Patient would likely be unable to get [facility] and we agree patient would be unable to physically go to outpatient therapy at this time. 06/02/16: per ortho patient has home with 2 brothers who live with him and can assist with care. Case management to look into the feasibility of going home with nonweightbearing right upper extremity and bilateral lower extremities. Per ortho, must have access with wheelchair. Consider discharge to home if safety confirmed. Yvette Armas Jun 03, 2016 12:22
[2016-06-03 20:00] VITALS: BP 146/80; PULSE 80; RESP 18; TEMP 97.1; O2SAT 97
[2016-06-03] MEDS: MIRTAZAPINE 15 MG TAB PO SCH (21:26)
[2016-06-03] MEDS: MAGNESIUM HYDROXIDE SUSP 30 ML CUP PO SCH (21:27)
[2016-06-03] MEDS: CYCLOBENZAPRINE HCL 10 MG TAB PO PRN (23:32)
[2016-06-04] MEDS: ENOXAPARIN SODIUM 30 MG/0.3 ML SYRINGE SQ SCH ×2 (05:35→12:14)
[2016-06-04] MEDS: GABAPENTIN 300 MG CAP PO SCH ×3 (05:35→21:05)
[2016-06-04] MEDS: oxyCODONE/ACETAMINOPHEN 5 MG/325 MG TAB PO PRN ×3 (05:35→18:01)
[2016-06-04 08:00] VITALS: BP 109/76; PULSE 80; RESP 19; TEMP 97.7; O2SAT 95
[2016-06-04] MEDS: COLLAGENASE OINT 30 GM TUBE TOP SCH (08:44)
[2016-06-04] MEDS: DOCUSATE SODIUM 100 MG CAP PO SCH ×2 (08:44→21:05)
[2016-06-04] MEDS: FLUoxetine HCL 10 MG CAP PO SCH (08:44)
[2016-06-04] MEDS: CALCIUM/VITAMIN D 250 MG/125 U TAB PO SCH ×3 (08:44→18:01)
[2016-06-04] MEDS: DOCUSATE SODIUM 50 MG/SENNA 8.6 MG TAB PO SCH (08:44)
[2016-06-04] MEDS: BACITRACIN TOP OINT 15 GM TUBE TOP SCH ×2 (08:44→21:00)
[2016-06-04] MEDS: METOPROLOL TARTRATE 25 MG TAB PO SCH ×2 (08:44→21:06)
--- NOTE | 2016-06-04 13:21 | HHI.PR ---
Subjective Remarks Follow-up for trauma. No acute complaints. Objective Vitals Vital Signs Date Time Temp Pulse Resp B/P Pulse Ox O2 Delivery O2 Flow Rate FiO2 06/04/16 08:00 97.7 80 19 109/76 95 06/03/16 20:00 97.1 80 18 146/80 97 I/O 06/03/16 06/03/16 06/03/16 06/04/16 06/04/16 06/04/16 07:00 15:00 23:00 07:00 15:00 23:00 Intake Total 600 ml 720 ml 600 ml 480 ml 240 ml Output Total 750 ml 850 ml 750 ml 950 ml Balance -150 ml -130 ml -150 ml -470 ml 240 ml Intake Oral 600 ml 720 ml 600 ml 480 ml 240 ml Output Urine Total 750 ml 850 ml 750 ml 950 ml # Bowel Movements 0 0 1 1 Objective Remarks GENERAL: Well-nourished well-developed patient in no apparent distress. CARDIOVASCULAR: Regular rate and rhythm. RESPIRATORY: No accessory muscle use. Clear to auscultation. Breath sounds equal bilaterally. MUSCULOSKELETAL: Knee immobilizer and fracture boot right lower extremity. 2+ TP pulses bilaterally. NEUROLOGICAL: Awake and alert. Normal speech. PSYCHIATRIC: Appropriate mood and affect; insight and judgment normal. Procedures 03/21/16: Left-sided chest tube placement for pneumothorax 03/22/16: ORIF LeFort 1 maxillary fracture right side, close reduction of nasal bone, and stabilization of maxillo-palatal fracture with arch bars. 03/22/16: Irrigation and Debridement of Right Grade 2 Open Tibial shaft Fracture 03/23/16: Multiple surgeries BLE. See OP notes. 03/30/16: ORIF right proximal humerus 04/25/16: Removal maxillary mandibular arch bars Urinary Catheter: No Date of Insertion: Mar 21, 2016 Vascular Central Line Catheter: No A/P Problem List: (1) Trauma ICD Code: T14.90 Status: Acute (2) Tachycardia ICD Code: R00.0 Status: Acute Assessment and Plan Ortho last evaluated patient on 06/02/16. Trauma Face: Extensive fx of all king of maxillary sinus Depressed fx of LEFT orbit Non-depressed fx of LEFT zygomatic arch -S/P ORIF maxillary le forte fx, Closed reduction of nasal bone fracture Clavicle: left -No surgical intervention warranted per Ortho. Humerus: S/P ORIF RIGHT humerus -Daily dressing change (santyl) to right shoulder, monitor nerve palsy right arm , PROM R shoulder. -NWB RUE (right handed male) RIGHT tib/fib fx: -S/P I&D RIGHT tibia with wound vac with closed reduction of RIGHT femur. S/P removal hardware right femur with IM rhys fixation and ORIF Bilateral tibia with IM rhys fixation -Maintain knee immobilizer and fracture boot right lower extremity- removed for physical therapy -PROM B/L lower extremities -NWB BLE LEFT rib fx (2-8 posterior) with contusions, resolved Transverse process fx LEFT L5, stable Multiple fx of LEFT inferior pubic ramus LEFT sacrum fx LEFT tib fib shaft fx Pain control: -Tylenol prn pain 1-3. Percocet 5 mg q6 hours prn pain 4-10. -Bowel regimen in place. -Continue Gabapentin 600 mg q 8 hours. Tachycardia: controlled on Metoprolol DVT prevention: Lovenox Discharge Planning Patient cannot go to rehabilitation. OT and PT recommend drop arm commode, sliding board, wheelchair with removal arms and legs and elevating leg rest. Patient receives PT 5-7 times per week. 06/01/16: Patient tells me his brother lives in [facility] and he could go stay with him. I informed the patient it is important that he continues occupational and physical therapy and this would have to be arranged if he were to be discharged. 06/02/16: Per ortho patient has home with 2 brothers who live with him and can assist with care. Case management to look into the feasibility of going home with nonweightbearing right upper extremity and bilateral lower extremities. Per ortho, must have access with wheelchair. Consider discharge to home if safety confirmed. 06/03/16: CM spoke with patient's brother and he and another family member along with a friend would be able to care for patient. DME already at brother's home. 06/04/16: I spoke with CM. He is working on setting up therapy when discharged, [facility] if possible versus outpatient therapy. Yvette Armas Jun 04, 2016 13:21
[2016-06-04 20:00] VITALS: BP 121/90; PULSE 87; RESP 20; TEMP 98.6; O2SAT 98
[2016-06-04] MEDS: MIRTAZAPINE 15 MG TAB PO SCH (21:05)
[2016-06-04] MEDS: MAGNESIUM HYDROXIDE SUSP 30 ML CUP PO SCH (21:06)
[2016-06-05] MEDS: oxyCODONE/ACETAMINOPHEN 5 MG/325 MG TAB PO PRN ×5 (00:03→23:50)
[2016-06-05] MEDS: ENOXAPARIN SODIUM 30 MG/0.3 ML SYRINGE SQ SCH ×2 (04:00→12:05)
[2016-06-05] MEDS: GABAPENTIN 300 MG CAP PO SCH ×3 (05:25→21:45)
[2016-06-05 08:00] VITALS: BP 122/70; PULSE 74; RESP 16; TEMP 98.7; O2SAT 96
[2016-06-05] MEDS: CALCIUM/VITAMIN D 250 MG/125 U TAB PO SCH ×3 (08:59→17:55)
[2016-06-05] MEDS: FLUoxetine HCL 10 MG CAP PO SCH (08:59)
[2016-06-05] MEDS: COLLAGENASE OINT 30 GM TUBE TOP SCH (09:00)
[2016-06-05] MEDS: DOCUSATE SODIUM 100 MG CAP PO SCH ×2 (09:00→20:26)
[2016-06-05] MEDS: BACITRACIN TOP OINT 15 GM TUBE TOP SCH ×2 (09:00→20:28)
[2016-06-05] MEDS: DOCUSATE SODIUM 50 MG/SENNA 8.6 MG TAB PO SCH (09:00)
[2016-06-05] MEDS: METOPROLOL TARTRATE 25 MG TAB PO SCH ×2 (09:00→20:26)
--- NOTE | 2016-06-05 11:41 | HHI.PR ---
Subjective Remarks Follow-up for trauma. No acute complaints. Objective Vitals Vital Signs Date Time Temp Pulse Resp B/P Pulse Ox O2 Delivery O2 Flow Rate FiO2 06/05/16 08:00 98.7 74 16 122/70 96 06/05/16 01:03 16 06/04/16 20:00 98.6 87 20 121/90 98 I/O 06/04/16 06/04/16 06/04/16 06/05/16 06/05/16 06/05/16 07:00 15:00 23:00 07:00 15:00 23:00 Intake Total 480 ml 240 ml 440 ml Output Total 950 ml 700 ml 1250 ml Balance -470 ml 240 ml -260 ml -1250 ml Intake Oral 480 ml 240 ml 440 ml Output Urine Total 950 ml 700 ml 1250 ml # Bowel Movements 1 0 Objective Remarks GENERAL: Well-nourished well-developed patient in no apparent distress sleeping when I enter the room. CARDIOVASCULAR: Regular rate and rhythm. RESPIRATORY: No accessory muscle use. Clear to auscultation. Breath sounds equal bilaterally. GASTROINTESTINAL: Abdomen soft, non-tender, non-distended. MUSCULOSKELETAL: 2+ TP pulses bilaterally. NEUROLOGICAL: Awake and alert. Normal speech. PSYCHIATRIC: Appropriate mood and affect; insight and judgment normal. Procedures 03/21/16: Left-sided chest tube placement for pneumothorax 03/22/16: ORIF LeFort 1 maxillary fracture right side, close reduction of nasal bone, and stabilization of maxillo-palatal fracture with arch bars. 03/22/16: Irrigation and Debridement of Right Grade 2 Open Tibial shaft Fracture 03/23/16: Multiple surgeries BLE. See OP notes. 03/30/16: ORIF right proximal humerus 04/25/16: Removal maxillary mandibular arch bars Urinary Catheter: No Date of Insertion: Mar 21, 2016 Vascular Central Line Catheter: No A/P Problem List: (1) Trauma ICD Code: T14.90 Status: Acute (2) Tachycardia ICD Code: R00.0 Status: Acute Assessment and Plan Ortho last evaluated patient on 06/02/16. Trauma Face: Extensive fx of all king of maxillary sinus Depressed fx of LEFT orbit Non-depressed fx of LEFT zygomatic arch -S/P ORIF maxillary le forte fx, Closed reduction of nasal bone fracture Clavicle: left -No surgical intervention warranted per Ortho. Humerus: S/P ORIF RIGHT humerus -Daily dressing change (santyl) to right shoulder, monitor nerve palsy right arm , PROM R shoulder. -NWB RUE (right handed male) RIGHT tib/fib fx: -S/P I&D RIGHT tibia with wound vac with closed reduction of RIGHT femur. S/P removal hardware right femur with IM rhys fixation and ORIF Bilateral tibia with IM rhys fixation -Maintain knee immobilizer and fracture boot right lower extremity- removed for physical therapy -PROM B/L lower extremities -NWB BLE LEFT rib fx (2-8 posterior) with contusions, resolved Transverse process fx LEFT L5, stable Multiple fx of LEFT inferior pubic ramus LEFT sacrum fx LEFT tib fib shaft fx Pain control: -Tylenol prn pain 1-3. Percocet 5 mg q6 hours prn pain 4-10. -Bowel regimen in place. -Continue Gabapentin 600 mg q 8 hours. Tachycardia: controlled on Metoprolol DVT prevention: Lovenox Discharge Planning Patient cannot go to rehabilitation. OT and PT recommend drop arm commode, sliding board, wheelchair with removal arms and legs and elevating leg rest. Patient receives PT 5-7 times per week. 06/01/16: Patient tells me his brother lives in [facility] and he could go stay with him. I informed the patient it is important that he continues occupational and physical therapy and this would have to be arranged if he were to be discharged. 06/02/16: Per ortho patient has home with 2 brothers who live with him and can assist with care. Case management to look into the feasibility of going home with nonweightbearing right upper extremity and bilateral lower extremities. Per ortho, must have access with wheelchair. Consider discharge to home if safety confirmed. 06/03/16: CM spoke with patient's brother and he and another family member along with a friend would be able to care for patient. DME already at brother's home. 06/04/16: I spoke with CM. He is working on setting up therapy when discharged, [facility] if possible versus outpatient therapy. Yvette Armas Jun 05, 2016 11:41
[2016-06-05 20:00] VITALS: BP 134/87; PULSE 84; RESP 18; TEMP 98.6; O2SAT 98
[2016-06-05] MEDS: MIRTAZAPINE 15 MG TAB PO SCH (20:26)
[2016-06-05] MEDS: MAGNESIUM HYDROXIDE SUSP 30 ML CUP PO SCH (20:28)
[2016-06-05] MEDS: CYCLOBENZAPRINE HCL 10 MG TAB PO PRN (21:45)
[2016-06-06] MEDS: GABAPENTIN 300 MG CAP PO SCH ×3 (05:02→22:35)
[2016-06-06] MEDS: ENOXAPARIN SODIUM 30 MG/0.3 ML SYRINGE SQ SCH ×2 (05:02→12:34)
[2016-06-06] MEDS: oxyCODONE/ACETAMINOPHEN 5 MG/325 MG TAB PO PRN ×3 (06:34→18:41)
[2016-06-06 08:00] VITALS: BP 121/75; PULSE 80; RESP 18; TEMP 96.3; O2SAT 98
[2016-06-06] MEDS: DOCUSATE SODIUM 100 MG CAP PO SCH ×2 (09:10→22:35)
[2016-06-06] MEDS: METOPROLOL TARTRATE 25 MG TAB PO SCH ×2 (09:10→22:35)
[2016-06-06] MEDS: CALCIUM/VITAMIN D 250 MG/125 U TAB PO SCH ×3 (09:10→18:40)
[2016-06-06] MEDS: FLUoxetine HCL 10 MG CAP PO SCH (09:10)
[2016-06-06] MEDS: DOCUSATE SODIUM 50 MG/SENNA 8.6 MG TAB PO SCH (09:10)
[2016-06-06] MEDS: CYCLOBENZAPRINE HCL 10 MG TAB PO PRN (12:36)
--- NOTE | 2016-06-06 17:22 | HHI.PR ---
Subjective Remarks Patient seen in room, No new complaints and is feeling better Reports improvement in function Objective Vitals Vital Signs Date Time Temp Pulse Resp B/P Pulse Ox O2 Delivery O2 Flow Rate FiO2 06/06/16 13:34 14 06/06/16 08:00 96.3 80 18 121/75 98 06/05/16 20:00 98.6 84 18 134/87 98 I/O 06/05/16 06/05/16 06/05/16 06/06/16 06/06/16 06/06/16 07:00 15:00 23:00 07:00 15:00 23:00 Intake Total 600 ml 240 ml 645 ml Output Total 1250 ml 1301 ml 350 ml 400 ml Balance -1250 ml -701 ml -110 ml 245 ml Intake Oral 600 ml 240 ml 645 ml Output Urine Total 1250 ml 1300 ml 350 ml 400 ml Stool Total 1 ml # Voids 3 # Bowel Movements 0 0 0 Objective Remarks GENERAL: This is a well-nourished, well-developed patient, in no apparent distress. CARDIOVASCULAR: Regular rate and rhythm without murmurs, gallops, or rubs. RESPIRATORY: Clear to auscultation. Breath sounds equal bilaterally. No wheezes , rales, or rhonchi. GASTROINTESTINAL: Abdomen soft, non-tender, nondistended. Normal active bowel sounds MUSCULOSKELETAL: Right elbow ulceration resolved. Extremities without clubbing , cyanosis, or edema. NEURO: Alert & Oriented x4 to person, place, time, situation. Moves all ext x4 Procedures 03/21/16: Left-sided chest tube placement for pneumothorax 03/22/16: ORIF LeFort 1 maxillary fracture right side, close reduction of nasal bone, and stabilization of maxillo-palatal fracture with arch bars. 03/22/16: Irrigation and Debridement of Right Grade 2 Open Tibial shaft Fracture 03/23/16: Multiple surgeries BLE. See OP notes. 03/30/16: ORIF right proximal humerus 04/25/16: Removal maxillary mandibular arch bars Date of Insertion: Mar 21, 2016 A/P Problem List: (1) Trauma ICD Code: T14.90 Status: Acute (2) Tachycardia ICD Code: R00.0 Status: Acute Assessment and Plan Patient with multiple traumatic injuries and an unsafe discharge. Continue current management Continue physical therapy, doing much better May go home with brother when arrangements Guillermina De Los Santos MD Jun 06, 2016 17:22
[2016-06-06 20:00] VITALS: BP 113/76; PULSE 93; RESP 18; TEMP 96.4; O2SAT 97
[2016-06-06] MEDS: MAGNESIUM HYDROXIDE SUSP 30 ML CUP PO SCH (21:00)
[2016-06-06] MEDS: MIRTAZAPINE 15 MG TAB PO SCH (22:35)
[2016-06-07] MEDS: CYCLOBENZAPRINE HCL 10 MG TAB PO PRN ×3 (00:28→21:22)
[2016-06-07] MEDS: oxyCODONE/ACETAMINOPHEN 5 MG/325 MG TAB PO PRN ×4 (00:28→18:17)
[2016-06-07] MEDS: ENOXAPARIN SODIUM 30 MG/0.3 ML SYRINGE SQ SCH ×2 (03:53→12:53)
[2016-06-07] MEDS: GABAPENTIN 300 MG CAP PO SCH ×3 (06:33→21:18)
[2016-06-07 08:17] VITALS: BP 118/81; PULSE 78; RESP 18; TEMP 97.8; O2SAT 96
[2016-06-07] MEDS: CALCIUM/VITAMIN D 250 MG/125 U TAB PO SCH ×3 (08:23→18:16)
[2016-06-07] MEDS: METOPROLOL TARTRATE 25 MG TAB PO SCH ×2 (08:23→21:19)
[2016-06-07] MEDS: DOCUSATE SODIUM 100 MG CAP PO SCH ×2 (08:23→21:18)
[2016-06-07] MEDS: FLUoxetine HCL 10 MG CAP PO SCH (08:23)
[2016-06-07] MEDS: DOCUSATE SODIUM 50 MG/SENNA 8.6 MG TAB PO SCH (08:24)
--- NOTE | 2016-06-07 11:45 | HHI.PR ---
Subjective Remarks Follow-up for trauma. Patient has no acute complaints. Objective Vitals Vital Signs Date Time Temp Pulse Resp B/P Pulse Ox O2 Delivery O2 Flow Rate FiO2 06/07/16 08:17 97.8 78 18 118/81 96 06/07/16 07:33 14 06/06/16 20:00 96.4 93 18 113/76 97 I/O 06/06/16 06/06/16 06/06/16 06/07/16 06/07/16 06/07/16 07:00 15:00 23:00 07:00 15:00 23:00 Intake Total 240 ml 645 ml 820 ml 480 ml Output Total 350 ml 400 ml 1000 ml 300 ml Balance -110 ml 245 ml -180 ml 180 ml Intake Oral 240 ml 645 ml 820 ml 480 ml Output Urine Total 350 ml 400 ml 1000 ml 300 ml Stool Total 0 ml # Voids 1 2 # Bowel Movements 0 0 0 Objective Remarks GENERAL: Well-nourished well-developed patient in no apparent distress sleeping when I enter the room. CARDIOVASCULAR: Regular rate and rhythm. RESPIRATORY: No accessory muscle use. Clear to auscultation. Breath sounds equal bilaterally. MUSCULOSKELETAL: Fracture boot and knee immobilizer over right lower extremity. 2+ TP pulses bilaterally. 2+ L DP pulse. NEUROLOGICAL: Sleeping but arouses to voice. Normal speech. PSYCHIATRIC: Appropriate mood and affect; insight and judgment normal. Procedures 03/21/16: Left-sided chest tube placement for pneumothorax 03/22/16: ORIF LeFort 1 maxillary fracture right side, close reduction of nasal bone, and stabilization of maxillo-palatal fracture with arch bars. 03/22/16: Irrigation and Debridement of Right Grade 2 Open Tibial shaft Fracture 03/23/16: Multiple surgeries BLE. See OP notes. 03/30/16: ORIF right proximal humerus 04/25/16: Removal maxillary mandibular arch bars Urinary Catheter: No Date of Insertion: Mar 21, 2016 Vascular Central Line Catheter: No A/P Problem List: (1) Trauma ICD Code: T14.90 Status: Acute (2) Tachycardia ICD Code: R00.0 Status: Acute Assessment and Plan Ortho last evaluated patient on 06/02/16. Trauma Face: Extensive fx of all king of maxillary sinus Depressed fx of LEFT orbit Non-depressed fx of LEFT zygomatic arch -S/P ORIF maxillary le forte fx, Closed reduction of nasal bone fracture Clavicle: left -No surgical intervention warranted per Ortho. Humerus: S/P ORIF RIGHT humerus -Daily dressing change (santyl) to right shoulder, monitor nerve palsy right arm , PROM R shoulder. -NWB RUE (right handed male) RIGHT tib/fib fx: -S/P I&D RIGHT tibia with wound vac with closed reduction of RIGHT femur. S/P removal hardware right femur with IM rhys fixation and ORIF Bilateral tibia with IM rhys fixation -Maintain knee immobilizer and fracture boot right lower extremity- removed for physical therapy -PROM B/L lower extremities -NWB BLE LEFT rib fx (2-8 posterior) with contusions, resolved Transverse process fx LEFT L5, stable Multiple fx of LEFT inferior pubic ramus LEFT sacrum fx LEFT tib fib shaft fx Pain control: -Tylenol prn pain 1-3. Percocet 5 mg q6 hours prn pain 4-10. -Bowel regimen in place. -Continue Gabapentin 600 mg q 8 hours. Tachycardia: controlled on Metoprolol DVT prevention: Lovenox Discharge Planning Patient cannot go to rehabilitation. OT and PT recommend drop arm commode, sliding board, wheelchair with removal arms and legs and elevating leg rest. Patient receives PT 5-7 times per week. 06/01/16: Patient tells me his brother lives in [facility] and he could go stay with him. I informed the patient it is important that he continues occupational and physical therapy and this would have to be arranged if he were to be discharged. 06/02/16: Per ortho patient has home with 2 brothers who live with him and can assist with care. Case management to look into the feasibility of going home with nonweightbearing right upper extremity and bilateral lower extremities. Per ortho, must have access with wheelchair. Consider discharge to home if safety confirmed. 06/03/16: CM spoke with patient's brother and he and another family member along with a friend would be able to care for patient. DME already at brother's home. 06/04/16: I spoke with CM. He is working on setting up therapy when discharged, [facility] if possible versus outpatient therapy. Yvette Armas Jun 07, 2016 11:45
[2016-06-07 20:00] VITALS: BP 121/80; PULSE 86; RESP 18; TEMP 96; O2SAT 96
[2016-06-07] MEDS: MAGNESIUM HYDROXIDE SUSP 30 ML CUP PO SCH (21:00)
[2016-06-07] MEDS: MIRTAZAPINE 15 MG TAB PO SCH (21:18)
[2016-06-08] MEDS: oxyCODONE/ACETAMINOPHEN 5 MG/325 MG TAB PO PRN ×4 (00:36→20:41)
[2016-06-08] MEDS: ENOXAPARIN SODIUM 30 MG/0.3 ML SYRINGE SQ SCH ×2 (04:08→16:53)
[2016-06-08] MEDS: GABAPENTIN 300 MG CAP PO SCH ×3 (06:29→20:40)
[2016-06-08 08:00] VITALS: BP 107/82; PULSE 84; RESP 18; TEMP 96.4; O2SAT 98
[2016-06-08] MEDS: CYCLOBENZAPRINE HCL 10 MG TAB PO PRN ×2 (09:11→20:41)
[2016-06-08] MEDS: DOCUSATE SODIUM 100 MG CAP PO SCH ×2 (09:11→20:40)
[2016-06-08] MEDS: DOCUSATE SODIUM 50 MG/SENNA 8.6 MG TAB PO SCH (09:11)
[2016-06-08] MEDS: FLUoxetine HCL 10 MG CAP PO SCH (09:11)
[2016-06-08] MEDS: CALCIUM/VITAMIN D 250 MG/125 U TAB PO SCH ×3 (09:11→16:53)
[2016-06-08] MEDS: METOPROLOL TARTRATE 25 MG TAB PO SCH ×2 (09:16→20:40)
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
[2016-06-08 20:00] VITALS: BP 110/67; PULSE 86; RESP 20; TEMP 98.8; O2SAT 99
[2016-06-08] MEDS: MIRTAZAPINE 15 MG TAB PO SCH (20:40)
[2016-06-08] MEDS: MAGNESIUM HYDROXIDE SUSP 30 ML CUP PO SCH (20:41)
[2016-06-09] MEDS: ENOXAPARIN SODIUM 30 MG/0.3 ML SYRINGE SQ SCH ×2 (04:52→16:40)
[2016-06-09] MEDS: oxyCODONE/ACETAMINOPHEN 5 MG/325 MG TAB PO PRN ×3 (04:53→20:38)
[2016-06-09] MEDS: GABAPENTIN 300 MG CAP PO SCH ×3 (05:45→20:38)
[2016-06-09 08:00] VITALS: BP 116/73; PULSE 89; RESP 18; TEMP 96.3; O2SAT 96
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
[2016-06-09] MEDS: DOCUSATE SODIUM 50 MG/SENNA 8.6 MG TAB PO SCH (08:32)
[2016-06-09] MEDS: CALCIUM/VITAMIN D 250 MG/125 U TAB PO SCH ×3 (08:32→16:40)
[2016-06-09] MEDS: FLUoxetine HCL 10 MG CAP PO SCH (08:32)
[2016-06-09] MEDS: METOPROLOL TARTRATE 25 MG TAB PO SCH ×2 (08:32→20:37)
[2016-06-09] MEDS: DOCUSATE SODIUM 100 MG CAP PO SCH ×2 (08:32→20:38)
--- NOTE | 2016-06-09 11:50 | RADHPO ---
EXAM DATE/TIME: 06/09/2016 11:17 [facility] COMPARISON: ANKLE RIGHT COMPLETE ([id number]), May 05, 2016, 8:57. INDICATIONS : Fractures. MEDICAL HISTORY : Gastrointestinal bleed. SURGICAL HISTORY : Right shoulder, left tib/fib, right femur, right tib/fib fracture repairs. ENCOUNTER: Subsequent ACUITY: 3 months PAIN SCORE: 6/10 LOCATION: Right ankle FINDINGS: Intramedullary rhys is seen bridging the fracture of the distal tibia. Extensive comminution is evide nt. Alignment is reasonable anatomic. Minimal fracture callus is noted. CONCLUSION: Minimal fracture callus in a healing fracture. Otherwise, negative. Ifeanyi Suarez MD FACR on June 09, 2016 at 11:38 Board Certified Radiologist. This report was verified electronically.
--- NOTE | 2016-06-09 11:52 | RADHPO ---
EXAM DATE/TIME: 06/09/2016 11:19 [facility] COMPARISON: CLAVICLE LEFT, May 05, 2016, 9:10. INDICATIONS : Fractures. MEDICAL HISTORY : Gastrointestinal bleed. SURGICAL HISTORY : Right shoulder, left tib/fib, right femur, right tib/fib fracutre repairs. ENCOUNTER: Subsequent ACUITY: 3 months PAIN SCORE: 6/10 LOCATION: Left clavicle FINDINGS: Healed left navicular fracture is noted. Alignment is anatomic. Old left rib fractures are noted. CONCLUSION: 1. Anatomic alignment of the shoulder. 2. Fracture of the clavicle and multiple upper ribs. Ifeanyi Suarez MD FACR on June 09, 2016 at 11:38 Board Certified Radiologist. This report was verified electronically.
--- NOTE | 2016-06-09 11:54 | RADHPO ---
EXAM DATE/TIME: 06/09/2016 11:12 [facility] COMPARISON: TIBIA/FIBULA RIGHT (AP/LAT), May 05, 2016, 9:00. INDICATIONS : Fractures. MEDICAL HISTORY : Gastrointestinal bleed. SURGICAL HISTORY : Right shoulder, left tib/fib, right femur, right tib/fib fracutre repairs. ENCOUNTER: Subsequent ACUITY: 3 months PAIN SCORE: 6/10 LOCATION: Right tibia/fibula FINDINGS: Post surgical changes are identified in the right lower extremity following oral contrast. Hardware w ithin the right tibia consistent with a external medullary plate stabilizing the tibial plateau fract ure as well as a long intramedullary rhys stabilizing a comminuted fracture the distal tibia. These de vices were present on 05/05/2016 and appear stable. The fracture lines in the distal tibia and fibula are becoming slightly less distinct and there is ev idence of early callus formation. Fracture fragment alignment is stable. There are no new abnormalities. CONCLUSION: Stable appearance of the right tibia and fibula following ORIF. Early callus formation identified in the distal fractures. No acute abnormality. Regulo Stewart MD on June 09, 2016 at 11:50 Board Certified Radiologist. This report was verified electronically.
--- NOTE | 2016-06-09 11:59 | RADHPO ---
EXAM DATE/TIME: 06/09/2016 11:21 [facility] COMPARISON: TIBIA/FIBULA LEFT (AP/LAT), May 05, 2016, 9:02. INDICATIONS : Fractures. MEDICAL HISTORY : Gastrointestinal bleed. SURGICAL HISTORY : Right shoulder, left tib/fib, right femur, right tib/fib fracutre repairs. ENCOUNTER: Subsequent ACUITY: 3 months PAIN SCORE: 6/10 LOCATION: Left tibia/fibula FINDINGS: 2 views of the left tibia and fibula demonstrate postsurgical changes following ORIF. A long intramed ullary rhys with stabilization screws in both the tibial plateau and distal metaphysis are noted. Fracture fragment alignment is stable. Calcification is seen along the mid tibial and fibular fractures. CONCLUSION: Stable appearing left tibia and fibula following ORIF as described. Early callus formation identified. Regulo Stewart MD on June 09, 2016 at 11:54 Board Certified Radiologist. This report was verified electronically.
--- NOTE | 2016-06-09 12:00 | RADHPO ---
EXAM DATE/TIME: 06/09/2016 11:24 [facility] COMPARISON: KNEE RIGHT LTD (1 OR 2 VWS), May 05, 2016, 9:00. INDICATIONS : Fractures. MEDICAL HISTORY : Gastrointestinal bleed. SURGICAL HISTORY : Right shoulder, left tib/fib, right femur, right tib/fib fracutre repairs. ENCOUNTER: Subsequent ACUITY: 3 months PAIN SCORE: 6/10 LOCATION: Right knee FINDINGS: 2 views of the right knee demonstrates orthopedic hardware following ORIF of the femur and tibia. Int ramedullary rods are identified in both the distal femur and proximal tibia. The tibial plateau has b een stabilized with an extra medullary plate and stabilization screws. Compared to recent evaluation the orthopedic hardware as well as fracture fragments appear stable. CONCLUSION: Stable appearing right knee following ORIF of the distal femur and proximal tibia. Regulo Stewart MD on June 09, 2016 at 11:57 Board Certified Radiologist. This report was verified electronically.
[2016-06-09] MEDS: CYCLOBENZAPRINE HCL 10 MG TAB PO PRN ×2 (12:15→20:38)
[2016-06-09 20:00] VITALS: BP 146/86; PULSE 88; RESP 18; TEMP 98.1; O2SAT 96
[2016-06-09] MEDS: MIRTAZAPINE 15 MG TAB PO SCH (20:38)
[2016-06-09] MEDS: MAGNESIUM HYDROXIDE SUSP 30 ML CUP PO SCH (20:38)
[2016-06-10] MEDS: ENOXAPARIN SODIUM 30 MG/0.3 ML SYRINGE SQ SCH ×2 (04:20→12:37)
[2016-06-10] MEDS: oxyCODONE/ACETAMINOPHEN 5 MG/325 MG TAB PO PRN ×3 (04:20→20:33)
[2016-06-10] MEDS: GABAPENTIN 300 MG CAP PO SCH ×3 (06:13→20:33)
--- NOTE | 2016-06-10 07:07 | PD.ORT.PN ---
Subjective Subjective Remarks Alert and oriented. no new complaints Objective Vitals Vital Signs Date Time Temp Pulse Resp B/P Pulse Ox O2 Delivery O2 Flow Rate FiO2 06/09/16 20:00 98.1 88 18 146/86 96 06/09/16 13:12 12 06/09/16 08:00 96.3 89 18 116/73 96 I/O 06/09/16 06/09/16 06/09/16 06/10/16 06/10/16 06/10/16 07:00 15:00 23:00 07:00 15:00 23:00 Intake Total 600 ml 480 ml 1200 ml Output Total 700 ml 1100 ml 875 ml Balance -100 ml -620 ml 325 ml Intake Oral 600 ml 480 ml 1200 ml Output Urine Total 700 ml 1100 ml 875 ml # Voids 2 # Bowel Movements 1 0 Imaging Last 72 hours Impressions Tibia/Fibula X-Ray 06/09/16 0000 Signed Impressions: Service Date/Time: Thursday, June 09, 2016 11:12 - CONCLUSION: Stable appearance of the right tibia and fibula following ORIF. Early callus formation identified in the distal fractures. No acute abnormality. Regulo Stewart MD Tibia/Fibula X-Ray 06/09/16 0000 Signed Impressions: Service Date/Time: Thursday, June 09, 2016 11:21 - CONCLUSION: Stable appearing left tibia and fibula following ORIF as described. Early callus formation identified. Regulo Stewart MD Knee X-Ray 06/09/16 0000 Signed Impressions: Service Date/Time: Thursday, June 09, 2016 11:24 - CONCLUSION: Stable appearing right knee following ORIF of the distal femur and proximal tibia. Regulo Stewart MD Clavicle X-Ray 06/09/16 0000 Signed Impressions: Service Date/Time: Thursday, June 09, 2016 11:19 - CONCLUSION: 1. Anatomic alignment of the shoulder. 2. Fracture of the clavicle and multiple upper ribs. Ifeanyi Suarez MD FACR Ankle X-Ray 06/09/16 0000 Signed Impressions: Service Date/Time: Thursday, June 09, 2016 11:17 - CONCLUSION: Minimal fracture callus in a healing fracture. Otherwise, negative. Ifeanyi Suarez MD FACR Last 72 hours Impressions Chest X-Ray 03/26/16 0600 Signed Impressions: Service Date/Time: Saturday, March 26, 2016 05:52 - CONCLUSION: 1. Persistent medial left lower lung consolidation. 2. No pneumothorax seen. Ugo Kim MD Chest X-Ray 03/25/16 0600 Signed Impressions: Service Date/Time: March 04:50 - CONCLUSION: 1. Increase in left-sided airspace disease since March 24. Left chest tube, endotracheal tube and nasogastric tube unchanged. Naeem Peterson MD Chest X-Ray 03/25/16 0000 Signed Impressions: Service Date/Time: March 15:09 - CONCLUSION: 1. No pneumothorax status post removal of left chest tube. 2. Persistent left lung scattered patchiness. 3. Endotracheal tube and nasogastric tube remain in good positions. 4. Multiple fractures are stable. Osiel Howard MD Chest X-Ray 03/24/16 06 Signed Impressions: Service Date/Time: Thursday, March 24, 2016 03:13 - CONCLUSION: 1. Support apparatus unchanged. Left chest tube without pneumothorax. Mostly basilar airspace disease remains present, slightly increased on the right since 03/23. Naeem Peterson MD Last 24 hours Impressions [address]acic Spine CT 03/21/162027 Signed Impressions: Service Date/Time: Monday, March 21, 2016 20:39 - CONCLUSION: Intact thoracic spine. Contiguous left rib fractures #2 through 8 posteriorly Gopi Dumont MD Maxillofacial CT 03/21/162027 Signed Impressions: Service Date/Time: Monday, March 21, 2016 20:36 - CONCLUSION: Extensive fractures of all king of the maxillary sinuses And the nasal bone and ala inclusive of extension into the hard palate. There is a slightly depressed fracture of the medial floor of the left orbit and nondepressed fracture left zygomatic arch. Admixture of air and fluid noted in the maxillary sinuses and ethmoid air cells. Intraorbital contents are normal and base of the skull appears intact with normal intracranial contents Gopi Dumont MD Lumbar Spine CT 03/21/162027 Signed Impressions: Service Date/Time: Monday, March 21, 2016 20:39 - CONCLUSION: Nondisplaced fracture transverse process left L5 and left sacrum. Degenerative disc disease L3-S1. Gopi Dumont MD Pelvis X-Ray 03/21/162012 Signed Impressions: Service Date/Time: Monday, March 21, 2016 19:56 - CONCLUSION: Fracture left sacrum appreciated. Remainder the pelvis is intact with fractures of the pelvis better appreciated on CT scan Gopi Dumont MD Head CT 03/21/162012 Signed Impressions: Service Date/Time: Monday, March 21, 2016 20:30 - CONCLUSION: Intact calvarium. Normal intracranial contents. Facial fractures as described on the facial bone CT Gopi Dumont MD Chest X-Ray 03/21/162012 Signed Impressions: Service Date/Time: Monday, March 21, 2016 19:56 - CONCLUSION: Slightly off set fracture posterior left fourth rib and probably contiguous third and fifth ribs with no pneumothorax Gopi Dumont MD Chest CT 03/21/162012 Signed Impressions: Service Date/Time: Monday, March 21, 2016 20:39 - CONCLUSION: Contiguous left posterior rib fractures #2 through 8 with associated pleural thickening and parenchymal contusion. In the mid to upper right chest anteriorly there is a 1.3 cm pneumothorax without tension . Left chest subcutaneous emphysema Fracture of the proximal right humerus and mid left clavicle additionally appreciated. Gopi Dumont MD Cervical Spine CT 03/21/162012 Signed Impressions: Service Date/Time: Monday, March 21, 2016 20:30 - CONCLUSION: Degenerative changes of the cervical spine. Fractures acute left ribs numbered 2 and 3 posteriorly Gopi Dumont MD Abdomen/Pelvis CT 03/21/162012 Signed Impressions: Service Date/Time: Monday, March 21, 2016 20:39 - CONCLUSION: Multiple fractures inclusive of left inferior superior pubic ramus as well as transverse process and left L5 and left sacrum. Lower chest demonstrates fracture of left rib #8 posteriorly and a small anterior pneumothorax. Intra-abdominal and pelvic contents are normal Gopi Dumont MD Objective Remarks RUE: Incision healed no sensation in hand. passive range of motion shoulder from 80 of abduction and 90 of forward flexion. Is able to flex his finger and have lead extension. Developing contractures with extension of his fingers RLE: Incisions healed calf compartments are soft.. Good capillary refills full motion of toes. Intact sensation distally. Strong dorsiflexion and plantar flexion of foot. Range of motion of knee from 70 to full extension LLE: Incision healed Calf compartments soft. Good capillary refill in toes. Range of motion of knee from 110 to full extension. Intact sensation distally LUE:no pain with palpation of the clavicle. Full Active range of motion shoulder without any discomfort Assessment & Plan Assessment and Plan 1) Right Proximal Humerus Fx s/p ORIF 2) Right Segmental Periprosthetic Femoral Shaft Fracture status post IM nail 3) Right Distal Tibial Shaft Fracture status post IM nail 03/23/16 4) Left Tibial Shaft Fracture status post IM nail 03/23/16 5) bilateral tibial plateaus status post ORIF on 03/23/16 6)left clavicle fracture - nonop 7) left sacrum fracture and inferior/superior rami fractures - nonop -NWB RUE,BLE. monitor nerve palsy right arm -PROM of right shoulder bilateral lower extremities Occupational therapy for full extension and flexion of all fingers X-rays improving. We will review x-rays with Dr. Paul tomorrow morning 06/11/16 and hopefully progress weightbearing status on left lower extremity for transfers only. Patient states that he has home with 2 brothers live with him. They are wanting him to come home and help take care of him. If progression of weight to left lower extremity for transfers, discharge to home will be anticipated TRISTON PICKETT PA-C Jun 10, 2016 07:07
[2016-06-10 08:00] VITALS: BP 106/73; PULSE 101; RESP 20; TEMP 97.2; O2SAT 96
[2016-06-10] MEDS: CALCIUM/VITAMIN D 250 MG/125 U TAB PO SCH ×3 (08:11→18:05)
[2016-06-10] MEDS: METOPROLOL TARTRATE 25 MG TAB PO SCH ×2 (08:11→20:33)
[2016-06-10] MEDS: DOCUSATE SODIUM 50 MG/SENNA 8.6 MG TAB PO SCH (08:11)
[2016-06-10] MEDS: DOCUSATE SODIUM 100 MG CAP PO SCH ×2 (08:11→20:33)
[2016-06-10] MEDS: CYCLOBENZAPRINE HCL 10 MG TAB PO PRN (08:11)
[2016-06-10] MEDS: FLUoxetine HCL 10 MG CAP PO SCH (08:11)
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
[2016-06-10 20:00] VITALS: BP 121/84; PULSE 94; RESP 18; TEMP 98.5; O2SAT 94
[2016-06-10] MEDS: MIRTAZAPINE 15 MG TAB PO SCH (20:33)
[2016-06-10] MEDS: MAGNESIUM HYDROXIDE SUSP 30 ML CUP PO SCH (20:35)
[2016-06-11] MEDS: oxyCODONE/ACETAMINOPHEN 5 MG/325 MG TAB PO PRN ×2 (04:58→13:04)
[2016-06-11] MEDS: ENOXAPARIN SODIUM 30 MG/0.3 ML SYRINGE SQ SCH ×2 (04:59→16:00)
[2016-06-11] MEDS: GABAPENTIN 300 MG CAP PO SCH ×2 (05:01→13:03)
[2016-06-11 08:00] VITALS: BP 134/78; PULSE 83; RESP 18; TEMP 97; O2SAT 94
[2016-06-11] MEDS: DOCUSATE SODIUM 100 MG CAP PO SCH (09:35)
[2016-06-11] MEDS: FLUoxetine HCL 10 MG CAP PO SCH (09:35)
[2016-06-11] MEDS: DOCUSATE SODIUM 50 MG/SENNA 8.6 MG TAB PO SCH (09:35)
[2016-06-11] MEDS: METOPROLOL TARTRATE 25 MG TAB PO SCH (09:35)
[2016-06-11] MEDS: CALCIUM/VITAMIN D 250 MG/125 U TAB PO SCH ×2 (09:35→13:03)
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
[2016-06-11 14:04] VITALS: RESP 18
[2016-06-11] MEDS ORDERED: WHEEMIS3 (15:08)
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
[2016-06-11] MEDS ORDERED: OXYC1TAB63 PO (15:38)
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
== END 2016-06-11 16:52 | disposition home or self-care (01) | DRG 956 ==
LOC: NEPI 20:00 → MERGE 21:08 → NEDA 21:08 → EDBD 21:08 → N03A 21:28 → N03B 03-22 19:03 → N06A 03-30 00:58 → PH3A 05-17 14:50 → PH5A 05-22 00:36
PROVIDERS: ADMIT Surgery; ATTEND Family Medicine
PROC: 0W9B30Z Drainage of Left Pleural Cavity with Drainage Device, Percutaneous Approach (ICD-10-PCS; 2016-03-21)
PROC: 0NSR04Z Reposition Maxilla with Internal Fixation Device, Open Approach (ICD-10-PCS; 2016-03-22)
PROC: 0JDN0ZZ Extraction of Right Lower Leg Subcutaneous Tissue and Fascia, Open Approach (ICD-10-PCS; 2016-03-22)
PROC: 0NSBXZZ Reposition Nasal Bone, External Approach (ICD-10-PCS; 2016-03-22)
PROC: 2W31X9Z Immobilization of Face using Wire (ICD-10-PCS; 2016-03-22)
PROC: 5A1955Z Respiratory Ventilation, Greater than 96 Consecutive Hours (ICD-10-PCS; 2016-03-22)
PROC: 0QSGXZZ Reposition Right Tibia, External Approach (ICD-10-PCS; 2016-03-22)
PROC: 0QSH04Z Reposition Left Tibia with Internal Fixation Device, Open Approach (ICD-10-PCS; 2016-03-23)
PROC: 0QP804Z Removal of Internal Fixation Device from Right Femoral Shaft, Open Approach (ICD-10-PCS; 2016-03-23)
PROC: 0QSG04Z Reposition Right Tibia with Internal Fixation Device, Open Approach (ICD-10-PCS; principal; 2016-03-23 11:53)
PROC: 0QSB06Z Reposition Right Lower Femur with Intramedullary Internal Fixation Device, Open Approach (ICD-10-PCS; 2016-03-23 11:53)
PROC: 0PSC04Z Reposition Right Humeral Head with Internal Fixation Device, Open Approach (ICD-10-PCS; 2016-03-30)
PROC: 2W5 Placement, Anatomical Regions, Removal (ICD-10-PCS; 2016-04-25)
DX: S72.301A Unspecified fracture of shaft of right femur, initial encounter for closed fracture (principal); S32.592A Other specified fracture of left pubis, initial encounter for closed fracture; S02.40CA Maxillary fracture, right side, initial encounter for closed fracture; R57.8 Other shock; S82.201B Unspecified fracture of shaft of right tibia, initial encounter for open fracture type I or II; S27.0XXA Traumatic pneumothorax, initial encounter; S82.831B Other fracture of upper and lower end of right fibula, initial encounter for open fracture type I or II; S32.059A Unspecified fracture of fifth lumbar vertebra, initial encounter for closed fracture; S27.329A Contusion of lung, unspecified, initial encounter; S32.10XA Unspecified fracture of sacrum, initial encounter for closed fracture; D62 Acute posthemorrhagic anemia; S22.42XA Multiple fractures of ribs, left side, initial encounter for closed fracture; S82.202A Unspecified fracture of shaft of left tibia, initial encounter for closed fracture; S82.142A Displaced bicondylar fracture of left tibia, initial encounter for closed fracture; S42.201A Unspecified fracture of upper end of right humerus, initial encounter for closed fracture; S02.411A LeFort I fracture, initial encounter for closed fracture; S02.32XA Fracture of orbital floor, left side, initial encounter for closed fracture; S02.40FA Zygomatic fracture, left side, initial encounter for closed fracture; S72.451A Displaced supracondylar fracture without intracondylar extension of lower end of right femur, initial encounter for closed fracture; S42.022A Displaced fracture of shaft of left clavicle, initial encounter for closed fracture; S02.2XXA Fracture of nasal bones, initial encounter for closed fracture; R00.0 Tachycardia, unspecified; V03.90XA Pedestrian on foot injured in collision with car, pick-up truck or van, unspecified whether traffic or nontraffic accident, initial encounter; Y93.01 Activity, walking, marching and hiking; Y92.410 Unspecified street and highway as the place of occurrence of the external cause; Z75.1 Person awaiting admission to adequate facility elsewhere
CPT/HCPCS: 32551; 36430; 36600; 51702; 70450; 70486; 71010; 71260; 72125; 72128; 72131; 72170; 72190; 73000; 73020; 73030; 73551; 73552; 73560; 73590; 73600; 73610; 73700; 74177; 76000; 80048; 80053; 82435; 82565; 82570; 82805; 82947; 83735; 83935; 84100; 84132; 84155; 84295; 84300; 84520; 85014; 85018; 85025; 85027; 85610; 85730; 86850; 86900; 86901; 86920; 87641; 90471; 93005; 94002; 94003; 94150; 94640; 94664; 94667; 94668; 96374; 96375; 99291; C1713; C1769; C9113; G0390; J0690; J1040; J1100; J1170; J1580; J1650; J1940; J2250; J2270; J2370; J2405; J2710; J2930; J3010; J3370; J3411; J3480; J7030; J7040; J7120; L0150; L0172; L1830; L2114; P9016; Q9967

== ENCOUNTER 2016-12-16 09:50 | Emergency (ER) | payer SELFPAY ==
[~2016-12-16] VITALS: Ht 172.7 cm; Wt 62.5 kg
[~2016-12-16 09:50] MED LIST changes: -GABA100C4 PO; +GABA600T PO; -HYDR-3366 PO; -HYDR-3533 PO; -HYDR-3583 PO; +OXYC1TAB63 PO; -ROBA750T PO; +WHEEMIS3
[2016-12-16 09:52] VITALS: BP 133/79; PULSE 83; RESP 18; TEMP 98.9; O2SAT 99
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
== END 2016-12-16 10:32 | disposition left against medical advice (07) ==
LOC: NEPK 09:50
DX: M25.511 Pain in right shoulder (principal)
CPT/HCPCS: 99281

== ENCOUNTER 2017-07-31 23:22 | Inpatient (IN) | payer MEDICAID ==
[~2017-07-31] VITALS: Ht 172.7 cm; Wt 64.2 kg
[2017-07-31 23:25] VITALS: BP 160/94; PULSE 98; RESP 18; TEMP 98.2; O2SAT 97
[2017-08-01] MEDS ORDERED: SODIUM CHLOR 0.9% 1000 ML INJ 1,000 ML IV SCH
[2017-08-01] MEDS ORDERED: ONDANSETRON HCL 4 MG/2 ML VIAL IV ONE
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
[2017-08-01 00:12] LABS: AUTOMATED NEUTROPHIL # 4.6 TH/MM3 (1.8-7.7); BASOPHIL # 0.1 TH/MM3 (0-0.2); BASOPHIL % 1.3 % (0.0-2.0); EOSINOPHIL # 0.2 TH/MM3 (0-0.4); EOSINOPHIL % 2.7 % (0.0-4.0); HEMATOCRIT 43.7 % (39.0-51.0); HEMOGLOBIN 15.3 GM/DL (13.0-17.0); LYMPH % 30.3 % (9.0-44.0); LYMPHOCYTE # 2.4 TH/MM3 (1.0-4.8); MEAN CELL VOLUME 91.4 FL (80.0-100.0); MEAN CORPUSCULAR HGB CONC 34.9 % (32.0-36.0); MEAN PLATELET VOLUME 8.1 FL (7.0-11.0); MONOCYTE # 0.6 TH/MM3 (0-0.9); NEUT % 58.7 % (16.0-70.0); PLATELET COUNT 343 TH/MM3 (150-450); RED BLOOD COUNT 4.78 MIL/MM3 (4.50-5.90); RED CELL DISTRIBUTION WIDTH 12.7 % (11.6-17.2); WHITE BLOOD COUNT 7.9 TH/MM3 (4.0-11.0)
[2017-08-01 00:31] LABS: BICARBONATE 27.2 MEQ/L (21.0-32.0); CALCIUM 8.4 MG/DL (8.5-10.1); CREATININE 1.14 MG/DL (0.60-1.30)
--- NOTE | 2017-08-01 01:23 | RADRPT ---
EXAM DATE/TIME: 08/01/2017 00:32 [facility] COMPARISON: CHEST SINGLE AP, March 26, 2016, 5:52. INDICATIONS : Evaluate for any pulmonary disease as patient is being pre-oped for right hip surgery. MEDICAL HISTORY : Gastrointestinal bleed. SURGICAL HISTORY : multiple orthopedic surgeries. ENCOUNTER: Initial ACUITY: 1 day PAIN SCORE: 0/10 LOCATION: Bilateral chest FINDINGS: A single view of the chest demonstrates the lungs to be symmetrically aerated without evidence of mas s, infiltrate or effusion. The cardiomediastinal contours are unremarkable. Left-sided rib fracture s, old.. CONCLUSION: No acute disease. Shaq Rosario MD on August 01, 2017 at 1:20 Board Certified Radiologist. This report was verified electronically.
--- NOTE | 2017-08-01 01:25 | RADRPT ---
EXAM DATE/TIME: 08/01/2017 00:32 [facility] COMPARISON: No previous studies available for comparison. INDICATIONS : Right hip pain post fall. MEDICAL HISTORY : Gastrointestinal bleed. SURGICAL HISTORY : Multiple orthopedic surgeries ENCOUNTER: Initial ACUITY: 1 day PAIN SCORE: 10/10 LOCATION: Right hip FINDINGS: Examination of the right hip was performed with AP Pelvis. Intertrochanteric fracture right hip with displacement. The acetabulum is grossly intact. Intramedullary rhys in the more distal femur. CONCLUSION: Intertrochanteric fracture right hip. Shaq Rosario MD on August 01, 2017 at 1:23 Board Certified Radiologist. This report was verified electronically.
--- NOTE | 2017-08-01 01:26 | RADRPT ---
EXAM DATE/TIME: 08/01/2017 00:33 [facility] COMPARISON: No previous studies available for comparison. INDICATIONS : Right hip pain post fall. MEDICAL HISTORY : Gastrointestinal bleed. SURGICAL HISTORY : Multiple orthopedic surgeries. ENCOUNTER: Initial ACUITY: 1 day PAIN SCORE: 10/10 LOCATION: Right hip FINDINGS: Two view examination of the right femur demonstrates intertrochanteric fracture right. Intramedullary rhys in the mid to distal femur fixing old fracture.. Bony mineralization is normal. The soft tissu e structures are intact. CONCLUSION: Intertrochanteric fracture right proximal femur. Shaq Rosario MD on August 01, 2017 at 1:24 Board Certified Radiologist. This report was verified electronically.
[2017-08-01] MEDS ORDERED: fentaNYL CITRATE 250 MCG/5 ML AMP IV PUSH ONE (01:45)
[2017-08-01] MEDS ORDERED: BISACODYL 10 MG SUPP RECTAL PRN (02:00)
[2017-08-01] MEDS ORDERED: SENNOSIDES 8.6 MG TAB PO PRN (02:00)
[2017-08-01] MEDS ORDERED: MAGNESIUM HYDROXIDE SUSP 30 ML CUP PO PRN (02:00)
[2017-08-01] MEDS ORDERED: ONDANSETRON HCL 4 MG/2 ML VIAL IVP PRN (02:00)
[2017-08-01] MEDS ORDERED: LACTULOSE SYRUP 20 GM/30 ML CUP PO PRN (02:00)
[2017-08-01] MEDS ORDERED: ACETAMINOPHEN 325 MG TAB PO PRN (02:00)
[2017-08-01] MEDS ORDERED: SODIUM CHLORIDE 0.9% FLUSH 10 ML FLUSH IV FLUSH PRN (02:00)
[2017-08-01 02:42] VITALS: BP 132/79; PULSE 97; RESP 16; O2SAT 97
[2017-08-01] MEDS: SODIUM CHLOR 0.9% 1000 ML INJ 1,000 ML IV SCH ×3 (02:48→15:55)
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
[2017-08-01 03:40] VITALS: BP 137/74; PULSE 102; RESP 17; TEMP 97.9; O2SAT 94
[2017-08-01] MEDS ORDERED: SODIUM CHLORID 0.9% 500 ML IV PRN (04:30)
[2017-08-01] MEDS ORDERED: POVIDONE IODINE 5% (ANTISEPSIS KIT) 4 APPLICATIONS EACH NARE PRN (04:30)
[2017-08-01] MEDS ORDERED: CHLORHEXIDINE GLUCONATE 2 % 1 PACK (2 CLOTHS) TOPICAL PRN (04:30)
[2017-08-01] MEDS ORDERED: LACTATED RINGER'S 1000 ML IV PRN (04:30)
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
[2017-08-01 08:00] VITALS: BP 119/67; PULSE 91; RESP 17; TEMP 98; O2SAT 93
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
[2017-08-01] MEDS: SODIUM CHLORIDE 0.9% FLUSH 10 ML FLUSH IV FLUSH SCH ×2 (09:00→19:48)
[2017-08-01] MEDS: DOCUSATE SODIUM 50 MG/SENNA 8.6 MG TAB PO SCH ×2 (09:50→19:48)
[2017-08-01] MEDS: FLUoxetine HCL 10 MG CAP PO SCH (09:50)
[2017-08-01] MEDS: GABAPENTIN 300 MG CAP PO SCH ×3 (09:50→18:42)
[2017-08-01] MEDS: PANTOPRAZOLE SOD 40 MG DELAYED RELEASE TAB PO SCH (09:50)
[2017-08-01 11:58] VITALS: BP 128/69; PULSE 90; RESP 18; TEMP 99.6; O2SAT 94
[2017-08-01] MEDS: oxyCODONE/ACETAMINOPHEN 7.5 MG/325 MG TAB PO PRN ×2 (13:55→19:48)
[2017-08-01] MEDS: HYDROmorphone HCL PF 2 MG/ML VIAL IV PRN ×2 (15:53→22:25)
[2017-08-01 16:00] VITALS: BP 118/63; PULSE 95; RESP 18; TEMP 98.1; O2SAT 93
[2017-08-01 20:00] VITALS: BP 116/69; PULSE 92; RESP 18; TEMP 97.6; O2SAT 95
--- NOTE | 2017-08-01 20:38 | HHI.PR ---
Addendum to Inpatient Note Additional Information Patient seen/examined. Surgery tomorrow. Will adjust pain medications. Summer Jon DO Aug 01, 2017 20:38
[2017-08-01] MEDS: MIRTAZAPINE 15 MG TAB PO SCH (22:28)
[2017-08-02] VITALS (9 sets, daily range): BP systolic 104–132; BP diastolic 55–78; PULSE 79–97; RESP 16–18; TEMP 97.8–98.6; O2SAT 92–98
--- NOTE | 2017-08-02 00:17 | EKG ---
Date Performed: 08/01/2017 Time Performed: 02:48:45 PTAGE: 57 years EKG: Sinus rhythm POSSIBLE RIGHT VENTRICULAR CONDUCTION DELAY BORDERLINE ECG INTERPRETATION BASED ON A DEFAULT AGE OF 40 YEARS PREVIOUS TRACING : 03/22/2016 11.47 DOCTOR: Candelario Nava Interpretating Date/Time 08/02/2017 00:08:34
[2017-08-02] MEDS: oxyCODONE/ACETAMINOPHEN 7.5 MG/325 MG TAB PO PRN ×4 (02:00→23:48)
[2017-08-02] MEDS: HYDROmorphone HCL PF 2 MG/ML VIAL IV PRN ×3 (05:25→20:26)
[2017-08-02 05:53] LABS: AUTOMATED NEUTROPHIL # 5.8 TH/MM3 (1.8-7.7); BASOPHIL # 0.1 TH/MM3 (0-0.2); BASOPHIL % 0.8 % (0.0-2.0); EOSINOPHIL # 0.1 TH/MM3 (0-0.4); EOSINOPHIL % 1.2 % (0.0-4.0); HEMATOCRIT 43.6 % (39.0-51.0); HEMOGLOBIN 15.4 GM/DL (13.0-17.0); LYMPH % 14.7 % (9.0-44.0); LYMPHOCYTE # 1.2 TH/MM3 (1.0-4.8); MEAN CELL VOLUME 90.5 FL (80.0-100.0); MEAN CORPUSCULAR HGB CONC 35.3 % (32.0-36.0); MEAN PLATELET VOLUME 8.2 FL (7.0-11.0); MONO % 10.8 % (0.0-8.0); MONOCYTE # 0.9 TH/MM3 (0-0.9); NEUT % 72.5 % (16.0-70.0); PLATELET COUNT 299 TH/MM3 (150-450); RED BLOOD COUNT 4.82 MIL/MM3 (4.50-5.90); RED CELL DISTRIBUTION WIDTH 12.5 % (11.6-17.2); WHITE BLOOD COUNT 7.9 TH/MM3 (4.0-11.0)
[2017-08-02 06:24] LABS: ALBUMIN 2.9 GM/DL (3.4-5.0); ALT (GPT) 13 U/L (12-78); AST (GOT) 15 U/L (15-37); BICARBONATE 26.8 MEQ/L (21.0-32.0); BLOOD UREA NITROGEN 6 MG/DL (7-18); CALCIUM 8.5 MG/DL (8.5-10.1); CHLORIDE 105 MEQ/L (98-107); CREATININE 0.78 MG/DL (0.60-1.30); GLOMERULAR FILTRATION RATE 103 ML/MIN (>89); GLUCOSE,RANDOM 110 MG/DL (74-106); SODIUM (NA) 140 MEQ/L (136-145)
[2017-08-02 06:27] LABS: ALKALINE PHOSPHATASE 83 U/L (45-117); TOTAL BILIRUBIN ADULT 0.7 MG/DL (0.2-1.0); TOTAL PROTEIN 7.2 GM/DL (6.4-8.2)
[2017-08-02] MEDS: SODIUM CHLOR 0.9% 1000 ML INJ 1,000 ML IV SCH ×2 (08:00→20:28)
[2017-08-02] MEDS: PANTOPRAZOLE SOD 40 MG DELAYED RELEASE TAB PO SCH (08:01)
[2017-08-02] MEDS: FLUoxetine HCL 10 MG CAP PO SCH (08:01)
[2017-08-02] MEDS: DOCUSATE SODIUM 50 MG/SENNA 8.6 MG TAB PO SCH ×2 (08:01→20:25)
[2017-08-02] MEDS: SODIUM CHLORIDE 0.9% FLUSH 10 ML FLUSH IV FLUSH SCH ×2 (08:01→21:00)
[2017-08-02] MEDS: GABAPENTIN 300 MG CAP PO SCH ×3 (08:02→17:51)
[2017-08-02] MEDS ORDERED: METOPROLOL TARTRATE 25 MG TAB PO PRN (10:00)
[2017-08-02] MEDS ORDERED: SODIUM CHLORID 0.9% 500 ML IV PRN (10:00)
[2017-08-02] MEDS ORDERED: INSULIN HUMAN REGULAR 1,000 UNITS/10 ML VIAL SQ PRN (10:00)
[2017-08-02] MEDS ORDERED: LACTATED RINGER'S 1000 ML IV PRN (10:00)
[2017-08-02] MEDS ORDERED: POVIDONE IODINE 5% (ANTISEPSIS KIT) 4 APPLICATIONS EACH NARE PRN (10:00)
[2017-08-02] MEDS ORDERED: CHLORHEXIDINE GLUCONATE 2 % 1 PACK (2 CLOTHS) TOPICAL PRN (10:00)
[2017-08-02] MEDS ORDERED: GENTAMICIN SULFATE 80 MG/2 ML VIAL ONE (10:18)
[2017-08-02] MEDS ORDERED: ceFAZolin INJ 1,000 MG VIAL ONE (10:18)
[2017-08-02] MEDS ORDERED: SODIUM CHLOR 0.9% 250 ML INJ 250 ML ONE (10:18)
[2017-08-02] MEDS ORDERED: VANCOMYCIN HCL 1000 MG VIAL ONE (10:18)
[2017-08-02] MEDS ORDERED: oxyCODONE/ACETAMINOPHEN 7.5 MG/325 MG TAB PO ONE (10:30)
[2017-08-02] MEDS ORDERED: ACETAMINOPHEN 1000 MG/100 ML 100 ML IV ONE (11:03)
[2017-08-02] MEDS ORDERED: ONDANSETRON HCL 4 MG/2 ML VIAL IV ONE (12:00)
[2017-08-02] MEDS ORDERED: PHENYLEPHRINE HCL 10 MG/ML VIAL IV ONE (12:00)
[2017-08-02] MEDS ORDERED: PROPOFOL 200 MG/20 ML AMP IV ONE (12:00)
[2017-08-02] MEDS ORDERED: LACTATED RINGER'S 1000 ML INJ 1,000 ML IV ONE (12:00)
[2017-08-02] MEDS ORDERED: PHENYLEPH/NS 1000 MCG/10 ML SYR IV ONE (12:00)
[2017-08-02] MEDS ORDERED: LIDOCAINE HCL 1% PF 5 ML SYRINGE OTHER ONE (12:00)
[2017-08-02] MEDS ORDERED: DEXAMETHASONE SOD PHOS 4 MG/ML VIAL IV ONE (12:00)
[2017-08-02] MEDS ORDERED: BUPIVACAINE/EPINEPHRINE 0.25% PF 10 ML VIAL ONE (12:42)
--- NOTE | 2017-08-02 12:45 | PD.ORT.PN ---
Subjective Subjective Remarks s/p right hip fx stable. no changes Objective Vitals Vital Signs Date Time Temp Pulse Resp B/P (MAP) Pulse Ox O2 Delivery O2 Flow Rate FiO2 08/02/17 08:00 98.2 79 18 104/55 (71) 96 08/02/17 06:58 Room Air 08/02/17 03:55 98.4 82 17 121/65 (83) 96 08/02/17 00:09 98.4 90 16 122/67 (85) 95 08/01/17 20:00 97.6 92 18 116/69 (85) 95 08/01/17 16:00 98.1 95 18 118/63 (81) 93 I/O 08/01/17 08/01/17 08/01/17 08/02/17 08/02/17 08/02/17 07:00 15:00 23:00 07:00 15:00 23:00 Intake Total 0 ml 600 ml 0 ml Output Total 0 ml 1300 ml 400 ml Balance 0 ml -700 ml 0 ml -400 ml Intake Oral 0 ml 600 ml 0 ml Output Urine Total 0 ml 1300 ml 400 ml # Voids 2 # Bowel Movements 0 0 0 Result Diagram: 08/02/17 0419 08/02/17 0419 Objective Remarks Right lower extremity. Pain to palpation of right hip and movement. No pain at knee or ankle. Distally intact sensation with good capillary refills left dorsiflexion plantar flexion of the foot. Assessment & Plan Assessment and Plan 1) Right intertrochanteric femur fracture -surgeyr today with Dr Samira Haynes,Fracisco KWAN/[employer] Tanner AQUILES Aug 02, 2017 12:45
--- NOTE | 2017-08-02 12:58 | PD.OP ---
cc: Anatoly Paul MD Operative Report Date of Surgery: Aug 02, 2017 Preoperative Diagnosis: right hip intertrochanteric fracture, retained hardware right femur Postoperative Diagnosis: Procedure: Removal deep hardware right femur, reduction and intramedullary nail fixation right femur Surgeon: Anatoly Paul Professor Of Spanish(s): MARÍA ELENA Ro PA-C The surgical procedure was assisted by my physician assistant store director. My P.A. presence was necessary throughout this case for the manipulation and positioning of the surgical extremity. My P.A. was assisting me throughout the duration of this procedure. The skill set of a physician assistant store director was medically necessary to complete this procedure. During the surgical case the manometer technician was working at the back table and the physician assistant store director was directly assisting me. Operation and Findings: Implants used: [12]mm x [380]mm Synthes troch nail Plan of activity: Weight-bear as tolerated Patient was seen and evaluated preoperatively. The patient has significant hip pain from proximal right femur fracture. He previously had comminuted fractures of his right distal femur treated with retrograde intramedullary nail. The risk and benefits of surgery were discussed in depth with the patient to include bleeding, infection, nonunion, malunion, need for hip replacement, painful hardware, as well as medical competitions including blood clots, stroke, heart attack, and . Informed consent was obtained. Operative site was marked. Patient was brought to the operating room and placed on fracture table. IV sedation was administered by anesthesiologist. Timeout procedure was performed. Hip and leg were prepped with alcohol followed by DuraPrep and draped in the usual sterile fashion. IV antibiotics were given prior to incision. Procedure began with removal of the retrograde femoral nail. Incisions were made over the proximal and distal screws. Scar tissue was incised. The screws were identified under fluoroscopy. The 2 proximal interlocking screws were removed first. The distal interlocking screws were loosened. A medial arthrotomy incision was made. A guidepin was placed in a retrograde fashion into the distal end of the retrograde nail. Fluoroscopy confirmed appropriate guidepin placement. Opening reamer was placed over the guidepin to help open the cortex of the distal femur. The insertion handle was now screwed into the nail. The distal screws were now removed. The nail was now back slapped and completely removed. Fluoroscopy confirmed removal of appropriate hardware. The fractures appeared to be completely healed. Next attention was turned towards intertrochanteric fracture. Patient was now positioned and traction on the fracture table. Procedure began with reduction of fracture. Traction was applied. The leg was manipulated to achieve reduction. Excellent reduction was achieved. Fluoroscopy was used to confirm reduction. A three inch incision was made proximal to the trochanter. Subcutaneous tissue was dissected bluntly. Guidepin was placed at the tip of the trochanter and advanced into the femoral canal. Fluoroscopy confirmed appropriate guidepin placement. A opening reamer was placed over the guidepin. A long ball tipped guide pin was now placed down the femoral canal into the center of the distal femur. The nail length was now measured. Fluoroscopy confirmed appropriate guidepin placement. Flexible reamers were now passed over the guidepin to ream the intramedullary canal. The nail was opened and attached to the insertion handle. Nail was now placed over the guidepin into the femoral canal. Fluoroscopy confirmed appropriate nail placement. A second incision was made over the lateral thigh. Cannulas were placed through the insertion handle down to the femur. Guidepin was now placed through the femoral nail into the center of the femoral head. Fluoroscopy confirmed appropriate guidepin placement. Screw length was measured. Cannulated drill was placed over the guidepin. Appropriate length lag screw was now placed. Traction was released and compression was applied. The set screw was now tightened in dynamic mode. Next, using perfect shawnee technique 1 distal interlocking screw was placed. Screw holes were predrilled and screw lengths were measured. Final fluoroscopy revealed well aligned fracture with well-placed hardware. Incision was closed with 3-0 Vicryl and isai. Sterile dressings were applied. Patient was awakened and transferred to recovery room. Anatoly Paul MD Aug 02, 2017 12:58
[2017-08-02] MEDS ORDERED: diphenhydrAMINE HCL 25 MG CAP PO PRN (13:00)
[2017-08-02] MEDS ORDERED: DO NOT ADM ANY ANTICOAGULANT DRUGS PRN (13:11)
[2017-08-02] MEDS ORDERED: ERGOCALCIFEROL (VIT D2) 50,000 UNIT CAP PO ONE (13:15)
[2017-08-02] MEDS ORDERED: *MEPERIDINE 25 MG INJ VIAL PERIprocedural Use ONLY ONE (13:24)
[2017-08-02] MEDS ORDERED: MIDAZOLAM HCL 2 MG/2 ML VIAL ONE (13:29)
[2017-08-02] MEDS ORDERED: HYDROmorphone HCL PF 2 MG/ML VIAL ONE (13:32)
--- NOTE | 2017-08-02 14:44 | RADRPT ---
EXAM DATE/TIME: 08/02/2017 12:06 [facility] COMPARISON: FEMUR RIGHT (AP & LAT/2VWS), August 01, 2017, 0:33. INDICATIONS : Removal hardware and open reduction internal fixation right femur. MEDICAL HISTORY : None. SURGICAL HISTORY : None. ENCOUNTER: Initial ACUITY: 1 day PAIN SCORE: Non-responsive. LOCATION: Right Femur FINDINGS: There is rhys and screw fixation of the proximal right femur. Also previous rhys fixation across a heal ed distal femur fracture. Bones are osteopenic. CONCLUSION: 1. Femur fixation as above. Naeem Peterson MD on August 02, 2017 at 14:39 Board Certified Radiologist. This report was verified electronically.
[2017-08-02] MEDS ORDERED: MORPHINE SULFATE 4 MG/ML INJ ONE (17:31)
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
[2017-08-02] MEDS: MIRTAZAPINE 15 MG TAB PO SCH (23:47)
[2017-08-03] MEDS: HYDROmorphone HCL PF 2 MG/ML VIAL IV PRN ×2 (00:56→06:50)
[2017-08-03 04:00] VITALS: BP 122/73; PULSE 87; RESP 18; TEMP 99; O2SAT 97
[2017-08-03] MEDS: SODIUM CHLOR 0.9% 1000 ML INJ 1,000 ML IV SCH ×2 (04:00→13:54)
[2017-08-03] MEDS: oxyCODONE/ACETAMINOPHEN 7.5 MG/325 MG TAB PO PRN ×5 (05:42→21:57)
[2017-08-03] MEDS ORDERED: WALKER/ADULT/FO1 MIS (06:43)
[2017-08-03] MEDS ORDERED: VITA2000 PO (06:43)
[2017-08-03] MEDS ORDERED: CALCTAB19 PO (06:43)
[2017-08-03] MEDS ORDERED: XARE10TA PO (06:43)
[2017-08-03] MEDS ORDERED: ENDO7.5T10 PO (06:43)
[2017-08-03] MEDS ORDERED: VITA500012 PO (06:43)
[2017-08-03 06:54] LABS: HEMATOCRIT 40.2 % (39.0-51.0); HEMOGLOBIN 14.3 GM/DL (13.0-17.0)
--- NOTE | 2017-08-03 07:06 | PD.ORT.PN ---
Subjective Subjective Remarks POD 1 s/p removal of retrograde nail with conversion to antegrade IMN right hip -doing well. reports pain. controlled. Objective Vitals Vital Signs Date Time Temp Pulse Resp B/P (MAP) Pulse Ox O2 Delivery O2 Flow Rate FiO2 08/03/17 04:00 99.0 87 18 122/73 (89) 97 08/02/17 23:40 98.6 97 18 121/70 (87) 96 08/02/17 21:50 94 08/02/17 20:56 98.0 91 18 132/70 (90) 94 08/02/17 20:30 Room Air 08/02/17 20:25 98.2 93 18 116/69 (85) 97 08/02/17 17:06 92 21 08/02/17 15:03 Nasal Cannula 2.00 08/02/17 14:50 97.8 91 18 128/78 (95) 98 08/02/17 14:30 98.6 82 14 148/76 (100) 96 Nasal Cannula 2 08/02/17 14:15 84 13 134/72 (92) 94 08/02/17 14:00 95 14 145/76 (99) 93 08/02/17 13:45 96 14 145/83 (103) 95 08/02/17 13:30 104 13 161/96 (117) 96 Nasal Cannula 2 08/02/17 13:18 97.7 110 14 132/89 (103) 96 Nasal Cannula 2 08/02/17 08:00 98.2 79 18 104/55 (71) 96 I/O 08/02/17 08/02/17 08/02/17 08/03/17 08/03/17 08/03/17 07:00 15:00 23:00 07:00 15:00 23:00 Intake Total 0 ml 1250 ml 480 ml Output Total 500 ml 1850 ml Balance 0 ml 750 ml -1370 ml Intake Oral 0 ml 480 ml IV Total 1250 ml Output Urine Total 400 ml 1850 ml Estimated Blood Loss 100 ml # Voids 2 # Bowel Movements 0 0 Result Diagram: 08/03/17 0400 08/02/17 0489 Objective Remarks RLE: dressings clean and dry. intact. NVI Assessment & Plan Assessment and Plan 1) Right intertrochanteric femur fracture s/p removal of retrograde nail with conversion to antegrade nail - POD 1 -WBAT -daily dressing changes POD 2 -DVT prophylaxis -CM for rehab placement -f/u wtih Samira or AQUILES in 2 weeks Fracisco Haynes/First Fani KWAN Aug 03, 2017 07:06
[2017-08-03 08:00] VITALS: BP 122/69; PULSE 93; RESP 18; TEMP 98.3; O2SAT 95
[2017-08-03] MEDS: PANTOPRAZOLE SOD 40 MG DELAYED RELEASE TAB PO SCH (09:02)
[2017-08-03] MEDS: DOCUSATE SODIUM 50 MG/SENNA 8.6 MG TAB PO SCH ×2 (09:02→21:57)
[2017-08-03] MEDS: GABAPENTIN 300 MG CAP PO SCH ×3 (09:02→17:12)
[2017-08-03] MEDS: CHOLECALCIFEROL (VIT D3) 5000 UNIT CAP PO SCH (09:02)
[2017-08-03] MEDS: FLUoxetine HCL 10 MG CAP PO SCH (09:02)
[2017-08-03] MEDS: SODIUM CHLORIDE 0.9% FLUSH 10 ML FLUSH IV FLUSH SCH ×2 (09:04→21:57)
[2017-08-03 12:00] VITALS: BP 126/67; PULSE 93; RESP 18; TEMP 98.7; O2SAT 93
[2017-08-03] MEDS: ENOXAPARIN SODIUM 30 MG/0.3 ML SYRINGE SQ SCH (12:00)
[2017-08-03 16:00] VITALS: BP 135/76; PULSE 106; RESP 18; TEMP 100.7; O2SAT 95
[2017-08-03 20:00] VITALS: BP 129/81; PULSE 105; RESP 18; TEMP 99.7; O2SAT 95
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
[2017-08-03] MEDS: MIRTAZAPINE 15 MG TAB PO SCH (21:57)
[2017-08-03 23:06] VITALS: BP 112/65; PULSE 100; RESP 18; TEMP 98.9; O2SAT 95
[2017-08-04] MEDS: oxyCODONE/ACETAMINOPHEN 7.5 MG/325 MG TAB PO PRN ×4 (02:08→13:54)
--- NOTE | 2017-08-04 06:25 | PD.ORT.PN ---
Subjective Subjective Remarks POD 2 s/p removal of retrograde nail with conversion to antegrade IMN right hip -doing well. reports pain improved. states out of bed with therapy. lives at home with 2 brothers Objective Vitals Vital Signs Date Time Temp Pulse Resp B/P (MAP) Pulse Ox O2 Delivery O2 Flow Rate FiO2 08/03/17 23:06 98.9 100 18 112/65 (81) 95 08/03/17 21:57 Room Air 08/03/17 20:00 99.7 105 18 129/81 (97) 95 08/03/17 16:00 100.7 106 18 135/76 (95) 95 08/03/17 14:52 18 08/03/17 12:00 98.7 93 18 126/67 (86) 93 08/03/17 08:00 98.3 93 18 122/69 (86) 95 I/O 08/03/17 08/03/17 08/03/17 08/04/17 08/04/17 08/04/17 07:00 15:00 23:00 07:00 15:00 23:00 Intake Total 480 ml 600 ml 480 ml Output Total 1850 ml 1000 ml 500 ml 1100 ml Balance -1370 ml -400 ml -500 ml -620 ml Intake Oral 480 ml 600 ml 480 ml Output Urine Total 1850 ml 1000 ml 500 ml 1100 ml # Bowel Movements 0 0 0 Result Diagram: 08/03/17 0400 08/02/17 0419 Objective Remarks RLE: dressings clean and dry. intact. NVI Assessment & Plan Assessment and Plan 1) Right intertrochanteric femur fracture s/p removal of retrograde nail with conversion to antegrade nail - POD 2 -WBAT -daily dressing changes POD 2 -DVT prophylaxis -CM for home with HHC -if doing well today, ok for DC home with HHC -f/u wtih Samira or AQUILES in 2 weeks Fracisco Haynes/First Fani KWAN Aug 04, 2017 06:25
--- NOTE | 2017-08-04 06:26 | HHI.FF ---
Face to Face Verification Diagnosis: (1) Hip fracture, right Physical Therapy Gait training Hip: Hip fracture, Protocol: Right, Progress to weight bearing Right LE Weight Bearing: WB as tolerated Nursing Dressing Changes: Daily dressing change, 4x4s, Paper tape, Xeroform I have seen patient Marcelo Jackson on 08/04/17. My clinical findings support the need for the requested home health care services because: Ltd mobility - disease progression I certify that my clinical findings support that this patient is homebound because: Post-op weakness Fracisco Haynes/Home Security Professional PA Aug 04, 2017 06:26
[2017-08-04 07:55] VITALS: O2SAT 94
[2017-08-04 08:00] VITALS: BP 121/74; PULSE 84; RESP 16; TEMP 98; O2SAT 97
[2017-08-04] MEDS: GABAPENTIN 300 MG CAP PO SCH ×2 (08:11→13:53)
[2017-08-04] MEDS: SODIUM CHLORIDE 0.9% FLUSH 10 ML FLUSH IV FLUSH SCH (08:11)
[2017-08-04] MEDS: PANTOPRAZOLE SOD 40 MG DELAYED RELEASE TAB PO SCH (08:11)
[2017-08-04] MEDS: DOCUSATE SODIUM 50 MG/SENNA 8.6 MG TAB PO SCH (08:11)
[2017-08-04] MEDS: CHOLECALCIFEROL (VIT D3) 5000 UNIT CAP PO SCH (08:11)
[2017-08-04] MEDS: FLUoxetine HCL 10 MG CAP PO SCH (08:11)
[2017-08-04] MEDS: SODIUM CHLOR 0.9% 1000 ML INJ 1,000 ML IV SCH ×2 (10:00)
[2017-08-04 12:00] VITALS: BP 105/59; PULSE 89; RESP 16; TEMP 98; O2SAT 94
[2017-08-04] MEDS: ENOXAPARIN SODIUM 30 MG/0.3 ML SYRINGE SQ SCH (13:53)
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
== END 2017-08-04 14:22 | disposition home or self-care (01) | DRG 482 ==
LOC: NEPC 23:22 → NEDA 08-01 02:02 → N06A 08-01 03:41
PROVIDERS: ADMIT Hospitalist; ATTEND Hospitalist
PROC: 0QS806Z Reposition Right Femoral Shaft with Intramedullary Internal Fixation Device, Open Approach (ICD-10-PCS; 2017-08-02)
PROC: 0SP904Z Removal of Internal Fixation Device from Right Hip Joint, Open Approach (ICD-10-PCS; principal; 2017-08-02 11:07)
DX: S72.141A Displaced intertrochanteric fracture of right femur, initial encounter for closed fracture (principal); F32.9 Major depressive disorder, single episode, unspecified; F41.9 Anxiety disorder, unspecified; Z72.0 Tobacco use; W01.0XXA Fall on same level from slipping, tripping and stumbling without subsequent striking against object, initial encounter; Y92.096 Garden or yard of other non-institutional residence as the place of occurrence of the external cause
CPT/HCPCS: 71045; 73502; 73552; 76000; 80048; 80053; 82306; 85014; 85018; 85025; 85610; 85730; 93005; 94150; 96374; 96375; C1713; J0131; J0690; J1100; J1170; J1580; J1650; J2175; J2250; J2270; J2370; J2405; J3010; J3370; J7030; J7050; J7120

== ENCOUNTER → 2017-10-12 | Day surgery (SDC) | payer OTHER ==
[~2017-10-12] VITALS: Ht 172.7 cm; Wt 66.0 kg
[~2017-10-12] MED LIST changes: +*morphine SULFATE 4 MG/ML PERIprocedure ONLY ONE; +ACETAMINOPHEN 1000 MG/100 ML 100 ML IV ONE; +CALCTAB19 PO; +CHLORHEXIDINE GLUCONATE 2 % 1 PACK (2 CLOTHS) TOPICAL PRN; +CHLORHEXIDINE GLUCONATE 4% SOLN 120 ML BTL TOPICAL SCH; +DO NOT ADM ANY ANTICOAGULANT DRUGS PRN; +ENDO7.5T10 PO; +GENTAMICIN SULFATE 80 MG/2 ML VIAL ONE; +GLYCOPYRROLATE 1 MG/5 ML SYRINGE IV PUSH ONE; +INSULIN HUMAN REGULAR 1,000 UNITS/10 ML VIAL SQ PRN; +LACTATED RINGER'S 1000 ML IV PRN; +LIDOCAINE HCL 1% PF 5 ML SYRINGE OTHER ONE; +METOPROLOL TARTRATE 25 MG TAB PO PRN; +MIDAZOLAM HCL 2 MG/2 ML VIAL ONE; +MORPHINE SULFATE 4 MG/ML INJ IV PUSH PRN; +NEOSTIGMINE 5 MG/5 ML SYRINGE IV PUSH ONE; +ONDANSETRON HCL 4 MG/2 ML VIAL IV ONE; +ONDANSETRON ODT 4 MG TAB PO PRN; -OXYC1TAB63 PO; +PHENYLEPH/NS 1000 MCG/10 ML SYR IV ONE; +POVIDONE IODINE 5% (ANTISEPSIS KIT) 4 APPLICATIONS EACH NARE PRN; +PROPOFOL 200 MG/20 ML AMP IV ONE; +ROCURONIUM INJ 50 MG/5 ML SYRINGE IV PUSH ONE; +SODIUM CHLORID 0.9% 500 ML IV PRN; +SODIUM CHLORIDE 0.9% FLUSH 10 ML FLUSH IV FLUSH PRN; +SODIUM CHLORIDE 0.9% FLUSH 10 ML FLUSH IV FLUSH SCH; +TRAZ50TA12 PO; +VANCOMYCIN 1 GM/200 ML PREMIX ON-CALL IV SCH; +VANCOMYCIN HCL 1000 MG VIAL ONE; +VITA2000 PO; +VITA500012 PO; +WALKER/ADULT/FO1 MIS; +XARE10TA PO; +ceFAZolin 2 GM PREMIX 0 ML ONE; +ceFAZolin INJ 1,000 MG VIAL IV ONE; +oxyCODONE/ACETAMINOPHEN 7.5 MG/325 MG TAB PO PRN
--- NOTE | 2017-10-12 09:04 | PD.OP ---
cc: Anatoly Paul MD Operative Report Date of Surgery: Oct 12, 2017 Preoperative Diagnosis: Painful hardware right shoulder Postoperative Diagnosis: Procedure: Removal of deep hardware right shoulder Anesthesia: General Surgeon: Anatoly Paul Short Filler Bunch Machine Operator(s): Fracisco Haynes PA-C Operation and Findings: Torin is known to me from previous right proximal humerus fracture treated with open reduction internal fixation. He has developed some areas of avascular necrosis and subsequently had painful hardware. Several screws had penetrated the articular surface. Patient has had continued pain and wish to proceed with hardware removal. I also discussed with him the possibility of needing a shoulder replacement. Decision was made to remove hardware first. If he continues to have severe pain and further collapse, he may need shoulder replacement surgery in the future. Risk and benefits of surgery were discussed in depth with patient and informed consent was obtained. Operative site was marked. He is brought the operating room. He was given IV sedation and general anesthesia. He received IV antibiotics. Right arm and shoulder were prepped with alcohol followed Hibiclens and draped in usual sterile fashion. Timeout procedure was performed. Procedure began with a 5 inch incision through previous scar. Subcutaneous tissue assist with Bovie. A standard deltopectoral approach was utilized. Cephalic vein was protected. The deltopectoral interval was opened. Scar tissue was incised around the plate. The plate was now visualized. Using appropriate screwdrivers each of the screws was loosened and removed. The plate was now elevated and removed. Fluoroscopy confirmed appropriate removal of all hardware. Wound was thoroughly irrigated. Fascia was closed with #1 Vicryl, subcutaneous tissue was closed with 3-0 Vicryl, and skin was closed with isai sterile dressings were applied patient was awakened and transferred to recovery in stable condition. Anatoly Paul MD Oct 12, 2017 09:04
[2017-10-12 10:20] VITALS: BP 133/81; PULSE 71; RESP 20; TEMP 96.8; O2SAT 98
--- NOTE | 2017-10-12 10:43 | RADRPT ---
EXAM DATE: 10/12/2017 10:22 AM EDT AGE/SEX: 57 years / Male INDICATIONS: Hardware removal of right humerus. CLINICAL DATA: This is the patient's initial encounter. Patient reports that signs and symptoms have been present for 1 day and indicates a pain score of Nonresponsive. MEDICAL/SURGICAL HISTORY: Non-responsive. Non-responsive. COMPARISON: synapse default, SHOULDER RIGHT COMPLETE (>2VWS), 04/06/2016. . FINDINGS: Previously seen surgical hardware has been removed. There is irregularity of the proximal humerus chr onic in nature. CONCLUSION: Removal of previously seen surgical hardware. Electronically signed by: Key Rosales MD 10/12/2017 10:42 AM EDT
== END | disposition home or self-care (01) ==
LOC: HSDC 05:58
PROVIDERS: ATTEND Orthopaedic Surgery Orthopaedic Trauma
DX: T84.84XA Pain due to internal orthopedic prosthetic devices, implants and grafts, initial encounter (principal); Y83.1 Surgical operation with implant of artificial internal device as the cause of abnormal reaction of the patient, or of later complication, without mention of misadventure at the time of the procedure
CPT/HCPCS: 01630; 20680; 73030; 76000; J0131; J0690; J1580; J2250; J2270; J2370; J2405; J2710; J3010; J7120; J3370